=== PATIENT | female | born 1940 | race Caucasian/White ===

== ENCOUNTER → 2018-04-28 09:20 | Outpatient (CLI) | payer MEDICARE, SELFPAY | PROVIDERS: PCP Family Medicine; Visit Provider Orthopaedic Surgery | DX: M17.11 Unilateral primary osteoarthritis, right knee (principal); M17.12 Unilateral primary osteoarthritis, left knee | CPT/HCPCS: 20610; 99213; J1040 ==

== ENCOUNTER → 2018-07-28 13:01 | Outpatient (BNVA) | payer MEDICARE, SELFPAY | PROVIDERS: PCP Family Medicine; Visit Provider Orthopaedic Surgery | DX: M17.0 Bilateral primary osteoarthritis of knee (principal) | CPT/HCPCS: 20610; 99211; 99213; J7325 ==

== ENCOUNTER 2018-08-24 11:38 | Outpatient (CLI) | payer MEDICARE, SELFPAY ==
--- NOTE | 2018-08-24 12:43 | DI.RAD_ITS ---
SYMPTOMS/DIAGNOSIS: WORSENING KNEE PAIN LEFT KNEE: Three views. No priors. There is moderately severe narrowing of both the medial and lateral femoral tibial joint spaces. Chondrocalcinosis is noted. Periarticular spurring is seen involving all three joint compartments. The bones do appear to be intact. Vascular calcifications are seen. IMPRESSION: Moderately severe degenerative changes of the left knee.
== END 2018-08-24 11:58 ==
PROVIDERS: PCP Family Medicine; Visit Provider Orthopaedic Surgery
DX: M25.562 Pain in left knee (principal); M17.12 Unilateral primary osteoarthritis, left knee
CPT/HCPCS: 20610; 73562; 99211; 99213; J1040

== ENCOUNTER 2018-09-07 11:22 | Outpatient (CLI) | payer MEDICARE, SELFPAY ==
--- NOTE | 2018-09-07 14:27 | DI.RAD_ITS ---
SYMPTOMS/DIAGNOSIS: COUGH, DECREASED BREATH SOUNDS ON EXAM, EXPOSURE, R05, ? PNEUMONIA PA AND LATERAL CHEST: The heart is enlarged. There is hilar prominence bilaterally as noted on multiple previous examinations. The lungs are grossly clear except for some scarring in the lung bases present on previous studies. No pleural effusions seen. CONCLUSION: No evidence of acute change.
== END 2018-09-07 11:42 ==
PROVIDERS: PCP Family Medicine; Visit Provider Student in an Organized Health Care Education/Training Program
DX: R05 Cough (principal); R09.89 Other specified symptoms and signs involving the circulatory and respiratory systems; I51.7 Cardiomegaly
CPT/HCPCS: 71046

== ENCOUNTER 2018-09-10 16:27 | Emergency (ER) | payer MEDICARE, SELFPAY ==
[2018-09-10 16:28] VITALS: BP 162/63; PULSE 64; RESP 18; TEMP 36.7; O2SAT 96
--- NOTE | 2018-09-10 17:25 | DI.RAD_ITS ---
SYMPTOMS/DIAGNOSIS: KNEE PAIN, LEG PAIN LEFT KNEE: The exam is limited by the patient's body habitus. There are degenerative changes greatest at the medial femoral tibial joint. No fracture is visible. IMPRESSION: Limited exam. No gross evidence of a fracture. LEFT TIBIA AND FIBULA: The exam is limited by the patient's body habitus. There is no gross evidence of a fracture. Soft tissue calcifications are noted. IMPRESSION: Limited exam. No acute abnormality.
[2018-09-10] MEDS: HYDROcodone 5/Acetaminophen 325 TAB PO ×2 (17:58→19:58)
--- NOTE | 2018-09-10 18:57 | DI.VRAD_ITS ---
EXAM: XR Left Knee, 3 Views EXAM DATE/TIME: 09/10/2018 6:16 PM CLINICAL HISTORY: 78 years old, female; Pain; Knee; Left; Patient HX: Left knee pain TECHNIQUE: XR Left knee 3 views. COMPARISON: CR XR knee LT 3V AP,lat,viri 08/24/2018 9:31 AM FINDINGS: Bones/joints: Diffuse osteopenia. No fracture or dislocation. Stable marked degenerative joint disease of the left knee with severe medial joint space narrowing, moderate lateral joint space narrowing and scattered spurring. No significant joint effusion. Soft tissues: Stable vascular calcifications. IMPRESSION: Stable exam of the left knee with moderately-severe degenerative joint disease. Dictated and Authenticated by: Mirella Morelos MD. Ordering:JENNY Miranda MD
--- NOTE | 2018-09-10 18:59 | DI.VRAD_ITS ---
EXAM: XR Left Tibia and Fibula, 2 Views EXAM DATE/TIME: 09/10/2018 6:19 PM CLINICAL HISTORY: 78 years old, female; Pain; Lower leg; Left; Patient HX: Left leg pain TECHNIQUE: XR Left tibia and fibula 2 views COMPARISON: CR XR knee LT 3V AP,lat,viri 08/24/2018 9:31 AM FINDINGS: Bones/joints: Diffuse osteopenia. No fracture or dislocation. Moderately-severe degenerative joint disease at the knee. Soft tissues: Diffuse subcutaneous edema. Scattered vascular calcifications. IMPRESSION: 1. No acute bony abnormality. 2. Diffuse subcutaneous edema. Dictated and Authenticated by: Mirella Morelos MD. Ordering:JENNY Miranda MD
--- NOTE | 2018-09-10 19:37 | NUR.NOTE ---
Nursing Note: Pt able to ambulate with walker and SBG with this nurse from bed to wall, steady and slow. Provider aware. Better pain control.
--- NOTE | 2018-09-10 19:40 | W.ED.GENAD ---
Discharge Plan Disposition Patient Disposition: HOME Condition: Stable Discharge Details Chief Complaint: Orthopedic Clinical Impression: Osteoarthrosis, Primary osteoarthritis of both knees Reason For Visit: lilia Primary Care Provider: Dougie Bonner ED Provider: Ruben Pierce Home Meds and New Rx's Prescriptions: Continued Naphcon-A 0.025-0.3 % drops 1 drp OP QID Qty: 10 RF: 0 benzonatate [Tessalon Perles] 100 mg capsule 100 mg PO QID PRN (Reason: cough) Qty: 20 RF: 0 guaifenesin 600 mg tablet extended release 12hr 600 mg PO Q12H Qty: 14 RF: 0 multivitamin [Daily Vitamin] 1 EACH tablet 1 ea PO DAILY RF: 0 lysine 500 MG tablet 500 mg PO DAILY RF: 0 Travatan Z 2.5 ML drops 1 drp Ophthalmic DAILY RF: 0 acetaminophen [Tylenol Extra Strength] 500 MG tablet 1,000 mg PO Q6H PRN RF: 0 timolol maleate 5 ML gel forming solution 1 drp ophthalmic (eye) BID RF: 0 Oxygen EACH 2 l NS 24 hr Qty: 2 RF: 0 torsemide 20 MG tablet 20 mg PO DAILY Qty: 90 RF: 3 lisinopril 20 MG tablet 20 mg PO DAILY Qty: 90 RF: 3 allopurinol 100 MG tablet 100 mg PO DAILY Qty: 90 RF: 4 aspirin [Aspir-81] 81 MG tablet,delayed release (DR/EC) 81 mg PO DAILY 90 Days Qty: 90 RF: 6 nadolol 40 MG tablet 40 mg PO DAILY 90 Days Qty: 90 RF: 3 gabapentin 100 MG capsule 100 mg PO BID PRNQty: 180 RF: 5 lovastatin 20 MG tablet 20 mg PO DAILY Qty: 90 RF: 3 omeprazole 20 MG tablet,delayed release (DR/EC) 20 mg PO DAILY Qty: 90 RF: 3 Varicella-Zoster Ge/As01b/Pf [Shingrix Vial Kit] 50 MCG INJ 50 mcg IM ONCE Qty: 1 RF: 1 Discharge Instructions Instructions: Hydrocodone/Acetaminophen (By mouth), Arthritis (ED) Additional Instructions: Please take your normally prescribed medication and you may use the provided narcotic pain pill sparingly as needed for severe discomfort. Otherwise you should follow-up with your primary care provider on Wednesday as scheduled for reassessment. Feel free to return to emergency department for any new or significant worsening of symptoms. Referrals: Dougie Bonner DO [Primary Care Provider] - (Please keep your appointment as scheduled for Wednesday for addressing your chronic pain and mobility issues) Discharge Data Discharge Date/Time-TO BE ENTERED AT DEPARTURE: 09/10/18 20:40 Medical Decision Making Patient presenting the emergency department for chief complaint of difficulty walking due to significant left knee pain. Patient states that she has been followed by orthopedist and is not a surgical candidate and has been receiving injections but recently they have not been working and she is having worsening pain and discomfort. She denies attempting to contact orthopedist prior to coming to emergency department. Physical exam is limited by patient's body habitus patient does have tenderness to left knee. I suspect more of continued arthritis and degeneration plan to perform radiological imaging to rule out any acute changes given the patient states over the last 3 days she has had worsening symptoms and difficulty walking. Patient denies any blunt injury or trauma that exacerbated her symptoms. Review of radiological imaging shows degenerative changes otherwise no other acute findings are noted. Patient was encouraged to use walker and to follow-up with primary care provider/orthopedist for reassessment and treatment plan for chronic pain and mobility issues secondary to arthritis HPI General Mode of arrival: EMS. Date/Time Provider Initiated Documentation: 09/10/18 16:31. Limitations to Documentation: no limitations. Information obtained by: patient and RN notes reviewed. History of Present Illness 78 year old F presents to the emergency department with the chief complaint of Left knee, described as severe and similar to prior episodes, with intensity rated at 10. Quality is described as sharp, and is localized to the left and lower extremity. Patient reports no radiation. Patient started experiencing this day(s) (3) and it has been constant. No relieving factors improve symptom(s), Patient notes no other symptoms.. Patient did receive the following treatments prior to arrival, none Related Data Home Medications Medication Instructions Recorded Confirmed lysine 500 mg PO DAILY 12/15/12 09/12/18 multivitamin [Daily Vitamin] 1 ea PO DAILY 12/15/12 09/12/18 Travatan Z 1 drp OPHTHALMIC DAILY drp 11/08/15 09/12/18 acetaminophen [Tylenol Extra 1,000 mg PO Q6H PRN tab-cap 02/20/16 09/12/18 Strength] timolol maleate 1 drp OPHTHALMIC (EYE) BID drp 07/16/16 09/12/18 Oxygen 2 l NS 24 hr #2 08/27/16 09/12/18 allopurinol 100 mg PO DAILY #90 tab-cap 11/25/17 09/12/18 aspirin [Aspir-81] 81 mg PO DAILY 90 Days #90 tab-cap 11/25/17 09/12/18 gabapentin 100 mg PO BID PRN #180 tab-cap 11/25/17 09/12/18 lisinopril 20 mg PO DAILY #90 tab-cap 11/25/17 09/12/18 lovastatin 20 mg PO DAILY #90 tab 11/25/17 09/12/18 nadolol 40 mg PO DAILY 90 Days #90 tab-cap 11/25/17 09/12/18 omeprazole 20 mg PO DAILY #90 tab-cap 11/25/17 09/12/18 torsemide 20 mg PO DAILY #90 tab-cap 11/25/17 09/12/18 Varicella-Zoster Ge/As01b/Pf 50 mcg IM ONCE #1 kit 04/12/18 09/10/18 [Shingrix Vial Kit] naphazoline 0.025 %-pheniramine 1 drp OP QID #10 ml 05/25/18 09/12/18 0.3 % eye drops benzonatate 100 mg capsule 100 mg PO QID PRN #20 cap 09/07/18 09/12/18 guaifenesin ER 600 mg tablet, 600 mg PO Q12H #14 tab 09/07/18 09/12/18 extended release 12 hr Previous Rx's Medication Instructions Recorded allopurinol 100 mg PO DAILY #90 tab-cap 11/25/17 aspirin [Aspir-81] 81 mg PO DAILY 90 Days #90 tab-cap 11/25/17 lisinopril 20 mg PO DAILY #90 tab-cap 11/25/17 lovastatin 20 mg PO DAILY #90 tab 11/25/17 nadolol 40 mg PO DAILY 90 Days #90 tab-cap 11/25/17 omeprazole 20 mg PO DAILY #90 tab-cap 11/25/17 torsemide 20 mg PO DAILY #90 tab-cap 11/25/17 naphazoline 0.025 %-pheniramine 1 drp OP QID #10 ml 05/25/18 0.3 % eye drops benzonatate 100 mg capsule 100 mg PO QID PRN #20 cap 09/07/18 guaifenesin ER 600 mg tablet, 600 mg PO Q12H #14 tab 09/07/18 extended release 12 hr Allergies Allergy/AdvReac Type Severity Reaction Status Date / Time aspirin AdvReac Mild GI upset, Verified 09/10/18 16:38 tolerates 81mg codeine AdvReac GI upset Verified 09/10/18 16:38 General Stated Complaint: Orthopedic GREG: 3 Review of Systems Constitutional Denies chills, Denies fever(s) and Denies frequent falls Cardiovascular Denies chest pain, Denies edema and Denies dyspnea Respiratory Denies dyspnea Musculoskeletal Reports as per HPI, Denies back pain, Reports arthralgias, Denies joint swelling, Denies numbness, Reports stiffness and Denies tingling Neurologic Denies frequent falls, Denies numbness and Denies tingling PFS Medical History CARLOS (obstructive sleep apnea) (Chronic) Anemia (Chronic) Unspecified diastolic heart failure (Chronic 05/27/12) Trigeminal neuralgia of left side of face (Chronic 02/17/17) Sarcoidosis (Chronic 02/11/12) Spinal stenosis (Chronic 02/11/12) Restrictive lung disease (Chronic 03/19/16) Primary osteoarthritis of both knees (Chronic 09/23/15) Osteoarthrosis (Chronic 02/23/13) Obesity hypoventilation syndrome (Chronic 09/29/16) Obesity (Chronic 04/05/13) Gout of right foot (Resolved 01/17/16) Congestive heart failure (Chronic 01/19/17) Irritable bowel syndrome (IBS) (Chronic) IFG (impaired fasting glucose) (Suspected 02/11/12) Surgical History Appendectomy (Resolved) Cholecystectomy (Resolved) Tonsillectomy and adenoidectomy (Resolved) Family History Mother No problems noted. Father No problems noted. Daughter No problems noted. Social History adopted: No caregiver/support person: No foster care: No household members: other details: apartment in [facility] housing: apartment lives independently: Yes number of children: 3 current occupational status: retired Smoking/Tobacco Use Status: Never alcohol intake: never substance use type: does not use working smoke detector in home: Yes carbon monox detector in home: Yes Exam Const General: cooperative and no acute distress Nutritional Appearance: obese Orientation: alert, awake and oriented x3 Resp Effort & Inspection: normal respiratory effort and able to speak in complete sentences Cardio Rate: regular rate Rhythm: regular rhythm Extrem Left lower extremity: hip/thigh Details: no tenderness and no swelling and knee Details: tenderness Location: of the medial joint line, of the lateral joint line and of the proximal tibia, abnormal ROM (Pain with any range of motion type activities) and knee ligament exam abnormal (Difficult to perform ligamentous testing due to patient's body habitus) Course Vital Signs Temperature 36.7 C 09/10/18 16:28 Pulse 64 09/10/18 16:28 Respiratory Rate 18 09/10/18 16:28 Blood Pressure 162/63 H 09/10/18 16:28 Pulse Oximetry 96 09/10/18 16:28 Temperature 36.7 C 09/10/18 16:28 Temperature Source Temporal Artery Scan 09/10/18 16:28 Pulse 64 09/10/18 16:28 Respiratory Rate 18 09/10/18 16:28 Respiratory Effort Non-Labored 09/10/18 16:34 Blood Pressure 162/63 H 09/10/18 16:28 Blood Pressure Position Supine 09/10/18 16:28 Pulse Oximetry 96 09/10/18 16:28 Oxygen Delivery Method Room Air 09/10/18 16:28 Oxygen Flow Rate 0 09/10/18 16:28 Pain Level 8 09/10/18 17:58
[2018-09-10 19:59] VITALS: BP 150/76; PULSE 61; RESP 16; TEMP 36.7; O2SAT 96
== END 2018-09-10 20:40 | disposition home or self-care (01) ==
PROVIDERS: Emergency Provider Nurse Practitioner Family; PCP Family Medicine
DX: M17.0 Bilateral primary osteoarthritis of knee (principal)
CPT/HCPCS: 73562; 99284; 73590; 99283

== ENCOUNTER 2018-09-12 11:52 | Inpatient (IN) | payer MEDICARE, SELFPAY ==
[2018-09-12] VITALS (93 sets, daily range): BP systolic 109–143; BP diastolic 37–83; PULSE 51–72; RESP 10–28; TEMP 36.3–36.8; O2SAT 78–99
--- NOTE | 2018-09-12 12:08 | ED.GENADUL_ITS ---
Discharge Plan Disposition Condition: Improving Discharge Details Chief Complaint: Nausea/Vomit/Diar Reason For Visit: DEHYDRATION Admit Date/Time: 09/12/18 16:55 Admit Provider: Luis Manuel Saha Attending Provider: Luis Manuel Saha Primary Care Provider: Dougie Bonner ED Provider: Fernando Souza Discharge Instructions Activity:: Activity as Tolerated Equipment/Supplies:: Oxygen (L/min Below) Diet:: As Tolerated Discharge Orders Discharge Orders: Discharge Order (Routine); Ordered 09/19/18 Ordered By: Ivanna Guidry Discharge Data Discharge Date/Time-TO BE ENTERED AT DEPARTURE: 09/12/18 18:19 Medical Decision Making <Latoya Duong MD - Last Filed: 09/20/18 12:01> Christiane Jackson is an 78 y/o woman with multiple medical problems presenting to the emergency deparmtent with difficulty walking over the past week 2/2 left knee pain, decreased PO intake and mild confusion over the past 2 days since taking vicodin for knee pain. On exam Pt appears dehydrated and chronically ill but not in extremis. Concern for dehydration, occult infection, metabolic/lyte derangement, ACS vs other, possible LLE DVT. Exam/hx not c/w PE, acute aortic process, meningitis, CVA. Plan for EKG, CXR, CT head, screening labs, judicious fluids given CHF, telemetry. Will monitor and reassess. Given dehydration, failure to thrive at home per family despite their efforts to care for her over the past few days, I do not have confidence that the Pt will be able to recover well if discharged. Plan for admission. Clinical Impression: dehydration, FTT DIsposition: [facility] inpatient Medical Records Medical records reviewed: Yes I reviewed the patient's medical records. Imaging Data Radiologic Study: Attestation: I personally reviewed and interpreted this imaging study as follows: Radiologist's impression: AP AND LATERAL CHEST: Comparison is made with August,. The exam is limited by the patient's body habitus. The heart is enlarged. The lungs are suboptimally inflated on both views. Basilar infiltrates and mild pulmonary edema cannot be excluded. No effusions are seen. IMPRESSION: Cardiomegaly. Limited exam. No gross evidence of an acute abnormality. LEFT LOWER EXTREMITY ULTRASOUND: The exam is limited by the patient's body habitus. The femoral and popliteal veins and saphenous vein are free of thrombus. The calf veins are poorly visualized. A Fernando's cyst is seen in the posteromedial knee measuring 4.5 cm in length. IMPRESSION: Fernando's cyst. No evidence of DVT. The calf region was not well seen. Lab Data Lab results reviewed: Yes I reviewed the patient's lab results. ECG Data Attestation: I personally reviewed and interpreted this ECG (s) as follows: Interpretation: EKG shows sinus bradycardia at 55 with normal axis, right bundle branch block, no ischemic changes HPI <Latoya Duong MD - Last Filed: 09/20/18 12:01> General Mode of arrival: EMS . Date/Time Provider Initiated Documentation: 09/12/18 12:07 . Limitations to Documentation: no limitations . Information obtained by: patient, family, RN notes reviewed and old records rev iewed . HPI Narrative: Christiane is an 78-year-old woman with history of obesity hypoventilation syndrome, restrictive lung disease, congestive heart failure, hyperlipidemia, hypertension presenting to the emergency department with decreased appetite for past several days, nausea, not getting out of bed. Patient reports that she was seen here recently for knee pain, and prescribed Vicodin. She reports that 2 days ago she took a Vicodin which made her feel very nauseous. Yesterday she again take a Vicodin, which made her feel nauseous. She reports that she has not eaten anything over the past few days because of this. She has not had much to drink either. Patient reports that she now feels generally unwell and somewhat dehydrated. She denies having pain, other than pain behind her left knee that has been ongoing for several weeks. She denies shortness of breath. No fevers, no diarrhea, no vomiting, no rash. Patient's family reports that patient has been mildly confused. They report that patient has seemed disoriented at times over the past few days, and she continues to not seem quite at baseline now. Related Data Home Medications Medication Instructions Recorded Confirmed lysine 500 mg PO DAILY 12/15/12 09/12/18 multivitamin [Daily Vitamin] 1 ea PO DAILY 12/15/12 09/12/18 Travatan Z 1 drp OPHTHALMIC DAILY drp 11/08/15 09/12/18 timolol maleate 1 drp OPHTHALMIC (EYE) BID drp 07/16/16 09/12/18 Oxygen 2 l NS 24 hr #2 08/27/16 09/12/18 aspirin [Aspir-81] 81 mg PO DAILY 90 Days #90 tab-cap 11/25/17 09/12/18 lisinopril 20 mg PO DAILY #90 tab-cap 11/25/17 09/12/18 lovastatin 20 mg PO DAILY #90 tab 11/25/17 09/12/18 nadolol 40 mg PO DAILY 90 Days #90 tab-cap 11/25/17 09/12/18 omeprazole 20 mg PO DAILY #90 tab-cap 11/25/17 09/12/18 torsemide 20 mg PO DAILY #90 tab-cap 11/25/17 09/12/18 acetaminophen [Tylenol] 325 - 650 mg PO Q4H PRN PRN #0 tab 09/19/18 lidocaine [Lidoderm] 1 patch TOPICAL DAILY #0 ea 09/19/18 polyethylene glycol 3350 17 g PO BID #0 ea 09/19/18 Previous Rx's Medication Instructions Recorded aspirin [Aspir-81] 81 mg PO DAILY 90 Days #90 tab-cap 11/25/17 lisinopril 20 mg PO DAILY #90 tab-cap 11/25/17 lovastatin 20 mg PO DAILY #90 tab 11/25/17 nadolol 40 mg PO DAILY 90 Days #90 tab-cap 11/25/17 omeprazole 20 mg PO DAILY #90 tab-cap 11/25/17 torsemide 20 mg PO DAILY #90 tab-cap 11/25/17 acetaminophen [Tylenol] 325 - 650 mg PO Q4H PRN PRN #0 tab 09/19/18 lidocaine [Lidoderm] 1 patch TOPICAL DAILY #0 ea 09/19/18 polyethylene glycol 3350 17 g PO BID #0 ea 09/19/18 Allergies Allergy/AdvReac Type Severity Reaction Status Date / Time aspirin AdvReac Mild GI upset, Verified 09/10/18 16:38 tolerates 81mg codeine AdvReac GI upset Verified 09/10/18 16:38 General Stated Complaint: Nausea/Vomit/Diar GREG: 3 Review of Systems <Latoya Duong MD - Last Filed: 09/20/18 12:01> Review of Systems Constitutional: denies fevers, reports fatigue, malaise, decreased appetite Eyes: denies eye pain ENT: denies facial pain, dental pain, sore throat Cardiovascular: denies chest pain, edema Respiratory: denies SOB, cough GI: denies abdominal pain, vomiting, diarrhea : denies flank pain MSK: denies back pain, neck pain, myalgias, reports left knee pain Skin: denies rash Neuro: denies headaches, lightheadedness, reports generalized weakness PFSH <Latoya Duong MD - Last Filed: 09/20/18 12:01> Medical History Unspecified diastolic heart failure (Chronic 05/27/12) Trigeminal neuralgia of left side of face (Chronic 02/17/17) Sarcoidosis (Chronic 02/11/12) Spinal stenosis (Chronic 02/11/12) Restrictive lung disease (Chronic 03/19/16) Primary osteoarthritis of both knees (Chronic 09/23/15) Osteoarthrosis (Chronic 02/23/13) Obesity hypoventilation syndrome (Chronic 09/29/16) Obesity (Chronic 04/05/13) Gout of right foot (Resolved 01/17/16) Congestive heart failure (Chronic 01/19/17) Irritable bowel syndrome (IBS) (Chronic) IFG (impaired fasting glucose) (Suspected 02/11/12) Social History adopted: No caregiver/support person: No foster care: No household members: other details: apartment in [facility] housing: apartment lives independently: Yes number of children: 3 current occupational status: retired Smoking/Tobacco Use Status: Never alcohol intake: never substance use type: does not use working smoke detector in home: Yes carbon monox detector in home: Yes Exam <Latoya Duong MD - Last Filed: 09/20/18 12:01> Narrative Exam Narrative: Constitutional: chronically ill but acutely [id number], pleasant, conversing normally HENT: head atraumatic, normocephalic normal inspection, mucous membranes dry Eyes: conjunctiva normal, sclera normal, pupils 3mm b/l Neck: no stridor, normal ROM, trachea midline Chest: normal inspection Resp: normal work of breathing, LCTAB Cardio: normal rate, normal rhythm, no murmur appreciated GI: abdomen soft, non-tender, non-distended Back: normal inspection, no rash Skin: warm, dry, normal color, no rash Neuro: alert and oriented x3, not altered, grossly non-focal, normal tone Ext: left knee with TTP posteriorly, ROM slightly limited 2/2 pain, no effusionor skin changes, no edema of LEs Psych: normal mood, normal affect, normal behavior Course <Latoya Duong MD - Last Filed: 09/20/18 12:01> Vital Signs Temperature 36.6 C 09/12/18 11:52 Pulse 64 09/12/18 11:52 Respiratory Rate 16 09/12/18 11:52 Blood Pressure 122/49 L 09/12/18 11:52 Pulse Oximetry 96 09/12/18 11:52 Temperature 36.6 C 09/12/18 11:52 Temperature Source Temporal Artery Scan 09/12/18 11:52 Pulse 64 09/12/18 11:52 Respiratory Rate 16 09/12/18 11:52 Blood Pressure 122/49 L 09/12/18 11:52 Blood Pressure Position Sitting 09/12/18 11:52 Pulse Oximetry 96 09/12/18 11:52 Oxygen Delivery Method Room Air 09/12/18 11:52 Oxygen Flow Rate 0 09/12/18 11:52 Pain Level 0 09/12/18 11:52 Sign Out <Latoya Duong MD - Last Filed: 09/20/18 12:01> Sign Out Data: Sign Out Comment: Patient signed out to Dr. Souza at time of shift change. Patient has been accepted for admission by hospitalist, but has not been seen by the hospitalist. She has UA, repeat troponin, and CT head pending. Last updated by Latoya Duong MD at 09/12/18 17:21
--- NOTE | 2018-09-12 12:38 | DI.RAD_ITS ---
SYMPTOMS/DIAGNOSIS: GENERALIZED WEAKNESS, NAUSEA AP AND LATERAL CHEST: Comparison is made with August,. The exam is limited by the patient's body habitus. The heart is enlarged. The lungs are suboptimally inflated on both views. Basilar infiltrates and mild pulmonary edema cannot be excluded. No effusions are seen. IMPRESSION: Cardiomegaly. Limited exam. No gross evidence of an acute abnormality.
[2018-09-12] MEDS: Normal Saline 250 ML IV (12:40)
--- NOTE | 2018-09-12 12:41 | DI.US_ITS ---
SYMPTOMS/DIAGNOSIS: LEFT LEG PAIN LEFT LOWER EXTREMITY ULTRASOUND: The exam is limited by the patient's body habitus. The femoral and popliteal veins and saphenous vein are free of thrombus. The calf veins are poorly visualized. A Fernando's cyst is seen in the posteromedial knee measuring 4.5 cm in length. IMPRESSION: Fernando's cyst. No evidence of DVT. The calf region was not well seen.
[2018-09-12 13:18] LABS: Abs Immature Grans 0.07 k/cumm (0.0-0.09); Absolute Basophil Count 0.02 k/cumm (0.0-0.2); Absolute Eosinophil Count 0.12 k/cumm (0.0-0.7); Absolute Lymphocyte Count 0.71 k/cumm (1.2-3.4); Absolute Monocyte Count 0.56 k/cumm (0.11-0.7); Absolute Neutrophil Count 3.98 k/cumm (1.2-6.7); Basophils % 0.4; Eosinophils % 2.2; HCT 33.4 % (36.0-46.0); HGB 9.7 g/dL (12.0-15.5); Immature Grans % 1.3; Mean Platelet Volume 8.9 fL (8.0-11.0); Monocytes % 10.3; Neutrophils % 72.8; Platelet Count 195 x1000/uL (130-400); RBC 3.34 m/cumm (4.00-5.20); RBC Distribution Width 14.6 % (11.7-14.6); White Blood Cell Count 5.46 k/cumm (4.4-10.8)
[2018-09-12 13:31] LABS: ALT 16 U/L (12-78); AST 21 U/L (15-37); Albumin 2.7 g/dL (3.4-5.0); Alkaline Phosphatase 77 U/L (46-116); Anion Gap 1.9 mmol/L (3-11); BUN 26 mg/dL (7-18); Bilirubin, Total 0.5 mg/dL (0.2-1.0); CO2 42.1 mmol/L (21.0-32.0); CREATININE 1.48 mg/dL (0.55-1.02); Chloride 101 mmol/L (98-107); Estimated GFR 33.93 (mL/min/1.73m2); Glucose 120 mg/dL (70-100); Lipase 111 U/L (73-393); Potassium 4.6 mmol/L (3.5-5.1); Sodium 145 mmol/L (136-145); Total Protein 6.7 g/dL (6.4-8.2); Troponin I 0.03 ng/mL (0.00-0.06)
[2018-09-12 13:32] LABS: Diff Comment RBC Morph Reviewed
[2018-09-12 13:33] LABS: Polychromasia Present
--- NOTE | 2018-09-12 13:41 | NUR.NOTE ---
Pt. is currently in DI
--- NOTE | 2018-09-12 16:42 | DI.CT_ITS ---
SYMPTOM/DIAGNOSIS: CONFUSION NONCONTRAST HEAD CT: No intracranial hemorrhage, mass or infarct is seen. There is no evidence of skull fracture. White matter changes consistent with small vessel disease and mild atrophy are noted. The ventricles are normal in size. IMPRESSION: No acute abnormality.
[2018-09-12] MEDS: Normal Saline 1,000 ML 100 ML IV (16:44)
--- NOTE | 2018-09-12 16:54 | NUR.NOTE ---
MD Duong aware, pt. straight cathed, no urine returned. Cath left in place. 250cc NS bolus administered as ordered.
--- NOTE | 2018-09-12 17:22 | NUR.NOTE ---
900 ccs urine straight cathed.
[2018-09-12] MEDS: Normal Saline 1,000 ML 75 ML IV (17:23)
[2018-09-12 17:30] LABS: Bilirubin Negative (Negative); Blood Negative (Negative); Clarity Cloudy; Glucose Negative (Negative); Ketones Negative (Negative); Leukocyte Esterase Negative (Negative); Nitrite Negative (Negative); Urobilinogen 0.2 EU/dL (Up TO 0.2); pH 5.5 (5-8)
--- NOTE | 2018-09-12 18:12 | DI.VRAD_ITS ---
EXAM: CT Head Without Contrast EXAM DATE/TIME: 09/12/2018 4:43 PM CLINICAL HISTORY: 78 years old, female; Signs and symptoms; Other: Confusion TECHNIQUE: Axial computed tomography images of the head/brain without contrast. Coronal and sagittal reformatted images were created and reviewed. COMPARISON: MRI - BRAIN W/WO CONTRAST 08/25/2016 4:32 PM FINDINGS: Brain: Global cerebral atrophy is consistent with patient's age. There is mild diffuse heterogeneity of the white matter attenuation, consistent with chronic white matter ischemic changes. No intracranial hemorrhage. No mass effect. No CT scan evidence of acute stroke. Ventricles: Unremarkable. No ventriculomegaly. Bones/joints: Unremarkable. No acute fracture. Sinuses: Normal as visualized. No acute sinusitis. Mastoid air cells: Normal as visualized. No mastoid effusion. Soft tissues: Unremarkable. Vasculature: Atherosclerosis of the cavernous carotid and vertebral arteries. IMPRESSION: No acute intracranial abnormality. Dictated and Authenticated by: Adryan Gore MD. Ordering:DAR Klein MD
[2018-09-12 18:31] LABS: Troponin I 0.03 ng/mL (0.00-0.06)
[2018-09-12] MEDS: Enoxaparin 30 MG/0.3 ML SYR SC (22:34)
[2018-09-12] MEDS: Travoprost 0.004% Ophth Sol 2.5 ML BTL OP (22:34)
[2018-09-12] MEDS: Gabapentin 100 MG CAP PO ×2 (22:34→23:39)
[2018-09-12] MEDS: Normal Saline Flush 10 ML SYR IVP (23:20)
--- NOTE | 2018-09-12 23:40 | HPE_ITS ---
Date of service: 09/12/18 Time of Service: 23:34 Assessment and Plan (1) Nausea vomiting and diarrhea: Current visit: Yes Status: Acute Patient has had poor appetite and poor p.o. intake for 3 days now. She h as signs and symptoms of moderate dehydration. We will have her on low-dose normal saline for some hydration and continue her on a regular diet. Admitted for observation (2) Weakness: Current visit: Yes Status: Acute New onset weakness may be related to her left knee pain. She is not very mobile or ambulatory normally. She had a recent corticosteroid injection in the left knee which she says has not helped. Will ask physical therapy and occupational therapy to assess her for her mobility issues. Hydration may help. (3) Trigeminal neuralgia of left side of face: Current visit: Yes Status: Chronic She has been on Neurontin, currently at 200 mg at at bedtime. He is also on Neurontin for the paresthesias of her lower extremity. We will continue at present dose. (4) Sarcoidosis: Current visit: Yes Status: Chronic Sarcoidosis has burned out. She is off steroids. She says Dr. Zafar does not feel it contributes to her current respiratory problems. (5) Restrictive lung disease: Current visit: Yes Status: Chronic Obstructive sleep apnea, obesity hypoventilation syndrome, restrictive lung disease all contribute to her ongoing respiratory issues. She is on chronic home O2 2 L/min daytime 4 L/min nighttime along with her CPAP at night. We will continue with her present regimen. Chest x-ray is reassuring that there is no acute process. (6) Obesity hypoventilation syndrome: Current visit: Yes Status: Chronic Continue with nocturnal CPAP. Her bicarb level is elevated at 42.1. (7) Chronic renal failure: Current visit: Yes Status: Acute Baseline creatinine 1.48. Will monitor urine output. Urinalysis is negative. Renally adjust medications. (8) Discharge planning issues: Current visit: Yes Status: Acute Patient is a full code admitted to observation status. She is MedSurg boarder in the ICU. History of Present Illness Chief Complaint: Mental status change/weakness Narrative: This is an 78-year-old woman who is troubled with obesity hypoventilation syndrome and severe osteoarthritis who was found this evening by her granddaughters to have new onset confusion. They note that for the last few days her appetite's been off, today she would not get out of bed. She was seen on 09/10/2018 because of left knee pain and was prescribed Vicodin. She took one at day and 1 on . She says her symptoms have really been ever since she took the Vicodin. In the emergency room she had a head CT that showed atrophy but no other abnormality urinalysis was negative duplex of the left leg was negative chest x- ray limited by her size but showed no abnormality flu swab was negative. Her labs were largely unchanged from baseline. Given her overall weakness and debility coupled with her constellation of symptoms she is admitted for further observation, physical therapy, occupational therapy. Review of Systems Constitutional Reports difficulty sleeping (Falls asleep at 5 AM then sleeps much of the day), Denies excessive sweating, Denies frequent falls, Denies headache(s), Reports poor appetite and Reports weakness ENT Denies headache(s) and Denies throat swelling Cardiovascular Denies chest pain, Denies edema, Denies dyspnea, Denies dyspnea on exertion and Denies orthopnea Respiratory Denies chest congestion, Denies cough, Denies dyspnea and Denies dyspnea on exertion Gastrointestinal Denies diarrhea, Denies nausea and Denies vomiting Genitourinary Denies urinary frequency Musculoskeletal Denies back pain, Denies deformity, Reports muscle weakness and Reports radiating pain into limb (Left knee, paresthesias of the left foot) Integumentary/Breasts Denies rash, Denies sores and Denies wounds Neurologic Reports behavioral changes (Confusion noted by her granddaughters has improved), Denies confusion, Denies frequent falls, Denies headache(s), Reports restless legs (Twitching of upper and lower extremities since the Vicodin), Reports paresthesias (Left foot) and Reports weakness Psychiatric Reports behavioral changes (Confusion noted by her granddaughters has improved), Denies confusion, Denies depression and Denies suicidal ideation Endocrine Denies excessive sweating Hematologic/Lymphatic Denies easy bleeding and Denies easy bruising Allergic/Immunologic Denies urticaria and Denies throat swelling [facility] Medical History Unspecified diastolic heart failure (Chronic 05/27/12) Trigeminal neuralgia of left side of face (Chronic 02/17/17) Sarcoidosis (Chronic 02/11/12) Spinal stenosis (Chronic 02/11/12) Restrictive lung disease (Chronic 03/19/16) Primary osteoarthritis of both knees (Chronic 09/23/15) Osteoarthrosis (Chronic 02/23/13) Obesity hypoventilation syndrome (Chronic 09/29/16) Obesity (Chronic 04/05/13) Gout of right foot (Resolved 01/17/16) Congestive heart failure (Chronic 01/19/17) Irritable bowel syndrome (IBS) (Chronic) IFG (impaired fasting glucose) (Suspected 02/11/12) Surgical History Appendectomy (Resolved) Cholecystectomy (Resolved) Tonsillectomy and adenoidectomy (Resolved) Family History Mother No problems noted. Father No problems noted. Daughter No problems noted. Social History adopted: No caregiver/support person: No foster care: No household members: other details: apartment in [facility] housing: apartment lives independently: Yes number of children: 3 current occupational status: retired Smoking/Tobacco Use Status: Never alcohol intake: never substance use type: does not use working smoke detector in home: Yes carbon monox detector in home: Yes Meds Home Medications Medication Instructions Recorded Confirmed Type lysine 500 mg PO DAILY 12/15/12 09/12/18 History multivitamin [Daily Vitamin] 1 ea PO DAILY 12/15/12 09/12/18 History Travatan Z 1 drp OPHTHALMIC DAILY drp 11/08/15 09/12/18 History acetaminophen [Tylenol Extra 1,000 mg PO Q6H PRN tab-cap 02/20/16 09/12/18 History Strength] timolol maleate 1 drp OPHTHALMIC (EYE) BID drp 07/16/16 09/12/18 History Oxygen 2 l NS 24 hr #2 08/27/16 09/12/18 History allopurinol 100 mg PO DAILY #90 tab-cap 11/25/17 09/12/18 Rx aspirin [Aspir-81] 81 mg PO DAILY 90 Days #90 tab-cap 11/25/17 09/12/18 Rx gabapentin 100 mg PO BID PRN #180 tab-cap 11/25/17 09/12/18 History lisinopril 20 mg PO DAILY #90 tab-cap 11/25/17 09/12/18 Rx lovastatin 20 mg PO DAILY #90 tab 11/25/17 09/12/18 Rx nadolol 40 mg PO DAILY 90 Days #90 tab-cap 11/25/17 09/12/18 Rx omeprazole 20 mg PO DAILY #90 tab-cap 11/25/17 09/12/18 Rx torsemide 20 mg PO DAILY #90 tab-cap 11/25/17 09/12/18 Rx Varicella-Zoster Ge/As01b/Pf 50 mcg IM ONCE #1 kit 04/12/18 09/10/18 History [Shingrix Vial Kit] naphazoline 0.025 %-pheniramine 1 drp OP QID #10 ml 05/25/18 09/12/18 Rx 0.3 % eye drops benzonatate 100 mg capsule 100 mg PO QID PRN #20 cap 09/07/18 09/12/18 Rx guaifenesin ER 600 mg tablet, 600 mg PO Q12H #14 tab 09/07/18 09/12/18 Rx extended release 12 hr Allergies Allergy/AdvReac Type Severity Reaction Status Date / Time aspirin AdvReac Mild GI upset, Verified 09/10/18 16:38 tolerates 81mg codeine AdvReac GI upset Verified 09/10/18 16:38 Exam Narrative Exam Narrative: Markedly obese woman lying comfortably in bed. She is awake and alert able to give a good history. Const General: cooperative, comfortable and no acute distress Nutritional Appearance: obese Orientation: alert, awake and oriented x3 HENMT Head: normal to inspection Ears: hearing grossly normal bilaterally General nose exam: external nose normal Face and sinus: face symmetric Mouth: oropharynx normal Eyes General: appearance normal, both eyes and all related structures Neck Neck: normal visual inspection and other (Massive neck with redundant tissue no abnormalities apparent) Thyroid: symmetrical Carotids: normal carotid upstroke Lymphatic: no lymphadenopathy noted Chest Chest: normal inspection of the chest Resp Effort & Inspection: normal respiratory effort Auscultation: crackles (Fine crackles bilaterally otherwise good air movement) Cardio Jugular venous pressure: no JVD Rate: regular rate Rhythm: regular rhythm Heart Sounds: S1 normal, S2 normal and no murmurs GI Inspection: normal to inspection Palpation: soft, no hepatosplenomegaly and nontender External Female Exam: external appearance normal Back/Spine/Pelvis Back: no CVA tenderness Cervical Spine: normal cervical lordosis Thoracic/Lumbar Spine: thoracic and lumbar spine normal to inspection Skin General skin exam: no rashes or lesions noted Wounds: no wounds Neuro General: alert, awake, oriented x3, moves all extremities, no focal motor deficits, unable to assess gait and other (Twitching noted when asked to move onto her side, self abating) Cranial Nerves: CN's II-XI intact bilaterally Cognition: normal cognition Speech: speech normal Extrem General: normal to inspection, no clubbing, cyanosis or edema and no pedal edema (Adipose tissue around the ankles) Psych Appearance: grossly normal Mental Status: mental status grossly normal Speech and Movement: speech and movement normal Mood: congruent mood Affect: normal affect Attitude: cooperative Thought Process: normal Thought Content: normal Insight: fair Results Imaging Imaging Studies: Lower extremity duplex on the left negative, chest x- ray limited exam no acute abnormality compared to 09/07/2018, head CT showed a ge-appropriate atrophy but no abnormality Labs : 09/12/18 13:00 09/12/18 13:00 Laboratory Results - last 24 hr 09/12/18 09/12/18 09/12/18 13:00 13:00 17:17 WBC 5.46 RBC 3.34 L Hgb 9.7 L Hct 33.4 L MCV 100.0 H MCH 29.0 MCHC 29.0 L RDW 14.6 Plt Count 195 MPV 8.9 Immature Gran % 1.3 Neutrophils % 72.8 Lymphocytes % 13.0 Monocytes % 10.3 Eosinophils % 2.2 Basophils % 0.4 Absolute Neutrophils 3.98 Absolute Lymphocytes 0.71 L Absolute Monocytes 0.56 Absolute Eosinophils 0.12 Absolute Basophils 0.02 Differential Comment Rbc morph reviewed RBC Morphology See below Polychromasia Present Sodium 145 Potassium 4.6 Chloride 101 Carbon Dioxide 42.1 H Anion Gap 1.9 L BUN 26 H Creatinine 1.48 H Estimated GFR/1.73 m2 33.93 Glucose 120 H Calcium 9.0 Total Bilirubin 0.5 AST 21 ALT 16 Alkaline Phosphatase 77 Troponin I 0.03 Total Protein 6.7 Albumin 2.7 L Lipase 111 Urine Color Yellow Urine Clarity Cloudy Urine pH 5.5 Ur Specific Foster 1.020 Urine Protein Negative Urine Ketones Negative Urine Blood Negative Urine Nitrite Negative Urine Bilirubin Negative Urine Urobilinogen 0.2 Ur Leukocyte Esterase Negative Urine Glucose Negative 09/12/18 09/12/18 17:20 17:50 WBC RBC Hgb Hct MCV MCH MCHC RDW Plt Count MPV Immature Gran % Neutrophils % Lymphocytes % Monocytes % Eosinophils % Basophils % Absolute Neutrophils Absolute Lymphocytes Absolute Monocytes Absolute Eosinophils Absolute Basophils Differential Comment RBC Morphology Polychromasia Sodium Potassium Chloride Carbon Dioxide Anion Gap BUN Creatinine Estimated GFR/1.73 m2 Glucose Calcium Total Bilirubin AST ALT Alkaline Phosphatase Troponin I 0.03 Total Protein Albumin Lipase Urine Color Cancelled Urine Clarity Cancelled Urine pH Cancelled Ur Specific Foster Cancelled Urine Protein Cancelled Urine Ketones Cancelled Urine Blood Cancelled Urine Nitrite Cancelled Urine Bilirubin Cancelled Urine Urobilinogen Cancelled Ur Leukocyte Esterase Cancelled Urine Glucose Cancelled Last Vital Signs Temp 36.3 C L 09/12/18 18:34 Pulse 57 L 09/12/18 19:46 Resp 15 09/12/18 19:50 BP 120/43 L 09/12/18 19:46 Pulse Ox 95 09/12/18 19:50
[2018-09-13] VITALS (95 sets, daily range): BP systolic 103–155; BP diastolic 40–74; PULSE 53–84; RESP 11–96; TEMP 36.7–37.3; O2SAT 61–96
[2018-09-13] MEDS: Normal Saline 1,000 ML 75 ML IV ×2 (04:41→18:22)
[2018-09-13] MEDS: Timolol 0.5% 5 ML BTL OP ×2 (08:15→20:48)
[2018-09-13] MEDS: Omeprazole 20 MG CAPCR PO (08:15)
[2018-09-13 08:26] LABS: Abs Immature Grans 0.01 k/cumm (0.0-0.09); Absolute Basophil Count 0.01 k/cumm (0.0-0.2); Absolute Eosinophil Count 0.21 k/cumm (0.0-0.7); Absolute Lymphocyte Count 0.73 k/cumm (1.2-3.4); Absolute Monocyte Count 0.63 k/cumm (0.11-0.7); Absolute Neutrophil Count 4.34 k/cumm (1.2-6.7); Basophils % 0.2; Eosinophils % 3.5; HCT 32.5 % (36.0-46.0); HGB 9.3 g/dL (12.0-15.5); Immature Grans % 0.2; Lymphocytes % 12.3; Mean Corp. HGB Concentration 28.6 g/dL (32.0-36.0); Mean Corpuscular Hemoglobin 28.6 pg (27.0-33.0); Mean Platelet Volume 9.9 fL (8.0-11.0); Monocytes % 10.6; Neutrophils % 73.2; Platelet Count 202 x1000/uL (130-400); RBC 3.25 m/cumm (4.00-5.20); RBC Distribution Width 14.6 % (11.7-14.6); White Blood Cell Count 5.93 k/cumm (4.4-10.8)
--- NOTE | 2018-09-13 08:28 | INITIAL_ITS ---
<Liana Vogt - Last Filed: 09/13/18 13:09> Care Management Initial Assess PREVIOUS FUNCTIONAL STATUS/SOCIAL/FAMILY SUPPORTS:: Christiane lives with her son in law and grandson in [place], [place]. She is independent at baseline with ADL's and transportation. She has not been able to drive recently due to pain in her knee. She has two son's that live out of the area and one daughter who is . CURRENT FUNCTIONAL STATUS:: Christiane is lying in bed she is covered in her blankets and appears ill. Her niece is at the bedside and attentive. Christiane states that she wants to be able to return home however the way she is feeling she is unsure that she will be able to. She reports that her knee pain has been worse than before. She states she had an injection by two weeks ago. She states that she went to the ED a few days ago and received vicodin for the pain. After two doses of vicodin she has uncontrolled nausea and was unable to drink or eat for fear of vomiting. She states that she is unsure why the pain is worse this time. Did the patient sign up for the portal?: No CURRENT HOME/COMMUNITY SERVICES/EQUIPMENT:: Christiane has oxygen through [employer] and a CPAP. She has a walker, cane and a lift chair at home. She also has lifeline. PLAN:: Christiane remains observation today, she had a PT consult and continues care in the ICU. She states she does not feel she could return home at this time due to pain and inability to walk. CM to review observation status with provider to deterimine if she meets inpaitent criteria. Christiane would like to return home with new home health services including PT/OT and nursing and the assistance of her family. She is wiling to consider SNF facilities if PT assessment determines she will need SNF prior to returning home. CM reviewed benefits with patient including medciare benefits and options for SNF placement. <Vanna Victor - Last Filed: 09/13/18 13:32> - If Service Date Differs Date of service: 09/13/18 Time of Service: 08:24 Care Management Initial Assess REASON FOR HOSPITALIZATION:: Nausea, Vomiting, Diarrhea PAST MEDICAL HISTORY/PAST SURGICAL HISTORY:: Unspecified diastolic heart failure (Chronic 05/27/12). Trigeminal neuralgia of left side of face (Chronic 02/17/17). Sarcoidosis (Chronic 02/11/12). Spinal stenosis (Chronic 02/11/12). Restrictive lung disease (Chronic 03/19/16). Primary osteoarthritis of both knees (Chronic 09/23/15). Osteoarthrosis (Chronic 02/23/13). Obesity hypoventilation syndrome (Chronic 09/29/16). Obesity (Chronic 04/05/13). Gout of right foot (Resolved 01/17/16). Congestive heart failure (Chronic 01/19/17). Irritable bowel syndrome (IBS) (Chronic). IFG (impaired fasting glucose) (Suspected 02/11/12). Appendectomy (Resolved). Cholecystectomy (Resolved). Tonsillectomy and adenoidectomy (Resolved) ADVANCE DIRECTIVES:: On file - Luis Manuel Jackson is agent, Henry Jackson is alternate Has patient been provided with information about the portal?: Yes CODE STATUS:: Full Code INSURANCE COVERAGE / FINANCIAL ISSUES:: Medicare, AARP PRIMARY CARE PHYSICIAN:: Dr. Bonner POTENTIAL DISCHARGE NEEDS:: F/U appointment with PCP PATIENT/FAMILY EDUCATION NEEDS:: Review DC instructions, any limitations, and ongoing DC planning discussion. Discuss 'Ask Me Three' ANTICIPATED BARRIERS TO DISCHARGE:: None identified at this time. TRANSPORTATION:: Via private vehicle with
[2018-09-13 08:36] LABS: Anion Gap 3.5 mmol/L (3-11); BUN 28 mg/dL (7-18); CO2 39.5 mmol/L (21.0-32.0); CREATININE 1.45 mg/dL (0.55-1.02); Calcium 9.1 mg/dL (8.5-10.1); Chloride 100 mmol/L (98-107); Estimated GFR 34.75 (mL/min/1.73m2); Glucose 108 mg/dL (70-100); Potassium 4.2 mmol/L (3.5-5.1); Sodium 143 mmol/L (136-145)
--- NOTE | 2018-09-13 11:35 | PT.INIE ---
Date of service: 09/13/18 Time of Service: 11:10 PT Notes Inpatient Physical Therapy Evaluation Date: 09/13/18 Referring Doctor: Dr. Saha PT Orders: PT CONSULT: loss of ADLs Precautions: fall, standard Patient Profile/Admitting Diagnosis: Patient admitted due to nausea and vomiting, with weakness reported by family members. PMHX: Left knee OA, status post recent corticosteroid injection; trigeminal neuralgia; sarcoidosis; restrictive lung disease, on 2 LPM chronically; obese hypoventilation syndrome Social History/Home Situation: Patient lives in [place] with family members who assist with her care. Equipment Owned/DME: Has [facility], home O2, CPAP Subjective: Christiane is sleeping at initiation of session. She is somewhat difficult to arouse, but agrees to PT evaluation. She denies pain, although states that she is having difficulty controlling her arms and legs, and that they have been shaking for the past day. She denies any similar episodes historically. Denies numbness or tingling. States that she is worried about what is going on, and would like to know what is wrong. Objective: General Observation: Initially lying on her right side in bed. She has supplemental oxygen via nasal cannula, IV in the left upper extremity, monitored on telemetry. Mental Status: Alert, although groggy. OrientedX3 Pain: Reports that her left knee hurts, although at baseline level of pain Vital Signs: Monitored via telemetry ROM: Right Upper Extremity: Active shoulder flexion allows 110 degrees, with intermittent nonphysiological tremor. Elbow and wrist motions are within normal limits. Left Upper Extremity: Active shoulder flexion allows 130 degrees. Elbow and wrist motions are within normal limits, with intermittent, nonphysiological tremor into wrist extension. Right Lower Extremity: Grossly WFL Left Lower Extremity: Grossly WFL Strength: Right Upper Extremity: Shoulder flexion 3-/5, biceps 4-/5, triceps 4-/5. [employer] is strong and equal. During evaluation of right upper extremity range of motion, patient appears to abruptly lose control of the extremity, rapidly dropping to side. The same is true with the head and neck, with patient dropping head into flexion on 3 occasions in the seated position. Left Upper Extremity: Shoulder flexion 3-/5, biceps 4-/5, triceps 4-/5. [employer]neyman is strong and equal Right Lower Extremity: Flexion 4/5, quads 4+/5, hamstrings 4-/5, ankle dorsiflexion 4+/5 Left Lower Extremity: Flexion 4/5, quads 4-/5, hamstrings 4-/5, ankle dorsiflexion 4+/5 Bed Mobility/Transfers: Supine?set: Min a Sit?supine: Min a Sit?stand: Unable due to safety concerns related to intermittent tremor Gait: Unable Balance: Static Sitting: Poor Dynamic Sitting: poor Static Standing: unable Dynamic Standing: unable Neuro: Diminished coordination with rapid alternating movements of both the upper and lower extremities. Diminished fine motor skills noted with thumb to digit tapping bilaterally, with poor accuracy noted bilaterally. Visual tracking is slow but accurate. Special Tests: Mobility Limitations Standardized Measure [facility] 6 clicks Basic Mobility Inpatient Short Form: Raw Score: 10 Standardized Score: 32.29 [facility] Score: 77% CMS Modifier: CL Informed Consent/Education: Patient instructed in purpose of PT consult and plan of care. Assessment: Patient is a 78 year old female referred to physical therapy services with the diagnosis of loss of ADL, after admission due to nausea and vomiting. Patient presents with clinical signs and symptoms consistent with diagnosis, with unusual presentation of nonphysiological tremor. She currently demonstrates the following impairment level findings: 1. Decreased upper extremity strength 2. Decreased lower extremity strength 3. Nonphysiological tremor 4. Decreased balance 5. Decreased coordination and fine motor skills Impairments are contributing to the following functional limitations: 1. Decreased independence with bed mobility 2. Unable to perform transfers 3. Unable to ambulate 4. Unable to safely sit independently [facility] score 77% deficit Patient is assessed as High [id number] complexity based on the following: History: 78-year-old female presenting with decreased functional mobility after a bout of nausea and vomiting. She has an extensive medical history, and presents today with nonphysiological tremor resulting in limited safety for transfers and ambulation. Examination: Functional limitations as noted above Presentation: Unstable Decision Making: High complexity Goals: Goals X1 week 1. Supine-Sit: Supervision 2. Sit-Supine : Supervision 3. Sit-Stand : Supervision 4. Stand-Sit : Supervision 5. Bed-Chair : Supervision with WW 6. Chair-Bed : Supervision with WW 7. Gait : Supervision with WW x 50' Plan of Care/Treatment Plan: 1-2x/day, 7 days/week x 1 week. Plan of care has been reviewed with the LABORATORY COORDINATOR providing the service under Physical Therapy direction. Initiate Physical Therapy intervention for strengthening, bed mobility, transfers, gait, stairs, balance training, use of assistive device. DISCHARGE RECOMMENDATIONS: unclear at this time as she awaits further medical work up. TREATMENT CODE/TIME: 20 minutes (97005) G Codes in the area mobility of walking and moving around: current status [id number] CL; projected status GP [id number] Discharge status (if discharging) GP [id number] CL.
--- NOTE | 2018-09-13 11:44 | IN_ITS ---
Date of service: 09/13/18 Time of Service: 11:10 PT Notes Inpatient Physical Therapy Evaluation Date: 09/13/18 Referring Doctor: Dr. Saha PT Orders: PT CONSULT: loss of ADLs Precautions: fall, standard Patient Profile/Admitting Diagnosis: Patient admitted due to nausea and vomiting, with weakness reported by family members. PMHX: Left knee OA, status post recent corticosteroid injection; trigeminal neuralgia; sarcoidosis; restrictive lung disease, on 2 LPM chronically; obese hypoventilation syndrome Social History/Home Situation: Patient lives in [place] with family members who assist with her care. Equipment Owned/DME: Has WW, home O2, CPAP Subjective: Christiane is sleeping at initiation of session. She is somewhat difficult to arouse, but agrees to PT evaluation. She denies pain, although states that she is having difficulty controlling her arms and legs, and that they have been shaking for the past day. She denies any similar episodes historically. Denies numbness or tingling. States that she is worried about what is going on, and would like to know what is wrong. Objective: General Observation: Initially lying on her right side in bed. She has supplemental oxygen via nasal cannula, IV in the left upper extremity, monitored on telemetry. Mental Status: Alert, although groggy. OrientedX3 Pain: Reports that her left knee hurts, although at baseline level of pain Vital Signs: Monitored via telemetry ROM: Right Upper Extremity: Active shoulder flexion allows 110 degrees, with intermittent nonphysiological tremor. Elbow and wrist motions are within normal limits. Left Upper Extremity: Active shoulder flexion allows 130 degrees. Elbow and wrist motions are within normal limits, with intermittent, nonphysiological tremor into wrist extension. Right Lower Extremity: Grossly WFL Left Lower Extremity: Grossly WFL Strength: Right Upper Extremity: Shoulder flexion 3-/5, biceps 4-/5, triceps 4-/5. Psychologist Industrial Organizational is strong and equal. During evaluation of right upper extremity range of motion, patient appears to abruptly lose control of the extremity, rapidly dropping to side. The same is true with the head and neck, with patient dropping head into flexion on 3 occasions in the seated position. Left Upper Extremity: Shoulder flexion 3-/5, biceps 4-/5, triceps 4-/5. Psychologist [employer] Organizational is strong and equal Right Lower Extremity: Flexion 4/5, quads 4+/5, hamstrings 4-/5, ankle dorsiflexion 4+/5 Left Lower Extremity: Flexion 4/5, quads 4-/5, hamstrings 4-/5, ankle dorsiflexion 4+/5 Bed Mobility/Transfers: Supine?set: Min a Sit?supine: Min a Sit?stand: Unable due to safety concerns related to intermittent tremor Gait: Unable Balance: Static Sitting: Poor Dynamic Sitting: poor Static Standing: unable Dynamic Standing: unable Neuro: Diminished coordination with rapid alternating movements of both the upper and lower extremities. Diminished fine motor skills noted with thumb to digit tapping bilaterally, with poor accuracy noted bilaterally. Visual tracking is slow but accurate. Special Tests: Mobility Limitations Standardized Measure [facility] 6 clicks Basic Mobility Inpatient Short Form: Raw Score: 10 Standardized Score: 32.29 [facility] Score: 77% CMS Modifier: CL Informed Consent/Education: Patient instructed in purpose of PT consult and plan of care. Assessment: Patient is a 78 year old female referred to physical therapy services with the diagnosis of loss of ADL, after admission due to nausea and vomiting. Patient presents with clinical signs and symptoms consistent with diagnosis, with unusual presentation of nonphysiological tremor. She currently demonstrates the following impairment level findings: 1. Decreased upper extremity strength 2. Decreased lower extremity strength 3. Nonphysiological tremor 4. Decreased balance 5. Decreased coordination and fine motor skills Impairments are contributing to the following functional limitations: 1. Decreased independence with bed mobility 2. Unable to perform transfers 3. Unable to ambulate 4. Unable to safely sit independently [facility] score 77% deficit Patient is assessed as High [id number] complexity based on the following: History: 78-year-old female presenting with decreased functional mobility after a bout of nausea and vomiting. She has an extensive medical history, and presents today with nonphysiological tremor resulting in limited safety for transfers and ambulation. Examination: Functional limitations as noted above Presentation: Unstable Decision Making: High complexity Goals: Goals X1 week 1. Supine-Sit: Supervision 2. Sit-Supine : Supervision 3. Sit-Stand : Supervision 4. Stand-Sit : Supervision 5. Bed-Chair : Supervision with WW 6. Chair-Bed : Supervision with WW 7. Gait : Supervision with WW x 50' Plan of Care/Treatment Plan: 1-2x/day, 7 days/week x 1 week. Plan of care has been reviewed with the JEWEL CUPPING MACHINE OPERATOR providing the service under Physical Therapy direction. Initiate Physical Therapy intervention for strengthening, bed mobility, transfers, gait, stairs, balance training, use of assistive device. DISCHARGE RECOMMENDATIONS: unclear at this time as she awaits further medical work up. TREATMENT CODE/TIME: 20 minutes (04029) G Codes in the area mobility of walking and moving around: current status [id number] CL; projected status GP [id number] Discharge status (if discharging) GP [id number] CL.
[2018-09-13] MEDS: Nadolol 40 MG TAB PO (12:29)
[2018-09-13] MEDS: Acetaminophen 325 MG TAB PO (13:55)
--- NOTE | 2018-09-13 14:59 | W.PM.PROGNOT ---
Date of Service Date of service: 09/13/18 Time of Service: 14:59 Assessment and Plan (1) Jerking movements of extremities: Current visit: Yes Status: Acute Unusual involuntary movements that appear to be associated with purposeful movement, new finding and patient. Unsure if the symptoms represent some form of dyskinesia, and whether this is neurologic or psychogenic. Med list reviewed and without obvious offense agent, without any evidence of antipsychotic medications. CT of the head from last night also reviewed and without acute intracranial abnormalities. Electrolytes appear to be without significant abnormality. Plan for MRI of the brain when available - due to the holiday magnetic resonance imaging is not available today. (2) Weakness: Current visit: Yes Status: Acute Constellation of symptoms that included poor appetite, weakness, poor oral intake, nausea, somnolence, and altered mental status all following administration of opiate therapy. This may be all related to medication side effect. Discontinue Vicodin and monitor. The patient appears improved from the standpoint of mental status, appetite, and weakness. Will monitor closely. (3) Trigeminal neuralgia of left side of face: Current visit: Yes Status: Chronic Continue current gabapentin dose. (4) Chronic renal failure: Current visit: Yes Status: Acute Appears at baseline. Mild hydration given underlying CHF. (5) Unspecified diastolic heart failure: Current visit: No Status: Chronic Last echo from December 2016 with an intact LV ejection fraction, but findings suggestive of diastolic dysfunction. Also with evidence of significant pulmonary hypertension. Monitor fluid status carefully. (6) Sarcoidosis: Current visit: Yes Status: Chronic History noted, currently appears to be stable and not under treatment. (7) Restrictive lung disease: Current visit: Yes Status: Chronic Noted significant restrictive lung disease by review of pulmonary notes and PFTs. (8) Hypertension: Current visit: No Status: Chronic Continue beta-janak therapy but holding BONG. Blood pressures were slightly soft at time of admission, are beginning to rise. Will reinitiate lisinopril when appropriate. (9) DVT prophylaxis: Current visit: Yes Status: Acute SC heparin. Subjective Interval history since last seen: 78-year-old woman with a past medical history significant for obesity and OA, admitted from [facility] emergency department with new onset confusion. Mrs. Jackson has a prior history of Obesity with associated CARLOS and obesity hypoventilation syndrome, severe OA, hypertension, CKD, severe restrictive lung disease. She also has a history of left-sided facial trigeminal neuralgia chronically maintained on gabapentin, dyslipidemia, and a history of sarcoid that appears to be quiescent. The patient had initially presented to the ED on 09/10 secondary to left knee pain. At that time she was prescribed Vicodin. She reportedly took 1 pill 2 days prior to her admission, which made her feel quite nauseous, and then again 1 pill yesterday. Since that time she is appeared somnolent, has had poor oral intake, and has overall not felt well. Workup in the emergency department included lab work which was significant for hemoglobin slightly lower than baseline, but a lack of leukocytosis. Her basic panel showed an elevated bicarb which is chronic but slightly worse. Her urinalysis was negative for infection. Chest x-ray showed cardiomegaly but no evidence of acute pathology, lower extremity venous study showed a Fernando's cyst without evidence of DVT, and a CT of the head showed no acute intracranial abnormality. She was referred for admission for further evaluation and treatment This morning Mrs. Jackson appears more awake and alert, tolerating oral intake well, and appears vastly improved. However, she now has jerking movements in both her upper and lower extremities which appear to be new and unexplained - they seem most prevalent with voluntary movement. Her Hgb is also slightly lower than prior. No other events reported. She remains afebrile. Exam Narrative Exam Narrative: General: Patient appears comfortable, sitting up on the edge of the bed, AAOX3, NAD Neck: Supple CV: Regular, nontachycardic, S1S2, No rubs, murmurs, or gallops. Pulmonary: Clear to auscultation bilaterally, no crackles, wheezing, or rhonchi Abdomen: + Bowel Sounds, soft, nontender, nondistended, obese in contour Vascular: nonpitting b/l LE edema Neurologic: CN II-XII grossly intact. No focal deficits. Jerking type motion predominantly in the right arm, and bilateral lower extremities Psych: Normal mood and affect. Objective Objective Clinical Data: Abnormal lab results 09/13/18 09/13/18 Range/Units 06:33 06:33 RBC 3.25 L (4.00-5.20) m/cumm Hgb 9.3 L (12.0-15.5) g/dL Hct 32.5 L (36.0-46.0) % MCV 100.0 H (80-95) fL MCHC 28.6 L (32.0-36.0) g/dL Absolute Lymphocytes 0.73 L (1.2-3.4) k/cumm Carbon Dioxide 39.5 H (21.0-32.0) mmol/L BUN 28 H (7-18) mg/dL Creatinine 1.45 H (0.55-1.02) mg/dL Glucose 108 H (70-100) mg/dL Vital Signs Temperature 37.2 C 09/13/18 04:10 Temperature Source Temporal Artery Scan 09/13/18 04:10 Pulse 62 09/13/18 13:28 Pulse Rhythm Regular 09/13/18 08:30 Pulse 63 09/13/18 14:40 Respiratory Rate 17 09/13/18 14:40 Respiratory Effort Non-Labored 09/13/18 08:30 Respiratory Depth Shallow 09/13/18 08:30 Respiratory Pattern Normal 09/13/18 08:30 Blood Pressure 145/70 H 09/13/18 13:28 Blood Pressure Mean 88 09/13/18 13:28 Blood Pressure Position Supine 09/12/18 18:30 Pulse Oximetry 94 L 09/13/18 14:40 Oxygen Delivery Method Nasal Cannula 09/13/18 07:20 Oxygen Flow Rate 2.5 09/13/18 07:20 Pain Level 5 09/13/18 13:55 Comment 09/12/18 18:34 Intake & Output 09/12/18 09/13/18 09/13/18 23:59 11:59 23:59 Intake Total 500 / 500 2680.00 / 2680.00 Output Total 100 / 100 200 / 550 350 / 550 Balance 400 / 400 2480.00 / 2130.00 -350 / 2130.00 Weight 120 kg 121.9 kg Intake: IV 500 / 500 1250.00 / 1250.00 Oral 1430 / 1430 Output: Urine 100 / 100 200 / 550 350 / 550 Other: Urine Color Light Rachana Dark Rachana Light Rachana Urine Appearance Clear Cloudy Cloudy Urine Odor Foul Strong Strong Comment INCONTINENT OF LARGE AMOUNT IN BED D/T MIS-PLACEMENT OF BEDPAN =100ML IN BEDPAN + MUCH MORE ON LINENS Emesis Description None Voiding Methods Bedpan Bedpan Urinal Laboratory Results WBC 5.93 k/cumm (4.4-10.8) 09/13/18 06:33 RBC 3.25 m/cumm (4.00-5.20) L 09/13/18 06:33 Hgb 9.3 g/dL (12.0-15.5) L 09/13/18 06:33 Hct 32.5 % (36.0-46.0) L 09/13/18 06:33 MCV 100.0 fL (80-95) H 09/13/18 06:33 MCH 28.6 pg (27.0-33.0) 09/13/18 06:33 MCHC 28.6 g/dL (32.0-36.0) L 09/13/18 06:33 RDW 14.6 % (11.7-14.6) 09/13/18 06:33 Plt Count 202 x1000/uL (130-400) 09/13/18 06:33 MPV 9.9 fL (8.0-11.0) 09/13/18 06:33 Immature Gran % 0.2 09/13/18 06:33 Neutrophils % 73.2 09/13/18 06:33 Lymphocytes % 12.3 09/13/18 06:33 Monocytes % 10.6 09/13/18 06:33 Eosinophils % 3.5 09/13/18 06:33 Basophils % 0.2 09/13/18 06:33 Absolute Neutrophils 4.34 k/cumm (1.2-6.7) 09/13/18 06:33 Absolute Lymphocytes 0.73 k/cumm (1.2-3.4) L 09/13/18 06:33 Absolute Monocytes 0.63 k/cumm (0.11-0.7) 09/13/18 06:33 Absolute Eosinophils 0.21 k/cumm (0.0-0.7) 09/13/18 06:33 Absolute Basophils 0.01 k/cumm (0.0-0.2) 09/13/18 06:33 Differential Comment Rbc morph reviewed 09/12/18 13:00 RBC Morphology See below 09/12/18 13:00 Polychromasia Present 09/12/18 13:00 Sodium 143 mmol/L (136-145) 09/13/18 06:33 Potassium 4.2 mmol/L (3.5-5.1) 09/13/18 06:33 Chloride 100 mmol/L (98-107) 09/13/18 06:33 Carbon Dioxide 39.5 mmol/L (21.0-32.0) H 09/13/18 06:33 Anion Gap 3.5 mmol/L (3-11) 09/13/18 06:33 BUN 28 mg/dL (7-18) H 09/13/18 06:33 Creatinine 1.45 mg/dL (0.55-1.02) H 09/13/18 06:33 Estimated GFR/1.73 m2 34.75 (mL/min/1.73m2) 09/13/18 06:33 Glucose 108 mg/dL (70-100) H 09/13/18 06:33 Calcium 9.1 mg/dL (8.5-10.1) 09/13/18 06:33 Magnesium Cancelled 09/13/18 11:20 Total Bilirubin 0.5 mg/dL (0.2-1.0) 09/12/18 13:00 AST 21 U/L (15-37) 09/12/18 13:00 ALT 16 U/L (12-78) 09/12/18 13:00 Alkaline Phosphatase 77 U/L (46-116) 09/12/18 13:00 Troponin I 0.03 ng/mL (0.00-0.06) 09/12/18 17:50 Total Protein 6.7 g/dL (6.4-8.2) 09/12/18 13:00 Albumin 2.7 g/dL (3.4-5.0) L 09/12/18 13:00 Lipase 111 U/L (73-393) 09/12/18 13:00 Urine Color Yellow (Yellow) 09/12/18 17:17 Urine Clarity Cloudy 09/12/18 17:17 Urine pH 5.5 (5-8) 09/12/18 17:17 Ur Specific [facility] 1.020 (1.005-1.025) 09/12/18 17:17 Urine Protein Negative mg/dL (Negative) 09/12/18 17:17 Urine Ketones Negative mg/dL (Negative) 09/12/18 17:17 Urine Blood Negative (Negative) 09/12/18 17:17 Urine Nitrite Negative (Negative) 09/12/18 17:17 Urine Bilirubin Negative (Negative) 09/12/18 17:17 Urine Urobilinogen 0.2 EU/dL (Up TO 0.2) 09/12/18 17:17 Ur Leukocyte Esterase Negative (Negative) 09/12/18 17:17 Urine Glucose Negative mg/dL (Negative) 09/12/18 17:17
[2018-09-13] MEDS: Normal Saline Flush 10 ML SYR IVP (19:40)
[2018-09-13] MEDS: Heparin 5,000 UNITS/ML VIAL 5000 UNITS SC (20:47)
[2018-09-13] MEDS: Gabapentin 100 MG CAP 200 MG PO (21:57)
[2018-09-13] MEDS: Travoprost 0.004% Ophth Sol 2.5 ML BTL OP (21:57)
[2018-09-14] VITALS (38 sets, daily range): BP systolic 95–151; BP diastolic 34–63; PULSE 54–70; RESP 12–28; TEMP 36.8; O2SAT 74–98
[2018-09-14] MEDS: Heparin 5,000 UNITS/ML VIAL 5000 UNITS SC ×3 (03:54→20:29)
[2018-09-14 07:27] LABS: Magnesium 1.8 mg/dL (1.8-2.4)
[2018-09-14 07:44] LABS: Folate 15.1 ng/mL (8.6-20.0)
[2018-09-14 07:53] LABS: Iron 51 ug/dL (50-175); Total Iron Binding Capacity 209 ug/dL (250-450); Transferrin Sat 24 % (15-50)
[2018-09-14 08:00] LABS: Ferritin 194 ng/mL (8-388); TSH 4.28 uIU/mL (0.358-3.74); Vitamin B12 298 pg/mL (193-986)
[2018-09-14 08:33] LABS: Abs Immature Grans 0.05 k/cumm (0.0-0.09); Absolute Basophil Count 0.02 k/cumm (0.0-0.2); Absolute Eosinophil Count 0.22 k/cumm (0.0-0.7); Absolute Lymphocyte Count 0.78 k/cumm (1.2-3.4); Absolute Monocyte Count 0.62 k/cumm (0.11-0.7); Absolute Neutrophil Count 3.74 k/cumm (1.2-6.7); Basophils % 0.4; Eosinophils % 4.1; HCT 32.1 % (36.0-46.0); HGB 9.3 g/dL (12.0-15.5); Immature Grans % 0.9; Lymphocytes % 14.4; Mean Corpuscular Hemoglobin 28.7 pg (27.0-33.0); Mean Corpuscular Volume 99.1 fL (80-95); Mean Platelet Volume 10.1 fL (8.0-11.0); Monocytes % 11.4; Neutrophils % 68.8; Platelet Count 190 x1000/uL (130-400); RBC 3.24 m/cumm (4.00-5.20); RBC Distribution Width 14.6 % (11.7-14.6); White Blood Cell Count 5.43 k/cumm (4.4-10.8)
[2018-09-14] MEDS: Omeprazole 20 MG CAPCR PO (08:34)
[2018-09-14] MEDS: Nadolol 40 MG TAB PO (08:35)
[2018-09-14] MEDS: Timolol 0.5% 5 ML BTL OP ×2 (08:37→20:29)
[2018-09-14] MEDS: Normal Saline 1,000 ML 75 ML IV (08:37)
[2018-09-14 08:44] LABS: Anion Gap 3.2 mmol/L (3-11); BUN 29 mg/dL (7-18); CO2 37.8 mmol/L (21.0-32.0); CREATININE 1.47 mg/dL (0.55-1.02); Calcium 8.9 mg/dL (8.5-10.1); Chloride 102 mmol/L (98-107); Glucose 103 mg/dL (70-100); Potassium 4.5 mmol/L (3.5-5.1); Sodium 143 mmol/L (136-145)
--- NOTE | 2018-09-14 09:13 | CMPROGNOTE_ITS ---
Care Management Progress Note S/O: Christiane was lying in bed when CM met with her. She appeared withdrawn with low affect and complained of ongoing foot and leg pain, but became more animated and engaged during CM's visit. Christiane requested this global technical writer speak with her son, Luis Manuel in [place]; CM called Luis Manuel with Christiane and agreed to keep Luis Manuel updated as Christiane has identified him as point person currently. Christiane spoke in length about her support system and family as well as her current living situation. She identified needing more help in the home setting; as her LUIS F and grandson both work during the day and are only home with her at night. She has been able to manage ambulating independently with her FWW at home but would accept more help. She reports being willing to accept short term rehab; but only on a short term basis as she wants to be home. Due to ongoing neurological issues and tele- monitoring, Christiane will transfer to inpatient today. She will have PT/OT consults to inform discharge planning needs. CM will continue to follow. A: 78 year old female admitted to [facility] 09/12/18 for Dehydration P: Christiane will continue work up and treatment of symptoms. She remains on Telemonitoring. She will have PT/OT evaluations to inform next steps. Plan remains: SNF-vs-[facility] services in home setting. CM will continue to follow and support discharge planning considerations.
--- NOTE | 2018-09-14 10:21 | PTTR_ITS ---
Date of service: 09/14/18 Time of Service: 10:11 PT Notes Inpatient Physical Therapy Treatment Note Date: 09/14/18 PRECAUTIONS: Fall precautions SUBJECTIVE: Pt lying in bed, states I am having tremors and I don't know why. Pt keeps talking about her condition when she was picked up by the ambulance. Pt agreeable to PT Consult. OBJECTIVE: General observation: 3 liters 02 NC, telemetry, 02/BP monitors PAIN: no c/o pain BED MOBILITY/TRANSFERS Supine-sit: HOB 35 degrees, independent with railing Sit-stand: CGA with FWW. Stood at bedside, stood for 1min, legs buckling, sat down on bed. 2nd attempt to stand, able to stand for 1min steady and then sat on bed. 3rd attempt pt transferred to chair Stand-sit: SBA Bed-Chair: CGA with FWW and use of gait belt, step by step cues to use upper body to support herself Chair-commode: CGA with FWW, cues for sequencing commode-chair: CGA with FWW GAIT Assistive Device: FWW Weight bearing: as tolerated Assist: CGA Distance: 5 steps bed to chair, 4 steps chair to commode Deviation: Pt able to take short steps with support of FWW. Pt bending knees with gait, unclear if it is weakness or psychogenic, she reports no pain. Pt appears anxious continuously talking about how she was when the ambulance brought her in, requires re-dicrection of thinking to focus on present moment and her abilities currently. THEREX: Performed seated ankle pumps x 20 reps, long arc quads x 20 reps. Pt demonstrated leg shaking bilateral with both leg exercises, resolved with sl owing exercise pace. ASSESSMENT: Pt has good arm and upper body strength, able to pull herself to sitting position from supine with bed railing to get to edge of bed and utlize upper body strength to maintain standing with FWW. Able to perform transfers to chair and commode today with one person assist with encouragement, pt appears to be anxious regarding her weakness and abilities. Pt is home alone during the day in one level home with ramp to enter, mobilizes with 4WW in home setting. At this time she will require more therapy to return to prior level of function. PLAN: Progress strengthening Progress gait with FWW TREATMENT CODE/TIME: 32min TAx1 TPx1 10:03 Shalonda Brand PT
--- NOTE | 2018-09-14 11:01 | PHARADMIT ---
Addendum entered by Leon Montes III 09/16/18 10:59: Pharmacy Note Subjective Spiked fever last night (38.2C @ 23:30) otherwise ready to be discharged . Unexplained limb movements still a mystery. Objective TEMP-36.8C VS-OK Wgt-down (121.7 kg) BM yesterday Assessment No med changes Plan Plan was for discharge to SNF today by 11AM, changed to Wednesday due to overnight fever. Original Note: Addendum entered by Janet Corbett 09/15/18 09:53: Pharmacy Note Subjective jerking movements upper and lower extremities new and unexplained Objective stool occult negative, no labs today Assessment lisinopril and torsemide restarted Plan needs neuro follow up, will transfer to SNF when ready Original Note: Admission Pharmacy Clinical Review Code Status Full Code Current Weight 124.3 kg Renally Cleared and Narrow Therapeutic Index Meds CrCl ~48.4 ml/min (based on abw) Gabapentin (200mg HS okay) QTc Value / Action Taken QTc 427 BP Control, Fever BP 131/63 HR 56 afebrile Electrolytes reviewed WNL DVT Prophylaxis Heparin Opiate Usage / Scheduled Bowel Regimen Ordered n/a Plt/SCr for Heparin / Enoxaparin Plt 190 Scr 1.47 INR for Warfarin n/a H/H stable, WBC/Bands H/H 9.3/32.1 Antibiotic appropriateness n/a Cultures and Sensitivities n/a Surgical ABX d/c within 24 hr n/a DM control / Insulin Dosing n/a Heart Failure (Check EF%) (BONG's, B-Block, Diuretics) Nadolol 40mg IV to PO Switch n/a Home Meds Reviewed Yes - no concerns. Home Meds Not Ordered Allopurinol Torsemide Lisinopril Lovastatin Aspirin (low dose) Lysine Omeprazole Comments Admitted for dehydration as a result of severe nausea and loss of appetite from vicodin which was prescribed recently for knee pain. Being transferred to inpatient for continued monitoring of neurological issue (involuntary jerkiness) & knee pain/weakness -- MRI and PT consult ordered Anemic -- continue to monitor
--- NOTE | 2018-09-14 11:45 | DI.MRI_ITS ---
SYMPTOMS/DIAGNOSIS: DYSKINESIA MRI OF THE BRAIN: Comparison is made with a head CT of August,. T2 sagittal, T1, T2, FLAIR, diffusion and gradient-echo axial sequences were performed. The exam is somewhat limited by patient motion. There is moderate diffuse cerebral atrophy. There are a few small high signal lesions in the white matter consistent with small vessel disease. No acute hemorrhage or infarct is seen. The sinuses, mastoid air cells and orbits are unremarkable. IMPRESSION: Atrophy and mild small vessel disease. No acute abnormality. MRA OF THE [place]: A 3D [id number] study was performed. Exam is somewhat limited by patient motion. There is no evidence of occlusion or significant stenosis. No aneurysm is identified. IMPRESSION: Negative MRA of the [place].
--- NOTE | 2018-09-14 14:52 | W.PM.PROGNOT ---
Date of Service Date of service: 09/14/18 Time of Service: 14:52 Assessment and Plan (1) Jerking movements of extremities: Current visit: Yes Status: Acute Unusual involuntary movements that appear to be associated with purposeful movement, new finding in patient. Unsure if the symptoms represent some form of dyskinesia or myoclonus, but certainly unsual. Unsure if symptoms represent phenomenon that is neurologic or psychogenic. Med list reviewed and without obvious offense agent, without any evidence of antipsychotic medications. CT of the head from last night also reviewed and without acute intracranial abnormalities. Electrolytes appear to be without significant abnormality. Kidney disease is chronic, mild, and at baseline. Plan for MRI of the brain today. (2) Weakness: Current visit: Yes Status: Acute Constellation of symptoms that included poor appetite, weakness, poor oral intake, nausea, somnolence, and altered mental status all following administration of opiate therapy. This may be all related to medication side effect. Discontinued Vicodin - patient appears improved from the standpoint of mental status, appetite, and weakness. Will monitor closely. (3) Trigeminal neuralgia of left side of face: Current visit: Yes Status: Chronic Continue current gabapentin dose. (4) Chronic renal failure: Current visit: Yes Status: Acute Appears at baseline. Mild hydration given underlying CHF. (5) Unspecified diastolic heart failure: Current visit: No Status: Chronic Last echo from December 2016 with an intact LV ejection fraction, but findings suggestive of diastolic dysfunction. Also with evidence of significant pulmonary hypertension. Discontinue IVFs now, and reinitiate Torsemide. (6) Sarcoidosis: Current visit: Yes Status: Chronic History noted, currently appears to be stable and not under treatment. (7) Restrictive lung disease: Current visit: Yes Status: Chronic Noted significant restrictive lung disease by review of pulmonary notes and PFTs. (8) Hypertension: Current visit: No Status: Chronic Continue beta-janak therapy but holding BONG. Blood pressures were slightly soft at time of admission, are now appropriate. Reinitiate lisinopril now. Also on diuretic therapy being restarted now. (9) DVT prophylaxis: Current visit: Yes Status: Acute SC heparin. Subjective Interval history since last seen: 78-year-old woman with a past medical history significant for obesity and OA, admitted from [facility] emergency department with new onset confusion. Mrs. Jackson has a prior history of Obesity with associated CARLOS and obesity hypoventilation syndrome, severe OA, hypertension, CKD, severe restrictive lung disease. She also has a history of left-sided facial trigeminal neuralgia chronically maintained on gabapentin, dyslipidemia, and a history of sarcoid that appears to be quiescent. The patient had initially presented to the ED on 09/10 secondary to left knee pain. At that time she was prescribed Vicodin. She reportedly took 1 pill 2 days prior to her admission, which made her feel quite nauseous, and then again 1 pill yesterday. Since that time she is appeared somnolent, has had poor oral intake, and has overall not felt well. Workup in the emergency department included lab work which was significant for hemoglobin slightly lower than baseline, but a lack of leukocytosis. Her basic panel showed an elevated bicarb which is chronic but slightly worse. Her urinalysis was negative for infection. Chest x-ray showed cardiomegaly but no evidence of acute pathology, lower extremity venous study showed a Fernando's cyst without evidence of DVT, and a CT of the head showed no acute intracranial abnormality. She was referred for admission for further evaluation and treatment This morning Mrs. Jackson appears to be at her baseline from a mental status standpoint, tolerating oral intake well, and appears vastly improved. She is now hydrated as well. However, she continues to have jerking movements in both her upper and lower extremities which appear to be new and unexplained - they seem occur only with voluntary movement. Her Hgb remains slightly lower than baseline. No other events reported. She remains afebrile. Exam Narrative Exam Narrative: General: Patient appears comfortable, sitting up on the edge of the bed, AAOX3, NAD Neck: Supple CV: Regular, nontachycardic, S1S2, No rubs, murmurs, or gallops. Pulmonary: Bibasilar crackles, new since prior exam, with no wheezing, or rhonchi Abdomen: + Bowel Sounds, soft, nontender, nondistended, obese in contour Vascular: nonpitting b/l LE edema Neurologic: Prior neuro exam with CN II-XII grossly intact. No focal deficits. Jerking type motion predominantly in the right arm, and bilateral lower extremities with movement Psych: Normal mood and affect. Objective Objective Clinical Data: Abnormal lab results 09/14/18 09/14/18 09/14/18 Range/Units 06:30 06:30 06:30 RBC (4.00-5.20) m/cumm Hgb (12.0-15.5) g/dL Hct (36.0-46.0) % MCV (80-95) fL MCHC (32.0-36.0) g/dL Absolute Lymphocytes (1.2-3.4) k/cumm Carbon Dioxide 37.8 H (21.0-32.0) mmol/L BUN 29 H (7-18) mg/dL Creatinine 1.47 H (0.55-1.02) mg/dL Glucose 103 H (70-100) mg/dL TIBC 209 L (250-450) ug/dL TSH 4.28 H (0.358-3.74) uIU/mL 09/14/18 Range/Units 06:30 RBC 3.24 L (4.00-5.20) m/cumm Hgb 9.3 L (12.0-15.5) g/dL Hct 32.1 L (36.0-46.0) % MCV 99.1 H (80-95) fL MCHC 29.0 L (32.0-36.0) g/dL Absolute Lymphocytes 0.78 L (1.2-3.4) k/cumm Carbon Dioxide (21.0-32.0) mmol/L BUN (7-18) mg/dL Creatinine (0.55-1.02) mg/dL Glucose (70-100) mg/dL TIBC (250-450) ug/dL TSH (0.358-3.74) uIU/mL Vital Signs Temperature 36.8 C 09/14/18 04:00 Temperature Source Temporal Artery Scan 09/14/18 04:00 Pulse 56 L 09/14/18 08:00 Pulse Rhythm Regular 09/14/18 09:00 Pulse 57 L 09/14/18 08:00 Respiratory Rate 16 09/14/18 08:00 Respiratory Effort Non-Labored 09/14/18 09:00 Respiratory Depth Normal 09/14/18 09:00 Respiratory Pattern Normal 09/14/18 09:00 Blood Pressure 131/63 09/14/18 08:00 Blood Pressure Mean 80 09/14/18 08:00 Blood Pressure Position Supine 09/12/18 18:30 Pulse Oximetry 96 09/14/18 04:00 Oxygen Delivery Method Nasal Cannula 09/14/18 04:00 Oxygen Flow Rate 2 09/14/18 04:00 Pain Level 0 09/14/18 04:00 Comment 09/12/18 18:34 Intake & Output 09/13/18 09/14/18 09/14/18 23:59 11:59 23:59 Intake Total 1390 / 4070.00 1487.5 / 1487.5 Output Total 550 / 750 225 / 225 Balance 840 / 3320.00 1262.5 / 1262.5 Weight 124.3 kg Intake: IV 1000 / 2250.00 1162.5 / 1162.5 Oral 390 / 1820 325 / 325 Output: Urine 550 / 750 225 / 225 Other: Urine Color Light Rachana Urine Appearance Clear Clear Urine Odor Strong Normal Comment Mixed with stool. Stool Occult Blood Negative Stool Size Moderate Stool Characteristics Soft Formed Emesis Description None Voiding Methods Bedpan Bedside Commode Laboratory Results WBC 5.43 k/cumm (4.4-10.8) 09/14/18 06:30 RBC 3.24 m/cumm (4.00-5.20) L 09/14/18 06:30 Hgb 9.3 g/dL (12.0-15.5) L 09/14/18 06:30 Hct 32.1 % (36.0-46.0) L 09/14/18 06:30 MCV 99.1 fL (80-95) H 09/14/18 06:30 MCH 28.7 pg (27.0-33.0) 09/14/18 06:30 MCHC 29.0 g/dL (32.0-36.0) L 09/14/18 06:30 RDW 14.6 % (11.7-14.6) 09/14/18 06:30 Plt Count 190 x1000/uL (130-400) 09/14/18 06:30 MPV 10.1 fL (8.0-11.0) 09/14/18 06:30 Immature Gran % 0.9 09/14/18 06:30 Neutrophils % 68.8 09/14/18 06:30 Lymphocytes % 14.4 09/14/18 06:30 Monocytes % 11.4 09/14/18 06:30 Eosinophils % 4.1 09/14/18 06:30 Basophils % 0.4 09/14/18 06:30 Absolute Neutrophils 3.74 k/cumm (1.2-6.7) 09/14/18 06:30 Absolute Lymphocytes 0.78 k/cumm (1.2-3.4) L 09/14/18 06:30 Absolute Monocytes 0.62 k/cumm (0.11-0.7) 09/14/18 06:30 Absolute Eosinophils 0.22 k/cumm (0.0-0.7) 09/14/18 06:30 Absolute Basophils 0.02 k/cumm (0.0-0.2) 09/14/18 06:30 Differential Comment Rbc morph reviewed 09/12/18 13:00 RBC Morphology See below 09/12/18 13:00 Polychromasia Present 09/12/18 13:00 Sodium 143 mmol/L (136-145) 09/14/18 06:30 Potassium 4.5 mmol/L (3.5-5.1) 09/14/18 06:30 Chloride 102 mmol/L (98-107) 09/14/18 06:30 Carbon Dioxide 37.8 mmol/L (21.0-32.0) H 09/14/18 06:30 Anion Gap 3.2 mmol/L (3-11) 09/14/18 06:30 BUN 29 mg/dL (7-18) H 09/14/18 06:30 Creatinine 1.47 mg/dL (0.55-1.02) H 09/14/18 06:30 Estimated GFR/1.73 m2 34.20 (mL/min/1.73m2) 09/14/18 06:30 Glucose 103 mg/dL (70-100) H 09/14/18 06:30 Calcium 8.9 mg/dL (8.5-10.1) 09/14/18 06:30 Magnesium 1.8 mg/dL (1.8-2.4) 09/14/18 06:30 Iron 51 ug/dL (50-175) 09/14/18 06:30 TIBC 209 ug/dL (250-450) L 09/14/18 06:30 Transferrin % Sat 24 % (15-50) 09/14/18 06:30 Ferritin 194 ng/mL (8-388) 09/14/18 06:30 Total Bilirubin 0.5 mg/dL (0.2-1.0) 09/12/18 13:00 AST 21 U/L (15-37) 09/12/18 13:00 ALT 16 U/L (12-78) 09/12/18 13:00 Alkaline Phosphatase 77 U/L (46-116) 09/12/18 13:00 Troponin I 0.03 ng/mL (0.00-0.06) 09/12/18 17:50 Total Protein 6.7 g/dL (6.4-8.2) 09/12/18 13:00 Albumin 2.7 g/dL (3.4-5.0) L 09/12/18 13:00 Lipase 111 U/L (73-393) 09/12/18 13:00 Vitamin B12 298 pg/mL (193-986) 09/14/18 06:30 Folate 15.1 ng/mL (8.6-20.0) 09/14/18 06:30 TSH 4.28 uIU/mL (0.358-3.74) H 09/14/18 06:30 Urine Color Yellow (Yellow) 09/12/18 17:17 Urine Clarity Cloudy 09/12/18 17:17 Urine pH 5.5 (5-8) 09/12/18 17:17 Ur Specific [place] 1.020 (1.005-1.025) 09/12/18 17:17 Urine Protein Negative mg/dL (Negative) 09/12/18 17:17 Urine Ketones Negative mg/dL (Negative) 09/12/18 17:17 Urine Blood Negative (Negative) 09/12/18 17:17 Urine Nitrite Negative (Negative) 09/12/18 17:17 Urine Bilirubin Negative (Negative) 09/12/18 17:17 Urine Urobilinogen 0.2 EU/dL (Up TO 0.2) 09/12/18 17:17 Ur Leukocyte Esterase Negative (Negative) 09/12/18 17:17 Urine Glucose Negative mg/dL (Negative) 09/12/18 17:17 Objective Narrative Objective Narrative: Exam(s) a MRI:MR angio brain wo a MRI:MR brain wo SYMPTOMS/DIAGNOSIS: DYSKINESIA MRI OF THE BRAIN: Comparison is made with a head CT of August,. T2 sagittal, T1, T2, FLAIR, diffusion and gradient-echo axial sequences were performed. The exam is somewhat limited by patient motion. There is moderate diffuse cerebral atrophy. There are a few small high signal lesions in the white matter consistent with small vessel disease. No acute hemorrhage or infarct is seen. The sinuses, mastoid air cells and orbits are unremarkable. IMPRESSION: Atrophy and mild small vessel disease. No acute abnormality. MRA OF THE [place]: A 3D [id number] study was performed. Exam is somewhat limited by patient motion. There is no evidence of occlusion or significant stenosis. No aneurysm is identified.
[2018-09-14] MEDS: Acetaminophen 325 MG TAB PO (15:27)
[2018-09-14] MEDS: Torsemide 20 MG TAB PO (15:33)
[2018-09-14] MEDS: Lisinopril 20 MG TAB PO (15:37)
--- NOTE | 2018-09-14 15:39 | PT.INTREAT ---
Date of service: 09/14/18 Time of Service: 11:30 PT Notes Date: 09/14/18 PRECAUTIONS: Fall precautions SUBJECTIVE: Pt in chair, needing to get back to bed to transfer to [facility] for test. OBJECTIVE: General observation: 3 liters 02 NC, telemetry, 02/BP monitors PAIN: no c/o pain BED MOBILITY/TRANSFERS Sit-stand: CGA with FWW. Stand-sit: SBA Chair-bed: CGA with FWW and use of gait belt, step by step cues to use upper body to support herself Sit-supine: SBA GAIT Assistive Device: FWW Weight bearing: as tolerated Assist: CGA Distance: 5 steps chair-bed ASSESSMENT: Pt able to sit in chair for 1.5hrs this morning, transfers back to bed with above assistance. PLAN: Progress strengthening Progress gait with FWW TREATMENT CODE/TIME: 15min TAx1 11:30 Shalonda Brand PT
[2018-09-14] MEDS: Normal Saline Flush 10 ML SYR IVP (20:30)
[2018-09-14] MEDS: Travoprost 0.004% Ophth Sol 2.5 ML BTL OP (21:28)
[2018-09-15] VITALS (85 sets, daily range): BP systolic 133–167; BP diastolic 39–69; PULSE 57–72; RESP 11–30; TEMP 36.9–38.2; O2SAT 87–96
[2018-09-15] MEDS: Heparin 5,000 UNITS/ML VIAL 5000 UNITS SC ×3 (03:23→20:07)
[2018-09-15] MEDS: Acetaminophen 325 MG TAB PO (03:24)
--- NOTE | 2018-09-15 09:12 | PT.INTREAT ---
Date of service: 09/15/18 Time of Service: 09:13 PT Notes Inpatient Physical Therapy Treatment Note Date: 09/15/18 PRECAUTIONS: Fall SUBJECTIVE: Christiane states that she feels better today and feels that she is moving better today. Patient agrees that she would benefit from short-term rehab to build strength before returning home, for safety. OBJECTIVE: PAIN: No c/o pain BED MOBILITY/TRANSFERS Supine-sit: I Sit-stand: CGA Stand-sit: SBA Bed-Chair: SBA GAIT Assistive Device: FWW Weight bearing: Full Assist: SBA Distance: 5 steps + 10 steps Deviation: Slow pace THEREX: Patient completed a seated LE strengthening program, as per flow sheet. Patient demonstrates steadiness with exercises. TOILETING: Patient toileted with assist. ASSESSMENT: Patient tolerated session without complaint. She was able to tolerate a progression in gait. She would benefit from continued gait and transfer training as well as strengthening, for improved mobility and ability to perform daily functional tasks. PLAN: Continue with PT's POC TREATMENT CODE/TIME: 40 minutes; JAVIER Briceño
[2018-09-15] MEDS: Timolol 0.5% 5 ML BTL OP ×2 (09:17→20:08)
[2018-09-15] MEDS: Lisinopril 20 MG TAB PO (09:18)
[2018-09-15] MEDS: Torsemide 20 MG TAB PO (09:18)
[2018-09-15] MEDS: Nadolol 40 MG TAB PO (09:18)
[2018-09-15] MEDS: Omeprazole 20 MG CAPCR PO (09:19)
--- NOTE | 2018-09-15 10:17 | PDOC.CMPRO ---
Care Management Progress Note S/O: Christiane was lying in bed when CM met with her. Her niece, Jana was at her bedside. CM met with Christiane with the MD who reviewed Christiane's admission adn discharge needs. Christiane was agreeable to SNF placement. Per PT; Shalonda, Christiane is showing improvement during PT sessions, and fully engaged this morning. Christiane is aggreeable to SNF placement at [facility] only; CM discussed bed availability limitations and requested Christiane consider other SNF possibilities as well and she agreed to placement at the [facility]. CM updated Christiane's son, Geraldo via phone with Christiane present. [facility]; Maddie Cintron (P#[phone], F#[phone]. Maddie reports [facility] is unable to review referrals for admission until 09/19/17. Christiane will require new outpatient sleep study after discharge; per RN; Akiko-CPAP pressures need to be adjusted as currently Celestes O2 stats are acceptable on 2L nasal cannula during the day, when CPAP is placed she drops down to 85-89 during the day. CM will continue to follow. A: 78 year old female admitted to [facility] 09/12/18 for Dehydration P: Christiane will discharge to SNF when medically ready; the [facility] is currently reviewing her and anticipates being able to offer her a bed tomorrow per Kristine of [facility] Admissions. CM will continue to follow and support discharge planning considerations. Transportation to be determined by clinical necessity and disposition.
--- NOTE | 2018-09-15 10:25 | CMPROGNOTE_ITS ---
Care Management Progress Note S/O: Christiane was lying in bed when CM met with her. Her niece, Jana was at her bedside. CM met with Christiane with the MD who reviewed Christiane's admission adn discharge needs. Christiane was agreeable to SNF placement. Per PT; Shalonda, Christiane is showing improvement during PT sessions, and fully engaged this morning. Christiane is aggreeable to SNF placement at [facility] only; CM discussed bed availability limitations and requested Christiane consider other SNF possibilities as well and she agreed to placement at the [facility]. CM updated Christiane's son, Geraldo via phone with Christiane present. [facility]; Maddie Cintron (P#[phone], F#[phone]. Maddie reports [facility] is unable to review referrals for admission until 09/19/17. Christiane will require new outpatient sleep study after discharge; per RN; Akiko-CPAP pressures need to be adjusted as currently Celestes O2 stats are acceptable on 2L nasal cannula during the day, when CPAP is placed she drops down to 85-89 during the day. CM will continue to follow. A: 78 year old female admitted to [facility] 09/12/18 for Dehydration P: Christiane will discharge to SNF when medically ready; the [facility] is currently reviewing her and anticipates being able to offer her a bed tomorrow per Kristine of [facility] Admissions. CM will continue to follow and support discharge planning considerations. Transportation to be determined by clinical necessity and disposition.
--- NOTE | 2018-09-15 10:34 | PT.INTREAT ---
Date of service: 09/15/18 Time of Service: 10:34 PT Notes Inpatient Physical Therapy Treatment Note Date: 09/15/18 PRECAUTIONS: Fall SUBJECTIVE: Christiane states that she is extremely exhausted this morning and would like to get back into bed for some rest. OBJECTIVE: PAIN: No c/o pain BED MOBILITY/TRANSFERS Sit-supine: CGA with HOB flat Sit-stand: SBA Stand-sit: SBA Chair-bed: SBA GAIT Assistive Device: FWW Weight bearing: Full Assist: SBA Distance: 5 steps Deviation: Slow pace ASSESSMENT: Patient refused further gait training, due to fatigue. She was able to complete [id number] transfer with CGA only. She would benefit from continued strengthening and gait and transfer training for improved mobility. PLAN: Continue with PT's POC TREATMENT CODE/TIME: 15 minutes; TA
--- NOTE | 2018-09-15 10:37 | PTTR_ITS ---
Date of service: 09/15/18 Time of Service: 10:34 PT Notes Inpatient Physical Therapy Treatment Note Date: 09/15/18 PRECAUTIONS: Fall SUBJECTIVE: Christiane states that she is extremely exhausted this morning and would like to get back into bed for some rest. OBJECTIVE: PAIN: No c/o pain BED MOBILITY/TRANSFERS Sit-supine: CGA with HOB flat Sit-stand: SBA Stand-sit: SBA Chair-bed: SBA GAIT Assistive Device: FWW Weight bearing: Full Assist: SBA Distance: 5 steps Deviation: Slow pace ASSESSMENT: Patient refused further gait training, due to fatigue. She was able to complete [id number] transfer with CGA only. She would benefit from continued strengthening and gait and transfer training for improved mobility. PLAN: Continue with PT's POC TREATMENT CODE/TIME: 15 minutes; TA
--- NOTE | 2018-09-15 12:32 | W.ORTHOCONSU ---
Date of service: 09/15/18 Time of Service: 12:33 History of Present Illness Chief Complaint: Chronic left knee pain despite synvisc, medrol,intra-articular steroid Narrative: Patient is well known to me. She underwent bilateral synvisc injections in late July/early August and developed increaseing left knee pain. No injury or trauma. She was treated by me with a medrol dosepack without much improvement. The left knee was injected with 80 mg of depomedrol on 08/24/18 with 3-4 days of relief and then recurrent pain. She was seen in the emergency room where x-rays of knee and tibia were unremarkable except ofr the osteoarthritis of the left knee. No fractures noted. She was prescribed vicodin and had a somwhat dystonic reaction. No left knee pain when non ambulatory. Assessment and Plan (1) Osteoarthritis of left knee: Current visit: Yes Status: Acute Unsure of why patient's left knee pain is worse despite treatments. I would be reluctant to reinject her at this time as this can accelerate her osteoarthritis. I am pleased that she is improving. She is not a candidate for total knee replacement because of her morbid obesity and severe pulmonary condition/sarcoidosis and hypoxia. [facility] Medical History Unspecified diastolic heart failure (Chronic 05/27/12) Trigeminal neuralgia of left side of face (Chronic 02/17/17) Sarcoidosis (Chronic 02/11/12) Spinal stenosis (Chronic 02/11/12) Restrictive lung disease (Chronic 03/19/16) Primary osteoarthritis of both knees (Chronic 09/23/15) Osteoarthrosis (Chronic 02/23/13) Obesity hypoventilation syndrome (Chronic 09/29/16) Obesity (Chronic 04/05/13) Gout of right foot (Resolved 01/17/16) Congestive heart failure (Chronic 01/19/17) Irritable bowel syndrome (IBS) (Chronic) IFG (impaired fasting glucose) (Suspected 02/11/12) Surgical History Appendectomy (Resolved) Cholecystectomy (Resolved) Tonsillectomy and adenoidectomy (Resolved) Social History adopted: No caregiver/support person: No foster care: No household members: other details: apartment in [facility] housing: apartment lives independently: Yes number of children: 3 current occupational status: retired Smoking/Tobacco Use Status: Never alcohol intake: never substance use type: does not use working smoke detector in home: Yes carbon monox detector in home: Yes Exam Extrem Other: No effusion of left knee. Patient was able to get out of bed today with less pain than yesterday. She can perform a straight leg raise. Results Last Vital Signs Temp 98.2 F 09/14/18 09:00 Pulse 64 09/15/18 07:05 Resp 23 09/15/18 05:30 BP 135/56 L 09/15/18 04:01 Pulse Ox 87 L 09/15/18 05:00 Labs : 09/14/18 06:30 09/14/18 06:30
--- NOTE | 2018-09-15 12:45 | OCONE_ITS ---
Date of service: 09/15/18 Time of Service: 12:33 History of Present Illness Chief Complaint: Chronic left knee pain despite synvisc, medrol,intra-articular steroid Narrative: Patient is well known to me. She underwent bilateral synvisc injections in late July/early August and developed increaseing left knee pain. No injury or trauma. She was treated by me with a medrol dosepack without much improvement. The left knee was injected with 80 mg of depomedrol on 08/24/18 with 3-4 days of relief and then recurrent pain. She was seen in the emergency room where x-rays of knee and tibia were unremarkable except ofr the osteoarthritis of the left knee. No fractures noted. She was prescribed vicodin and had a somwhat dystonic reaction. No left knee pain when non ambulatory. Assessment and Plan (1) Osteoarthritis of left knee: Current visit: Yes Status: Acute Unsure of why patient's left knee pain is worse despite treatments. I would be reluctant to reinject her at this time as this can accelerate her osteoarthritis. I am pleased that she is improving. She is not a candidate for total knee replacement because of her morbid obesity and severe pulmonary condition/sarcoidosis and hypoxia. [facility] Medical History Unspecified diastolic heart failure (Chronic 05/27/12) Trigeminal neuralgia of left side of face (Chronic 02/17/17) Sarcoidosis (Chronic 02/11/12) Spinal stenosis (Chronic 02/11/12) Restrictive lung disease (Chronic 03/19/16) Primary osteoarthritis of both knees (Chronic 09/23/15) Osteoarthrosis (Chronic 02/23/13) Obesity hypoventilation syndrome (Chronic 09/29/16) Obesity (Chronic 04/05/13) Gout of right foot (Resolved 01/17/16) Congestive heart failure (Chronic 01/19/17) Irritable bowel syndrome (IBS) (Chronic) IFG (impaired fasting glucose) (Suspected 02/11/12) Surgical History Appendectomy (Resolved) Cholecystectomy (Resolved) Tonsillectomy and adenoidectomy (Resolved) Social History adopted: No caregiver/support person: No foster care: No household members: other details: apartment in [facility] housing: apartment lives independently: Yes number of children: 3 current occupational status: retired Smoking/Tobacco Use Status: Never alcohol intake: never substance use type: does not use working smoke detector in home: Yes carbon monox detector in home: Yes Exam Extrem Other: No effusion of left knee. Patient was able to get out of bed today with less pain than yesterday. She can perform a straight leg raise. Results Last Vital Signs Temp 98.2 F 09/14/18 09:00 Pulse 64 09/15/18 07:05 Resp 23 09/15/18 05:30 BP 135/56 L 09/15/18 04:01 Pulse Ox 87 L 09/15/18 05:00 Labs : 09/14/18 06:30 09/14/18 06:30
--- NOTE | 2018-09-15 14:28 | OT.INIE ---
Occupational Therapy Notes Inpatient Occupational Therapy Evaluation Date: 09/15/18 Referring Doctor:Dr. Saha OT Orders: Loss of ADLs Precautions: Fall precautions PATIENT PROFILE/ADMITTING DIAGNOSIS: Pt is a 78 year old female who was admitted through the ER for nausea and vomitting with increased weakness. Past Medical History:Left knee OA, status post recent corticosteroid injection; trigeminal neuralgia; sarcoidosis; restrictive lung disease, on 2 LPM chronically; obese hypoventilation syndrome. Social History/Home Situation: Patient lives in [place] with her son in law and grandson, who assist with her care throughout the day and ADLs. Pt reports that she was (I) with her baseline ADLs. She reports that her son in law cooks dinner she cooks all other meals and he performed the grocery shopping and driving. Pt has a ramp to enter her home, she has a walk in shower with a built in shower bench. She has grab bars in her bathroom and uses a toilet for toileting routine at home. She only has carpet in her spare room which she doesn't enter a lot and it is wall to wall decreasing her risk for falls in that room. Current Functional Limitations: Decreased functional activity tolerance, decreased (B) UE strength, decreased (I) in functional ADLs/IADLs. Equipment owned/DME: Walker, cane, CPAP, home O2 SUBJECTIVE: Pt was sitting in bed when OT arrived. She was agreeable to OT consult and answered questions appropriately. OBJECTIVE: General Observation: Telemetry, O2 nasal canal Mental Status: A&Ox3 Pain: no c/o pain ROM: RUE Shoulder flexion AROM 130*, elbow WNL, hand WNL, no tremor noted. L UE Shoulder flexion AROM 130*, elbow WNL, hand WNL, no tremor noted. STRENGTH: RUE Nicole flexion 3-/5, bicep/tricep 4/5, buzzsaw operator 4/5 LUE Nicole flexion 3/5, bicep/tricep 4/5, buzzsaw operator 4/5 Pt denies ADLs as OT consult was performed later in the afternoon and ADL routines per performed previously. She reports that she is unable to perform dressing and bathing routines (I), she performs toileting currently on the commode and has decreased functional mobility due to tremors, which was not noted during OT consult. Functionally she was able to reach behind her head and towards her knees. BALANCE: Static sitting Good Dynamic Sitting Good SPECIAL TESTS: Daily Activity Limitations Standardized Measure [facility] AM -PAC ?6 clicks? Daily Activity Inpatient Short Form: Raw score: 18 Standardized score: 38.66 CMS score: 46.65% CMS modifier: CK INFORMED CONSENT/EDUCATION: Pt instructed in purpose of OT Consult and plan of care. ASSESSMENT: Patient is a 78-year-old female referred to occupational therapy services with diagnosis of nausea and vomitting with increased weakness in setting of Left knee OA, status post recent corticosteroid injection; trigeminal neuralgia; sarcoidosis; restrictive lung disease, on 2 LPM chronically; obese hypoventilation syndrome. Patient presents with clinical signs and symptoms consistent with this dx with overall decreased weakness and loss of ADLs, as demonstrated by the following impairment level findings: Decreased (B) UE AROM, decreased (B) UE strength. Impairments are contributing to the following functional limitations: Decreased (I) in ADLs/IADLs, decreased functional activity tolerance, unable to perform ADLs at premorbid level of function due to generalized weakness. OT recommends that pt go to jail facility when medically cleared per MD. Pt and nursing report that pt will be d/c tomorrow morning. AMPAC score 18, CMS score 46.65% Patient is assessed as a Moderate [id number] complexity based on the following: History: See Above Examination: See Above Presentation: Evolving Decision Making: AMPAC score 18, CMS score 46.65% GOALS N/A PLAN OF CARE/TREATMENT PLAN: OT consult only DISCHARGE RECOMMENDATIONS To jail facility when medically cleared per MD. Per pt and nursing, plan is for pt to be discharged tomorrow morning to [facility]. TREATMENT TIME/MINUTES/CODES 20 min IE, (02:05) G Codes in the area of self- : washing oneself, toileting, dressing, eating and drinking, current status GO G8987 CK projected status GO [id number]. Discharge status (if discharging) GO [id number] Tiffanie Nieto OTR/L
--- NOTE | 2018-09-15 14:32 | OTIE_ITS ---
Occupational Therapy Notes Inpatient Occupational Therapy Evaluation Date: 09/15/18 Referring Doctor:Dr. Saha OT Orders: Loss of ADLs Precautions: Fall precautions PATIENT PROFILE/ADMITTING DIAGNOSIS: Pt is a 78 year old female who was admitted through the ER for nausea and vomitting with increased weakness. Past Medical History:Left knee OA, status post recent corticosteroid injection; trigeminal neuralgia; sarcoidosis; restrictive lung disease, on 2 LPM chronically; obese hypoventilation syndrome. Social History/Home Situation: Patient lives in [place] with her son in law and grandson, who assist with her care throughout the day and ADLs. Pt reports that she was (I) with her baseline ADLs. She reports that her son in law cooks dinner she cooks all other meals and he performed the grocery shopping and driving. Pt has a ramp to enter her home, she has a walk in shower with a built in shower bench. She has grab bars in her bathroom and uses a toilet for toileting routine at home. She only has carpet in her spare room which she doesn't enter a lot and it is wall to wall decreasing her risk for falls in that room. Current Functional Limitations: Decreased functional activity tolerance, decreased (B) UE strength, decreased (I) in functional ADLs/IADLs. Equipment owned/DME: Walker, cane, CPAP, home O2 SUBJECTIVE: Pt was sitting in bed when OT arrived. She was agreeable to OT consult and answered questions appropriately. OBJECTIVE: General Observation: Telemetry, O2 nasal canal Mental Status: A&Ox3 Pain: no c/o pain ROM: RUE Shoulder flexion AROM 130*, elbow WNL, hand WNL, no tremor noted. L UE Shoulder flexion AROM 130*, elbow WNL, hand WNL, no tremor noted. STRENGTH: RUE Nicole flexion 3-/5, bicep/tricep 4/5, optometry doctor 4/5 LUE Nicole flexion 3/5, bicep/tricep 4/5, optometry doctor 4/5 Pt denies ADLs as OT consult was performed later in the afternoon and ADL routines per performed previously. She reports that she is unable to perform dressing and bathing routines (I), she performs toileting currently on the commode and has decreased functional mobility due to tremors, which was not noted during OT consult. Functionally she was able to reach behind her head and towards her knees. BALANCE: Static sitting Good Dynamic Sitting Good SPECIAL TESTS: Daily Activity Limitations Standardized Measure [facility] AM -PAC ?6 clicks? Daily Activity Inpatient Short Form: Raw score: 18 Standardized score: 38.66 CMS score: 46.65% CMS modifier: CK INFORMED CONSENT/EDUCATION: Pt instructed in purpose of OT Consult and plan of care. ASSESSMENT: Patient is a 78-year-old female referred to occupational therapy services with diagnosis of nausea and vomitting with increased weakness in setting of Left knee OA, status post recent corticosteroid injection; trigeminal neuralgia; sarcoidosis; restrictive lung disease, on 2 LPM chronically; obese hypoventilation syndrome. Patient presents with clinical signs and symptoms consistent with this dx with overall decreased weakness and loss of ADLs, as demonstrated by the following impairment level findings: Decreased (B) UE AROM, decreased (B) UE strength. Impairments are contributing to the following functional limitations: Decreased (I) in ADLs/IADLs, decreased functional activity tolerance, unable to perform ADLs at premorbid level of function due to generalized weakness. OT recommends that pt go to halfway facility when medically cleared per MD. Pt and nursing report that pt will be d/c tomorrow morning. AMPAC score 18, CMS score 46.65% Patient is assessed as a Moderate [id number] complexity based on the following: History: See Above Examination: See Above Presentation: Evolving Decision Making: AMPAC score 18, CMS score 46.65% GOALS N/A PLAN OF CARE/TREATMENT PLAN: OT consult only DISCHARGE RECOMMENDATIONS To halfway facility when medically cleared per MD. Per pt and nursing, plan is for pt to be discharged tomorrow morning to [facility]. TREATMENT TIME/MINUTES/CODES 20 min IE, (02:05) G Codes in the area of self- : washing oneself, toileting, dressing, eating and drinking, current status GO G8987 CK projected status GO [id number]. Discharge status (if discharging) GO [id number] Tiffanie Nieto OTR/L
--- NOTE | 2018-09-15 15:14 | CHAPLAIN ---
Christiane was waiting to be transferred to the [facility] when I visited. Her niece, Jana, was visiting her and taking some of her personal belongings home. Christiane is not happy about going to the [facility] and would prefer to directly home. She (and Jana) have experienced some significant losses. Christiane's daughter 8 years ago, within a few months of Jana's son dying. A sister of Sharita this past June. Christiane said we don't have many choices in life. We deal with what we are given. Both she and Jana talked about relying on family for support and strength. Christiane was planning to go to [place] to her son's, leaving this month, and staying for a few months, and she is disappointed that that plan won't happen now.
--- NOTE | 2018-09-15 16:06 | PGE_ITS ---
Date of Service Date of service: 09/15/18 Time of Service: 15:52 Assessment and Plan (1) Jerking movements of extremities: Current visit: Yes Status: Acute Unusual involuntary movements that appear to be associated with purposeful movement, new finding in patient. Involve only the limbs. Unsure if the symptoms represent some form of dyskinesia or myoclonus, but certainly atypical. Unsure if symptoms represent phenomenon that is neurologic or psychogenic. Med list reviewed and without obvious offense agent, without any evidence of antipsychotic medications. CT of the head from admission reviewed and without acute intracranial abnormalities. MRI negative. Electrolytes appear to be without significant abnormality. Kidney disease is chronic, mild, and at baseline. Case reviewed with Neurology who agrees with no obvious source for manifestation, and questions potential psychogenic etiology. Recommendation for discontinuation of minimal dose gabapentin. Appears resolved this morning and throughout the course of the day today. Ensure outpatient follow-up with neurology as etiology is still unclear. (2) Weakness: Current visit: Yes Status: Acute Constellation of symptoms that included poor appetite, weakness, poor oral intake, nausea, somnolence, and altered mental status all following administration of opiate therapy. This may be all related to medication side effect. Discontinued Vicodin - patient appears improved from the standpoint of mental status, appetite, and weakness. Working with PT, with plans for SNF. (3) Anemia: Current visit: Yes Status: Chronic Normal iron and Ferritin of nearly 200, with low TIBC. Stool for occult blood negative. Likely Anemia of Chronic Disease. B12, FA normal. TSH Minimally elevated - will need to be repeated. Current hemoglobin lower than baseline but stable. Monitor. (4) Trigeminal neuralgia of left side of face: Current visit: Yes Status: Chronic Gabapentin on hold as above. (5) Chronic renal failure: Current visit: Yes Status: Acute Appears at baseline. (6) Unspecified diastolic heart failure: Current visit: No Status: Chronic Last echo from December 2016 with an intact LV ejection fraction, but findings suggestive of diastolic dysfunction. Also with evidence of significant pulmonary hypertension. Discontinued IVFs following overnight hydration after admission, and reinitiated Torsemide. (7) Sarcoidosis: Current visit: Yes Status: Chronic History noted, currently appears to be stable and not under treatment. (8) Restrictive lung disease: Current visit: Yes Status: Chronic Noted significant restrictive lung disease by review of pulmonary notes and PFTs. (9) Hypertension: Current visit: No Status: Chronic Continue beta-janak therapy but holding BONG. Blood pressures were slig htly soft at time of admission, are now appropriate. Reinitiated lisinopril previously. Also on diuretic therapy restarted. (10) CARLOS (obstructive sleep apnea): Current visit: Yes Status: Chronic With significant nocturnal hypoxia - needs outpatient sleep study with titration of device. Will schedule prior to discharge. (11) Osteoarthritis of left knee: Current visit: Yes Status: Chronic At patient's request Ortho consulted - Mrs. Jackson has apparently received injections with Synvisc in early August, with complaints of significant and increasing pain following. Has received a medrol dose pack without improvement and undergone left knee injection with steroids, all without lasting effect. and pain led to initial ED visit that ended with prescribing of Vicodin. No plans for reinjection of joint by ortho. Not a candidate for knee replacement per discussion with Ortho as well. Continue PT. (12) DVT prophylaxis: Current visit: Yes Status: Acute SC heparin. (13) Discharge planning issues: Current visit: Yes Status: Acute Plan is for referral to SNF for short rehab stay. Subjective Interval history since last seen: 78-year-old woman with a past medical history significant for obesity and OA, admitted from [facility] emergency department with new onset confusion. Mrs. Jackson has a prior history of Obesity with associated CARLOS and obesity hypoventilation syndrome, severe OA, hypertension, CKD, severe restrictive lung disease. She also has a history of left-sided facial trigeminal neuralgia chronically maintained on gabapentin, dyslipidemia, and a history of sarcoid that appears to be quiescent. The patient had initially presented to the ED on 09/10 secondary to left knee pain. At that time she was prescribed Vicodin. She reportedly took 1 pill 2 days prior to her admission, which made her feel q uite nauseous, and then again 1 pill yesterday. Since that time she is appeared somnolent, has had poor oral intake, and has overall not felt well. Workup in the emergency department included lab work which was significant for hemoglobin slightly lower than baseline, but a lack of leukocytosis. Her basic panel showed an elevated bicarb which is chronic but slightly worse. Her urinalysis was negative for infection. Chest x-ray showed cardiomegaly but no evidence of acute pathology, lower extremity venous study showed a Fernando's cyst without evidence of DVT, and a CT of the head showed no acute intracranial abnormality. She was referred for admission for further evaluation and treatment Yesterday morning Mrs. Jackson appeared to be at her baseline from a mental status standpoint, tolerating oral intake well, and appeared vastly improved. However, she continued to have jerking movements in both her upper and lower extremities which appear to be new and unexplained - they seemed to occur only with voluntary movement. An MRI of her brain was obtained and negative for any acute pathology. Her Hgb remains slightly lower than baseline but stable. No other events reported. She remains afebrile. Exam Narrative Exam Narrative: General: Patient appears comfortable, sitting up on the edge of the bed, AAOX3, NAD Neck: Supple CV: Regular, nontachycardic, S1S2, No rubs, murmurs, or gallops. Pulmonary: Bibasilar crackles, new since prior exam, with no wheezing, or rhonchi Abdomen: + Bowel Sounds, soft, nontender, nondistended, obese in contour Vascular: nonpitting b/l LE edema Neurologic: Prior neuro exam with CN II-XII grossly intact. No focal deficits. Jerking type motion predominantly in the right arm, and bilateral lower extremities with movement Psych: Normal mood and affect. Objective Objective Clinical Data: Vital Signs Temperature 37.0 C 09/15/18 15:15 Temperature Source Temporal Artery Scan 09/15/18 15:15 Pulse 59 L 09/15/18 15:03 Pulse Rhythm Regular 09/15/18 15:15 Pulse 61 09/15/18 15:03 Respiratory Rate 19 09/15/18 15:03 Respiratory Effort Non-Labored 09/15/18 15:15 Respiratory Depth Normal 09/15/18 15:15 Respiratory Pattern Normal 09/15/18 15:15 Blood Pressure 167/69 H 09/15/18 15:03 Blood Pressure Mean 91 09/15/18 15:03 Blood Pressure Position Supine 09/12/18 18:30 Pulse Oximetry 93 L 09/15/18 15:03 Oxygen Delivery Method Nasal Cannula 09/15/18 15:15 Oxygen Flow Rate 2 09/15/18 15:15 Pain Level 4 09/15/18 03:24 Comment 09/12/18 18:34 Intake & Output 09/14/18 09/15/18 09/15/18 23:59 11:59 23:59 Intake Total 400 / 1887.5 500 / 700 200 / 700 Output Total 150 / 375 530 / 1700 1170 / 1700 Balance 250 / 1512.5 -30 / -1000 -970 / -1000 Weight 123.3 kg Intake: Oral 400 / 725 500 / 700 200 / 700 Output: Urine 150 / 375 530 / 1700 1170 / 1700 Other: Urine Color Yellow Yellow Yellow Urine Appearance Clear Clear Clear Urine Odor Normal Normal Normal Comment attempted to use bed lopez, but was incontinent plus large incontinence Stool Occult Blood Negative Stool Size Moderate Stool Characteristics Soft Formed Voiding Methods Bedpan Bedside Commode Bedside Commode Laboratory Results WBC 5.43 k/cumm (4.4-10.8) 09/14/18 06:30 RBC 3.24 m/cumm (4.00-5.20) L 09/14/18 06:30 Hgb 9.3 g/dL (12.0-15.5) L 09/14/18 06:30 Hct 32.1 % (36.0-46.0) L 09/14/18 06:30 MCV 99.1 fL (80-95) H 09/14/18 06:30 MCH 28.7 pg (27.0-33.0) 09/14/18 06:30 MCHC 29.0 g/dL (32.0-36.0) L 09/14/18 06:30 RDW 14.6 % (11.7-14.6) 09/14/18 06:30 Plt Count 190 x1000/uL (130-400) 09/14/18 06:30 MPV 10.1 fL (8.0-11.0) 09/14/18 06:30 Immature Gran % 0.9 09/14/18 06:30 Neutrophils % 68.8 09/14/18 06:30 Lymphocytes % 14.4 09/14/18 06:30 Monocytes % 11.4 09/14/18 06:30 Eosinophils % 4.1 09/14/18 06:30 Basophils % 0.4 09/14/18 06:30 Absolute Neutrophils 3.74 k/cumm (1.2-6.7) 09/14/18 06:30 Absolute Lymphocytes 0.78 k/cumm (1.2-3.4) L 09/14/18 06:30 Absolute Monocytes 0.62 k/cumm (0.11-0.7) 09/14/18 06:30 Absolute Eosinophils 0.22 k/cumm (0.0-0.7) 09/14/18 06:30 Absolute Basophils 0.02 k/cumm (0.0-0.2) 09/14/18 06:30 Differential Comment Rbc morph reviewed 09/12/18 13:00 RBC Morphology See below 09/12/18 13:00 Polychromasia Present 09/12/18 13:00 Sodium 143 mmol/L (136-145) 09/14/18 06:30 Potassium 4.5 mmol/L (3.5-5.1) 09/14/18 06:30 Chloride 102 mmol/L (98-107) 09/14/18 06:30 Carbon Dioxide 37.8 mmol/L (21.0-32.0) H 09/14/18 06:30 Anion Gap 3.2 mmol/L (3-11) 09/14/18 06:30 BUN 29 mg/dL (7-18) H 09/14/18 06:30 Creatinine 1.47 mg/dL (0.55-1.02) H 09/14/18 06:30 Estimated GFR/1.73 m2 34.20 (mL/min/1.73m2) 09/14/18 06:30 Glucose 103 mg/dL (70-100) H 09/14/18 06:30 Calcium 8.9 mg/dL (8.5-10.1) 09/14/18 06:30 Magnesium 1.8 mg/dL (1.8-2.4) 09/14/18 06:30 Iron 51 ug/dL (50-175) 09/14/18 06:30 TIBC 209 ug/dL (250-450) L 09/14/18 06:30 Transferrin % Sat 24 % (15-50) 09/14/18 06:30 Ferritin 194 ng/mL (8-388) 09/14/18 06:30 Total Bilirubin 0.5 mg/dL (0.2-1.0) 09/12/18 13:00 AST 21 U/L (15-37) 09/12/18 13:00 ALT 16 U/L (12-78) 09/12/18 13:00 Alkaline Phosphatase 77 U/L (46-116) 09/12/18 13:00 Troponin I 0.03 ng/mL (0.00-0.06) 09/12/18 17:50 Total Protein 6.7 g/dL (6.4-8.2) 09/12/18 13:00 Albumin 2.7 g/dL (3.4-5.0) L 09/12/18 13:00 Lipase 111 U/L (73-393) 09/12/18 13:00 Vitamin B12 298 pg/mL (193-986) 09/14/18 06:30 Folate 15.1 ng/mL (8.6-20.0) 09/14/18 06:30 TSH 4.28 uIU/mL (0.358-3.74) H 09/14/18 06:30 Urine Color Yellow (Yellow) 09/12/18 17:17 Urine Clarity Cloudy 09/12/18 17:17 Urine pH 5.5 (5-8) 09/12/18 17:17 Ur Specific [place] 1.020 (1.005-1.025) 09/12/18 17:17 Urine Protein Negative mg/dL (Negative) 09/12/18 17:17 Urine Ketones Negative mg/dL (Negative) 09/12/18 17:17 Urine Blood Negative (Negative) 09/12/18 17:17 Urine Nitrite Negative (Negative) 09/12/18 17:17 Urine Bilirubin Negative (Negative) 09/12/18 17:17 Urine Urobilinogen 0.2 EU/dL (Up TO 0.2) 09/12/18 17:17 Ur Leukocyte Esterase Negative (Negative) 09/12/18 17:17 Urine Glucose Negative mg/dL (Negative) 09/12/18 17:17
[2018-09-15] MEDS: Polyethylene Glycol 3350 17 GM PACKET PO (18:01)
[2018-09-15] MEDS: Travoprost 0.004% Ophth Sol 2.5 ML BTL OP (21:53)
--- NOTE | 2018-09-15 22:18 | NUR.NOTE ---
Nursing Note: Patient transferred out of the unit to room 225 via her bed at 2107
[2018-09-16] MEDS: Acetaminophen 325 MG TAB PO (03:32)
[2018-09-16] MEDS: Heparin 5,000 UNITS/ML VIAL 5000 UNITS SC ×3 (03:32→20:48)
[2018-09-16 03:37] VITALS: BP 157/60; PULSE 66; RESP 20; TEMP 36.8; O2SAT 94
[2018-09-16] MEDS: Omeprazole 20 MG CAPCR PO (06:21)
[2018-09-16 07:23] LABS: HCT 30.6 % (36.0-46.0); HGB 9.2 g/dL (12.0-15.5); Mean Corp. HGB Concentration 30.1 g/dL (32.0-36.0); Mean Corpuscular Hemoglobin 28.9 pg (27.0-33.0); Mean Corpuscular Volume 96.2 fL (80-95); Mean Platelet Volume 9.7 fL (8.0-11.0); Platelet Count 189 x1000/uL (130-400); RBC 3.18 m/cumm (4.00-5.20); RBC Distribution Width 14.6 % (11.7-14.6); White Blood Cell Count 5.83 k/cumm (4.4-10.8)
[2018-09-16 07:25] VITALS: BP 151/73; PULSE 58; RESP 20; TEMP 36.8; O2SAT 93
[2018-09-16 08:25] VITALS: O2SAT 93
[2018-09-16] MEDS: Torsemide 20 MG TAB PO (09:21)
[2018-09-16] MEDS: Lisinopril 20 MG TAB PO (09:21)
[2018-09-16] MEDS: Timolol 0.5% 5 ML BTL OP ×2 (09:21→20:49)
--- NOTE | 2018-09-16 10:11 | PT.INDS ---
Date of service: 09/16/18 Time of Service: 10:12 PT Notes Inpatient Physical Therapy Discharge Summary Dates: 09/16/18 Dates of Service: 09/13/18-09/16/18 SUBJECTIVE: [] OBJECTIVE: BED MOBILITY/TRANSFERS: Supine-sit [] Sit-supine [] Sit-stand [] Stand-sit [] Bed-Chair [] Chair-bed [] GAIT: BALANCE: Static sitting Dynamic sitting Static standing Dynamic standing ASSESSMENT: GOALS 1. Supine-Sit: Supervision 2. Sit-Supine : Supervision 3. Sit-Stand : Supervision 4. Stand-Sit : Supervision 5. Bed-Chair : Supervision with WW 6. Chair-Bed : Supervision with WW 7. Gait : Supervision with WW x 50' DISCHARGE RECOMMENDATIONS: G Codes in the area mobility of walking and moving around: projected status GP [id number] Discharge status (if discharging) GP [id number] CL. Shalonda Brand PT
--- NOTE | 2018-09-16 10:15 | INDS_ITS ---
Date of service: 09/16/18 Time of Service: 10:12 PT Notes Inpatient Physical Therapy Discharge Summary Dates: 09/16/18 Dates of Service: 09/13/18-09/16/18 SUBJECTIVE: [] OBJECTIVE: BED MOBILITY/TRANSFERS: Supine-sit [] Sit-supine [] Sit-stand [] Stand-sit [] Bed-Chair [] Chair-bed [] GAIT: BALANCE: Static sitting Dynamic sitting Static standing Dynamic standing ASSESSMENT: GOALS 1. Supine-Sit: Supervision 2. Sit-Supine : Supervision 3. Sit-Stand : Supervision 4. Stand-Sit : Supervision 5. Bed-Chair : Supervision with WW 6. Chair-Bed : Supervision with WW 7. Gait : Supervision with WW x 50' DISCHARGE RECOMMENDATIONS: G Codes in the area mobility of walking and moving around: projected status GP [id number] Discharge status (if discharging) GP [id number] CL. Shalonda Brand PT
--- NOTE | 2018-09-16 10:42 | PT.INTREAT ---
Date of service: 09/16/18 Time of Service: 10:38 PT Notes Date: 09/16/18 PRECAUTIONS: Fall precautions SUBJECTIVE: Pt lying in bed, states she feels she is having trouble breathing, RN and RT called to room to check on patient. Pt asking to use commode and agreeable to transfer to chair. OBJECTIVE: General observation: 2 liters 02 NC PAIN: no c/o pain BED MOBILITY/TRANSFERS Supine-sit: HOB 30 degrees, independent Sit-stand: SBA with FWW Bed-commode: SBA with FWW Commode-chair: SBA with FWW Stand-sit: SBA, cues to reach back to chair. Pt positioned in chair with legs elevated and fall alarm activated. GAIT Assistive Device: FWW Weight bearing: as tolerated Assist: SBA Distance: 5ftx1 in room for transfers to commode and chair. THEREX: ankle pumps, quad sets, glute sets x 20 reps. ASSESSMENT: Pt mobilizing well with transfers and gait in room, limited gait distance today due to pt reporting she feels she is having difficulty breathing, RT in room to check on patient. Continue progression of strengthening and mobility as able. Plan is transfer to technician terminal and repeater care facility when medically stable. PLAN: Progress strengthening Progress gait with FWW TREATMENT CODE/TIME: 24min TAx1 TP x1 1037 Shalonda Brand PT
--- NOTE | 2018-09-16 10:47 | PTTR_ITS ---
Date of service: 09/16/18 Time of Service: 10:38 PT Notes Date: 09/16/18 PRECAUTIONS: Fall precautions SUBJECTIVE: Pt lying in bed, states she feels she is having trouble breathing, RN and RT called to room to check on patient. Pt asking to use commode and agreeable to transfer to chair. OBJECTIVE: General observation: 2 liters 02 NC PAIN: no c/o pain BED MOBILITY/TRANSFERS Supine-sit: HOB 30 degrees, independent Sit-stand: SBA with FWW Bed-commode: SBA with FWW Commode-chair: SBA with FWW Stand-sit: SBA, cues to reach back to chair. Pt positioned in chair with legs elevated and fall alarm activated. GAIT Assistive Device: FWW Weight bearing: as tolerated Assist: SBA Distance: 5ftx1 in room for transfers to commode and chair. THEREX: ankle pumps, quad sets, glute sets x 20 reps. ASSESSMENT: Pt mobilizing well with transfers and gait in room, limited gait distance today due to pt reporting she feels she is having difficulty breathing, RT in room to check on patient. Continue progression of strengthening and mobility as able. Plan is transfer to middle or intermediate school principal care facility when medically stable. PLAN: Progress strengthening Progress gait with FWW TREATMENT CODE/TIME: 24min TAx1 TP x1 [id number] Shalonda Brand PT
--- NOTE | 2018-09-16 10:58 | PDOC.CMPRO ---
Care Management Progress Note S/O: Christiane was lying in bed when CM met with her. She reported anticipating going to [facility] today; CM provided updates of ongoing monitoring due to fever. Christiane continues to be agreeable to MD recommendations. She processed struggling with the idea of SNF placement but had time to consider overnight and is agreeable and reports awareness for her own clinical need to strengthen prior to returning to her home setting. She remains pleasant in interaction and fully engaged with this designer/writer. CM spoke with [facility] admissions staff; Chapis throughout the morning. They reported the [facility] could be flexible in accpeting Christiane later today or tomorrow with the requirement that discharge medications and orders be recieved by today. CM spoke with provider later in [facility] afternoon who reported that Christiane will require further monitoring and will likely not be ready to transition to the [facility] until Wednesday; 09/19/17. CM will continue to follow and support Christiane. A: 78 year old female admitted to [facility] 09/12/18 for Dehydration P: Christiane will discharge to the [facility] when medically ready; due to a documented fever last evening she will have further monitoring per MD. CM will continue to follow and support discharge planning considerations. Transportation via W/C Van coordinated through [facility].
--- NOTE | 2018-09-16 11:03 | CMPROGNOTE_ITS ---
Care Management Progress Note S/O: Christiane was lying in bed when CM met with her. She reported anticipating going to [facility] today; CM provided updates of ongoing monitoring due to fever. Christiane continues to be agreeable to MD recommendations. She processed struggling with the idea of SNF placement but had time to consider overnight and is agreeable and reports awareness for her own clinical need to strengthen prior to returning to her home setting. She remains pleasant in interaction and fully engaged with this sql report writer. CM spoke with [facility] admissions staff; Chapis throughout the morning. They reported the [facility] could be flexible in accpeting Christiane later today or tomorrow with the requirement that discharge medications and orders be recieved by today. CM spoke with provider later in [facility] afternoon who reported that Christiane will require further monitoring and will likely not be ready to transition to the [facility] until Wednesday; 09/19/17. CM will continue to follow and support Christiane. A: 78 year old female admitted to [facility] 09/12/18 for Dehydration P: Christiane will discharge to the [facility] when medically ready; due to a documented fever last evening she will have further monitoring per MD. CM will continue to follow and support discharge planning considerations. Transportation via W/C Van coordinated through [facility].
[2018-09-16 12:28] LABS: Bilirubin Negative (Negative); Blood Negative (Negative); Clarity Clear; Glucose Negative (Negative); Ketones Negative (Negative); Leukocyte Esterase Negative (Negative); Nitrite Negative (Negative); Urobilinogen 0.2 EU/dL (Up TO 0.2); pH 5.5 (5-8)
--- NOTE | 2018-09-16 13:07 | DI.RAD_ITS ---
SYMPTOMS/DIAGNOSIS: FEVER, CHF AP AND LATERAL CHEST: Comparison 09/12/18. The heart is enlarged. The pulmonary vasculature appears stable. No definite focal consolidating infiltrate is seen. No effusion or pneumothorax is identified. The study is somewhat limited due to patient body habitus. IMPRESSION: Cardiomegaly. No definite acute pulmonary process.
--- NOTE | 2018-09-16 14:26 | W.PM.PROGNOT ---
Date of Service Date of service: 09/17/18 Time of Service: 12:59 Assessment and Plan (1) Fever: Start date: 09/17/18 Start time: 12:54 Current visit: Yes Status: Acute Afibrile for 24 hours (2) SOB (shortness of breath): Start date: 09/17/18 Start time: 12:51 Current visit: Yes Status: Acute Improved, continue to monitor with pulse oximetery and Incentive spirometry (3) CARLOS (obstructive sleep apnea): Start date: 09/17/18 Start time: 12:51 Current visit: Yes Status: Chronic Needs outpatient assessment, continue with 4 L oxygen at night (4) Osteoarthritis of left knee: Start date: 09/17/18 Start time: 12:51 Current visit: Yes Status: Chronic Lidoderm patch to left knee with pain improvement (5) DVT prophylaxis: Start date: 09/17/18 Start time: 12:50 Current visit: Yes Status: Acute SC Heparin (6) Chronic renal failure: Start date: 09/17/18 Start time: 12:55 Current visit: Yes Status: Acute At baseline (7) Unspecified diastolic heart failure: Start date: 09/17/18 Start time: 12:56 Current visit: No Status: Chronic Torsemide restarted. IV dose lasix yesterday (8) Trigeminal neuralgia of left side of face: Start date: 09/17/18 Start time: 12:57 Current visit: Yes Status: Chronic Gabapentin on hold. (9) Sarcoidosis: Start date: 09/17/18 Start time: 12:57 Current visit: Yes Status: Chronic Stable and no treatment at this time (10) Restrictive lung disease: Start date: 09/17/18 Start time: 12:57 Current visit: Yes Status: Chronic Stable at this time, continue with oxygen (11) Nausea vomiting and diarrhea: Start date: 09/17/18 Start time: 12:58 Current visit: Yes Status: Acute No nausea or diarrhea at this time.
--- NOTE | 2018-09-16 14:46 | PGE_ITS ---
Date of Service Date of service: 09/16/18 Time of Service: 15:08 Assessment and Plan (1) Fever: Start date: 09/16/18 Start time: 14:50 Current visit: Yes Status: Acute Medicated with tylenol for fever. R/o sources of infection, urinalysis, CXR (2) SOB (shortness of breath): Start date: 09/16/18 Start time: 14:59 Current visit: Yes Status: Acute Continue to Monitor Pulse Oximetery, continue with Oxygen 2 L during day and 4L h.s. CXR and will get stat BMP to check BUN, Creatinine, Depending on Bmp will diuresis with lasix. Initiate Incentive Spirometry (3) CARLOS (obstructive sleep apnea): Current visit: Yes Status: Chronic With significant nocturnal hypoxia - needs outpatient sleep study with titration of device. Will schedule prior to discharge. (4) Osteoarthritis of left knee: Current visit: Yes Status: Chronic C/O worsening pain will give a medication patch to help alleviate pain. (5) DVT prophylaxis: Current visit: Yes Status: Acute SC Heparin (6) Jerking movements of extremities: Current visit: Yes Status: Acute Better today no jerking at this time, Gabapentin DCD (7) Discharge planning issues: Current visit: Yes Status: Acute Plan for discharge on Wednesday SNF short rehab (8) Chronic renal failure: Current visit: Yes Status: Acute Appear at baseline, follow up BMP to confirm (9) Unspecified diastolic heart failure: Current visit: No Status: Chronic Status: Chronic Last echo from December 2016 with an intact LV ejection fraction, but findings suggestive of diastolic dysfunction. Also with evidence of significant pulmonary hypertension. Discontinued IVFs following overnight hydration after admission, and reinitiated Torsemide. (10) Trigeminal neuralgia of left side of face: Current visit: Yes Status: Chronic Gabapentin on hold (11) Sarcoidosis: Current visit: Yes Status: Chronic History noted, currently appears to be stable and not under treatment. (12) Restrictive lung disease: Current visit: Yes Status: Chronic Noted significant restrictive lung disease by review of pulmonary notes and PFTs (13) Nausea vomiting and diarrhea: Current visit: Yes Status: Acute Chronic , will montior. Subjective Patient reports: still having pain and shortness of breath Interval history since last seen: Mrs. Jackson has a prior history of Obesity with associated CARLOS and obesity hypoventilation syndrome, severe OA, hypertension, CKD, severe restrictive lung disease. She also has a history of left-sided facial trigeminal neuralgia chronically maintained on gabapentin, dyslipidemia, and a history of sarcoid that appears to be quiescent. The patient had initiall y presented to the ED on 09/10 secondary to left knee pain. At that time she was prescribed Vicodin. She reportedly took 1 pill 2 days prior to her admission, which made her feel quite nauseous, and then again 1 pill the next day. Since that time she is appeared somnolent, has had poor oral intake, and has overall not felt well. Workup in the emergency department included lab work which was significant for hemoglobin slightly lower than baseline, but a lack of leukocytosis. Her basic panel showed an elevated bicarb which is chronic but slightly worse. Her urinalysis was negative for infection. Chest x-ray showed cardiomegaly but no evidence of acute pathology, lower extremity venous study showed a Fernando's cyst without evidence of DVT, and a CT of the head showed no acute intracranial abnormality. She was referred for admission for further evaluation and treatment. Today she c/o worsening SOB with talking and while lying in bed. States this is new for her. Also c/o worsening knee pain to the left knee which she attributes to working with PT today. Appears tired today and says she just doesn't feel as well as she did yesterday. Nursing reports febrile last night. Exam Const General: cooperative Nutritional Appearance: obese Orientation: alert, awake and oriented x3 HENMT Head: normal to inspection Neck Neck: normal visual inspection Resp Effort & Inspection: abnormal respiratory pattern and tachypneic Auscultation: diminished lung sounds Other: Increased Dyspnea when sitting and talking. Cardio Jugular venous pressure: no JVD Rate: regular rate Heart Sounds: S1 normal and S2 normal GI Auscultation: normal bowel sounds Neuro General: alert, awake and oriented x3 Cognition: normal cognition Speech: speech normal Objective Objective Clinical Data: Abnormal lab results 09/16/18 Range/Units 06:42 RBC 3.18 L (4.00-5.20) m/cumm Hgb 9.2 L (12.0-15.5) g/dL Hct 30.6 L (36.0-46.0) % MCV 96.2 H (80-95) fL MCHC 30.1 L (32.0-36.0) g/dL Vital Signs Temperature 36.8 C 09/16/18 07:25 Temperature Source Tympanic 09/16/18 07:25 Pulse 58 L 09/16/18 07:25 Pulse Rhythm Regular 09/16/18 09:05 Pulse 67 09/15/18 18:00 Respiratory Rate 20 09/16/18 07:25 Respiratory Effort Non-Labored 09/16/18 09:05 Respiratory Depth Shallow 09/16/18 09:05 Respiratory Pattern Normal 09/16/18 09:05 Blood Pressure 151/73 H 09/16/18 07:25 Blood Pressure Mean 83 09/15/18 19:18 Blood Pressure Position Supine 09/12/18 18:30 Pulse Oximetry 93 L 09/16/18 08:25 Oxygen Delivery Method Nasal Cannula 09/16/18 08:25 Oxygen Flow Rate 3 09/16/18 08:25 Pain Level 3 09/16/18 03:32 Comment 09/12/18 18:34 Intake & Output 09/15/18 09/16/18 09/16/18 23:59 11:59 23:59 Intake Total 200 / 700 220 / 220 Output Total 1520 / 2050 300 / 300 Balance -1320 / -1350 -80 / -80 Weight 121.7 kg Intake: Oral 200 / 700 220 / 220 Output: Urine 1520 / 2050 300 / 300 Other: Urine Color Yellow Straw Urine Appearance Clear Clear Urine Odor Normal Comment Patient is quite tired and did not feel strong enough to get OOB at this time. Voiding Methods Bedpan Bedpan Laboratory Results WBC 5.83 k/cumm (4.4-10.8) 09/16/18 06:42 RBC 3.18 m/cumm (4.00-5.20) L 09/16/18 06:42 Hgb 9.2 g/dL (12.0-15.5) L 09/16/18 06:42 Hct 30.6 % (36.0-46.0) L 09/16/18 06:42 MCV 96.2 fL (80-95) H 09/16/18 06:42 MCH 28.9 pg (27.0-33.0) 09/16/18 06:42 MCHC 30.1 g/dL (32.0-36.0) L 09/16/18 06:42 RDW 14.6 % (11.7-14.6) 09/16/18 06:42 Plt Count 189 x1000/uL (130-400) 09/16/18 06:42 MPV 9.7 fL (8.0-11.0) 09/16/18 06:42 Immature Gran % 0.9 09/14/18 06:30 Neutrophils % 68.8 09/14/18 06:30 Lymphocytes % 14.4 09/14/18 06:30 Monocytes % 11.4 09/14/18 06:30 Eosinophils % 4.1 09/14/18 06:30 Basophils % 0.4 09/14/18 06:30 Absolute Neutrophils 3.74 k/cumm (1.2-6.7) 09/14/18 06:30 Absolute Lymphocytes 0.78 k/cumm (1.2-3.4) L 09/14/18 06:30 Absolute Monocytes 0.62 k/cumm (0.11-0.7) 09/14/18 06:30 Absolute Eosinophils 0.22 k/cumm (0.0-0.7) 09/14/18 06:30 Absolute Basophils 0.02 k/cumm (0.0-0.2) 09/14/18 06:30 Differential Comment Rbc morph reviewed 09/12/18 13:00 RBC Morphology See below 09/12/18 13:00 Polychromasia Present 09/12/18 13:00 Sodium 143 mmol/L (136-145) 09/14/18 06:30 Potassium 4.5 mmol/L (3.5-5.1) 09/14/18 06:30 Chloride 102 mmol/L (98-107) 09/14/18 06:30 Carbon Dioxide 37.8 mmol/L (21.0-32.0) H 09/14/18 06:30 Anion Gap 3.2 mmol/L (3-11) 09/14/18 06:30 BUN 29 mg/dL (7-18) H 09/14/18 06:30 Creatinine 1.47 mg/dL (0.55-1.02) H 09/14/18 06:30 Estimated GFR/1.73 m2 34.20 (mL/min/1.73m2) 09/14/18 06:30 Glucose 103 mg/dL (70-100) H 09/14/18 06:30 Calcium 8.9 mg/dL (8.5-10.1) 09/14/18 06:30 Magnesium 1.8 mg/dL (1.8-2.4) 09/14/18 06:30 Iron 51 ug/dL (50-175) 09/14/18 06:30 TIBC 209 ug/dL (250-450) L 09/14/18 06:30 Transferrin % Sat 24 % (15-50) 09/14/18 06:30 Ferritin 194 ng/mL (8-388) 09/14/18 06:30 Total Bilirubin 0.5 mg/dL (0.2-1.0) 09/12/18 13:00 AST 21 U/L (15-37) 09/12/18 13:00 ALT 16 U/L (12-78) 09/12/18 13:00 Alkaline Phosphatase 77 U/L (46-116) 09/12/18 13:00 Troponin I 0.03 ng/mL (0.00-0.06) 09/12/18 17:50 Total Protein 6.7 g/dL (6.4-8.2) 09/12/18 13:00 Albumin 2.7 g/dL (3.4-5.0) L 09/12/18 13:00 Lipase 111 U/L (73-393) 09/12/18 13:00 Vitamin B12 298 pg/mL (193-986) 09/14/18 06:30 Folate 15.1 ng/mL (8.6-20.0) 09/14/18 06:30 TSH 4.28 uIU/mL (0.358-3.74) H 09/14/18 06:30 Urine Color Yellow (Yellow) 09/16/18 12:21 Urine Clarity Clear 09/16/18 12:21 Urine pH 5.5 (5-8) 09/16/18 12:21 Ur Specific [place] 1.010 (1.005-1.025) 09/16/18 12:21 Urine Protein Negative mg/dL (Negative) 09/16/18 12:21 Urine Ketones Negative mg/dL (Negative) 09/16/18 12:21 Urine Blood Negative (Negative) 09/16/18 12:21 Urine Nitrite Negative (Negative) 01/04/19 12:21 Urine Bilirubin Negative (Negative) 09/16/18 12:21 Urine Urobilinogen 0.2 EU/dL (Up TO 0.2) 09/16/18 12:21 Ur Leukocyte Esterase Negative (Negative) 09/16/18 12:21 Urine Glucose Negative mg/dL (Negative) 09/16/18 12:21
--- NOTE | 2018-09-16 14:50 | PT.INTREAT ---
Date of service: 09/16/18 Time of Service: 14:50 PT Notes Inpatient Physical Therapy Treatment Note Date: 09/16/18 PRECAUTIONS: Fall SUBJECTIVE: Christiane states that she has been sitting up in the chair since this morning. She was able to get a little bit of sleep while she was there. She reports that she began to feel nauseous following lunch, although feels a little better now. OBJECTIVE: PAIN: No complaints of pain BED MOBILITY/TRANSFERS Sit-supine: S with HOB flat Sit-stand: SBA Stand-sit: SBA Chair-bed: SBA GAIT Assistive Device: FWW Weight bearing: Full Assist: SBA Distance: 5'x2 Deviation: Slow pace TOILETING: Patient toileted with assist ASSESSMENT: Patient tolerated session well. She was able to demonstrate an improvement with sit?to?supine transfer progressing from CGA to supervision only. Patient would benefit from continued gait and transfer training as well as strengthening for improved mobility. PLAN: Continue with PTs POC TREATMENT CODE/TIME: 20 minutes; VERONICA
[2018-09-16 15:28] LABS: Anion Gap -0.2 mmol/L (3-11); BUN 23 mg/dL (7-18); CO2 42.2 mmol/L (21.0-32.0); CREATININE 1.28 mg/dL (0.55-1.02); Calcium 9.4 mg/dL (8.5-10.1); Chloride 98 mmol/L (98-107); Estimated GFR 40.12 (mL/min/1.73m2); Glucose 109 mg/dL (70-100); Potassium 4.3 mmol/L (3.5-5.1); Sodium 140 mmol/L (136-145)
[2018-09-16 17:15] VITALS: BP 159/75; PULSE 63; RESP 19; TEMP 36.9; O2SAT 97
[2018-09-16] MEDS: Furosemide 40 MG/4 ML VIAL IVP (18:18)
[2018-09-16] MEDS: Normal Saline Flush 10 ML SYR IVP (18:19)
[2018-09-16] MEDS: Travoprost 0.004% Ophth Sol 2.5 ML BTL OP (22:03)
[2018-09-17 01:11] VITALS: BP 152/74; PULSE 62; RESP 28; TEMP 37.1; O2SAT 96
[2018-09-17] MEDS: Heparin 5,000 UNITS/ML VIAL 5000 UNITS SC ×3 (04:47→19:44)
[2018-09-17 06:12] LABS: HCT 32.1 % (36.0-46.0); HGB 9.6 g/dL (12.0-15.5); Mean Corp. HGB Concentration 29.9 g/dL (32.0-36.0); Mean Corpuscular Hemoglobin 28.7 pg (27.0-33.0); Mean Corpuscular Volume 95.8 fL (80-95); Mean Platelet Volume 9.4 fL (8.0-11.0); Platelet Count 209 x1000/uL (130-400); RBC 3.35 m/cumm (4.00-5.20); RBC Distribution Width 14.7 % (11.7-14.6); White Blood Cell Count 5.84 k/cumm (4.4-10.8)
[2018-09-17 06:21] LABS: Anion Gap 5.4 mmol/L (3-11); BUN 21 mg/dL (7-18); CO2 43.6 mmol/L (21.0-32.0); CREATININE 1.19 mg/dL (0.55-1.02); Calcium 8.9 mg/dL (8.5-10.1); Chloride 95 mmol/L (98-107); Estimated GFR 43.64 (mL/min/1.73m2); Glucose 92 mg/dL (70-100); Potassium 3.7 mmol/L (3.5-5.1); Sodium 144 mmol/L (136-145)
[2018-09-17 07:25] VITALS: BP 146/62; PULSE 65; RESP 96; TEMP 36.9; O2SAT 96
[2018-09-17] MEDS: Timolol 0.5% 5 ML BTL OP ×2 (08:16→19:40)
[2018-09-17] MEDS: Lidocaine 5% Patch 1 PATCH TP (08:16)
[2018-09-17] MEDS: Torsemide 20 MG TAB PO (08:17)
[2018-09-17] MEDS: Omeprazole 20 MG CAPCR PO (08:17)
[2018-09-17] MEDS: Nadolol 40 MG TAB PO (08:17)
[2018-09-17] MEDS: Lisinopril 20 MG TAB PO (08:18)
[2018-09-17] MEDS: Normal Saline Flush 10 ML SYR IVP (08:25)
--- NOTE | 2018-09-17 12:45 | PDOC.CMPRO ---
Care Management Progress Note S/O: Christiane was lying in bed when CM met with her, CM notified Christiane's family (Geraldo and Aylin) of change in planning and provided contact information for the phone in Christiane's room as she reports sending her cell phone home with her niece, Jana. Later in the day, two of Christiane's grandchildren came to visit. Chrisitane remains agreeable to transferring to the [facility]; likely Wednesday. A: 78 year old female admitted to [facility] 09/12/18 for Dehydration P: Christiane will discharge to the [facility] when medically ready; she continues to require further monitoring per MD. CM will continue to follow and support discharge planning considerations. Transportation via W/C Van coordinated through [facility].
--- NOTE | 2018-09-17 12:49 | PT.INTREAT ---
Date of service: 09/17/18 Time of Service: 10:20 PT Notes Inpatient Physical Therapy Treatment Note Date: 09/17/18 PRECAUTIONS: Fall, std SUBJECTIVE: Stated she is definitely feeling better today, but still weak. OBJECTIVE: PAIN: Left knee pain with ambulation BED MOBILITY/TRANSFERS Up from bed with nursing. Nursing staff indicated that she required CGA only bed to chair. Sit-stand: SBA Stand-sit: SBA GAIT Assistive Device: FWW with O2 supplement at 2L Weight bearing: Full Assist: CGA Distance: 20ft x 1 Used commode while up walking, required assist with cleansing / wiping. THEREX: Performed AP, QS, GS, LAQs, seated hip abduction/ adduction and hip flexion x 10-15 reps each, as well as UE rows, bicep curls and tricep kickouts for 10 reps each. ASSESSMENT: Tolerated today's session well with good slow but steady ambulation. PLAN: Continue with current POC with focus on strengthening of bilateral UE/ LEs for improved ADL functional. TREATMENT CODE/TIME: VERONICA/JAVIER, 35 minutes, 10:20 to 10:55
--- NOTE | 2018-09-17 13:08 | CMPROGNOTE_ITS ---
Care Management Progress Note S/O: Christiane was lying in bed when CM met with her, CM notified Christiane's family (Geraldo and Aylin) of change in planning and provided contact information for the phone in Christiane's room as she reports sending her cell phone home with her niece, Jana. Later in the day, two of Christiane's grandchildren came to visit. Christiane remains agreeable to transferring to the [facility]; likely Wednesday. A: 78 year old female admitted to [facility] 09/12/18 for Dehydration P: Christiane will discharge to the [facility] when medically ready; she continues to require further monitoring per MD. CM will continue to follow and support discharge planning considerations. Transportation via W/C Van coordinated through [facility].
[2018-09-17 16:18] VITALS: BP 148/70; PULSE 62; RESP 18; TEMP 37; O2SAT 97
[2018-09-17] MEDS: Patch Removal 1 EACH TP (19:45)
[2018-09-17 23:01] VITALS: BP 135/44; PULSE 59; RESP 20; TEMP 36.8
[2018-09-17] MEDS: Travoprost 0.004% Ophth Sol 2.5 ML BTL OP (23:03)
[2018-09-18 00:42] VITALS: BP 118/68; PULSE 64; RESP 22; TEMP 36.9; O2SAT 94
[2018-09-18 03:20] VITALS: O2SAT 94
[2018-09-18] MEDS: Heparin 5,000 UNITS/ML VIAL 5000 UNITS SC ×3 (03:28→19:34)
[2018-09-18] MEDS: Normal Saline Flush 10 ML SYR IVP (03:28)
[2018-09-18] MEDS: Omeprazole 20 MG CAPCR PO (07:13)
[2018-09-18 07:45] VITALS: BP 156/75; PULSE 61; RESP 20; TEMP 37.1; O2SAT 93
[2018-09-18] MEDS: Timolol 0.5% 5 ML BTL OP ×2 (07:50→19:34)
[2018-09-18] MEDS: Lidocaine 5% Patch 1 PATCH TP (07:51)
[2018-09-18] MEDS: Lisinopril 20 MG TAB PO (07:51)
[2018-09-18] MEDS: Nadolol 40 MG TAB PO (07:51)
[2018-09-18] MEDS: Torsemide 20 MG TAB PO (07:51)
[2018-09-18 08:00] LABS: HCT 33.2 % (36.0-46.0); HGB 9.9 g/dL (12.0-15.5); Mean Corp. HGB Concentration 29.8 g/dL (32.0-36.0); Mean Corpuscular Hemoglobin 28.5 pg (27.0-33.0); Mean Corpuscular Volume 95.7 fL (80-95); Mean Platelet Volume 9.2 fL (8.0-11.0); Platelet Count 201 x1000/uL (130-400); RBC 3.47 m/cumm (4.00-5.20); RBC Distribution Width 14.8 % (11.7-14.6); White Blood Cell Count 6.24 k/cumm (4.4-10.8)
[2018-09-18 08:11] LABS: Anion Gap 2.1 mmol/L (3-11); BUN 20 mg/dL (7-18); CO2 44.9 mmol/L (21.0-32.0); CREATININE 1.24 mg/dL (0.55-1.02); Calcium 8.2 mg/dL (8.5-10.1); Chloride 96 mmol/L (98-107); Estimated GFR 41.62 (mL/min/1.73m2); Glucose 103 mg/dL (70-100); Potassium 3.6 mmol/L (3.5-5.1); Sodium 143 mmol/L (136-145)
--- NOTE | 2018-09-18 12:44 | PT.INTREAT ---
Date of service: 09/18/18 Time of Service: 11:35 PT Notes Inpatient Physical Therapy Treatment Note Date: 09/18/18 PRECAUTIONS:Fall, std SUBJECTIVE: Indicated she did not sleep well last night, tired today. OBJECTIVE: PAIN: No complaints of pain offered BED MOBILITY/TRANSFERS Supine-sit: Up with nursing to chair Sit-stand: SBA Stand-sit: SBA GAIT Assistive Device: FWW Weight bearing: Full Assist: CGA Distance: 30ft x 2 VITALS: O2 level remained in 90s throughout session while on 3L O2 supplement THEREX: Performed LAQs, seated hip flexion and hip abd/ adduction for 10 reps x 2 sets. Also, performed UE rows, bicep curls and tricep extension for 10 reps each. ASSESSMENT: Tolerated today's session very well with good effort given throughout treatment. PLAN: Continue to work on ambulation and ther ex for improved ADL function. TREATMENT CODE/TIME: TP/ VERONICA, (30 minutes) 11:35 to 12:05
--- NOTE | 2018-09-18 12:54 | PT.INTREAT ---
Date of service: 09/18/18 Time of Service: 09:15 PT Notes Inpatient Physical Therapy Treatment Note Date: 09/18/18 PRECAUTIONS:droplet and fall SUBJECTIVE: Feels good to sit up on edge of bed. Still congested. OBJECTIVE: PAIN: No complaints of pain. BED MOBILITY/TRANSFERS Rolling L/R: Mod assist with rolling to the right Supine-sit: Mod assist of one with HOB at 40 degrees Sit-supine: Mod assist of 2 with HOB flat Sit-stand: Mod assist of one Stand-sit: Mod assist of one Sat up on edge of bed for approximately 10 minutes performing LE exercises with assist of one for trunk control. Attempted stand and pivot transfer with mod assist of one, but patient becomes fearful when she has to let go of bedrail. THEREX: Performed supine ; AP, GS,QS, hip flexion and hip abd/add with assist needed on the left for 15 to 20 reps each. Also, performed right UE shoulder horizontal abd/add, shoudler flexion to 90 degrees and elbow flexion/ extension x 20 reps each. AAROM of left shoulder flexion to 80 degrees, abduction to 80 degrees, elbow flexion / extension for 10 reps each. In seated positon : Patient was able to perform LAQs with right, hip flexion bilaterally and hip abd/ add with right only for 15 reps each. ASSESSMENT: Tolerarted ther ex well. Think use of the Stedy lift for transfer would be good next session. But would advice hailey pad be placed in chair for return to bed. Will discuss this with supervising PT. Currently using hailey at home for transfers. PLAN: Continue with current POC with focus on improved ADL function. TREATMENT CODE/TIME: TA x 3, 9:15 to 10:00 (45 minutes)
--- NOTE | 2018-09-18 14:27 | W.PM.PROGNOT ---
Date of Service Date of service: 09/18/18 Time of Service: 15:22 Assessment and Plan (1) SOB (shortness of breath): Start date: 09/18/18 Start time: 14:59 Current visit: Yes Status: Acute Appears to be at baseline, feels back to her self. (2) CARLOS (obstructive sleep apnea): Start date: 09/18/18 Start time: 14:59 Current visit: Yes Status: Chronic with significant nocturnal hypoxia - needs outpatient sleep study with titration of device. Continue 2 L during day and 4 at hs (3) Osteoarthritis of left knee: Start date: 09/18/18 Start time: 15:00 Current visit: Yes Status: Chronic Pain is better, continue to wear lidoderm patch during the day, work with PT/OT (4) Chronic renal failure: Start date: 09/18/18 Start time: 15:00 Current visit: Yes Status: Acute Am labs with in baseline, continue to monitor on outpatient basis (5) Restrictive lung disease: Start date: 09/18/18 Start time: 15:01 Current visit: Yes Status: Chronic Noted significant restrictive lung disease by review of pulmonary notes and PFTs (6) Unspecified diastolic heart failure: Start date: 09/18/18 Start time: 15:02 Current visit: No Status: Chronic Stable at this time. Last echo from December 2016 with an intact LV ejection fraction, but findings suggestive of diastolic dysfunction. Also with evidence of significant pulmonary hypertension. On [place] (7) Sarcoidosis: Start date: 09/18/18 Start time: 15:02 Current visit: Yes Status: Chronic Hx of and stable at this time, not under treatment (8) Trigeminal neuralgia of left side of face: Start date: 09/18/18 Start time: 15:03 Current visit: Yes Status: Chronic gabapentin on hold no complaints at this time. (9) DVT prophylaxis: Start date: 09/18/18 Start time: 15:04 Current visit: Yes Status: Acute SC Heparin Subjective Patient reports: no new complaints, feels better, tolerating liquids well and afebrile Interval history since last seen: Mrs. Jackson has a prior history of Obesity with associated CARLOS and obesity hypoventilation syndrome, severe OA, hypertension, CKD, severe restrictive lung disease. She also has a history of left-sided facial trigeminal neuralgia chronically maintained on gabapentin, dyslipidemia, and a history of sarcoid that appears to be quiescent. The patient had initially presented to the ED on 09/10 secondary to left knee pain. At that time she was prescribed Vicodin. She reportedly took 1 pill 2 days prior to her admission, which made her feel quite nauseous, and then again 1 pill the next day. Since that time she is appeared somnolent, has had poor oral intake, and has overall not felt well. Workup in the emergency department included lab work which was significant for hemoglobin slightly lower than baseline, but a lack of leukocytosis. Today she is feeling tired which she contributes to lack of sleep. She was stating her mind was racing from thoughts of going to the [facility]. Wants to go to the [facility] but fears going to the [facility] she will not leave. Listened to patient concerns, by end of visit patient was feeling better about decision. Encouraged to drink, she does not like water agreed to drinking crystal light, and spoke with staff about getting patient spirometery. Knee pain is almost gone with lidoderm patch. Ambulatory with PT today. Breathing much better back to baseline. From this standpoint patient can be discharged to the [facility] tomorrow. Exam Const General: cooperative Nutritional Appearance: obese Orientation: alert, awake and oriented x3 HENMT Head: normal to inspection Neck Neck: normal visual inspection Lymphatic: no lymphadenopathy noted Chest Chest: normal inspection of the chest Resp Effort & Inspection: able to speak in complete sentences, abnormal respiratory pattern, cough Quality of cough: productive and tachypneic Auscultation: diminished lung sounds Cardio Jugular venous pressure: no JVD Rate: regular rate Rhythm: regular rhythm Heart Sounds: S1 normal and S2 normal GI Inspection: normal to inspection Auscultation: normal bowel sounds Skin General skin exam: ecchymosis (to abd, SC injections) Neuro General: alert, awake and oriented x3 Cognition: normal cognition Speech: speech normal
--- NOTE | 2018-09-18 14:30 | PGE_ITS ---
Date of Service Date of service: 09/18/18 Time of Service: 15:22 Assessment and Plan (1) SOB (shortness of breath): Start date: 09/18/18 Start time: 14:59 Current visit: Yes Status: Acute Appears to be at baseline, feels back to her self. (2) CARLOS (obstructive sleep apnea): Start date: 09/18/18 Start time: 14:59 Current visit: Yes Status: Chronic with significant nocturnal hypoxia - needs outpatient sleep study with titration of device. Continue 2 L during day and 4 at hs (3) Osteoarthritis of left knee: Start date: 09/18/18 Start time: 15:00 Current visit: Yes Status: Chronic Pain is better, continue to wear lidoderm patch during the day, work with PT/OT (4) Chronic renal failure: Start date: 09/18/18 Start time: 15:00 Current visit: Yes Status: Acute Am labs with in baseline, continue to monitor on outpatient basis (5) Restrictive lung disease: Start date: 09/18/18 Start time: 15:01 Current visit: Yes Status: Chronic Noted significant restrictive lung disease by review of pulmonary notes and PFTs (6) Unspecified diastolic heart failure: Start date: 09/18/18 Start time: 15:02 Current visit: No Status: Chronic Stable at this time. Last echo from December 2016 with an intact LV ejection fraction, but findings suggestive of diastolic dysfunction. Also with evidence of significant pulmonary hypertension. On [place] (7) Sarcoidosis: Start date: 09/18/18 Start time: 15:02 Current visit: Yes Status: Chronic Hx of and stable at this time, not under treatment (8) Trigeminal neuralgia of left side of face: Start date: 09/18/18 Start time: 15:03 Current visit: Yes Status: Chronic gabapentin on hold no complaints at this time. (9) DVT prophylaxis: Start date: 09/18/18 Start time: 15:04 Current visit: Yes Status: Acute SC Heparin Subjective Patient reports: no new complaints, feels better, tolerating liquids well and afebrile Interval history since last seen: Mrs. Jackson has a prior history of Obesity with associated CARLOS and obesity hypoventilation syndrome, severe OA, hypertension, CKD, severe restrictive lung disease. She also has a history of left-sided facial trigeminal neuralgia chronically maintained on gabapentin, dyslipidemia, and a history of sarcoid that appears to be quiescent. The patient had initially presented to the ED on 09/10 secondary to left knee pain. At that time she was prescribed Vicodin. She reportedly took 1 pill 2 days prior to her admission, which made her feel quite nauseous, and then again 1 pill the next day. Since that time she is appeared somnolent, has had poor oral intake, and has overall not felt well. Workup in the emergency department included lab work which was significant for hemoglobin slightly lower than baseline, but a lack of leukocytosis. Today she is feeling tired which she contributes to lack of sleep. She was stating her mind was racing from thoughts of going to the [facility]. Wants to go to the [facility] but fears going to the [facility] she will not leave. Listened to patient concerns, by end of visit patient was feeling better about decision. Encouraged to drink, she does not like water agreed to drinking crystal light, and spoke with staff about getting patient spirometery. Knee pain is almost gone with lidoderm patch. Ambulatory with PT today. Breathing much better back to baseline. From this standpoint patient can be discharged to the [facility] tomorrow. Exam Const General: cooperative Nutritional Appearance: obese Orientation: alert, awake and oriented x3 HENMT Head: normal to inspection Neck Neck: normal visual inspection Lymphatic: no lymphadenopathy noted Chest Chest: normal inspection of the chest Resp Effort & Inspection: able to speak in complete sentences, abnormal respiratory pattern, cough Quality of cough: productive and tachypneic Auscultation: diminished lung sounds Cardio Jugular venous pressure: no JVD Rate: regular rate Rhythm: regular rhythm Heart Sounds: S1 normal and S2 normal GI Inspection: normal to inspection Auscultation: normal bowel sounds Skin General skin exam: ecchymosis (to abd, SC injections) Neuro General: alert, awake and oriented x3 Cognition: normal cognition Speech: speech normal
--- NOTE | 2018-09-18 16:00 | CMPROGNOTE_ITS ---
- If Service Date Differs Date of service: 09/18/18 Time of Service: 15:59 Care Management Progress Note S/O: Christiane is lying in bed when this ad copy writer visits this morning. She is pleasant and receptive to discussion. CM reviewed DC plan of The [facility] on Wednesday if medically cleared, which Christiane is in agreement with. A: 78 year old female admitted to [facility] 09/12/18 for Dehydration P: Christiane will discharge to the [facility] when medically ready; she continues to require further monitoring per MD. CM will continue to follow and support discharge planning considerations. Transportation via W/C Van coordinated through [facility].
[2018-09-18 16:25] VITALS: BP 155/81; PULSE 56; RESP 18; TEMP 37.1; O2SAT 96
[2018-09-18 17:11] LABS: BUN 21 mg/dL (7-18); Calcium 9.1 mg/dL (8.5-10.1); Chloride 95 mmol/L (98-107); Estimated GFR 39.41 (mL/min/1.73m2); Glucose 132 mg/dL (70-100); Potassium 3.9 mmol/L (3.5-5.1); Sodium 143 mmol/L (136-145)
[2018-09-18 17:16] LABS: Anion Gap 2.99999 mmol/L (3-11); CO2 > 45.0 mmol/L (21.0-32.0)
[2018-09-18] MEDS: Patch Removal 1 EACH TP (19:36)
[2018-09-18 21:20] VITALS: BP 151/71; PULSE 54; RESP 18; TEMP 37.1; O2SAT 96
[2018-09-18] MEDS: Travoprost 0.004% Ophth Sol 2.5 ML BTL OP (22:08)
[2018-09-18 22:46] VITALS: O2SAT 93
[2018-09-19] MEDS: Heparin 5,000 UNITS/ML VIAL 5000 UNITS SC ×2 (02:55→11:12)
[2018-09-19] MEDS: Omeprazole 20 MG CAPCR PO (06:52)
[2018-09-19 07:55] VITALS: BP 167/82; PULSE 60; RESP 18; TEMP 36.4; O2SAT 92
[2018-09-19] MEDS: Nadolol 40 MG TAB PO (07:59)
[2018-09-19] MEDS: Torsemide 20 MG TAB PO (07:59)
[2018-09-19] MEDS: Lidocaine 5% Patch 1 PATCH TP (07:59)
[2018-09-19] MEDS: Lisinopril 20 MG TAB PO (07:59)
[2018-09-19] MEDS: Timolol 0.5% 5 ML BTL OP (08:05)
--- NOTE | 2018-09-19 08:45 | PDOC.CMDIS ---
LACE Index Scoring Tool - Questions: Length of Stay (in days): 7 - 13 Acuity (Admit via E.D.?): Yes Comorbidities: Congestive Heart Failure E.D. Visits: 3 - Answers: Total Score: 13 Risk of Readmission: High Risk Care Management Discharge Reason for Hospitalization: Nausea, Vomiting, Diarrhea Discharge Plan: Christiane will discharge to the [facility] when medically ready; per MD. She will follow up with her boat joiner helper for CPAP adjustments and continue to strengthen at the [facility] prior to going home. Transportation via W/C Van coordinated through [facility] by this insurance writer for 1300. Patient/Family Education Needs: Review of discharge instructions, insurance considerations, SNF transfer process and education, discussion of self care needs upon discharge and return to home. Services Needed at Discharge: Oxygen Therapy (Resumption; requires new OP/sleep study for CPAP adjustments), Chcf Facility ([facility] )
--- NOTE | 2018-09-19 08:48 | CMDISCH_ITS ---
LACE Index Scoring Tool - Questions: Length of Stay (in days): 7 - 13 Acuity (Admit via E.D.?): Yes Comorbidities: Congestive Heart Failure E.D. Visits: 3 - Answers: Total Score: 13 Risk of Readmission: High Risk Care Management Discharge Reason for Hospitalization: Nausea, Vomiting, Diarrhea Discharge Plan: Christiane will discharge to the [facility] when medically ready; per MD. She will follow up with her bilingual customer service specialist for CPAP adjustments and continue to strengthen at the [facility] prior to going home. Transportation via W/C Van coordinated through [facility] by this lyric writer for 1300. Patient/Family Education Needs: Review of discharge instructions, insurance considerations, SNF transfer process and education, discussion of self care needs upon discharge and return to home. Services Needed at Discharge: Oxygen Therapy (Resumption; requires new OP/sleep study for CPAP adjustments), Long-Term Facility ([facility] )
--- NOTE | 2018-09-19 10:05 | PT.INTREAT ---
Date of service: 09/19/18 Time of Service: 10:05 PT Notes Date: 09/19/18 PRECAUTIONS: Fall precautions SUBJECTIVE: Pt sitting in recliner chair, agreeable to PT session. States she is waiting to hear if she is going to the [facility] today. OBJECTIVE: General observation: 3 liters 02 NC PAIN: no c/o pain BED MOBILITY/TRANSFERS Sit-stand: SBA with FWW Stand-sit: SBA, cues to reach back to chair. Pt positioned in chair with legs elevated and fall alarm activated. GAIT Assistive Device: FWW Weight bearing: as tolerated Assist: SBA Distance: 20ftx4 THEREX: ankle pumps, quad sets, glute sets x 20 reps, hip flexion, long arc quads x 20 reps bilaterally ASSESSMENT: Pt demonstrating improved strength with therex, transfers and gait. Still not yet at independent level of mobility, plan is rehab stay prior to return to home setting. PLAN: Progress strengthening Progress gait with FWW TREATMENT CODE/TIME: 24min TAx1 TP x1 1005 Shalonda Brand PT
--- NOTE | 2018-09-19 10:08 | PTTR_ITS ---
Date of service: 09/19/18 Time of Service: 10:05 PT Notes Date: 09/19/18 PRECAUTIONS: Fall precautions SUBJECTIVE: Pt sitting in recliner chair, agreeable to PT session. States she is waiting to hear if she is going to the [facility] today. OBJECTIVE: General observation: 3 liters 02 NC PAIN: no c/o pain BED MOBILITY/TRANSFERS Sit-stand: SBA with FWW Stand-sit: SBA, cues to reach back to chair. Pt positioned in chair with legs elevated and fall alarm activated. GAIT Assistive Device: FWW Weight bearing: as tolerated Assist: SBA Distance: 20ftx4 THEREX: ankle pumps, quad sets, glute sets x 20 reps, hip flexion, long arc quads x 20 reps bilaterally ASSESSMENT: Pt demonstrating improved strength with therex, transfers and gait. Still not yet at independent level of mobility, plan is rehab stay prior to return to home setting. PLAN: Progress strengthening Progress gait with FWW TREATMENT CODE/TIME: 24min TAx1 TP x1 1005 Shalonda Brand PT
[2018-09-19 10:10] LABS: Anion Gap 2.6 mmol/L (3-11); BUN 20 mg/dL (7-18); CO2 44.4 mmol/L (21.0-32.0); CREATININE 1.41 mg/dL (0.55-1.02); Calcium 9.2 mg/dL (8.5-10.1); Chloride 94 mmol/L (98-107); Estimated GFR 35.89 (mL/min/1.73m2); Glucose 144 mg/dL (70-100); Potassium 3.6 mmol/L (3.5-5.1); Sodium 141 mmol/L (136-145)
[2018-09-19 12:05] LABS: FIO2L 3 L; Site Right Radial
[2018-09-19 12:07] LABS: pH 7.43 (7.35-7.45)
[2018-09-19 12:08] LABS: HCO3 47 mmol/L (22-28); pCO2 71 mmHg (34-47); pO2 78 mmHg (83-108); sO2 95 % (94-98); tCO2 49 mmol/L (22-29)
--- NOTE | 2018-09-19 12:24 | W.PM.DS.N ---
Date of service: 09/19/18 Time of Service: 12:25 DS: Diagnosis Discharge Diagnosis (1) SOB (shortness of breath): Status: Acute (2) CARLOS (obstructive sleep apnea): Status: Chronic (3) Osteoarthritis of left knee: Status: Chronic (4) Chronic renal failure: Status: Acute (5) Restrictive lung disease: Status: Chronic (6) Unspecified diastolic heart failure: Status: Chronic (7) Sarcoidosis: Status: Chronic (8) Trigeminal neuralgia of left side of face: Status: Chronic Discharge Plan Disposition Patient Disposition: SNF (LEVEL 1) [facility] Condition: Improving Discharge Details Reason For Visit: DEHYDRATION Admit Date/Time: 09/12/18 16:55 Admit Provider: Luis Manuel Saha Attending Provider: Luis Manuel Saha Primary Care Provider: Dougie Bonner [facility] Hospital Course: Mrs. Jackson is an 78 year old female with a prior history of Obesity with associated CARLOS and obesity hypoventilation syndrome, severe OA, hypertension, CKD, severe restrictive lung disease. She also has a history of left-sided facial trigeminal neuralgia chronically maintained on gabapentin, dyslipidemia, and a history of sarcoid that appears to be quiescent. The patient had initially presented to the ED on 09/10 secondary to left knee pain. At that time she was prescribed Vicodin. She reportedly took 1 pill 2 days prior to her admission, which made her feel quite nauseous, and then again 1 pill yesterday. Since that time she is appeared somnolent, has had poor oral intake, and has overall not felt well. She presented back to the ED on 09/12. Workup in the emergency department included lab work which was significant for hemoglobin slightly lower than baseline, but a lack of leukocytosis. Her basic panel showed an elevated bicarb which is chronic but slightly worse. Her urinalysis was negative for infection. Chest x-ray showed cardiomegaly but no evidence of acute pathology, lower extremity venous study showed a Fernando's cyst without evidence of DVT, and a CT of the head showed no acute intracranial abnormality. She was referred for admission for further evaluation and treatment. She was noted to have a new finding of unusual involuntary movements that appear to be associated with purposeful movement, only involving the limbs. She went on to have an MRI brain that was negative. Her case was reviewed with Neurology who agrees with no obvious source for manifestation, and questions potential psychogenic etiology. Recommendation for discontinuation of minimal dose gabapentin. Her symptoms resolved. She will need to follow up with Neurology. She had anemia, which appeared to be anemia of chronic disease, her iron was normal, ferritin nearly 200 with low TIBC, stool negative for occult blood. Her TSH was minimally elevated. She will need follow up TSH in the future. She received IV fluids initially and her Torsemide was held. She went on to appear mildly fluid overloaded. Last echo from December 2016 with an intact LV ejection fraction, but findings suggestive of diastolic dysfunction. Also with evidence of significant pulmonary hypertension. She was diuresed with IV lasix with resolution of her shortness of breath and improvement in her edema. She is near baseline renal function at the time of discharge, will need follow up BMP. Mrs. Jackson has a history of CARLOS with significant nocturnal hypoxia. Her CPAP was noted to be old settings that were no longer appropriate for her. She needs a follow up outpatient sleep study. For now she has been on oxygen 2L during the day, 4L at night. She may benefit from BiPAP. Her knee pain has been controlled. She has worked with PT. She needs ongoing PT. She transfer to the [facility] for rehab prior to returning home. Home Meds and New Rx's Prescriptions: New acetaminophen [Tylenol] 325 mg Tablet 325 - 650 mg PO Q4H PRN PRNQty: 0 RF: 0 polyethylene glycol 3350 17 gram Powder In Packet 17 g PO BID Qty: 0 RF: 0 lidocaine [Lidoderm] 5 % Adhesive Patch,Medicated 1 patch Topical DAILY Qty: 0 RF: 0 Continued multivitamin [Daily Vitamin] 1 EACH tablet 1 ea PO DAILY RF: 0 lysine 500 MG tablet 500 mg PO DAILY RF: 0 Travatan Z 2.5 ML drops 1 drp Ophthalmic DAILY RF: 0 timolol maleate 5 ML gel forming solution 1 drp ophthalmic (eye) BID RF: 0 Oxygen EACH 2 l NS 24 hr Qty: 2 RF: 0 torsemide 20 MG tablet 20 mg PO DAILY Qty: 90 RF: 3 lisinopril 20 MG tablet 20 mg PO DAILY Qty: 90 RF: 3 aspirin [Aspir-81] 81 MG tablet,delayed release (DR/EC) 81 mg PO DAILY 90 Days Qty: 90 RF: 6 nadolol 40 MG tablet 40 mg PO DAILY 90 Days Qty: 90 RF: 3 lovastatin 20 MG tablet 20 mg PO DAILY Qty: 90 RF: 3 omeprazole 20 MG tablet,delayed release (DR/EC) 20 mg PO DAILY Qty: 90 RF: 3 Discontinued Naphcon-A 0.025-0.3 % drops 1 drp OP QID Qty: 10 RF: 0 benzonatate [Tessalon Perles] 100 mg capsule 100 mg PO QID PRN (Reason: cough) Qty: 20 RF: 0 guaifenesin 600 mg tablet extended release 12hr 600 mg PO Q12H Qty: 14 RF: 0 acetaminophen [Tylenol Extra Strength] 500 MG tablet 1,000 mg PO Q6H PRN RF: 0 allopurinol 100 MG tablet 100 mg PO DAILY Qty: 90 RF: 4 gabapentin 100 MG capsule 100 mg PO BID PRNQty: 180 RF: 5 Varicella-Zoster Ge/As01b/Pf [Shingrix Vial Kit] 50 MCG INJ 50 mcg IM ONCE Qty: 1 RF: 1 Discharge Instructions Instructions: Heart Failure (DC), Chronic Kidney Disease (GEN) Stand Alone Forms: Nursing Discharge Form Referrals: Mirella Guerrero MD [ [facility] STAFF PHYSICIAN] - 10/25/18 8:15 am Activity:: Activity as Tolerated Equipment/Supplies:: Oxygen (L/min Below) Diet:: As Tolerated Discharge Orders Discharge Orders: Discharge Order (Routine); Ordered 09/19/18 Ordered By: Ivanna Guidry Other Ambulatory Orders: Basic Metabolic Panel (Routine) Timeframe: 3 Days Location: Determined by Patient Ordered By: Ivanna Guidry Exam Narrative Exam Narrative: General: Sitting up in the chair with her legs elevated, alert and oriented. Answers questions properly. HEENT: Normocephalic, atraumatic. Pupils are equal and round. Mucous membranes moist. Neck: supple. No JVD. Respiratory: Respirations even and unlabored. Can speak in complete sentences without shortness of breath. No coughing noted. Lung sounds diminished with expiratory wheezes scattered throughout. Fine rales right base. Cardiovascular: Heart with regular rate and rhythm. No murmur appreciated. Abdomen: soft, nontender on palpation, no masses appreciated, + bowel sounds x4 quadrants. Extremities: mild edema to BLEs, increased around ankles. peripheral pulses palpable. DS: Data Vitals/I&O Vitals and I&O: Vital Signs Temperature 36.4 C L 09/19/18 07:55 Temperature Source Tympanic 09/19/18 07:55 Pulse 60 09/19/18 07:55 Pulse Rhythm Regular 09/19/18 07:55 Pulse 67 09/15/18 18:00 Respiratory Rate 18 09/19/18 07:55 Respiratory Effort 09/19/18 07:55 Respiratory Depth Shallow 09/19/18 07:55 Respiratory Pattern Normal 09/19/18 07:55 Blood Pressure 167/82 H 09/19/18 07:55 Blood Pressure Mean 83 09/15/18 19:18 Blood Pressure Position Supine 09/12/18 18:30 Pulse Oximetry 92 L 09/19/18 07:55 Oxygen Delivery Method Nasal Cannula 09/19/18 07:55 Oxygen Flow Rate 3 09/19/18 07:55 Pain Level 0 09/18/18 16:25 Comment 09/12/18 18:34 Intake & Output 09/18/18 09/19/18 09/19/18 23:59 11:59 23:59 Intake Total 490 / 740 200 / 200 Output Total 500 / 850 600 / 900 300 / 900 Balance -10 / -110 -400 / -700 -300 / -700 Weight 116.4 kg Intake: Oral 490 / 740 200 / 200 Output: Urine 500 / 850 600 / 900 300 / 900 Other: Urine Color Yellow Straw Urine Appearance Clear Clear Urine Odor Normal Stool Size Small Stool Characteristics Formed Voiding Methods Bedside Commode Toilet Completed studies during hospitalization [Text1]: 09/10/18: LEFT KNEE: The exam is limited by the patient's body habitus. There are degenerative changes greatest at the medial femoral tibial joint. No fracture is visible. IMPRESSION: Limited exam. No gross evidence of a fracture. LEFT TIBIA AND FIBULA: The exam is limited by the patient's body habitus. There is no gross evidence of a fracture. Soft tissue calcifications are noted. IMPRESSION: Limited exam. No acute abnormality. 09/12/18: AP AND LATERAL CHEST: Comparison is made with August,. The exam is limited by the patient's body habitus. The heart is enlarged. The lungs are suboptimally inflated on both views. Basilar infiltrates and mild pulmonary edema cannot be excluded. No effusions are seen. IMPRESSION: Cardiomegaly. Limited exam. No gross evidence of an acute abnormality. LEFT LOWER EXTREMITY ULTRASOUND: The exam is limited by the patient's body habitus. The femoral and popliteal veins and saphenous vein are free of thrombus. The calf veins are poorly visualized. A Fernando's cyst is seen in the posteromedial knee measuring 4.5 cm in length. IMPRESSION: Fernando's cyst. No evidence of DVT. The calf region was not well seen. NONCONTRAST HEAD CT: No intracranial hemorrhage, mass or infarct is seen. There is no evidence of skull fracture. White matter changes consistent with small vessel disease and mild atrophy are noted. The ventricles are normal in size. IMPRESSION: No acute abnormality. MRI OF THE BRAIN: Comparison is made with a head CT of August,. T2 sagittal, T1, T2, FLAIR, diffusion and gradient-echo axial sequences were performed. The exam is somewhat limited by patient motion. There is moderate diffuse cerebral atrophy. There are a few small high signal lesions in the white matter consistent with small vessel disease. No acute hemorrhage or infarct is seen. The sinuses, mastoid air cells and orbits are unremarkable. IMPRESSION: Atrophy and mild small vessel disease. No acute abnormality. MRA OF THE [place] OF [place]: A 3D [id number] study was performed. Exam is somewhat limited by patient motion. There is no evidence of occlusion or significant stenosis. No aneurysm is identified. IMPRESSION: Negative MRA of the [place] of [place]. 09/16/18- AP AND LATERAL CHEST: Comparison 09/12/18. The heart is enlarged. The pulmonary vasculature appears stable. No definite focal consolidating infiltrate is seen. No effusion or pneumothorax is identified. The study is somewhat limited due to patient body habitus. IMPRESSION: Cardiomegaly. No definite acute pulmonary process. Labs on day of discharge: Labs from last 24 hours 09/19/18 09/19/18 09/18/18 12:05 09:42 16:30 Sample Site Right radial pCO2 71 H* pO2 78 L O2 Saturation 95 ABG pH 7.43 ABG HCO3 47 H ABG Total CO2 49 H ABG Base Excess 22.0 H Oxygen Liter Flow 3 Sodium 141 143 Potassium 3.6 3.9 Chloride 94 L 95 L Carbon Dioxide 44.4 H > 45.0 H Anion Gap 2.6 L 2.98429 L BUN 20 H 21 H Creatinine 1.41 H 1.30 H Estimated GFR/1.73 m2 35.89 39.41 Glucose 144 H 132 H Calcium 9.2 9.1 PFSH Medical History Unspecified diastolic heart failure (Chronic 05/27/12) Trigeminal neuralgia of left side of face (Chronic 02/17/17) Sarcoidosis (Chronic 02/11/12) Spinal stenosis (Chronic 02/11/12) Restrictive lung disease (Chronic 03/19/16) Primary osteoarthritis of both knees (Chronic 09/23/15) Osteoarthrosis (Chronic 02/23/13) Obesity hypoventilation syndrome (Chronic 09/29/16) Obesity (Chronic 04/05/13) Gout of right foot (Resolved 01/17/16) Congestive heart failure (Chronic 01/19/17) Irritable bowel syndrome (IBS) (Chronic) IFG (impaired fasting glucose) (Suspected 02/11/12) Social History adopted: No caregiver/support person: No foster care: No household members: other details: apartment in [facility] housing: apartment lives independently: Yes number of children: 3 current occupational status: retired Smoking/Tobacco Use Status: Never alcohol intake: never substance use type: does not use working smoke detector in home: Yes carbon monox detector in home: Yes
--- NOTE | 2018-09-19 12:57 | PT.INDS ---
Date of service: 09/19/18 Time of Service: 12:57 PT Notes Inpatient Physical Therapy Discharge Summary Date: 09/19/18 Dates of Service: 09/13/18-09/19/18 SUBJECTIVE: NT OBJECTIVE: 09/13/18-09/19/18 BED MOBILITY/TRANSFERS: Supine-sit : independent Sit-supine : supervision Sit-stand : SBA Stand-sit : SBA Bed-Chair : SBA with FWW Chair-bed : SBA with FWW GAIT: SBA with FWW 20ftx4 BALANCE: Static sitting: normal Dynamic sitting: normal Static standing: fair Dynamic standing: fair ASSESSMENT: Pt was seen for 10 PT visits. Progressed from [place] bed transfers to independent, from unable to stand to SBA with FWW, from unable to gait train to SBA with FWW 20ftx4. Pt is being transferred to the [facility] for continued rehab and strengthening. GOALS 1. Supine-Sit: Supervision 2. Sit-Supine : Supervision 3. Sit-Stand : Supervision 4. Stand-Sit : Supervision 5. Bed-Chair : Supervision with WW 6. Chair-Bed : Supervision with WW 7. Gait : Supervision with WW x 50' Pt met goals # 1, 2 DISCHARGE RECOMMENDATIONS: [facility] G Codes in the area mobility of walking and moving around; projected status GP [id number] Discharge status (if discharging) GP [id number] ADRIÁN. Shalonda Brand PT
--- NOTE | 2018-09-19 13:02 | INDS_ITS ---
Date of service: 09/19/18 Time of Service: 12:57 PT Notes Inpatient Physical Therapy Discharge Summary Date: 09/19/18 Dates of Service: 09/13/18-09/19/18 SUBJECTIVE: NT OBJECTIVE: 09/13/18-09/19/18 BED MOBILITY/TRANSFERS: Supine-sit : independent Sit-supine : supervision Sit-stand : SBA Stand-sit : SBA Bed-Chair : SBA with FWW Chair-bed : SBA with FWW GAIT: SBA with FWW 20ftx4 BALANCE: Static sitting: normal Dynamic sitting: normal Static standing: fair Dynamic standing: fair ASSESSMENT: Pt was seen for 10 PT visits. Progressed from [place] bed transfers to independent, from unable to stand to SBA with FWW, from unable to gait train to SBA with FWW 20ftx4. Pt is being transferred to the [facility] for continued rehab and strengthening. GOALS 1. Supine-Sit: Supervision 2. Sit-Supine : Supervision 3. Sit-Stand : Supervision 4. Stand-Sit : Supervision 5. Bed-Chair : Supervision with WW 6. Chair-Bed : Supervision with WW 7. Gait : Supervision with WW x 50' Pt met goals # 1, 2 DISCHARGE RECOMMENDATIONS: [facility] G Codes in the area mobility of walking and moving around; projected status GP [id number] Discharge status (if discharging) GP [id number] ADRIÁN. Shalonda Brand PT
== END 2018-09-19 13:02 | disposition skilled nursing facility (03) | DRG 945 ==
LOC: ER 17:47 → ICU 18:19 → MS 09-19 12:28 → ICU 10-12 09:55
PROVIDERS: Internal Medicine; Nurse Practitioner; Nurse Practitioner Family; Student in an Organized Health Care Education/Training Program; Admitting Provider Family Medicine; Emergency Provider Emergency Medicine; PCP Family Medicine; Visit Provider Internal Medicine
DX: R53.1 Weakness (principal); E66.2 Morbid (severe) obesity with alveolar hypoventilation; Z68.41 Body mass index [BMI] 40.0-44.9, adult; I50.30 Unspecified diastolic (congestive) heart failure; I13.0 Hypertensive heart and chronic kidney disease with heart failure and stage 1 through stage 4 chronic kidney disease, or unspecified chronic kidney disease; E86.0 Dehydration; R11.2 Nausea with vomiting, unspecified; R19.7 Diarrhea, unspecified; R09.02 Hypoxemia; G47.33 Obstructive sleep apnea (adult) (pediatric); M17.12 Unilateral primary osteoarthritis, left knee; R41.0 Disorientation, unspecified; G25.89 Other specified extrapyramidal and movement disorders; N18.9 Chronic kidney disease, unspecified; G50.0 Trigeminal neuralgia; E78.5 Hyperlipidemia, unspecified; E87.70 Fluid overload, unspecified; G47.34 Idiopathic sleep related nonobstructive alveolar hypoventilation; I51.7 Cardiomegaly; Z87.09 Personal history of other diseases of the respiratory system; J98.4 Other disorders of lung; Z73.89 Other problems related to life management difficulty; Z99.81 Dependence on supplemental oxygen; D63.1 Anemia in chronic kidney disease; I27.20 Pulmonary hypertension, unspecified
CPT/HCPCS: 36415; 51701; 70544; 80048; 80053; 82805; 83690; 85027; 87449; 93005; 96360; 96361; 97110; 97163; 97166; 97530; 99221; 99223; 99232; 99233; 99239; 99285; 36600; 70450; 70551; 71046; 81003; 82607; 82728; 82746; 83540; 83550; 83735; 84443; 84484; 85025; 93010; 93971; 99220; 99226; G8978; J1644; J1650; J1940; J3490

== ENCOUNTER 2018-09-22 11:29 | Outpatient (REF) | payer MEDICARE, SELFPAY ==
[2018-09-22 12:19] LABS: Anion Gap 6.7 mmol/L (3-11); BUN 24 mg/dL (7-18); CO2 38.3 mmol/L (21.0-32.0); CREATININE 1.38 mg/dL (0.55-1.02); Calcium 8.9 mg/dL (8.5-10.1); Chloride 94 mmol/L (98-107); Estimated GFR 36.79 (mL/min/1.73m2); Glucose 138 mg/dL (70-100); Potassium 3.8 mmol/L (3.5-5.1); Sodium 139 mmol/L (136-145)
== END 2018-09-22 11:49 ==
LOC: LBN 11:29
PROVIDERS: PCP Family Medicine; Visit Provider Family Medicine
DX: R53.83 Other fatigue (principal); R63.5 Abnormal weight gain
CPT/HCPCS: 80048

== ENCOUNTER → 2018-10-25 08:06 | Outpatient (BNVA) | payer MEDICARE, SELFPAY | PROVIDERS: PCP Family Medicine; Visit Provider Psychiatry & Neurology Neurology | DX: R69 Illness, unspecified (principal) ==

== ENCOUNTER → 2018-10-27 13:13 | Outpatient (BNVA) | payer MEDICARE, SELFPAY | PROVIDERS: PCP Family Medicine; Referring Provider Family Medicine; Visit Provider Orthopaedic Surgery | DX: M17.11 Unilateral primary osteoarthritis, right knee (principal); M17.12 Unilateral primary osteoarthritis, left knee | CPT/HCPCS: 20610; 99211; 99213; J1040 ==

== ENCOUNTER → 2019-02-16 12:41 | Outpatient (BNVA) | payer MEDICARE, SELFPAY | PROVIDERS: PCP Internal Medicine; Referring Provider Internal Medicine; Visit Provider Orthopaedic Surgery | DX: M17.11 Unilateral primary osteoarthritis, right knee (principal); M17.12 Unilateral primary osteoarthritis, left knee; Z99.81 Dependence on supplemental oxygen | CPT/HCPCS: 20610; 99211; 99213; J1040 ==

== ENCOUNTER 2019-04-19 00:50 | Outpatient (CLI) | payer MEDICARE, SELFPAY ==
[2019-04-19 13:39] LABS: BUN 51 mg/dL (7-18); CREATININE 2.34 mg/dL (0.55-1.02); Estimated GFR 19.95 (mL/min/1.73m2)
--- NOTE | 2019-04-19 14:46 | DI.CT_ITS ---
SYMPTOMS/DIAGNOSIS: SARCOIDOSIS, D86.[address]: A noncontrast exam was performed due to elevated creatinine. There are two adjacent nodules in the left upper lobe, one measuring 4 and the other measuring 6 mm in diameter. There are areas of atelectasis, in both the medial aspect of the right middle lobe as well as medial lingula. Mild scarring versus atelectasis is seen at the lung bases. There are changes of honeycombing seen at the most inferior aspects of the left lower lobes, peripherally. There are areas of multifocal scarring. No infiltrates are seen. A small focus of scarring versus nodule is seen anteriorly in the right upper lobe, measuring 6 mm in diameter. There is prominence of the pulmonary arteries. There are multiple mediastinal and bilateral hilar lymph nodes. Coronary artery and aortic calcifications are seen. The aorta appears normal in diameter. The patient is status post cholecystectomy. The liver, spleen, adrenals and pancreas are unremarkable. IMPRESSION: Hilar and mediastinal adenopathy consistent with sarcoidosis. There is mild peripheral honeycombing and basilar areas of atelectasis. Two noncalcified nodules are seen in the left upper lobe. There is a nodule containing calcification in the anterior right upper lobe. HIGH RESOLUTION CHEST CT: 1 mm images were performed at 10 mm intervals during inspiration and expiration. The exam is limited by respiratory motion. The expiratory images show multifocal areas of air trapping, greater in the superior segments of the lower lobes as well as anteriorly in the right middle lobe. There is minimal honeycombing seen at the inferior lung bases among areas of calcification. There is atelectasis or scarring in the medial aspects of both the right middle lobe and lingula inferiorly, as well as adjacent to the spine in the right lower lobe. No infiltrates are seen. IMPRESSION: Minimal peripheral honeycombing at the bilateral lung bases. Atelectasis or scarring at the medial aspects of the right middle lobe and lingula.
== END 2019-04-19 01:10 ==
PROVIDERS: PCP Internal Medicine; Visit Provider Internal Medicine
DX: D86.9 Sarcoidosis, unspecified (principal); R59.0 Localized enlarged lymph nodes; R91.8 Other nonspecific abnormal finding of lung field; J98.11 Atelectasis; J98.4 Other disorders of lung
CPT/HCPCS: 71250; 84520; 82565

== ENCOUNTER 2019-04-28 02:30 | Outpatient (CLI) | payer MEDICARE, SELFPAY ==
[2019-04-28] MEDS: Inhaler, Assist Device 1 EACH MC (13:32)
[2019-04-28] MEDS: Albuterol HFA 18 GM 200 PUFF INH IH (13:32)
--- NOTE | 2019-05-08 | PFT_ITS ---
PULMONARY FUNCTION TEST REPORT Patient - Christiane Jackson DATE OF SERVICE April 28, 2019 REQUESTING PROVIDER Tania Garcia M.D. INTERPRETATION OF STUDY Spirometry shows mild obstructive airways disease with some, but not significant bronchodilator response. LUNG VOLUMES - Lung volumes show no evidence of restriction. DIFFUSION CAPACITY- Severely reduced, which is normal when corrected to alveolar volume. AIRWAY RESISTANCE - Normal. IMPRESSION Mild obstructive airways disease with some, but not significant bronchodilator response. This is associated with severe diffusion defect. Clinical correlation recommended. Tania Garcia M.D. THERON/ T- 05/08/2019
== END 2019-04-28 02:50 ==
PROVIDERS: PCP Internal Medicine; Visit Provider Internal Medicine
DX: D86.9 Sarcoidosis, unspecified (principal); R05 Cough
CPT/HCPCS: 94060; 94150; 94726; 94729

== ENCOUNTER 2019-07-06 01:36 | Outpatient (CLI) | payer MEDICARE, SELFPAY ==
[2019-07-06 11:02] LABS: Anion Gap 6.7 mmol/L (3-11); BUN 43 mg/dL (7-18); CO2 34.3 mmol/L (21.0-32.0); CREATININE 1.97 mg/dL (0.55-1.02); Calcium 9.1 mg/dL (8.5-10.1); Chloride 101 mmol/L (98-107); Estimated GFR 24.33 (mL/min/1.73m2); Glucose 102 mg/dL (70-100); Potassium 4.4 mmol/L (3.5-5.1); Sodium 142 mmol/L (136-145)
== END 2019-07-06 01:56 ==
PROVIDERS: PCP Internal Medicine; Visit Provider Internal Medicine
DX: I10 Essential (primary) hypertension (principal)
CPT/HCPCS: 36415; 80048

== ENCOUNTER 2020-01-30 20:00 | Outpatient (REF) | payer MEDICARE, SELFPAY ==
[2020-01-30 19:37] LABS: Anion Gap 5.6 mmol/L (3-11); BUN 53 mg/dL (7-18); CO2 32.4 mmol/L (21.0-32.0); CREATININE 2.31 mg/dL (0.55-1.02); Calcium 9.8 mg/dL (8.5-10.1); Chloride 100 mmol/L (98-107); Estimated GFR 20.25 (mL/min/1.73m2); Glucose 121 mg/dL (74-106); Potassium 5.1 mmol/L (3.5-5.1); Sodium 138 mmol/L (136-145); Uric Acid 10.5 mg/dL (2.6-6.0)
[2020-01-31 14:23] LABS: Folate > 20.0 ng/mL (8.6-20.0); TSH 3.95 uIU/mL (0.36-3.74); Vitamin B12 487 pg/mL (193-986)
== END 2020-01-30 20:20 ==
LOC: LBN 20:00
PROVIDERS: PCP Internal Medicine; Visit Provider Internal Medicine
DX: I10 Essential (primary) hypertension (principal); M10.9 Gout, unspecified; G57.93 Unspecified mononeuropathy of bilateral lower limbs
CPT/HCPCS: 80048; 82607; 82746; 84443; 84550

== ENCOUNTER 2020-04-01 02:12 | Outpatient (CLI) | payer MEDICARE, SELFPAY ==
[2020-04-01 12:23] LABS: Anion Gap 7.4 mmol/L (3-11); BUN 60 mg/dL (7-18); CO2 31.6 mmol/L (21.0-32.0); Calcium 8.9 mg/dL (8.5-10.1); Chloride 103 mmol/L (98-107); Estimated GFR 19.33 (mL/min/1.73m2); Glucose 153 mg/dL (74-106); Potassium 4.8 mmol/L (3.5-5.1); Sodium 142 mmol/L (136-145); Uric Acid 7.7 mg/dL (2.6-6.0)
[2020-04-01 12:52] LABS: TSH 4.11 uIU/mL (0.36-3.74); Vitamin B12 611 pg/mL (193-986)
[2020-04-01 12:54] LABS: Folate > 20.0 ng/mL (8.6-20.0)
== END 2020-04-01 02:32 ==
PROVIDERS: PCP Internal Medicine; Visit Provider Internal Medicine
DX: E79.0 Hyperuricemia without signs of inflammatory arthritis and tophaceous disease (principal); N18.9 Chronic kidney disease, unspecified; G57.93 Unspecified mononeuropathy of bilateral lower limbs
CPT/HCPCS: 36415; 80048; 82607; 82746; 84443; 84550

== ENCOUNTER 2020-10-10 11:49 | Emergency (ER) | payer MEDICARE, SELFPAY ==
[2020-10-10 12:05] VITALS: BP 113/41; PULSE 68; RESP 18; TEMP 36.6; O2SAT 95
--- NOTE | 2020-10-10 13:15 | W.ED.GENAD ---
Discharge Plan Disposition Patient Disposition: HOME Condition: Stable Discharge Details Clinical Impression: Anterior epistaxis Primary Care Provider: Mee Soto ED Provider: Frandy Hernández Home Meds and New Rx's Prescriptions: Continued topricin topical HS PRN RF: 0 sertraline 25 mg tablet 25 mg PO DAILY Qty: 90 RF: 3 omeprazole 20 mg tablet,delayed release (DR/EC) 20 mg PO DAILY Qty: 90 RF: 3 lovastatin 20 mg tablet 20 mg PO DAILY Qty: 90 RF: 3 metoprolol succinate 50 mg tablet extended release 24 hr 50 mg PO DAILY Qty: 90 RF: 3 multivitamin [Daily Vitamin] 1 EACH tablet 1 ea PO DAILY RF: 0 lysine 500 MG tablet 500 mg PO DAILY RF: 0 travoprost [Travatan Z] 2.5 ML drops 1 drp Ophthalmic DAILY RF: 0 Oxygen EACH 2 l NS 24 hr Qty: 2 RF: 0 lisinopril 20 mg tablet 20 mg PO DAILY Qty: 90 RF: 1 Hold Instructions: low blood pressure torsemide 20 mg tablet 20 mg PO DAILY Qty: 90 RF: 3 allopurinol 100 mg tablet 100 mg PO DAILY Qty: 90 RF: 3 colchicine 0.6 mg capsule 0.6 mg PO DAILY Qty: 30 RF: 0 acetaminophen [Tylenol] 325 mg Tablet 325 - 650 mg PO Q4H PRN PRNQty: 0 RF: 0 polyethylene glycol 3350 17 gram Powder In Packet 17 g PO BID Qty: 0 RF: 0 Discharge Instructions Instructions: Nosebleed (ED) Additional Instructions: Continue using the dehumidifier's at home and applying lubricant to your nostrils to keep your tissue moist. Please follow the instructions given to you by the respiratory therapy team, they are setting you up with devices to attach to both your home machines to help with your chronic dryness. Please watch for new or worsening symptoms and return to the ER for any concerns. I have placed you on to the ENT list, please contact your office tomorrow for prompt outpatient reevaluation. Referrals: Fabian Montenegro DO [OSTEOPATHIC DOCTOR] - Wesley Chi MD [ [facility] STAFF PHYSICIAN] - Discharge Data Discharge Date/Time-TO BE ENTERED AT DEPARTURE: 10/10/20 13:30 Medical Decision Making This is an 80-year-old female who wears oxygen nasal cannula all day and that a CPAP machine at bedtime. She is not anticoagulated. Reports intermittent left-sided epistasis since Wednesday. It appears as though it is a left anterior epistasis that is easily controlled with direct pressure. Clinically her septum is unremarkable. I can see dried blood on the lateral aspect of the left nare but no active source of bleeding. Nasal mucosa is dry in general. Given she appears well, nontoxic, hemodynamically stable, not anticoagulated, I do not believe that aggressive treatment here in the ER is required. We discussed applying ointment to her nares to keep moist as well as using humidifiers in her house. I have contacted respiratory therapy to discuss attachment for her nasal cannula and CPAP machine for increased humidification. They were able to see the patient in the ER, contact her medical supply company, and order her attachments. I will place her on the ENT list and recommend that she contact ENT on Wednesday for prompt outpatient reevaluation. We discussed that she is applying pressure appropriately in controlling her nosebleeds without difficulty. She will return to the ER for new or worsening symptoms. Medical Records Medical records reviewed: Yes I reviewed the patient's medical records. HPI General Mode of arrival: wheelchair. Date/Time Provider Initiated Documentation: 10/10/20 12:15. Limitations to Documentation: no limitations. Information obtained by: patient. HPI Narrative: This is a 80-year-old female, past medical history that includes anemia, chronic renal failure, CHF, IBS, obesity, restrictive lung disease, sarcoidosis, who wears oxygen nasal cannula all day and has a CPAP machine at night. She states that since Wednesday she has been having left sided anterior nosebleed that she is able to resolve completely typically under 5 minutes with mild direct pressure. She denies easy bleeding or bruising. Last nosebleed today was much earlier this morning. She denies history of any nosebleeds. She is not anticoagulated. She denies any headache, chest pain, shortness of breath. She denies any blood going down the back of her throat. She does state that when she pinches her nose and then tilts her head back she does have blood in her throat then but only then. Related Data Home Medications Medication Instructions Recorded Confirmed lysine 500 mg PO DAILY 12/15/12 07/09/20 multivitamin [Daily Vitamin] 1 ea PO DAILY 12/15/12 07/09/20 travoprost [Travatan Z] 1 drp OPHTHALMIC DAILY drp 11/08/15 07/09/20 Oxygen 2 l NS 24 hr #2 08/27/16 07/09/20 acetaminophen [Tylenol] 325 - 650 mg PO Q4H PRN PRN #0 tab 09/19/18 07/09/20 polyethylene glycol 3350 17 g PO BID #0 ea 09/19/18 07/09/20 lisinopril 20 mg tablet 20 mg PO DAILY #90 tab-cap 12/05/19 07/09/20 topricin TOPICAL HS PRN 01/31/20 07/09/20 torsemide 20 mg tablet 20 mg PO DAILY #90 tab-cap 03/13/20 07/09/20 allopurinol 100 mg tablet 100 mg PO DAILY #90 tab 04/02/20 07/09/20 colchicine 0.6 mg capsule 0.6 mg PO DAILY #30 cap 05/07/20 07/09/20 lovastatin 20 mg tablet 20 mg PO DAILY #90 tab 05/22/20 07/09/20 metoprolol succinate 50 mg 50 mg PO DAILY #90 tab 05/22/20 07/09/20 tablet,extended release 24 hr omeprazole 20 mg tablet,delayed 20 mg PO DAILY #90 tab-cap 05/22/20 07/09/20 release sertraline 25 mg tablet 25 mg PO DAILY #90 tab 05/22/20 07/09/20 Previous Rx's Medication Instructions Recorded acetaminophen [Tylenol] 325 - 650 mg PO Q4H PRN PRN #0 tab 09/19/18 polyethylene glycol 3350 17 g PO BID #0 ea 09/19/18 lisinopril 20 mg tablet 20 mg PO DAILY #90 tab-cap 12/05/19 torsemide 20 mg tablet 20 mg PO DAILY #90 tab-cap 03/13/20 allopurinol 100 mg tablet 100 mg PO DAILY #90 tab 04/02/20 colchicine 0.6 mg capsule 0.6 mg PO DAILY #30 cap 05/07/20 lovastatin 20 mg tablet 20 mg PO DAILY #90 tab 05/22/20 metoprolol succinate 50 mg 50 mg PO DAILY #90 tab 05/22/20 tablet,extended release 24 hr omeprazole 20 mg tablet,delayed 20 mg PO DAILY #90 tab-cap 05/22/20 release sertraline 25 mg tablet 25 mg PO DAILY #90 tab 05/22/20 Allergies Allergy/AdvReac Type Severity Reaction Status Date / Time acetaminophen [From Vicodin] AdvReac Severe AMS Verified 10/10/20 12:09 hydrocodone [From Vicodin] AdvReac Severe AMS Verified 10/10/20 12:09 aspirin AdvReac Mild GI upset, Verified 10/10/20 12:09 tolerates 81mg codeine AdvReac GI upset Verified 10/10/20 12:09 General Stated Complaint: Epistaxis GREG: 3 Review of Systems Constitutional Constitutional: Denies headache(s) ENT Ears, Nose, Mouth, and Throat: Denies headache(s), Denies nasal congestion, Denies nasal trauma and Denies sore throat Cardiovascular Cardiovascular: Denies chest pain and Denies dyspnea Respiratory Respiratory: Denies cough and Denies dyspnea Integumentary/Breasts Skin/Breast: Denies erythema Neurologic Neurologic: Denies headache(s) Hematologic/Lymphatic Hematologic/Lymphatic: Denies easy bleeding and Denies easy bruising PFSH Medical History Anemia Chronic renal failure Congestive heart failure (01/19/17) Pulmonology [place] Dr Katie Zafar; Dr Schuster: diastolic dysfunction, EF 52%, Pos wall motion abnl on MPI but not seen on ECHO 01/2017. Gout of right foot (01/17/16) IFG (impaired fasting glucose) (02/11/12) Irritable bowel syndrome (IBS) Obesity (04/05/13) Obesity hypoventilation syndrome (09/29/16) with [facility]: BiPAP:Dr Katie Zafar Osteoarthrosis (02/23/13) Primary osteoarthritis of both knees (09/23/15) Restrictive lung disease (03/19/16) Dr Zafar Pulmonary [facility]; CT dx Sarcoidosis; prednisone begun 05/2016 PFT 03/2016 FVC 47% FEVi 60% Hypoxia, chronic O2 Rx Sarcoidosis (02/11/12) Spinal stenosis (02/11/12) Trigeminal neuralgia of left side of face (02/17/17) Unspecified diastolic heart failure (05/27/12) Echo 05/2012 EF 70% no valve abn; diastolic dysfx Surgical History Appendectomy Cholecystectomy twice, first age 18; repeat around 2006 Tonsillectomy and adenoidectomy Family History Mother , 75, complications heart surgery No problems noted. Father , age 80, heart attack No problems noted. Daughter , Sarcoidosis, bleeding from the lung No problems noted. Social History Smoking/Tobacco Use Status: Never Smoking risk assessment performed?: Yes Alcohol Intake: never Drug use: Never Substance use type: does not use Adopted: No Caregiver/Support person: No Foster care: No Household members: other Details: apartment [facility] Housing: apartment Number of Children: 3 Communication Needs: Corrective Lenses Do you need help understanding health information?: Rarely What is your relationship status?: Panel score (0-1 are the most socially isolated patients): 0 What type of physical activity do you participate in: none Seatbelt use: always Drive intox or ride w/intox driver starting gate: No Working smoke detector in home: Yes Carbon monox detector in home: Yes Do you feel safe at home: Yes Do you feel safe in your relationship?: Yes Exam Const General: cooperative, healthy appearing, comfortable and no acute distress Orientation: alert, awake and oriented x3 HENPR Head: normal to inspection, normocephalic and atraumatic General nose exam: external nose normal, nares normal, no nasal polyps, septum normal, no nasal discharge, epistaxis on the left dried blood present; no active bleeding and mucous membranes and turbinates abnormal (Dry) Face and sinus: normal facial exam Mouth: moist mucous membranes Throat: posterior oropharynx normal Eyes General: appearance normal, both eyes and all related structures Conjunctivae: conjunctivae normal Sclera: sclerae normal Neck Neck: normal visual inspection, full ROM, no meningeal signs, trachea midline and supple Resp Effort & Inspection: normal respiratory effort and able to speak in complete sentences Auscultation: clear to auscultation bilaterally Cardio Rate: regular rate Rhythm: regular rhythm Skin General skin exam: no rashes or lesions noted Neuro General: patient alert, patient awake, moves all extremities and no focal motor deficits Sensory Exam: no sensory deficits noted Psych Appearance: grossly normal Mental Status: mental status grossly normal Course Vital Signs Vital signs: Vital Signs Temperature 36.6 C 10/10/20 12:05 Pulse 68 10/10/20 12:05 Respiratory Rate 18 10/10/20 12:05 Blood Pressure 113/41 L 10/10/20 12:05 Pulse Oximetry 95 10/10/20 12:05 Temperature 36.6 C 10/10/20 12:05 Temperature Source Skin 10/10/20 12:05 Pulse 68 10/10/20 12:05 Respiratory Rate 18 10/10/20 12:05 Respiratory Effort Non-Labored 10/10/20 12:14 Blood Pressure 113/41 L 10/10/20 12:05 Blood Pressure Position Sitting 10/10/20 12:05 Pulse Oximetry 95 10/10/20 12:05 Oxygen Delivery Method Nasal Cannula 10/10/20 12:05 Oxygen Flow Rate 2 10/10/20 12:05 Pain Level 0 10/10/20 12:05
[2020-10-10 13:21] VITALS: BP 108/45; PULSE 64; RESP 16; TEMP 36.6; O2SAT 95
--- NOTE | 2020-10-11 14:33 | NUR.NOTE ---
Referral faxed to ENT [facility].Nursing Note:
== END 2020-10-10 13:30 | disposition home or self-care (01) ==
PROVIDERS: Emergency Provider Physician Assistant; PCP Internal Medicine
DX: R04.0 Epistaxis (principal)
CPT/HCPCS: 99282; 99283

== ENCOUNTER 2021-01-02 14:44 | Emergency (ER) | payer MEDICARE, SELFPAY ==
[2021-01-02 14:44] VITALS: PULSE 64; RESP 20; TEMP 36.5; O2SAT 97
--- NOTE | 2021-01-02 14:45 | RT.EKG_ITS ---
APPROVED REPORT Exam: Resting ECG Patient Location: E HR:62 bpm ECG Measurements Heart Rate 62 AXIS SC 249 P 35 QRSd 158 QRS -24 QT 441 T 8 QTc 446 Conclusion Sinus rhythm...normal P axis, V-rate 60- 99 Prolonged SC interval...SC >220, V-rate 50- 90 Right bundle branch block...QRSd>120, terminal axis(90,270) Probable left ventricular hypertrophy...(RaVL+SV3)xQRSd >300 Lateral infarct, age indeterminate...Q>35mS, T neg, V5-V6 I aVL I have reviewed and interpreted ECG and agree with software generated interpretation.
--- NOTE | 2021-01-02 14:59 | W.ED.GENAD ---
Discharge Plan Disposition Patient Disposition: HOME Condition: Stable Discharge Details Clinical Impression: Abdominal pain, Nausea vomiting and diarrhea Primary Care Provider: Mee Soto ED Provider: Nikki Vu Home Meds and New Rx's Prescriptions: New sucralfate [Carafate] 1 gram tablet 1 g PO BID Qty: 60 RF: 0 ondansetron HCl [Zofran] 4 mg tablet 4 mg PO Q8H PRNQty: 10 RF: 0 cephalexin 500 mg tablet 500 mg PO BID 7 Days Qty: 14 RF: 0 No Action lisinopril 10 mg tablet 10 mg PO DAILY Qty: 90 RF: 3 topricin topical HS PRN RF: 0 sertraline 25 mg tablet 25 mg PO DAILY Qty: 90 RF: 3 omeprazole 20 mg tablet,delayed release (DR/EC) 20 mg PO DAILY Qty: 90 RF: 3 lovastatin 20 mg tablet 20 mg PO DAILY Qty: 90 RF: 3 metoprolol succinate 50 mg tablet extended release 24 hr 50 mg PO DAILY Qty: 90 RF: 3 multivitamin [Daily Vitamin] 1 EACH tablet 1 ea PO DAILY RF: 0 lysine 500 MG tablet 500 mg PO DAILY RF: 0 travoprost [Travatan Z] 2.5 ML drops 1 drp Ophthalmic DAILY RF: 0 Oxygen EACH 2 l NS 24 hr Qty: 2 RF: 0 torsemide 20 mg tablet 20 mg PO DAILY Qty: 90 RF: 3 allopurinol 100 mg tablet 100 mg PO DAILY Qty: 90 RF: 3 acetaminophen [Tylenol] 325 mg Tablet 325 - 650 mg PO Q4H PRN PRNQty: 0 RF: 0 polyethylene glycol 3350 17 gram Powder In Packet 17 g PO BID Qty: 0 RF: 0 Discharge Instructions Instructions: Acute Nausea and Vomiting (ED), Abdominal Pain (ED), Urinary Tract Infection in Older Adults (ED) Additional Instructions: Continue on your omeprazole Add Carafate Stay away from acidic food such as oranges and tomatoes, coffee Recommend following up with surgery to schedule an appointment for upper endoscopy You may take Zofran as needed for nausea and vomiting I have prescribed an antibiotic for urinary tract infection While you are on antibiotics, you should either eat yogurt daily or take acidophilus tablets Please return immediately with weakness, fever, chills, inability to tolerate your antibiotics or should develop new or worsening complaints Referrals: Mariano Yañez MD [MD CONSULTING PHYSICIAN] - (endoscopy ) Medical Decision Making <MIMA Myers - Last Filed: 01/02/21 15:53> 80-year-old female presenting to the ER for evaluation of sudden abdominal pain, crampy, lower, associate with nausea, vomiting, diarrhea. She was given antiemetics by EMS and reports her nausea is improving. Clinically she appears well, nontoxic. Reports history of diverticulitis, IBS, cholecystectomy, appendectomy. Will obtain IV access, obtain CBC, CMP, urinalysis and likely CT imaging for further evaluation. Differential includes but not excluded to food poisoning, IBS exacerbation, ileus, small bowel obstruction, diverticulitis, etc. Laboratory values reveal mild nonspecific leukocytosis, renal function appears to be near baseline. Will now obtain CT imaging without contrast given her renal function Patient would prefer to be discharged home. Awaiting CT imaging. Urine has small leuk esterase, micro pending, potential UTI Medical Records Medical records reviewed: Yes I reviewed the patient's medical records. ECG Data Attestation: I personally reviewed and interpreted this ECG (s) as follows: Interpretation: Please see official report by Dr. Torres. Sinus rhythm, ventricular rate of 62. There is a right bundle branch block. <MIMA Razo - Last Filed: 01/02/21 19:38> Case signed out to me from Frandy Hernández, physician clinical project assistant [address] scan Patient with urinary tract infection on straight cath urine specimen, urine culture pending, placed on Keflex Placed on Carafate, currently taking omeprazole, will follow up with gastroenterology or surgery for?PA at the discretion of her primary care physician Food choices discussed Able to tolerate p.o. Given first dose of Keflex, Zofran for home Feels symptomatically improved and request discharge home at this time, stable to do so, I reviewed all of her labs, she has a history of renal failure and her levels appear baseline, she is able to hydrate independently She is given very low threshold to return with new or worsening complaints 24-hour recheck with primary care physician recommended early return cautions discussed and patient expressed understanding CT result from [facility] discussed with patient with duodenitis and evidence of ulcer without perforation All results discussed with patient, discharged home in stable condition with stable vitals Differential Diagnosis Differential Diagnosis: Bowel obstruction, gastritis, Medical Records Medical records reviewed: Yes I reviewed the patient's medical records. HPI <MIMA Myers - Last Filed: 01/02/21 15:53> General Mode of arrival: EMS. Date/Time Provider Initiated Documentation: 01/02/21 14:50. Limitations to Documentation: no limitations. Information obtained by: patient and EMS. HPI Narrative: This is an 80-year-old female, past medical history that includes anemia, chronic renal insufficiency, CHF, IBS, obesity, appendectomy, cholecystectomy, diverticulitis, presenting to the ER for sudden diffuse lower abdominal pain, nausea, vomiting, diarrhea that began over the past 2-3 hours. She reports that she ate a normal breakfast, denies bad food exposure or recent sick contacts. She does state that she gets a flareup like this every few months but this appears to be worse than normal. She has no additional questions or concerns. She states that she was given an antiemetic by EMS and reports that her nausea is slightly better. Denies black tarry stools or bright red blood in her stools. Describes the pain as crampy, moderate, pain-free now. Related Data Home Medications Medication Instructions Recorded Confirmed lysine 500 mg PO DAILY 12/15/12 01/02/21 multivitamin [Daily Vitamin] 1 ea PO DAILY 12/15/12 01/02/21 travoprost [Travatan Z] 1 drp OPHTHALMIC DAILY drp 11/08/15 01/02/21 Oxygen 2 l NS 24 hr #2 08/27/16 01/02/21 acetaminophen [Tylenol] 325 - 650 mg PO Q4H PRN PRN #0 tab 09/19/18 01/02/21 polyethylene glycol 3350 17 g PO BID #0 ea 09/19/18 01/02/21 topricin TOPICAL HS PRN 01/31/20 07/09/20 torsemide 20 mg tablet 20 mg PO DAILY #90 tab-cap 03/13/20 01/02/21 allopurinol 100 mg tablet 100 mg PO DAILY #90 tab 04/02/20 01/02/21 lovastatin 20 mg tablet 20 mg PO DAILY #90 tab 05/22/20 01/02/21 metoprolol succinate 50 mg 50 mg PO DAILY #90 tab 05/22/20 01/02/21 tablet,extended release 24 hr omeprazole 20 mg tablet,delayed 20 mg PO DAILY #90 tab-cap 05/22/20 01/02/21 release sertraline 25 mg tablet 25 mg PO DAILY #90 tab 05/22/20 01/02/21 lisinopril 10 mg tablet 10 mg PO DAILY #90 tab 12/31/20 01/02/21 cephalexin 500 mg PO BID 7 Days #14 tab 01/02/21 ondansetron HCl [Zofran] 4 mg PO Q8H PRN #10 tab 01/02/21 sucralfate [Carafate] 1 g PO BID #60 tab 01/02/21 Previous Rx's Medication Instructions Recorded acetaminophen [Tylenol] 325 - 650 mg PO Q4H PRN PRN #0 tab 09/19/18 polyethylene glycol 3350 17 g PO BID #0 ea 09/19/18 torsemide 20 mg tablet 20 mg PO DAILY #90 tab-cap 03/13/20 allopurinol 100 mg tablet 100 mg PO DAILY #90 tab 04/02/20 lovastatin 20 mg tablet 20 mg PO DAILY #90 tab 05/22/20 metoprolol succinate 50 mg 50 mg PO DAILY #90 tab 05/22/20 tablet,extended release 24 hr omeprazole 20 mg tablet,delayed 20 mg PO DAILY #90 tab-cap 05/22/20 release sertraline 25 mg tablet 25 mg PO DAILY #90 tab 05/22/20 lisinopril 10 mg tablet 10 mg PO DAILY #90 tab 12/31/20 cephalexin 500 mg PO BID 7 Days #14 tab 01/02/21 ondansetron HCl [Zofran] 4 mg PO Q8H PRN #10 tab 01/02/21 sucralfate [Carafate] 1 g PO BID #60 tab 01/02/21 Allergies Allergy/AdvReac Type Severity Reaction Status Date / Time acetaminophen [From Vicodin] AdvReac Severe AMS Verified 12/31/20 13:45 hydrocodone [From Vicodin] AdvReac Severe AMS Verified 12/31/20 13:45 aspirin AdvReac Mild GI upset, Verified 12/31/20 13:45 tolerates 81mg codeine AdvReac GI upset Verified 12/31/20 13:45 General Stated Complaint: Nausea/Vomit/Diar GREG: 3 Review of Systems <MIMA Myers - Last Filed: 01/02/21 15:53> Constitutional Constitutional: Denies fatigue, Denies fever(s) and Denies headache(s) ENT Ears, Nose, Mouth, and Throat: Denies headache(s) Cardiovascular Cardiovascular: Denies chest pain and Denies dyspnea Respiratory Respiratory: Denies dyspnea Gastrointestinal Gastrointestinal: Reports abdominal pain, Reports diarrhea, Reports nausea and Reports vomiting Genitourinary Genitourinary: Denies dysuria Musculoskeletal Musculoskeletal: Denies back pain Integumentary/Breasts Skin/Breast: Denies rash Neurologic Neurologic: Denies headache(s) Endocrine Endocrine: Denies fatigue PFS <MIMA Myers - Last Filed: 01/02/21 15:53> Medical History Anemia Arch pain of right foot Chronic renal failure Congestive heart failure (01/19/17) Pulmonology [place] Dr Katie Zafar; Dr Schuster: diastolic dysfunction, EF 52%, Pos wall motion abnl on MPI but not seen on ECHO 01/2017. Discharge planning issues DVT prophylaxis Gout of right foot (01/17/16) IFG (impaired fasting glucose) (02/11/12) Irritable bowel syndrome (IBS) Middle insomnia Obesity (04/05/13) Obesity hypoventilation syndrome (09/29/16) with [facility]: Bi[facility]:Dr Katie Zafar Osteoarthritis of left knee Osteoarthrosis (02/23/13) Primary osteoarthritis of both knees (09/23/15) Restrictive lung disease (03/19/16) Dr Zafar [facility]monary [facility]; CT dx Sarcoidosis; prednisone begun 05/2016 PFT 03/2016 FVC 47% FEVi 60% Hypoxia, chronic O2 Rx Sarcoidosis (02/11/12) Spinal stenosis (02/11/12) Trigeminal neuralgia of left side of face (02/17/17) Unspecified diastolic heart failure (05/27/12) Echo 05/2012 EF 70% no valve abn; diastolic dysfx Surgical History Appendectomy Cholecystectomy twice, first age 18; repeat around 2006 Tonsillectomy and adenoidectomy Family History Mother , 75, complications heart surgery No problems noted. Father , age 80, heart attack No problems noted. Daughter , Sarcoidosis, bleeding from the lung No problems noted. Social History Smoking/Tobacco Use Status: Never Smoking risk assessment performed?: Yes Alcohol Intake: never Drug use: Never Substance use type: does not use Adopted: No Caregiver/Support person: No Foster care: No Household members: other Details: apartment in [facility] house Housing: apartment Number of Children: 3 Communication Needs: Corrective Lenses Do you need help understanding health information?: Rarely What is your relationship status?: Panel score (0-1 are the most socially isolated patients): 0 What type of physical activity do you participate in: none Seatbelt use: always Drive intox or ride w/intox truck driver rubbish collector: No Working smoke detector in home: Yes Carbon monox detector in home: Yes Do you feel safe at home: Yes Do you feel safe in your relationship?: Yes Exam <MIMA Myers - Last Filed: 01/02/21 15:53> Const General: cooperative, healthy appearing, comfortable and no acute distress Orientation: alert and awake HENMT Head: normal to inspection, normocephalic and atraumatic Face and sinus: normal facial exam Mouth: moist mucous membranes Eyes General: appearance normal, both eyes and all related structures Conjunctivae: conjunctivae normal Neck Neck: normal visual inspection, full ROM, trachea midline and supple Resp Effort & Inspection: normal respiratory effort and able to speak in complete sentences Auscultation: clear to auscultation bilaterally Cardio Rate: regular rate Rhythm: regular rhythm GI Inspection: normal to inspection and obesity Palpation: soft, not firm, no guarding, no pulsatile masses and nontender Auscultation: hyperactive bowel sounds Back/Spine/Pelvis Back: No back tenderness Skin General skin exam: no rashes or lesions noted Neuro General: patient alert, patient awake, moves all extremities and no focal motor deficits Cognition: normal cognition Speech: speech normal Sensory Exam: no sensory deficits noted Extrem General: normal to inspection, full ROM and capillary refill normal Psych Appearance: grossly normal Mental Status: mental status grossly normal Course <MIMA Myers - Last Filed: 01/02/21 15:53> Vital Signs Vital signs: Vital Signs Temperature 36.5 C 01/02/21 14:44 Pulse 64 01/02/21 14:44 Respiratory Rate 20 01/02/21 14:44 Pulse Oximetry 97 01/02/21 14:44 Temperature 36.5 C 01/02/21 14:44 Pulse 64 01/02/21 14:44 Respiratory Rate 20 01/02/21 14:44 Respiratory Effort 01/02/21 14:49 Blood Pressure Position Supine 01/02/21 14:44 Pulse Oximetry 97 01/02/21 14:44 Oxygen Delivery Method Nasal Cannula 01/02/21 14:44 Oxygen Flow Rate 2 01/02/21 14:44 Pain Level 0 01/02/21 14:44 Sign Out <MIMA Myers - Last Filed: 01/02/21 15:53> Sign Out Data: Sign Out Comment: Nausea, vomiting, diarrhea, abdominal pain x3 hours. Awaiting CT, Noncon, given renal function Last updated by Frandy Hernández PA at 01/02/21 15:49
[2021-01-02 15:22] LABS: Abs Immature Grans 0.06 10^3/uL (0.0-0.06); Absolute Basophil Count 0.05 10^3/uL (0.0-0.2); Absolute Eosinophil Count 0.17 10^3/uL (0.0-0.7); Absolute Monocyte Count 0.67 10^3/uL (0.1-0.8); Absolute Neutrophil Count 11.28 10^3/uL (1.2-6.7); Basophils % 0.4; Eosinophils % 1.3; HCT 35.8 % (36.0-46.0); Immature Grans % 0.5; Lymphocytes % 3.9; MCH 28.3 pg (27.0-33.0); MCHC 30.7 % (32.0-36.0); MPV 10.3 fL (8.0-11.0); Monocytes % 5.3; Neutrophils % 88.6; Nucleated RBC 0 %; Platelet Count 215 10^3/uL (130-400); RBC 3.89 10^6/uL (3.93-5.22); RDW 14.6 % (11.7-14.6); RDW-SD 49.6 fL; WBC 12.73 10^3/uL (4.4-10.8)
--- NOTE | 2021-01-02 15:30 | DI.CT_ITS ---
EXAM: CT ABDOMEN PELVIS WO CLINICAL HISTORY: pain, n/v/d, elevated wbc. TECHNIQUE: Imaging Protocol: Axial computed tomography images with coronal and sagittal reformatted images were created and reviewed. Oral: no COMPARISON: CT ABD PELVIS WITH CONTRAST from 10/12/2014 CT ABD PELVIS WITH CONTRAST from 10/12/2014 CR CHEST 2 VIEWS PA,LAT from 11/09/[address] CHEST HIGH RESOLUTION from 04/19/[address] CHEST WO from 04/19/[address] CHEST HIGH RESOLUTION from 04/19/[address] CHEST WO from 04/19/2019 FINDINGS: ABDOMEN: Lung Bases: Cardiomegaly. Coronary artery calcifications. Bilateral hilar prominence, stable. Biba silar atelectasis. Liver: Normal density. No measurable mass. Gallbladder and biliary tract: Status post cholecystectomy. Pancreas: Atrophic. Normal density, no abnormal calcifications or inflammatory process. Spleen: Normal. Kidneys: Somewhat atrophic. Circumaortic left renal vein.. No radiodense stones or obstructive urop athy. No masses seen. Adrenal glands: No masses seen. Lymph nodes: Within normal limits. Abdominal Aorta: Ectasia and moderate atherosclerotic changes. PELVIS: Bladder: Symmetric distention, no gross wall thickening. Bowel: Wall thickening of the antrum of the stomach and proximal duodenum. Stranding in the surround ing fat. Question of proximal duodenal area of ulceration. No perforation. Sigmoid diverticulosis without evidence of diverticulitis. Peritoneal cavity: No ascites, collection or mesenteric inflammatory response. Soft tissues: Fatty um bilical hernia. Additional fatty containing hernias involving the upper abdominal wall near the midl ine and toward the right. Reproductive organs: Within normal limits. Bones: Scoliosis and severe degenerative disc changes. IMPRESSION: Inflammation of the antrum and proximal duodenum. Question of a proximal duodenal ulcer. RADIATION DOSE DELIVERED: 1,648.92mGy.cm Total DLP DATA REPOSITORY: All CT scans at this facility are submitted to the National Radiology Data Registry (NRDR) Dose Index Registry (DIR) with the [employer] (ACR). RADIATION OPTIMIZATION: All CT scans at this facility use at least one of these dose optimization te chniques: automated exposure control; mA and/or kV adjustment per patient size (includes targeted exa ms where dose is matched to clinical indication); or iterative reconstruction.
[2021-01-02 15:34] LABS: ALT 18 U/L (14-59); AST 18 U/L (15-37); Albumin 3.3 g/dL (3.4-5.0); Alkaline Phosphatase 96 U/L (46-116); Anion Gap 2.8 mmol/L (3-11); BUN 54 mg/dL (7-18); Bilirubin, Total 0.5 mg/dL (0.2-1.0); CO2 34.2 mmol/L (21.0-32.0); CREATININE 2.4 mg/dL (0.55-1.02); Calcium 9.3 mg/dL (8.5-10.1); Chloride 103 mmol/L (98-107); Estimated GFR 19.33 (mL/min/1.73m2); Glucose 195 mg/dL (74-106); Potassium 4.6 mmol/L (3.5-5.1); Sodium 140 mmol/L (136-145); Total Protein 7.2 g/dL (6.4-8.2)
[2021-01-02 15:49] LABS: Bilirubin Negative (Negative); Blood Trace-lysed (Negative); Clarity Sl Cloudy (Clear); Glucose Negative (Negative); Ketones Negative (Negative); Leukocyte Esterase Small (Negative); Nitrite Negative (Negative); Specific Gravity 1.015 (1.005-1.025); Urobilinogen 0.2 EU/dL (Up TO 0.2); pH 5.5 (5-8)
[2021-01-02 16:02] LABS: Epithelial Cells Moderate HPF (Negative); RBC 0-2 HPF (0-2); WBC >50 HPF (0-5)
[2021-01-02 16:03] LABS: Bacteria Few HPF (Negative); Casts 10-20 Hyaline LPF (Negative); Crystals Negative HPF (Negative); Mucus Negative (Negative); Other Cells Few Transitional (Negative)
[2021-01-02 16:04] LABS: C & S Indicated? Yes
[2021-01-02] MEDS: Normal Saline 1,000 ML 1000 ML IV (17:00)
--- NOTE | 2021-01-02 18:10 | DI.VRAD_ITS ---
PROCEDURE INFORMATION: Exam: CT Abdomen And Pelvis Without Contrast Exam date and time: 01/02/2021 3:43 PM Age: 80 years old Clinical indication: Other: Pain, n/v/d, elevated wbc TECHNIQUE: Imaging protocol: Computed tomography of the abdomen and pelvis without contrast. Total images: 1586 Radiation optimization: All CT scans at this facility use at least one of these dose optimization techniques: automated exposure control; mA and/or kV adjustment per patient size (includes targeted exams where dose is matched to clinical indication); or iterative reconstruction. COMPARISON: CT ABD PELVIS WITH CONTRAST 10/12/2014 8:14 AM FINDINGS: Lungs: Moderate atelectasis in the lung bases. Heart: Moderate cardiomegaly. Mediastinal space: The visualized distal esophagus is normal. Liver: Normal contour. No mass lesions. No intrahepatic biliary ductal dilatation. Gallbladder and bile ducts: Normal. No calcified stones. No ductal dilation. Pancreas: Moderate pancreatic atrophy without acute abnormality. No pancreatic ductal dilatation. Spleen: Normal. No splenomegaly. Adrenal glands: Normal. No adrenal mass. Kidneys and ureters: No acute abnormalities. No hydronephrosis or hydroureter. No urinary tract stones are identified. Stomach and bowel: Question mild wall thickening in the gastric antrum suspicious for an element of gastritis. There is moderate wall thickening in the post bulbar duodenal segment with 14 x 12 x 9 mm hypodense focus in the lateral wall distribution suspicious for an ulcer crater. No evidence of perforation. The small bowel is nondilated with no gross abnormality. No acute colonic abnormalities. Moderate diverticulosis involving the distal colon without evidence of acute diverticulitis. Appendix: The appendix is not identified. No secondary signs of appendicitis. Intraperitoneal space: No free fluid or air. Vasculature: Moderate aortic ectasia/tortuosity. Moderate calcific atherosclerosis. Lymph nodes: No adenopathy. Urinary bladder: Unremarkable as visualized. Reproductive: Unremarkable as visualized. Bones/joints: Osteopenia. Mild rightward convexity lumbar scoliosis and multilevel severe disc degenerative changes and facet hypertrophic changes in the lumbar spine. Soft tissues: Small to moderate sized fatty periumbilical hernia and small fatty midline epigastric anterior abdominal wall hernia. No evidence of associated bowel herniation or strangulation. IMPRESSION: 1. There are findings suggesting duodenitis and likely a duodenal ulcer involving the lateral post bulbar segment. GI consultation and endoscopic evaluation recommended. No evidence of perforation. 2. Question mild wall thickening in the distal stomach as well suggesting an element of gastritis. 3. Additional non-emergent findings detailed above. Dictated and Authenticated by: Juan Carlos MD. Ordering:RUPALI Wise MD
[2021-01-02 18:16] VITALS: BP 122/74; PULSE 79; RESP 16; TEMP 36.8; O2SAT 98
[2021-01-02 18:18] LABS: Bilirubin Negative (Negative); Blood Trace-intact (Negative); Clarity Clear (Clear); Glucose Negative (Negative); Ketones Negative (Negative); Leukocyte Esterase Trace (Negative); Nitrite Negative (Negative); Specific Gravity 1.015 (1.005-1.025); Urobilinogen 0.2 EU/dL (Up TO 0.2)
[2021-01-02 18:25] LABS: Bacteria Few HPF (Negative); Crystals Negative HPF (Negative); Epithelial Cells Negative HPF (Negative); Other Cells Rare Transitional (Negative); WBC 20-50 HPF (0-5)
[2021-01-02 18:26] LABS: C & S Indicated? Yes; Casts 5-10 Hyaline LPF (Negative); Mucus Negative (Negative)
[2021-01-02] MEDS: Cephalexin 500 MG CAP PO (18:40)
== END 2021-01-02 19:05 | disposition home or self-care (01) ==
PROVIDERS: Physician Assistant; Emergency Provider Physician Assistant; PCP Internal Medicine
DX: R11.2 Nausea with vomiting, unspecified (principal); N39.0 Urinary tract infection, site not specified; R10.30 Lower abdominal pain, unspecified
CPT/HCPCS: 36415; 51701; 80053; 87077; 93005; 96360; 96361; 99285; 74176; 81003; 81015; 85025; 87086; 87186; 93010

== ENCOUNTER 2021-04-07 02:17 | Outpatient (CLI) | payer MEDICARE, SELFPAY ==
[2021-04-07 14:20] LABS: Anion Gap 6.7 mmol/L (3-11); BUN 57 mg/dL (7-18); CO2 33.3 mmol/L (21.0-32.0); CREATININE 2.8 mg/dL (0.55-1.02); Calcium 9.3 mg/dL (8.5-10.1); Chloride 102 mmol/L (98-107); Estimated GFR 16.14 (mL/min/1.73m2); Glucose 122 mg/dL (74-106); Potassium 4.9 mmol/L (3.5-5.1); Sodium 142 mmol/L (136-145)
== END 2021-04-07 02:18 | disposition home or self-care (01) ==
LOC: LBO 02:17
PROVIDERS: PCP Internal Medicine; Visit Provider Internal Medicine
DX: N18.4 Chronic kidney disease, stage 4 (severe) (principal)
CPT/HCPCS: 36415; 80048

== ENCOUNTER 2021-04-09 02:24 | Outpatient (CLI) | payer MEDICARE, SELFPAY ==
--- NOTE | 2021-04-09 06:45 | DI.CT_ITS ---
Exam(s) CT ABDOMEN PELVIS WO EXAM: CT ABDOMEN PELVIS WO CLINICAL HISTORY: f/u suspected duodenal ulcer,[id number],K26.9. TECHNIQUE: Imaging Protocol: Axial computed tomography images with coronal and sagittal reformatted images were created and reviewed CONTRAST MATERIAL: Intravenous: none Oral: None COMPARISON: CT CT ABDOMEN PELVIS WO from 01/02/2021 FINDINGS: VISUALIZED LUNG BASES: Calcified pleural plaque right lung base again noted. No pleural effusions.. ABDOMEN: The previously present abnormal streaking at the distal stomach antrum/pylorus is not evident on the present study. There is no ascites. LIVER: There are no obvious focal hepatic lesions evident of this noninfused study. GALLBLADDER/BILIARY: Gallbladder is again noted be surgically absent. There is no abnormal collectio n in the gallbladder fossa. CBD is not dilated. PANCREAS: No evidence of pancreatic mass nor dilatation of the pancreatic duct. SPLEEN: Spleen is not enlarged. No obvious intrasplenic lesions. ADRENALS: There are no significant adrenal masses. KIDNEYS:No cysts evident. No solid renal masses. No calculi nor hydronephrosis. . 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 Maximum diameter proximally (which is just below the SMA takeoff point) is 3.6 cm, unchanged. More distally the maximum diameter is 2. 9 cm, also unchanged. Arterial megaly of the common iliac arteries is also again noted. Maximum wan meter of the right common iliac artery is 1.8 cm, unchanged. Maximum diameter of the left common sharda ac artery is 1.9 cm, also unchanged. 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 LYMPH NODES: There is no retroperitoneal nor paraaortic adenopathy. ABDOMINAL WALL: There is anterior abdominal wall midline infraumbilical hernia again noted. There ar e small bowel loops at neck of this hernia but not extending within the hernia sac which measures 3.9 cm wide by 3.3 cm cephalocaudal by 2.3 cm AP. GI: There is no evidence of bowel obstruction, free air, nor abscess. PELVIS: LYMPH NODES: There is no intrapelvic nor inguinal adenopathy. GI: No evidence of appendicitis.There is sigmoid diverticulosis but no obvious acute diverticulitis. URINARY BLADDER: No mass nor calculi seen within the lumen. No distension. REPRODUCTIVE: Uterus size is normal. Left adnexa unremarkable. In the high right adnexa there is an there is a well-defined 3 by 2.5 cm cyst is probably ovarian. No surrounding free fluid evident nor free fluid in the cul-de-sac. OSSEOUS: No significant osseous lesions. Multilevel chronic advanced degenerative disc disease. No compression fractures. No lytic osseous l esions evident. IMPRESSION: 1. Compared to the prior study of 01/02/2021 the previously described inflammation of the distal stom ach and proximal duodenum is no longer evident. There is no free fluid and no free air in this regio n. 2. Gallbladder is again noted be surgically absent. No obvious dilatation of the biliary tree. 3. Abdominal aortic aneurysm again noted with maximum diameter 3.6 cm, unchanged also mild arterial m egaly of both common iliac arteries. There is also an aneurysm evident the internal iliac artery in the pelvis, exhibiting luminal diameter of 2 cm. 4. Anterior abdominal wall infraumbilical hernia with sac measurements as described above. However, there is no evidence of bowel loops therein. No evidence of bowel obstruction. There is no ascites . 5. Sigmoid diverticulosis but no evidence of acute diverticulitis. 6. There is no abnormal 3 x 2.5 cm cyst in the right adnexa which is probably ovarian. Although thi s appears unilocular and there is no surrounding fluid, this abnormal finding at this age group. Fur ther study with ultrasound recommended. RADIATION DOSE DELIVERED: 1,160.83mGy.cm Total DLP DATA REPOSITORY: All CT scans at this facility are submitted to the National Radiology Data Registry (NRDR) Dose Index Registry (DIR) with the [employer] (ACR). RADIATION OPTIMIZATION: All CT scans at this facility use at least one of these dose optimization te chniques: automated exposure control; mA and/or kV adjustment per patient size (includes targeted exa ms where dose is matched to clinical indication); or iterative reconstruction.
== END 2021-04-09 02:44 ==
PROVIDERS: PCP Internal Medicine; Visit Provider Internal Medicine
DX: K29.90 Gastroduodenitis, unspecified, without bleeding (principal); I71.4 Abdominal aortic aneurysm, without rupture; K43.9 Ventral hernia without obstruction or gangrene; K57.30 Diverticulosis of large intestine without perforation or abscess without bleeding; Z90.49 Acquired absence of other specified parts of digestive tract
CPT/HCPCS: 74176

== ENCOUNTER 2023-07-10 14:27 | Inpatient (IN) | payer MEDICARE, SELFPAY ==
[2023-07-10] VITALS (59 sets, daily range): BP systolic 126–179; BP diastolic 49–92; PULSE 59–75; RESP 10–25; TEMP 36.4–36.6; O2SAT 76–97
--- NOTE | 2023-07-10 14:15 | DI.RAD_ITS ---
Exam(s) XR PORTABLE CHEST AP EXAM: XR PORTABLE CHEST AP CLINICAL HISTORY: shortness of breath TECHNIQUE: 2D digital imaging was performed. COMPARISON: CR XR CHEST 2V PA LATERAL from 09/12/2018 CR XR CHEST 2V PA LATERAL from 09/16/[address] CHEST HIGH RESOLUTION from 04/19/2019 FINDINGS: Exam limited by respiratory motion and under penetration. LUNGS: Limited evaluation. Left lower lobe obscured by cardiac silhouette. Pulmonary vascular promi nence. No gross effusions. HEART: Grossly enlarged. AORTA: Ectatic and calcified. BONES: Degenerative changes throughout. Soft tissues: Unremarkable. IMPRESSION: Extremely limited exam. The pulmonary artery prominence which may be chronic bibasilar infiltrates i n CHF not excluded. DATA REPOSITORY: RADIATION DOSE DELIVERED:
--- NOTE | 2023-07-10 14:15 | RT.EKG_ITS ---
APPROVED REPORT Exam: Resting ECG Reason for Exam: sob Patient Location: E HR:67 bpm ECG Measurements Heart Rate [address] 274 P 37 QRSd 147 QRS -16 QT 415 T 6 QTc 438 Conclusion Sinus rhythm normal P axis PVC long CT There are no significant changes compared to prior EKG performed on 01/02/2021 at 14:54.
--- NOTE | 2023-07-10 14:46 | W.ED.GENAD ---
Discharge Plan Disposition Patient Disposition: Admit to [facility] Discharge Details Clinical Impression: Chronic hypercapnic respiratory failure, Congestive heart failure Primary Care Provider: Unknown,Unknown ED Provider: Jose Angel Ayala Home Meds and New Rx's Prescriptions: No Action lovastatin 20 mg tablet 20 mg PO DAILY Qty: 90 3RF sertraline 25 mg tablet 25 mg PO DAILY Qty: 90 3RF diclofenac sodium [Arthritis Pain (diclofenac)] 1 % gel 2 g topical BID Qty: 100 2RF prednisolone acetate 1 % drops,suspension 1 drp ophthalmic (eye) BID Rx Instructions: R Eye brimonidine 0.2 % drops 1 drp ophthalmic (eye) BID Rx Instructions: L EYE Simbrinza 1-0.2 % drops,suspension 1 drp ophthalmic (eye) BID Rx Instructions: R EYE lantanaprost ophthalmic (eye) HS Rx Instructions: both eyes multivitamin [Daily Vitamin] 1 EACH tablet 1 ea PO DAILY lysine 500 mg tablet 500 mg PO .qod Oxygen EACH 2 l NS 24 hr Qty: 2 Rx Instructions: 3 liter in night, [facility] amlodipine 2.5 mg tablet 2.5 mg PO DAILY Qty: 90 0RF allopurinol 100 mg tablet 100 mg PO DAILY Qty: 90 3RF gabapentin 100 mg capsule 100 mg PO QHS Qty: 90 0RF torsemide 20 mg tablet 20 mg PO DAILY Qty: 90 3RF metoprolol succinate 50 mg tablet extended release 24 hr 50 mg PO DAILY Qty: 90 3RF pantoprazole 20 mg tablet,delayed release (DR/EC) 20 mg PO DAILY Qty: 90 3RF acetaminophen [Tylenol] 325 mg Tablet 325 - 650 mg PO Q4H PRN PRNQty: 0 0RF Medical Decision Making Emergent evaluation of shortness of breath. Patient appears volume overloaded and is hypoxic on her normal room air. She is currently on 6 L. Will initiate IV Lasix for diuresis. We will place her on BiPAP to assist with oxygenation. We will check blood work to evaluate for infection no focal consolidation, normal heart size, no pulmonary edema or pleural effusion as well. Anticipate admission for this patient. 1500: VBG concerning for significantly elevated CO2. Further indication for BiPAP. 1520: Chest x-ray reviewed and independently interpreted by me, cardiomegaly with interstitial edema noted 1540: improved Oxygentation and mentation. on CPAP as she was not tolerating BIPAP setting 1600: Patient sat stable, mentation improved. Will admit for CHF exacerbation and volume overload Medical Records Medical records reviewed: Yes I reviewed the patient's medical records. Lab Data Lab results reviewed: Yes I reviewed the patient's lab results. ECG Data Attestation: I personally reviewed and interpreted this ECG (s) as follows: Prior ECG tracings: available for review Interpretation: Sinus 67, prolonged AL, occasional PVC HPI General Date/Time Provider Initiated Documentation: 07/10/23 14:34. Limitations to Documentation: no limitations. Information obtained by: EMS. HPI Narrative: 83-year-old female with past medical history of CHF, CKD presents with altered mental status. Family called for altered mental status been reported to EMS that they have noted that she has been declining for the last several days. They note that the patient was hypoxic in the 80s. She was wearing her 2 L nasal cannula which she normally wears. They increased her oxygen to 6 L which improved her sat. No additional information is obtained from the patient. Family not available at initial evaluation. Related Data Home Medications Medication Instructions Recorded Confirmed multivitamin (Daily Vitamin tablet) 1 ea PO DAILY 12/15/12 07/10/23 acetaminophen 325 mg tablet 325 - 650 mg (1 - 2 x 325 mg) PO 09/19/18 07/10/23 (Tylenol) Q4H PRN PRN #0 tabs lysine 500 mg tablet 500 mg PO .qod 01/22/21 07/10/23 Oxygen 2 l NS 24 hr ##2 04/15/21 07/10/23 lovastatin 20 mg tablet 20 mg PO DAILY #90 tabs 04/15/21 07/10/23 brimonidine 0.2 % eye drops 1 drp ophthalmic (eye) BID 06/14/23 07/10/23 brinzolamide 1 %-brimonidine 0.2 % 1 drp ophthalmic (eye) BID 06/14/23 07/10/23 eye drops,suspension (Simbrinza) diclofenac sodium 1 % topical gel 2 g topical BID joint pain in 06/14/23 07/10/23 (Arthritis Pain (diclofenac)) knees #100 grams lantanaprost ophthalmic (eye) HS 06/14/23 prednisolone acetate 1 % eye 1 drp ophthalmic (eye) BID 06/14/23 07/10/23 drops,suspension sertraline 25 mg tablet 25 mg PO DAILY #90 tabs 06/14/23 07/10/23 amlodipine 2.5 mg tablet 2.5 mg PO DAILY #90 tabs 06/25/23 07/10/23 allopurinol 100 mg tablet 100 mg PO DAILY #90 tabs 07/06/23 07/10/23 gabapentin 100 mg capsule 100 mg PO QHS #90 caps 07/06/23 07/10/23 metoprolol succinate 50 mg 50 mg PO DAILY #90 tabs 07/06/23 07/10/23 tablet,extended release 24 hr pantoprazole 20 mg tablet,delayed 20 mg PO DAILY #90 tabs 07/06/23 07/10/23 release torsemide 20 mg tablet 20 mg PO DAILY #90 tab-caps 07/06/23 07/10/23 Previous Rx's Medication Instructions Recorded acetaminophen 325 mg tablet 325 - 650 mg (1 - 2 x 325 mg) PO 09/19/18 (Tylenol) Q4H PRN PRN #0 tabs lovastatin 20 mg tablet 20 mg PO DAILY #90 tabs 04/15/21 diclofenac sodium 1 % topical gel 2 g topical BID joint pain in 06/14/23 (Arthritis Pain (diclofenac)) knees #100 grams sertraline 25 mg tablet 25 mg PO DAILY #90 tabs 06/14/23 amlodipine 2.5 mg tablet 2.5 mg PO DAILY #90 tabs 06/25/23 allopurinol 100 mg tablet 100 mg PO DAILY #90 tabs 07/06/23 gabapentin 100 mg capsule 100 mg PO QHS #90 caps 07/06/23 metoprolol succinate 50 mg 50 mg PO DAILY #90 tabs 07/06/23 tablet,extended release 24 hr pantoprazole 20 mg tablet,delayed 20 mg PO DAILY #90 tabs 07/06/23 release torsemide 20 mg tablet 20 mg PO DAILY #90 tab-caps 07/06/23 Allergies Allergy/AdvReac Type Severity Reaction Status Date / Time acetaminophen [From Vicodin] AdvReac Severe AMS Verified 07/10/23 16:00 hydrocodone [From Vicodin] AdvReac Severe AMS Verified 07/10/23 16:00 aspirin AdvReac Mild GI upset, Verified 07/10/23 16:00 tolerates 81mg codeine AdvReac GI upset Verified 07/10/23 16:00 General Stated Complaint: SOB GREG: 2 PFSH All Active Problems (Updated 07/10/23 @ 16:11 by Jose Angel Ayala MD) Chronic hypercapnic respiratory failure (Acute) Gastritis and duodenitis (Acute) Depression (Chronic) Neuropathic pain of both feet (Acute) Obstructive sleep apnea (Chronic) Severe, CPAP Anemia (Chronic) Chronic renal failure (Chronic) Unspecified diastolic heart failure (Chronic 05/27/12) Echo 05/2012 EF 70% no valve abn; diastolic dysfx Trigeminal neuralgia of left side of face (Chronic 02/17/17) Sarcoidosis (Chronic 02/11/12) Spinal stenosis (Chronic 02/11/12) Restrictive lung disease (Chronic 03/19/16) Dr Zafar [facility]; CT dx Sarcoidosis; prednisone begun 05/2016 PFT 03/2016 FVC 47% FEVi 60% Hypoxia, chronic O2 Rx Primary osteoarthritis of both knees (Chronic 09/23/15) Osteoarthrosis (Chronic 02/23/13) Obesity hypoventilation syndrome (Chronic 09/29/16) with [facility]: BiPAP:Dr Katie Zafar Obesity (Chronic 04/05/13) Nausea vomiting and diarrhea (Acute) recurrent 3-4 X/yr; possible IBS: spells of urgent diarrhea following a meal, occ with vomiting Congestive heart failure (Chronic 01/19/17) Pulmonology [place] Dr Katie Zafar; Dr Schuster: diastolic dysfunction, EF 52%, Pos wall motion abnl on MPI but not seen on ECHO 01/2017. Hyperlipidemia (Chronic 02/23/13) PCEq 28.5%; LDL baseline 184; elects to continue statin Hypertension (Chronic 02/23/13) FRS 21%; goal 150/90 Esophageal reflux (Chronic 02/11/12) Diverticulitis of colon (Chronic 02/11/12) Medical History History of basal cell carcinoma (BCC) Dr Curtis sclerosing BCCA right jawline 10/2007 Arch pain of right foot Middle insomnia Osteoarthritis of left knee DVT prophylaxis Discharge planning issues Surgical History Tonsillectomy and adenoidectomy Cholecystectomy twice, first age 18; repeat around 2006 Appendectomy Family History Mother , 75, complications heart surgery No problems noted. Father , age 80, heart attack No problems noted. Daughter , Sarcoidosis, bleeding from the lung No problems noted. Social History Smoking/Tobacco Use Status: Never Smoking risk assessment performed?: Yes Alcohol Intake: never Drug use: Never Substance use type: does not use Adopted: No Caregiver/Support person: No Foster care: No Household members: other Details: apartment in [facility] Housing: apartment Number of Children: 3 Communication Needs: Corrective Lenses Do you need help understanding health information?: Rarely What is your relationship status?: Panel score (0-1 are the most socially isolated patients): 0 What type of physical activity do you participate in: none Seatbelt use: always Drive intox or ride w/intox lifter/driver: No Working smoke detector in home: Yes Carbon monox detector in home: Yes Do you feel safe at home: Yes Do you feel safe in your relationship?: Yes Exam Narrative Exam Narrative: Review of Systems: All systems reviewed & are unremarkable except as noted in HPI and below: CONSTITUTIONAL: Alert, answering simple questions HEENT: NACT EYES: PERRL, no conjunctival injection, periorbital edema EARS: no external abnormality NOSE nares patent MOUTH Moist MM NECK: Symmetric, trachea midline, No thyromegaly THROAT oropharynx clear CVS: RRR, No murmurs or gallops. Peripheral pulses 2+ and equal in all extremities Brisk capillary refill in all extremities. 1+ peripheral edema RESP: Mild tachypnea, decreased breath sounds at the bases GI: Soft, Nontender, Nondistended, No organomegaly MSK: Extremities with full range of motion, no deformity or TTP SKIN: Warm, Dry. No rashes or lesions. NEURO: No focal neurologic deficits. Course Vital Signs Vital signs: Vital Signs Temperature 36.4 C L 07/10/23 14:28 Pulse 66 07/10/23 14:28 Respiratory Rate 24 07/10/23 14:28 Blood Pressure 136/63 07/10/23 14:28 Temperature 36.4 C L 10/28/23 14:28 Temperature Source Temporal Artery Scan 07/10/23 14:28 Pulse 66 07/10/23 14:28 Respiratory Rate 24 07/10/23 14:28 Blood Pressure 136/63 07/10/23 14:28 Critical Care Time Critical Care Time Critical Care Time: Yes Total Critical Care Time: 34 Attestation: CRITICAL CARE Upon my evaluation, this patient had a high probability of imminent or life-threatening deterioration due to CHF, respiratory failure, which required my direct attention, intervention, and personal management. I have personally provided 34 minutes of critical care time exclusive of time spent on separately billable procedures. Time includes review of laboratory data, radiology results, discussion with consultants, and monitoring for potential decompensation. Interventions were performed as documented above
[2023-07-10 14:48] LABS: Source Nasal/Nares
[2023-07-10 14:56] LABS: BE (Venous) 14 mmol/L (-2-3); HCO3 (Venous) 40 mmol/L (23-28); O2 Sat (Venous) 69 %; TCO2 (Venous) 38 mmol/L (24-29); pH (Venous) 7.33 (7.31-7.41); pO2 (Venous) 35 mmHg
[2023-07-10 14:57] LABS: Abs Immature Grans 0.05 10^3/uL (0.0-0.06); Absolute Basophil Count 0.03 10^3/uL (0.0-0.2); Absolute Lymphocyte Count 0.87 10^3/uL (1.2-3.4); Absolute Monocyte Count 0.57 10^3/uL (0.1-0.8); Absolute Neutrophil Count 5.55 10^3/uL (1.2-6.7); Basophils % 0.4; Eosinophils % 1.4; HCT 35.2 % (36.0-46.0); HGB 10.4 g/dL (11.2-15.7); Immature Grans % 0.7; Lymphocytes % 12.1; MCH 27.9 pg (27.0-33.0); MCHC 29.5 % (32.0-36.0); MCV 94 fL (80-95); Monocytes % 7.9; Neutrophils % 77.5; Platelet Count 161 10^3/uL (130-400); RBC 3.73 10^6/uL (3.93-5.22); RDW 15.6 % (11.7-14.6); RDW-SD 53.4 fL; WBC 7.17 10^3/uL (4.4-10.8)
[2023-07-10 14:58] LABS: pCO2 (Venous) 77 mmHg (41-51)
[2023-07-10] MEDS: Furosemide 100 MG/10 ML VIAL 80 MG IVP (15:09)
[2023-07-10 15:14] LABS: ALT 17 U/L (14-59); AST 19 U/L (15-37); Albumin 3.2 g/dL (3.4-5.0); Alkaline Phosphatase 113 U/L (46-116); Anion Gap 0.4 mmol/L (3-11); BUN 38 mg/dL (7-18); Bilirubin, Total 0.4 mg/dL (0.2-1.0); CO2 37.6 mmol/L (21.0-32.0); CREATININE 1.9 mg/dL (0.55-1.02); Calcium 9.5 mg/dL (8.5-10.1); Chloride 101 mmol/L (98-107); Estimated GFR 25.56 (mL/min/1.73m2); Glucose 100 mg/dL (74-106); Potassium 4.6 mmol/L (3.5-5.1); Sodium 139 mmol/L (136-145); Total Protein 7.4 g/dL (6.4-8.2)
[2023-07-10 15:22] LABS: COVID-19 PCR Negative (Negative)
--- NOTE | 2023-07-10 15:36 | DI.VRAD_ITS ---
PROCEDURE INFORMATION: Exam: XR Chest Exam date and time: 07/10/2023 2:59 PM Age: 83 years old Clinical indication: Other: Shortness of breath TECHNIQUE: Imaging protocol: Radiologic exam of the chest. Views: 1 view. COMPARISON: CT CHEST HIGH RESOLUTION 04/19/2019 2:29 PM FINDINGS: Lungs: Prominent right hilar region may reflect prominent vascular structures or a mass. Recommend CT if clinically indicated. Opacity in the left base may represent atelectasis or pneumonia.. Pleural spaces: Unremarkable. No pleural effusion. No pneumothorax. Heart/Mediastinum: Unremarkable. No cardiomegaly. Bones/joints: Degenerative changes in the glenohumeral joint IMPRESSION: 1. Prominent right hilar region may reflect prominent vascular structures or a mass. Recommend CT if clinically indicated. 2. Opacity in the left base may represent atelectasis or pneumonia.. Dictated and Authenticated by: Ave Samuel MD. Ordering:FARHAN Desir MD
[2023-07-10 15:44] LABS: BE (Venous) 16 mmol/L (-2-3); HCO3 (Venous) 41 mmol/L (23-28); O2 Sat (Venous) 60 %; TCO2 (Venous) 39 mmol/L (24-29); pH (Venous) 7.35 (7.31-7.41); pO2 (Venous) 30 mmHg
[2023-07-10 15:46] LABS: pCO2 (Venous) 74 mmHg (41-51)
[2023-07-10 16:57] LABS: NT-proBNP 2370 pg/mL (<300)
[2023-07-10 16:59] LABS: Troponin I 99 ng/L (<or=60)
--- NOTE | 2023-07-10 17:01 | W.PC.ACHO ---
Registration Status: REG ER Primary Language: Preferred Language: Romansh ED Information & Data Chief Complaint SOB 07/10/23 14:52 Chief Complaint SOB 07/10/23 14:51 Triage Note Pt arrives with ems for SOB, 07/10/23 14:28 inc confusion. On 2L NC baseline. Hx CHF. Placed on 6L by EMS- up to 92% Subjective pt able to speak in 5-6 word 07/10/23 14:52 sentences before pausing to breathe. Medical / Surgical History (Last Reviewed 07/10/23 @ 14:48 by Jose Angel Ayala MD) History of basal cell carcinoma (BCC) Arch pain of right foot Middle insomnia Osteoarthritis of left knee DVT prophylaxis Discharge planning issues (Last Reviewed 07/10/23 @ 14:48 by Jose Angel Ayala MD) Tonsillectomy and adenoidectomy Cholecystectomy Appendectomy Most Recent Vital Signs Temperature 36.4 C L 07/10/23 14:28 Temperature Source Temporal Artery Scan 07/10/23 14:28 Pulse 60 07/10/23 16:32 Pulse 59 L 07/10/23 16:50 Respiratory Rate 15 07/10/23 16:50 Respiratory Effort Short of Breath, Labored 07/10/23 14:52 Respiratory Depth Shallow 07/10/23 14:52 Respiratory Pattern Normal 07/10/23 14:52 Blood Pressure 162/50 H 07/10/23 16:32 Blood Pressure Mean 143 07/10/23 16:46 Pulse Oximetry 96 07/10/23 16:50 Oxygen Delivery Method Nasal Cannula 07/10/23 14:57 Oxygen Flow Rate 6 07/10/23 14:57 Fraction of Inspired Oxygen (FIO2) 25 07/10/23 15:33 Allergies acetaminophen [From Vicodin] Adverse Reaction (Severe, Verified 07/10/23 16:00) AMS hydrocodone [From Vicodin] Adverse Reaction (Severe, Verified 07/10/23 16:00) AMS aspirin Adverse Reaction (Mild, Verified 07/10/23 16:00) GI upset, tolerates 81mg codeine Adverse Reaction (Verified 07/10/23 16:00) GI upset IV IV Catheter Type [Left Peripheral IV Antecubital] IV Catheter Gauge [Left 20 Antecubital] Diagnostics 07/10/23 07/10/23 07/10/23 Range/Units 16:20 16:19 16:18 WBC Pending (4.4-10.8) 10^3/uL RBC Pending (3.93-5.22) 10^6/uL Hgb Pending (11.2-15.7) g/dL Hct Pending (36.0-46.0) % MCV Pending (80-95) fL MCH Pending (27.0-33.0) pg MCHC Pending (32.0-36.0) % RDW Pending (11.7-14.6) % Plt Count Pending (130-400) 10^3/uL MPV Pending (8.0-11.0) fL Immature Gran % Neutrophils % Lymphocytes % Monocytes % Eosinophils % Basophils % Nucleated RBC % (0.0-0.3) % Absolute Neutrophils (1.2-6.7) 10^3/uL Absolute Lymphocytes (1.2-3.4) 10^3/uL Absolute Monocytes (0.1-0.8) 10^3/uL Absolute Eosinophils (0.0-0.7) 10^3/uL Absolute Basophils (0.0-0.2) 10^3/uL VBG pH (7.31-7.41) VBG pCO2 (41-51) mmHg VBG pO2 mmHg VBG HCO3 (23-28) mmol/L VBG Total CO2 (24-29) mmol/L VBG O2 Saturation % VBG Base Excess (-2-3) mmol/L Sodium Pending (136-145) mmol/L Potassium Pending (3.5-5.1) mmol/L Chloride Pending (98-107) mmol/L Carbon Dioxide Pending (21.0-32.0) mmol/L Anion Gap Pending (3-11) mmol/L BUN Pending (7-18) mg/dL Creatinine Pending (0.55-1.02) mg/dL Est GFR (CKD-EPI 2020) Pending (mL/min/1.73m2) Glucose Pending (74-106) mg/dL Calcium Pending (8.5-10.1) mg/dL Magnesium Pending Total Bilirubin (0.2-1.0) mg/dL AST (15-37) U/L ALT (14-59) U/L Alkaline Phosphatase (46-116) U/L Troponin I NT-Pro-B Natriuret Pep Total Protein (6.4-8.2) g/dL Albumin (3.4-5.0) g/dL COVID-19 Source SARS-CoV-2 (PCR) (Negative) 07/10/23 07/10/23 07/10/23 Range/Units 15:40 14:46 14:45 WBC 7.17 (4.4-10.8) 10^3/uL RBC 3.73 L (3.93-5.22) 10^6/uL Hgb 10.4 L (11.2-15.7) g/dL Hct 35.2 L (36.0-46.0) % MCV 94 (80-95) fL MCH 27.9 (27.0-33.0) pg MCHC 29.5 L (32.0-36.0) % RDW 15.6 H (11.7-14.6) % Plt Count 161 (130-400) 10^3/uL MPV 10.0 (8.0-11.0) fL Immature Gran % 0.7 Neutrophils % 77.5 Lymphocytes % 12.1 Monocytes % 7.9 Eosinophils % 1.4 Basophils % 0.4 Nucleated RBC % 0.0 (0.0-0.3) % Absolute Neutrophils 5.55 (1.2-6.7) 10^3/uL Absolute Lymphocytes 0.87 L (1.2-3.4) 10^3/uL Absolute Monocytes 0.57 (0.1-0.8) 10^3/uL Absolute Eosinophils 0.10 (0.0-0.7) 10^3/uL Absolute Basophils 0.03 (0.0-0.2) 10^3/uL VBG pH 7.35 7.33 (7.31-7.41) VBG pCO2 74 H* 77 H* (41-51) mmHg VBG pO2 30 35 mmHg VBG HCO3 41 H 40 H (23-28) mmol/L VBG Total CO2 39 H 38 H (24-29) mmol/L VBG O2 Saturation 60 69 % VBG Base Excess 16 H 14 H (-2-3) mmol/L Sodium 139 (136-145) mmol/L Potassium 4.6 (3.5-5.1) mmol/L Chloride 101 (98-107) mmol/L Carbon Dioxide 37.6 H (21.0-32.0) mmol/L Anion Gap 0.4 L (3-11) mmol/L BUN 38 H (7-18) mg/dL Creatinine 1.9 H (0.55-1.02) mg/dL Est GFR (CKD-EPI 2020) 25.56 (mL/min/1.73m2) Glucose 100 (74-106) mg/dL Calcium 9.5 (8.5-10.1) mg/dL Magnesium Total Bilirubin 0.4 (0.2-1.0) mg/dL AST 19 (15-37) U/L ALT 17 (14-59) U/L Alkaline Phosphatase 113 (46-116) U/L Troponin I Pending NT-Pro-B Natriuret Pep Pending Total Protein 7.4 (6.4-8.2) g/dL Albumin 3.2 L (3.4-5.0) g/dL COVID-19 Source Nasal/Nares SARS-CoV-2 (PCR) Negative (Negative) Intake and Output - 24 Hour Total 07/10/23 14:21 thru 07/10/23 14:52 Intake Total 10 Balance 10 Intake: IV 10 Falls Risk Assessment History of Falls No History 07/10/23 14:52 Contributing Factors Unstable,Impairments, 07/10/23 14:52 Incontinence,Medications Ambulatory Aids Uses ambulatory device + 07/10/23 14:52 Tubes/Lines With any additional score 07/10/23 14:52 Gait Evaluation W/any additional score 07/10/23 14:52 Fall Total Score 82 07/10/23 14:52 Level of Risk Maximum Risk 07/10/23 14:52 Problems (Last Reviewed 07/10/23 @ 14:48 by Jose Angel Ayala MD) Chronic hypercapnic respiratory failure (Acute) Congestive heart failure (Chronic 01/19/17) v v v v v v v v v Sending and/or Receiving Nurses: Please use comment section below to note any information pertinent to the patient hand-off not included above. Information / Comments: Arrived via EMS with SOB. A/O x3 2LPM NC at baseline but it took EMS 6L to get her to 92% 1st VBG PaO2 77 -- Now on CPAP -- Tolerating it OK VSS stable SaO2 94-96%. Desats to 91% with talking Mobility limited - Not OOB Granddaughter at bedside. Some concern as pt lives alone. Report received from: Kevin Conti
--- NOTE | 2023-07-10 19:12 | W.PM.HP.N ---
Date of service: 07/10/23 Time of Service: 19:12 Assessment and Plan Assessment and plan (1) Acute and chronic respiratory failure: Status: Acute Assessment and plan: Volume overload. She admits to dietary indescretions. In discussion with her she appears knowledgeable regarding Na intake and how it's usually high in package/processed/restaurant foods. She doesn't add salt to her food. CPAP at night. Now stable on O2 per NC at her home baseline of 2L. Qualifiers: Respiratory failure complication: hypoxia and hypercapnia Qualified Code(s): J96.21 - Acute and chronic respiratory failure with hypoxia; J96.22 - Acute and chronic respiratory failure with hypercapnia (2) Unspecified diastolic heart failure: Status: Chronic Assessment and plan: Volume overload as above. Diuresing with IV push lasix. Monitor I&O's and daily wt. Echocardiogram on Wednesday, 07/12. Last echocardiogram in our records was in 2017. Est. EF then was 50-5%. No evidence of elevated ventricular filling pressure by Doppler parameters at that time. [place] myocardial perfusion scan also in 2017. Findings of 1. a moderate sized, moderately intense, predominantly fixed defect involving the apical anterior wall(s). This suggests moderate myocardial infarction in the distribution of the left anterior descending coronary artery. Overall ischemia: minimal. 2. Diffuse left ventricular regional motion abnormalities. Qualifiers: Heart failure chronicity: acute on chronic Qualified Code(s): I50.33 - Acute on chronic diastolic (congestive) heart failure (3) Chronic renal failure: Status: Chronic Assessment and plan: She related that her GFR at one time was 16 but had improved to 30. Her most recent records are in [place] where she has been living for 2+ years with a son. She moved back to [facility] 4 wks ago. Estimated GFR of 25 and 27 on labs on day of admission. Creatinine 1.9 and 1.8. Monitor. Qualifiers: Chronic kidney disease stage: stage 4 (severe) Qualified Code(s): N18.4 - Chronic kidney disease, stage 4 (severe) (4) Obstructive sleep apnea: Status: Chronic Assessment and plan: CPAP nightly. She endorses not using it as she should. (5) Hypertension: Status: Chronic Assessment and plan: Cont amlodipine and metoprolol. Now on IV lasix. On torsemide 20mg daily at home. (6) Discharge planning issues: Assessment and plan: Pt is a DNR/DNI Likely d/c when stabilized to home with HH services. History of Present Illness History of Present Illness Chief Complaint: Mental status changes. Narrative: This is an 83 yo female with a PMH of diastolic CHF, CKD, restrictive lung disease, OHS, Gout. Her family endorsed noting an alteration in her mental status over the previous several days. Also noted was her O2 saturation was in the 80's on 2L O2. She is on 2L O2 per NC during the day and 3L at night. Family increased her O2 delivery to 6L. In the ED:Vital Signs Temperature 36.4 C L 07/10/23 14:28 Pulse 66 07/10/23 14:28 Respiratory Rate 24 07/10/23 14:28 Blood Pressure 136/63 07/10/23 14:28 VBG pCO2 74. pO2 30. pH 7.35 BiPAP initiated but she did not tolerate it. Placed on CPAP that she has for night use but hasn't been using routinely. Troponin 99. NTProBNP 2370 Creatinine 1.9. Na 139. K 4.6. WBC 7.17. Hgb 10.4. She was administered 80mg IV lasix. Admitted to ICU for further use of BiPAP if she tolerates vs CPAP. Review of Systems All systems reviewed & are unremarkable except as noted in HPI and below PFSH All Active Problems (Updated 07/10/23 @ 19:28 by Lawrence Hdz MD) Acute and chronic respiratory failure (Acute) Chronic hypercapnic respiratory failure (Acute) Gastritis and duodenitis (Acute) Depression (Chronic) Neuropathic pain of both feet (Acute) Obstructive sleep apnea (Chronic) Severe, CPAP Anemia (Chronic) Chronic renal failure (Chronic) Unspecified diastolic heart failure (Chronic 05/27/12) Echo 05/2012 EF 70% no valve abn; diastolic dysfx Trigeminal neuralgia of left side of face (Chronic 02/17/17) Sarcoidosis (Chronic 02/11/12) Spinal stenosis (Chronic 02/11/12) Restrictive lung disease (Chronic 03/19/16) Dr Zafar [facility]; CT dx Sarcoidosis; prednisone begun 05/2016 PFT 03/2016 FVC 47% FEVi 60% Hypoxia, chronic O2 Rx Primary osteoarthritis of both knees (Chronic 09/23/15) Osteoarthrosis (Chronic 02/23/13) Obesity hypoventilation syndrome (Chronic 09/29/16) with CARLOS: BiPAP:Dr Katie Zafar Obesity (Chronic 04/05/13) Nausea vomiting and diarrhea (Acute) recurrent 3-4 X/yr; possible IBS: spells of urgent diarrhea following a meal, occ with vomiting Congestive heart failure (Chronic 01/19/17) Pulmonology [place] Dr Katie Zafar; Dr Schuster: diastolic dysfunction, EF 52%, Pos wall motion abnl on MPI but not seen on ECHO 01/2017. Hyperlipidemia (Chronic 02/23/13) PCEq 28.5%; LDL baseline 184; elects to continue statin Hypertension (Chronic 02/23/13) FRS 21%; goal 150/90 Esophageal reflux (Chronic 02/11/12) Diverticulitis of colon (Chronic 02/11/12) Medical History History of basal cell carcinoma (BCC) Dr Curtis sclerosing BCCA right jawline 10/2007 Arch pain of right foot Middle insomnia Osteoarthritis of left knee DVT prophylaxis Discharge planning issues Surgical History Tonsillectomy and adenoidectomy Cholecystectomy twice, first age 18; repeat around 2006 Appendectomy Family History Mother , 75, complications heart surgery No problems noted. Father , age 80, heart attack No problems noted. Daughter , Sarcoidosis, bleeding from the lung No problems noted. Social History Smoking/Tobacco Use Status: Never Smoking risk assessment performed?: Yes Alcohol Intake: never Drug use: Never Substance use type: does not use Adopted: No Caregiver/Support person: No Foster care: No Household members: other Details: apartment in [facility] house Housing: apartment Number of Children: 3 Communication Needs: Corrective Lenses Do you need help understanding health information?: Rarely What is your relationship status?: Panel score (0-1 are the most socially isolated patients): 0 What type of physical activity do you participate in: none Seatbelt use: always Drive intox or ride w/intox telephone directory distributor driver: No Working smoke detector in home: Yes Carbon monox detector in home: Yes Do you feel safe at home: Yes Do you feel safe in your relationship?: Yes Meds Allergies and Home Medications Allergies Allergy/AdvReac Type Severity Reaction Status Date / Time acetaminophen [From Vicodin] AdvReac Severe AMS Verified 07/10/23 16:00 hydrocodone [From Vicodin] AdvReac Severe AMS Verified 07/10/23 16:00 aspirin AdvReac Mild GI upset, Verified 07/10/23 16:00 tolerates 81mg codeine AdvReac GI upset Verified 07/10/23 16:00 Home Medications Medication Instructions Recorded Confirmed Type multivitamin (Daily Vitamin tablet) 1 ea PO DAILY 12/15/12 07/10/23 History acetaminophen 325 mg tablet 325 - 650 mg (1 - 2 x 325 mg) PO 09/19/18 07/10/23 Rx (Tylenol) Q4H PRN PRN #0 tabs lysine 500 mg tablet 500 mg PO .qod 01/22/21 07/10/23 History Oxygen 2 l NS 24 hr ##2 04/15/21 07/10/23 History lovastatin 20 mg tablet 20 mg PO DAILY #90 tabs 04/15/21 07/10/23 Rx brimonidine 0.2 % eye drops 1 drp ophthalmic (eye) BID 06/14/23 07/10/23 History brinzolamide 1 %-brimonidine 0.2 % 1 drp ophthalmic (eye) BID 06/14/23 07/10/23 History eye drops,suspension (Simbrinza) diclofenac sodium 1 % topical gel 2 g topical BID joint pain in 06/14/23 07/10/23 Rx (Arthritis Pain (diclofenac)) knees #100 grams lantanaprost ophthalmic (eye) HS 06/14/23 History prednisolone acetate 1 % eye 1 drp ophthalmic (eye) BID 06/14/23 07/10/23 History drops,suspension sertraline 25 mg tablet 25 mg PO DAILY #90 tabs 06/14/23 07/10/23 Rx amlodipine 2.5 mg tablet 2.5 mg PO DAILY #90 tabs 06/25/23 07/10/23 Rx allopurinol 100 mg tablet 100 mg PO DAILY #90 tabs 07/06/23 07/10/23 Rx gabapentin 100 mg capsule 100 mg PO QHS #90 caps 07/06/23 07/10/23 Rx metoprolol succinate 50 mg 50 mg PO DAILY #90 tabs 07/06/23 07/10/23 Rx tablet,extended release 24 hr pantoprazole 20 mg tablet,delayed 20 mg PO DAILY #90 tabs 07/06/23 07/10/23 Rx release torsemide 20 mg tablet 20 mg PO DAILY #90 tab-caps 07/06/23 07/10/23 Rx Exam Narrative Exam Narrative: Gen: Eating dinner. No acute distress. Conversant HEENT: Sclera clear. MMM CVS: RRR. No murmur. RLE with 2+ edema of ankle and foot. LLE with tr edema. RESP: Mild crackles in bases. Nonlabored breathing. GI: soft, NT, ND. Obese. SKIN: Warm, dry. No rashes. NEURO: No focal neurologic deficits. SLOAN Psych: oriented to person, place. She was able to participate in explaining much of her medical history. Affect appropriate. Results Labs 07/11/23 05:42 07/11/23 05:42 Labs: Laboratory Results - last 24 hr 07/10/23 07/10/23 07/10/23 14:45 14:46 15:40 WBC 7.17 RBC 3.73 L Hgb 10.4 L Hct 35.2 L MCV 94 MCH 27.9 MCHC 29.5 L RDW 15.6 H Plt Count 161 MPV 10.0 Immature Gran % 0.7 Neutrophils % 77.5 Lymphocytes % 12.1 Monocytes % 7.9 Eosinophils % 1.4 Basophils % 0.4 Nucleated RBC % 0.0 Absolute Neutrophils 5.55 Absolute Lymphocytes 0.87 L Absolute Monocytes 0.57 Absolute Eosinophils 0.10 Absolute Basophils 0.03 VBG pH 7.33 7.35 VBG pCO2 77 H* 74 H* VBG pO2 35 30 VBG HCO3 40 H 41 H VBG Total CO2 38 H 39 H VBG O2 Saturation 69 60 VBG Base Excess 14 H 16 H Sodium 139 Potassium 4.6 Chloride 101 Carbon Dioxide 37.6 H Anion Gap 0.4 L BUN 38 H Creatinine 1.9 H Est GFR (CKD-EPI 2020) 25.56 Glucose 100 Calcium 9.5 Total Bilirubin 0.4 AST 19 ALT 17 Alkaline Phosphatase 113 Troponin I 99 H* NT-Pro-B Natriuret Pep 2370 H Total Protein 7.4 Albumin 3.2 L COVID-19 Source Nasal/Nares SARS-CoV-2 (PCR) Negative Last Vital Signs Temp 36.6 C 07/10/23 17:15 Pulse 62 07/10/23 17:02 Resp 14 07/10/23 17:02 BP 162/50 H 07/10/23 16:32 Pulse Ox 94 07/10/23 17:30 Time Spent Time spent with Patient: 40-54 minutes Time was spent: preparing to see the patient(eg.review tests), obtaining and/or reviewing separately otained hiistory, ordering medications,tests, procedures, referring, communicating with other health resident care coordinator, indepentently interpreting results, counseling the patient and care coordination
[2023-07-10 19:33] LABS: HCT 34.8 % (36.0-46.0); HGB 10.4 g/dL (11.2-15.7); MCH 27.7 pg (27.0-33.0); MCHC 29.9 % (32.0-36.0); MCV 93 fL (80-95); MPV 9.8 fL (8.0-11.0); Platelet Count 153 10^3/uL (130-400); RBC 3.75 10^6/uL (3.93-5.22); RDW 15.6 % (11.7-14.6); RDW-SD 52.6 fL; WBC 8.37 10^3/uL (4.4-10.8)
[2023-07-10 19:45] LABS: Anion Gap -0.3 mmol/L (3-11); BUN 38 mg/dL (7-18); CO2 39.3 mmol/L (21.0-32.0); CREATININE 1.8 mg/dL (0.55-1.02); Calcium 9.9 mg/dL (8.5-10.1); Chloride 100 mmol/L (98-107); Estimated GFR 27.27 (mL/min/1.73m2); Glucose 118 mg/dL (74-106); Sodium 139 mmol/L (136-145)
[2023-07-10 19:56] LABS: Troponin I 108 ng/L (<or=60)
[2023-07-10] MEDS: Lidocaine 2% Jelly 11 ML SYR (20:09)
[2023-07-10] MEDS: Lovastatin 20 MG TAB PO (21:18)
[2023-07-10] MEDS: Gabapentin 100 MG CAP PO (21:18)
[2023-07-10] MEDS: Enoxaparin 30 MG/0.3 ML SYR SC (21:18)
[2023-07-10] MEDS: Magnesium Oxide 400 MG TAB PO (21:18)
[2023-07-11] VITALS (31 sets, daily range): BP systolic 91–150; BP diastolic 43–66; PULSE 49–78; RESP 13–20; TEMP 36–36.8; O2SAT 16–96
[2023-07-11] MEDS: Normal Saline Flush 10 ML SYR IVP ×3 (00:47→16:05)
[2023-07-11] MEDS: Furosemide 40 MG/4 ML VIAL IVP ×3 (00:47→16:05)
--- NOTE | 2023-07-11 05:30 | RT.EKG_ITS ---
APPROVED REPORT Exam: Resting ECG Reason for Exam: Rhythm change Patient Location: I HR:65 bpm ECG Measurements Heart Rate 65 AXIS AR [id number] P [id number] QRSd 146 QRS 0 QT 437 T 11 QTc 455 Conclusion Atrial fibrillation...? atrial activity Ventricular premature complex...V complex w/ short R-R interval Right bundle branch block...QRSd>120, terminal axis(90,270)
[2023-07-11 06:32] LABS: HCT 32.2 % (36.0-46.0); HGB 9.9 g/dL (11.2-15.7); MCH 28.3 pg (27.0-33.0); MCHC 30.7 % (32.0-36.0); MCV 92 fL (80-95); MPV 10.3 fL (8.0-11.0); Platelet Count 144 10^3/uL (130-400); RDW 15.3 % (11.7-14.6); RDW-SD 50.6 fL; WBC 6.57 10^3/uL (4.4-10.8)
[2023-07-11 06:49] LABS: ALT 13 U/L (14-59); AST 19 U/L (15-37); Albumin 2.9 g/dL (3.4-5.0); Alkaline Phosphatase 99 U/L (46-116); Anion Gap -0.5 mmol/L (3-11); BUN 40 mg/dL (7-18); Bilirubin, Total 0.5 mg/dL (0.2-1.0); CO2 39.5 mmol/L (21.0-32.0); CREATININE 1.7 mg/dL (0.55-1.02); Calcium 9.3 mg/dL (8.5-10.1); Chloride 99 mmol/L (98-107); Estimated GFR 29.21 (mL/min/1.73m2); Glucose 108 mg/dL (74-106); Potassium 3.8 mmol/L (3.5-5.1); Sodium 138 mmol/L (136-145); Total Protein 6.8 g/dL (6.4-8.2)
[2023-07-11 07:02] LABS: Troponin I 106 ng/L (<or=60)
--- NOTE | 2023-07-11 08:12 | PDOC.CMIN ---
Date of service: 07/11/23 Time of Service: 08:12 Care Management Initial Assmt Initial Assessment REASON FOR HOSPITALIZATION:: respiratory failure PREVIOUS FUNCTIONAL STATUS/SOCIAL/FAMILY SUPPORTS:: Christiane lives alone in an apartment in [place]. She recently relocated to [place] from [place], where she had been living with her 2 sons. She is originally from [place] and still has family here as well. Christiane has 6 grandchildren and 5 great grandchildren, many of whom live in the area. 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 Christiane uses a walker for ambulatory assistance but is independent with ADLs. She has [facility] moderate needs and has foundation relations director servicers for about 2 hours per week. CURRENT FUNCTIONAL STATUS:: Christiane was sitting up in bed visiting with her granddaughter and great granddaughter when CM met with her. She was alert and oriented and able to engage in conversation. She explained that she had moved to [place] to be with her sons but as she and her sister are aging, she wanted to return to [place] to be closer to her sister and also some of her grandchildren and their families. Christiane uses home oxygen at baseline, 2L/min during the day and 3L/min at night. She is also supposed to use CPAP but shared that she is not consistent with its use , especially when she has difficulty sleeping. ADVANCE DIRECTIVES:: On file. Luis Manuel ACEVES Has patient been provided with info about the portal/API?: Yes Did the patient sign up for the portal?: No CODE STATUS:: DNR/DNI INSURANCE COVERAGE / FINANCIAL ISSUES:: Medicare with [employer] supplement CURRENT HOME/COMMUNITY SERVICES/EQUIPMENT:: uses a walker has home oxygen - 2L/min during day and 3L/min at night. PRIMARY CARE PHYSICIAN:: Enda TAPIA POTENTIAL DISCHARGE NEEDS:: follow up with PCP and plan of care PATIENT/FAMILY EDUCATION NEEDS:: Review of discharge instructions, limitations, activity. follow up plan, discuss Ask Me Three. TRANSPORTATION:: via private vehicle with family/friends PLAN:: Anticipate Christiane will return home, possibly with new home health services. She will follow up with her PCP and plan of care and transport with family. CM will follow and continue to assess for discharge needs. PFSH All Active Problems (Updated 07/11/23 @ 09:15 by Lawrence Hdz MD) Atrial fibrillation (Chronic) Demand ischemia (Acute) Acute and chronic respiratory failure (Acute) Chronic hypercapnic respiratory failure (Acute) Gastritis and duodenitis (Acute) Depression (Chronic) Neuropathic pain of both feet (Acute) Obstructive sleep apnea (Chronic) Severe, CPAP Anemia (Chronic) Chronic renal failure (Chronic) Unspecified diastolic heart failure (Chronic 05/27/12) Echo 05/2012 EF 70% no valve abn; diastolic dysfx Trigeminal neuralgia of left side of face (Chronic 02/17/17) Sarcoidosis (Chronic 02/11/12) Spinal stenosis (Chronic 02/11/12) Restrictive lung disease (Chronic 03/19/16) Dr Zafar [facility]; CT dx Sarcoidosis; prednisone begun 05/2016 PFT 03/2016 FVC 47% FEVi 60% Hypoxia, chronic O2 Rx Primary osteoarthritis of both knees (Chronic 09/23/15) Osteoarthrosis (Chronic 02/23/13) Obesity hypoventilation syndrome (Chronic 09/29/16) with CARLOS: BiPAP:Dr Katie Zafar Obesity (Chronic 04/05/13) Nausea vomiting and diarrhea (Acute) recurrent 3-4 X/yr; possible IBS: spells of urgent diarrhea following a meal, occ with vomiting Congestive heart failure (Chronic 01/19/17) Pulmonology [place] Dr Katie Zafar; Dr Schuster: diastolic dysfunction, EF 52%, Pos wall motion abnl on MPI but not seen on ECHO 01/2017. Hyperlipidemia (Chronic 02/23/13) PCEq 28.5%; LDL baseline 184; elects to continue statin Hypertension (Chronic 02/23/13) FRS 21%; goal 150/90 Esophageal reflux (Chronic 02/11/12) Diverticulitis of colon (Chronic 02/11/12) Medical History History of basal cell carcinoma (BCC) Dr Curtis sclerosing BCCA right jawline 10/2007 Arch pain of right foot Middle insomnia Osteoarthritis of left knee DVT prophylaxis Discharge planning issues Surgical History Tonsillectomy and adenoidectomy Cholecystectomy twice, first age 18; repeat around 2006 Appendectomy Family History Mother , 75, complications heart surgery No problems noted. Father , age 80, heart attack No problems noted. Daughter , Sarcoidosis, bleeding from the lung No problems noted. Social History Smoking/Tobacco Use Status: Never Smoking risk assessment performed?: Yes Alcohol Intake: never Drug use: Never Substance use type: does not use Adopted: No Caregiver/Support person: No Foster care: No Household members: other Details: [facility] Housing: apartment Number of Children: 3 Communication Needs: Corrective Lenses Do you need help understanding health information?: Rarely What is your relationship status?: Panel score (0-1 are the most socially isolated patients): 0 What type of physical activity do you participate in: none Seatbelt use: always Drive intox or ride w/intox regional driver: No Working smoke detector in home: Yes Carbon monox detector in home: Yes Do you feel safe at home: Yes Do you feel safe in your relationship?: Yes
--- NOTE | 2023-07-11 08:21 | PGE_ITS ---
Date of Service Date of service: 07/11/23 Time of Service: 08:50 Assessment and Plan Assessment and plan (1) Demand ischemia: Status: Acute Assessment and plan: Secondary to CHF and acute resp. failure. Troponin trend: 99>108>106. No CP. (2) Acute and chronic respiratory failure: Status: Acute Assessment and plan: Volume overload. She admits to dietary indescretions. In discussion with her she appears knowledgeable regarding Na intake and how it's usually high in package/processed/restaurant foods. She doesn't add salt to her food. CPAP at night. Now stable on O2 per NC at her home baseline of 2L. Diuresing well; given an added dose of IV lasix overnight. Qualifiers: Respiratory failure complication: hypoxia and hypercapnia Qualified Cod e(s): J96.21 - Acute and chronic respiratory failure with hypoxia; J96.22 - Acute and chronic respiratory failure with hypercapnia (3) Atrial fibrillation: Status: Chronic Assessment and plan: No known previous history. Rate controlled. Patient on metoprolol. [id number] score of 5. Pt is a candidate for anticoagulation given a 7.2% per year and 10% risk of stroke/TIA/systemic embolism. To discuss with patient. Echocardiogram ordered. (4) Unspecified diastolic heart failure: Status: Chronic Assessment and plan: Volume overload as above. Diuresing with IV push lasix. Monitor I&O's and daily wt. Echocardiogram on Wednesday, 07/12. Last echocardiogram in our records was in 2017. Est. EF then was 50-5%. No evidence of elevated ventricular filling pressure by Doppler parameters at that time. [place] myocardial perfusion scan also in 2017. Findings of 1. a moderate sized, moderately intense, predominantly fixed defect involving the apical anterior wall(s). This suggests moderate myocardial infarction in the distribution of the left anterior descending coronary artery. Overall ischemia: minimal. 2. Diffuse left ventricular regional motion abnormalities. Qualifiers: Heart failure chronicity: acute on chronic Qualified Code(s): I50.33 - Acute on chronic diastolic (congestive) heart failure (5) Chronic renal failure: Status: Chronic Assessment and plan: She related that her GFR at one time was 16 but had improved to 30. Her most recent records are in [place] where she has been living for 2+ years with a son. She moved back to [place] appx 4 wks ago. Estimated GFR of 25, 27 on admission. Now 29. Creatinine 1.9 and 1.8 on admission. Now 1.7. Monitor. Qualifiers: Chronic kidney disease stage: stage 4 (severe) Qualified Code(s): N18.4 - Chronic kidney disease, stage 4 (severe) (6) Obstructive sleep apnea: Status: Chronic Assessment and plan: CPAP nightly. She endorses not using it as she should. (7) Hypertension: Status: Chronic Assessment and plan: Cont amlodipine and metoprolol. Now on IV lasix. On torsemide 20mg daily at home. Qualifiers: Hypertension type: renovascular hypertension Qualified Code(s): I15.0 - Renovascular hypertension (8) Discharge planning issues: Assessment and plan: Pt is a DNR/DNI Likely d/c when stabilized to home with services. Subjective Subjective Patient reports: feels better, shortness of breath (Some increase SOB overnight; resolved.) and afebrile; denies nausea or vomiting Interval history since last seen: Developed atrial fibrillation last PM; rate controlled. Exam Narrative Exam Narrative: Gen: Lying in bed. States she slept poorly. NAD. HEENT: Sclera clear. MMM CVS: RRR. No murmur. RLE with 1+ edema of ankle and foot. LLE with tr edema. RESP: Mild crackles in bases. Nonlabored breathing. GI: soft, NT, ND. Obese. SKIN: Warm, dry. No rashes. NEURO: No focal neurologic deficits. SLOAN Psych: oriented x2. Affect appropriate. Objective Last Vital Signs Temp 36.3 C L 07/11/23 07:51 Pulse 78 07/11/23 08:08 Resp 16 07/11/23 07:51 BP 114/59 L 07/11/23 07:51 Pulse Ox 96 07/11/23 08:00 Laboratory Results - last 24 hr 07/10/23 07/10/23 07/10/23 14:45 14:46 15:40 WBC 7.17 RBC 3.73 L Hgb 10.4 L Hct 35.2 L MCV 94 MCH 27.9 MCHC 29.5 L RDW 15.6 H Plt Count 161 MPV 10.0 Immature Gran % 0.7 Neutrophils % 77.5 Lymphocytes % 12.1 Monocytes % 7.9 Eosinophils % 1.4 Basophils % 0.4 Nucleated RBC % 0.0 Absolute Neutrophils 5.55 Absolute Lymphocytes 0.87 L Absolute Monocytes 0.57 Absolute Eosinophils 0.10 Absolute Basophils 0.03 VBG pH 7.33 7.35 VBG pCO2 77 H* 74 H* VBG pO2 35 30 VBG HCO3 40 H 41 H VBG Total CO2 38 H 39 H VBG O2 Saturation 69 60 VBG Base Excess 14 H 16 H Sodium 139 Potassium 4.6 Chloride 101 Carbon Dioxide 37.6 H Anion Gap 0.4 L BUN 38 H Creatinine 1.9 H Est GFR (CKD-EPI 2020) 25.56 Glucose 100 Calcium 9.5 Magnesium Total Bilirubin 0.4 AST 19 ALT 17 Alkaline Phosphatase 113 Troponin I 99 H* NT-Pro-B Natriuret Pep 2370 H Total Protein 7.4 Albumin 3.2 L COVID-19 Source Nasal/Nares SARS-CoV-2 (PCR) Negative 07/10/23 07/11/23 19:27 05:42 WBC 8.37 6.57 RBC 3.75 L 3.50 L Hgb 10.4 L 9.9 L Hct 34.8 L 32.2 L MCV 93 92 MCH 27.7 28.3 MCHC 29.9 L 30.7 L RDW 15.6 H 15.3 H Plt Count 153 144 MPV 9.8 10.3 Immature Gran % Neutrophils % Lymphocytes % Monocytes % Eosinophils % Basophils % Nucleated RBC % Absolute Neutrophils Absolute Lymphocytes Absolute Monocytes Absolute Eosinophils Absolute Basophils VBG pH VBG pCO2 VBG pO2 VBG HCO3 VBG Total CO2 VBG O2 Saturation VBG Base Excess Sodium 139 138 Potassium 4.0 3.8 Chloride 100 99 Carbon Dioxide 39.3 H 39.5 H Anion Gap -0.3 L -0.5 L BUN 38 H 40 H Creatinine 1.8 H 1.7 H Est GFR (CKD-EPI 2020) 27.27 29.21 Glucose 118 H 108 H Calcium 9.9 9.3 Magnesium 2.0 Total Bilirubin 0.5 AST 19 ALT 13 L Alkaline Phosphatase 99 Troponin I 108 H* 106 H* NT-Pro-B Natriuret Pep Total Protein 6.8 Albumin 2.9 L COVID-19 Source SARS-CoV-2 (PCR) Time Spent with Patient Time Spent with Patient: 35-49 minutes Time was spent: preparing to see the patient(eg.review tests), obtaining and/or reviewing separately otained hiistory, ordering medications,tests, procedures, referring, communicating with other health care advocate, indepentently interpreting results, counseling the patient and care coordination
[2023-07-11] MEDS: Multivitamin TAB 1 TAB PO (08:40)
[2023-07-11] MEDS: amLODIPine 2.5 MG TAB PO (08:40)
[2023-07-11] MEDS: Sertraline 25 MG TAB PO (08:40)
[2023-07-11] MEDS: Allopurinol 100 MG TAB PO (08:40)
[2023-07-11] MEDS: Pantoprazole 20 MG TABCR PO (08:40)
[2023-07-11] MEDS: Metoprolol CR 25 MG TABCR 12.5 MG PO ×2 (13:37→20:05)
[2023-07-11] MEDS: Enoxaparin 30 MG/0.3 ML SYR SC (20:05)
[2023-07-11] MEDS: Diclofenac 1% Gel 100 GM TUBE TP (20:06)
[2023-07-11] MEDS: Gabapentin 100 MG CAP PO (21:55)
[2023-07-11] MEDS: Magnesium Oxide 400 MG TAB PO (21:55)
[2023-07-11] MEDS: Lovastatin 20 MG TAB PO (21:55)
[2023-07-12 05:13] VITALS: PULSE 57; RESP 13; O2SAT 93
[2023-07-12 07:00] VITALS: PULSE 63; RESP 13; O2SAT 94
--- NOTE | 2023-07-12 07:00 | DI.US_ITS ---
APPROVED REPORT EXAM: Comprehensive 2D, Doppler, and color-flow Echocardiogram Patient Location: In-Patient Room/Bed: [id number] [employer]: Yessenia Disla RDCS (AE) Indications: Acute on chronic CHF, new onset afib Other Information Study Quality: Adequate. Technically limited study due to inability to position patient, exam done be dside supine. Conclusion Left ventricle is borderline dilated. Wall thickness is normal. Ejection fraction is 50% without se gmental wall motion abnormalities Normal right ventricular size and systolic function Left atrium is moderately dilated. Right atrium is mildly dilated Normal mitral valve with moderate regurgitation Normal tricuspid valve with mild regurgitation. Estimated right ventricular systolic pressure is 43 mmHg Wall motion Left Ventricle Left ventricle is moderately dilated. Left ventricular systolic function is mildly decreased. There i s normal left ventricular wall thickness. There is global hypokinesis of the left ventricle. There is no ventricular septal defect visualized. LVEF is 50%. Right Ventricle Right ventricle is grossly normal in size. The right ventricular systolic function is normal. Atria Left atrium is moderately dilated. Right atrium is mildly dilated. The interatrial septum is intact w ith no evidence for an atrial septal defect. Aortic Valve The aortic valve is normal in structure. Aortic valve is trileaflet. There is no aortic valvular sten osis. Mitral Valve The mitral valve is normal in structure. No evidence of mitral valve stenosis. Moderate mitral regurg itation. Tricuspid Valve The tricuspid valve is normal in structure. There is no tricuspid valve stenosis. Mild tricuspid reg urgitation. The RVSP is 42.8 mmHg. Pulmonic Valve The pulmonary valve is normal in structure. There is no pulmonic valvular stenosis. Mild pulmonic reg urgitation. Great Vessels The aortic root is normal in size. The ascending aorta is normal Aortic arch is not well visualized. IVC is normal in size and collapses >50% with inspiration. Pericardium There is no pericardial effusion. 2D Dimensions IVSD d PLAX 0.95 cm F: 0.6-1.0 Ao Root d 2.98 cm F: 2.7 - 3.3 LVPW d PLAX 0.95 cm F: 0.6 - 1.0 Ao Asc Diam d 3.31 cm F: 2.3 - 3.1 LVID d PLAX 6.04 cm F: 3.8 - 5.2 Left Atrium 1.90 cm F: 2.7 - 3.8 LVDs 4.65 cm F: 2.2 - 3.5 LV EF Teichholz 45.5 % FS 23.07 % LV EDV (Teich) 183.0 mL LV ESV (Teich) 99.8 mL M-Mode TAPSE 2.46 cm (M/F) >1.7 Auto EF LV EDV A4C 176.4 mL LV EDV A2C 189.8 mL LV EDV BP 186.8 mL LV ESV A4C 91.8 mL LV ESV A2C 98.1 mL LV ESV BP 95.4 mL LVEF(%) A4C 47.9 % LVEF(%) A2C 48.3 % LVEF(%) BP 48.9 % LV SV A4C 84.6 ml LV SV A2C 91.7 ml LV SV BP 91.4 ml LV CO A4C 5.7 L/min LV CO A2C 6.0 L/min LV CO BP 5.8 L/min HR A4C 66.89 BPM HR A2C 64.99 BPM LV EDV Index (BP) LA Volume LA Length A4C 6.7 cm LA Length A2C 6.6 cm LA Area A4C s 31.01 cm2 LA Area A2C s 34.63 cm2 LA Vol A4C A-L 122.52 mL LA Vol A2C A-L 153.47 mL LA Vol Biplane A-L 137.4 mL LA Vol/BSA A4C A-L LA Vol/BSA A2C A-L LA Vol/BSA BP A-L 68.0 mL/m2 LA Vol A4C MOD 114.9 mL LA Vol A2C MOD 148.2 mL LA Vol BP MOD 130.3 mL RA Volume RA Area A4C 18.8 cm2 RA ESV A4C (A-L) 57.4mL RA Vol/BSA A4C A-L RA Length A4C 5.2 cm RA ESV A4C (MOD) 56.2mL LV Diastology MV E' medial 0.051 (>0.07 m/s) MV E Vmax 0.80 (0.4-1.3 m/s) MV E/E' MED 15.79 (<14) MV A Vmax 1.20 (0.4-1.3 m/s) MV E' lateral 0.084 (>0.1 m/s) E/A Ratio 0.7 MV E/E' LAT 9.57 (<14) MV E' Average 0.067 m/s MV E/E'(average) 11.91 Aortic Valve AoV Vmax 1.67 m/s LVOT Vmax 1.28 m/s AoV Peak Grad 11.1 mmHg LVOT Peak Grad 6.5 mmHg AoV VTI 0.439 m LVOT VTI 0.322 m AoV Mean Matt. 1.20 m/s LVOT Mean Grad 3.9 mmHg AoV Mean Grad 6.6 mmHg Velocity Ratio 0.77 Mitral Valve MV DT 202 (160-240 msec) MV Vmax TIPS 1.21 m/s MV Mean Grad 2.1 (<2mmHg) MV VTI 0.383 m Pulmonary Valve PV Vmax 1.12 (0.5-1.5 m/s) RVOT Vmax 0.78 m/s PV Peak Grad 5.0 mmHg RVOT Peak Gr. 2.4 mmHg PV Mean Matt 0.74 m/s RVOT VTI 0.181 m PV Mean Grad 2.5 mmHg RVOT Mean Gr. 1.1 mmHg Tricuspid Valve RA Pressure 3.00 mmHg TR Vmax 3.16 m/s TV S' 0.15 m/s TR Peak Grad 39.8 mmHg RVSP (TR) 42.8 mmHg
[2023-07-12 07:05] LABS: Anion Gap 1.1 mmol/L (3-11); BUN 35 mg/dL (7-18); CO2 42.9 mmol/L (21.0-32.0); CREATININE 1.6 mg/dL (0.55-1.02); Calcium 9.6 mg/dL (8.5-10.1); Chloride 98 mmol/L (98-107); Estimated GFR 31.41 (mL/min/1.73m2); Glucose 95 mg/dL (74-106); Magnesium 1.9 mg/dL (1.8-2.4); Potassium 3.5 mmol/L (3.5-5.1); Sodium 142 mmol/L (136-145)
[2023-07-12 07:48] VITALS: BP 124/47; PULSE 62; PULSE 63; RESP 21; O2SAT 92
--- NOTE | 2023-07-12 08:26 | PDOC.CMPRO ---
Date of service: 07/12/23 Time of Service: 08:26 Care Management Progress Note Progress Note Text Progress Note Text: S/O:Christiane was sitting up in a chair when CM met with her. She stated that she is feeling better but appeared fatigued and asked to return to bed. She stated that she really hopes to be able to go home today, however, she also doesn't want to have to come back. CM asked about home health and Christiane agreed to have home health nursing, PT and OT. A:Christiane is n 83 year old woman admitted on 07/10/23 with respiratory failure P:Anticipate Christiane will return home, possibly with new home health services. She will follow up with her PCP and plan of care and transport with family. CM will follow and continue to assess for discharge needs.
[2023-07-12] MEDS: Furosemide 40 MG/4 ML VIAL IVP (09:32)
[2023-07-12] MEDS: Metoprolol CR 25 MG TABCR 12.5 MG PO (09:32)
[2023-07-12] MEDS: Pantoprazole 20 MG TABCR PO (09:33)
[2023-07-12] MEDS: Allopurinol 100 MG TAB PO (09:33)
[2023-07-12] MEDS: Normal Saline Flush 10 ML SYR IVP (09:33)
[2023-07-12] MEDS: Sertraline 25 MG TAB PO (09:33)
[2023-07-12] MEDS: amLODIPine 2.5 MG TAB PO (09:34)
[2023-07-12] MEDS: Multivitamin TAB 1 TAB PO (09:34)
[2023-07-12 10:24] VITALS: BP 148/59; PULSE 72; RESP 18; O2SAT 96
[2023-07-12] MEDS: Acetaminophen 325 MG TAB 650 MG PO (10:45)
--- NOTE | 2023-07-12 12:13 | PDOC.CMDIS ---
Date of service: 07/12/23 Time of Service: 12:13 LACE Index Scoring Tool Questions: Length of Stay (in days): 2 Was the patient admitted via the E.D.?: Yes Comorbidities: Congestive Heart Failure, Chronic Pulmonary Disease and Liver or Renal Disease E.D. Visits: 1 Answers: Total Score: 11 Risk of Readmission: High Risk Care Management Discharge Plan Reason for Hospitalization: respiratory failure Discharge Plan: Christiane will return home with new home health services for nursing, PT and OT. She will follow up with her PCP and plan of care and transport with family. Patient/Family Education Needs: Review of discharge instructions, limitations, activity. follow up plan, discuss Ask Me Three. Services Needed at Discharge: Home Health Care Services
--- NOTE | 2023-07-12 12:54 | W.PM.DS.N ---
Date of service: 07/12/23 Time of Service: 12:55 DS: Diagnosis Discharge Diagnosis (1) Demand ischemia: Status: Acute Asessment and Plan: Troponin trend: 99>108>106. No CP. (2) Acute and chronic respiratory failure: Status: Acute Asessment and Plan: Diuresed with IV lasix. She tolerated her CPAP at night. Back to her baseline 2L supplemental O2. (3) Atrial fibrillation: Status: Chronic Asessment and Plan: New onset. Converted back to NSR. Her ventricular rate was never tachy. On metoprolol. [id number] of 5. She is a candidate for anticoagulation but was hesitant and wishes to consider it and speak with PCP. (4) Unspecified diastolic heart failure: Status: Chronic Asessment and Plan: Volume overload most likely d/t dietary indiscretions; excessive Na intake. She is knowledgeable regarding Na intake. Given patient information sheet to assist in selection of low Na foods. Echo showed an EF of 50% w/o any significant findings. Home on her ususal 20mg of Torsemide. This may need to be increased at the discretion of her PCP if her edema/wt increase again. (5) Chronic renal failure: Status: Chronic Asessment and Plan: She related that her GFR had improved to 30 on her more recent lab work; not in our system. Her GFR on presentation here was 25.5. It has improved to 31. (6) Obstructive sleep apnea: Status: Chronic Asessment and Plan: CPAP nightly. She had not been using it regularly. (7) Hypertension: Status: Chronic Asessment and Plan: Cont amlodipine, metoprolol and torsemide. (8) Discharge planning issues: Asessment and Plan: Home with nursing PT/OT Discharge Plan Disposition Patient Disposition: Home W/Home Health Services Condition: Improving Discharge Details Reason For Visit: CHF, hypoxic respiratory failure Admit Date/Time: 07/10/23 16:11 Admit Provider: Lawrence Hdz Attending Provider: Lawrence dHz Primary Care Provider: Edna Hagen Hospital Course Hospital Course: This is an 83 yo female with a PMH of diastolic CHF, CKD, restrictive lung disease, OHS, Gout. Her family endorsed noting an alteration in her mental status over the previous several days. Also noted was her O2 saturation was in the 80's on 2L O2. She is on 2L O2 per NC during the day and 3L at night. Family increased her O2 delivery to 6L. Vital Signs Temperature 36.4 C L 07/10/23 14: Pulse 66 07/10/23 14:28 Respiratory Rate 24 07/10/23 14:28 Blood Pressure 136/63 07/10/23 14:28 VBG pCO2 elevated at 74. BiPAP initiated but she did not tolerate it but for a short time. CPAP then initiate and ultimately she was able to be maintained on a nasal cannula. CXR showed cardiomegaly with interstitial edema. Her mentation improved with oxygenation. WBC count normal. Hgb 10.4. Normal electrolytes. BUN 38. Creatinine 1.9. Troponin: 99. See Diagnosis Home Meds and New Rx's Prescriptions: New metoprolol succinate 25 mg Tablet Extended Release 24 Hr 12.5 mg PO BID Qty: 60 0RF Continued lovastatin 20 mg tablet 20 mg PO DAILY Qty: 90 3RF sertraline 25 mg tablet 25 mg PO DAILY Qty: 90 3RF diclofenac sodium [Arthritis Pain (diclofenac)] 1 % gel 2 g topical BID Qty: 100 2RF prednisolone acetate 1 % drops,suspension 1 drp ophthalmic (eye) BID Rx Instructions: R Eye brimonidine 0.2 % drops 1 drp ophthalmic (eye) BID Rx Instructions: L EYE Simbrinza 1-0.2 % drops,suspension 1 drp ophthalmic (eye) BID Rx Instructions: R EYE lantanaprost ophthalmic (eye) HS Rx Instructions: both eyes multivitamin [Daily Vitamin] 1 EACH tablet 1 ea PO DAILY lysine 500 mg tablet 500 mg PO .qod Oxygen EACH 2 l NS 24 hr Qty: 2 Rx Instructions: 3 liter in night, [facility] amlodipine 2.5 mg tablet 2.5 mg PO DAILY Qty: 90 0RF allopurinol 100 mg tablet 100 mg PO DAILY Qty: 90 3RF gabapentin 100 mg capsule 100 mg PO QHS Qty: 90 0RF torsemide 20 mg tablet 20 mg PO DAILY Qty: 90 3RF pantoprazole 20 mg tablet,delayed release (DR/EC) 20 mg PO DAILY Qty: 90 3RF acetaminophen [Tylenol] 325 mg Tablet 325 - 650 mg PO Q4H PRN PRNQty: 0 0RF Discontinued metoprolol succinate 50 mg tablet extended release 24 hr 50 mg PO DAILY Qty: 90 3RF Discharge Instructions Instructions: Low-Sodium Diet (DC) Activity:: Activity as Tolerated Equipment/Supplies:: No Equipment Needed Diet:: Low Sodium Discharge Orders Discharge Orders: Discharge Order (Routine); Ordered 07/12/23 Ordered By: Lawrence Hdz DS: Summary Time Spent with Patient providing and/or coordinating discharge services: Greater than 30 minutes Status at Discharge Functional status at discharge: uses cane/walker Overall status at discharge: patient is progressing back to baseline Mental Status: mental status grossly normal Speech and Movement: speech clear Mood: congruent mood Affect: normal affect Exam Narrative Exam Narrative: Gen: Pt is sitting in chair. Pleasant. NAD HEENT: Sclera clear. MMM CVS: RRR. No murmur. No pitting edema of BLEs RESP: Lungs clear, diminished. Nonlabored breathing. GI: soft, NT, ND. Obese. SKIN: Warm, dry. No rashes. NEURO: No focal neurologic deficits. SLOAN Psych: oriented x3. Affect appropriate. Psych Mental Status: mental status grossly normal Speech and Movement: speech clear Mood: congruent mood Affect: normal affect DS: Data Vitals/I&O Vitals and I&O: Vital Signs Temperature 36 C L 07/11/23 20:05 Temperature Source Temporal Artery Scan 07/11/23 20:05 Pulse 57 L 07/12/23 05:13 Pulse Rhythm Regular 07/12/23 08:50 Pulse 63 07/12/23 07:00 Respiratory Rate 13 07/12/23 07:00 Respiratory Effort Normal, Non-Labored 07/12/23 08:50 Respiratory Depth Normal 07/12/23 08:50 Respiratory Pattern Normal 07/12/23 08:50 Blood Pressure 138/66 07/11/23 22:01 Blood Pressure Mean 87 07/11/23 22:01 Blood Pressure Position Supine 07/10/23 17:15 Pulse Oximetry 94 07/12/23 07:00 Oxygen Delivery Method Nasal Cannula 07/11/23 20:05 Oxygen Flow Rate 2 07/11/23 20:05 Fraction of Inspired Oxygen (FIO2) 30 07/12/23 08:14 Pain Level 3 07/12/23 10:45 Comment VS taken at 2325 07/10/23 22:29 Intake & Output 07/11/23 07/12/23 07/12/23 23:59 11:59 23:59 Intake Total 320 / 930 240 / 240 Output Total 2074 / 2899 850 / 850 Balance -175 / -1970 -610 / -610 Weight 97.2 kg Intake: Oral 320 / 920 240 / 240 Output: Urine 2074 850 / 850 Other: Urine Color Yellow Straw Urine Appearance Clear Clear Urine Odor Strong Voiding Methods Indwelling Catheter Bedside Commode Data Completed and Pending Labs on day of discharge: Labs from last 24 hours 07/12/23 05:35 Sodium 142 Potassium 3.5 Chloride 98 Carbon Dioxide 42.9 H Anion Gap 1.1 L BUN 35 H Creatinine 1.6 H Est GFR (CKD-EPI 2020) 31.41 Glucose 95 Calcium 9.6 Magnesium 1.9 PFSH All Active Problems Atrial fibrillation (Chronic) Demand ischemia (Acute) Acute and chronic respiratory failure (Acute) Chronic hypercapnic respiratory failure (Acute) Gastritis and duodenitis (Acute) Depression (Chronic) Neuropathic pain of both feet (Acute) Obstructive sleep apnea (Chronic) Severe, CPAP Anemia (Chronic) Chronic renal failure (Chronic) Unspecified diastolic heart failure (Chronic 05/27/12) Echo 05/2012 EF 70% no valve abn; diastolic dysfx Trigeminal neuralgia of left side of face (Chronic 02/17/17) Sarcoidosis (Chronic 02/11/12) Spinal stenosis (Chronic 02/11/12) Restrictive lung disease (Chronic 03/19/16) Dr Zafar [facility]; CT dx Sarcoidosis; prednisone begun 05/2016 PFT 03/2016 FVC 47% FEVi 60% Hypoxia, chronic O2 Rx Primary osteoarthritis of both knees (Chronic 09/23/15) Osteoarthrosis (Chronic 02/23/13) Obesity hypoventilation syndrome (Chronic 09/29/16) with CARLOS: BiPAP:Dr Katie Zafar Obesity (Chronic 04/05/13) Nausea vomiting and diarrhea (Acute) recurrent 3-4 X/yr; possible IBS: spells of urgent diarrhea following a meal, occ with vomiting Congestive heart failure (Chronic 01/19/17) Pulmonology [place] Dr Katie Zafar; Dr Schuster: diastolic dysfunction, EF 52%, Pos wall motion abnl on MPI but not seen on ECHO 01/2017. Hyperlipidemia (Chronic 02/23/13) PCEq 28.5%; LDL baseline 184; elects to continue statin Hypertension (Chronic 02/23/13) FRS 21%; goal 150/90 Esophageal reflux (Chronic 02/11/12) Diverticulitis of colon (Chronic 02/11/12) Medical History History of basal cell carcinoma (BCC) Dr Curtis sclerosing BCCA right jawline 10/2007 Arch pain of right foot Middle insomnia Osteoarthritis of left knee DVT prophylaxis Discharge planning issues Surgical History Tonsillectomy and adenoidectomy Cholecystectomy twice, first age 18; repeat around 2006 Appendectomy Family History Mother , 75, complications heart surgery No problems noted. Father , age 80, heart attack No problems noted. Daughter , Sarcoidosis, bleeding from the lung No problems noted. Social History Smoking/Tobacco Use Status: Never Smoking risk assessment performed?: Yes Alcohol Intake: never Drug use: Never Substance use type: does not use Adopted: No Caregiver/Support person: No Foster care: No Household members: other Details: [place] [facility] Housing: apartment Number of Children: 3 Communication Needs: Corrective Lenses Do you need help understanding health information?: Rarely What is your relationship status?: Panel score (0-1 are the most socially isolated patients): 0 What type of physical activity do you participate in: none Seatbelt use: always Drive intox or ride w/intox locomotive driver: No Working smoke detector in home: Yes Carbon monox detector in home: Yes Do you feel safe at home: Yes Do you feel safe in your relationship?: Yes Time Spent with Patient Time Spent with Patient: 45-69 minutes Time was spent: preparing to see the patient(eg.review tests), obtaining and/or reviewing separately otained hiistory, ordering medications,tests, procedures, referring, communicating with other health home care and home health aides teacher, indepentently interpreting results, counseling the patient and care coordination
--- NOTE | 2023-07-12 14:17 | PDOC.HHF2F ---
Home Health Referral Home Health Orders Clinical synopsis of why skilled professionals are needed: Pt presented with acute on chronic diastolic CHF; volume overload and LIV in background of CKD. She endorsed dietary indiscretion with Na intake beyond recommendations. She diuresed well and returned to her chronic baseline supplemental O2 needs of 2L per NC. Her GFR and creatinine improved back to her baseline. Medical diagnosis necessitation home health referral: Acute on chronic CHF Acute on chronic hypoxic resp. failure. LIV CKD Registered Nurse: Check all that apply Instruct on new or changed medication(s)/assess compliance: Ordered Physical Therapist: Check all that apply Increase strength & endurance for safe mobility at home: Ordered Occupational Therapist: Evaluate and treat for patient unable to perform ADL/IADL/self-care: Ordered Home Bound Status Requires the aid of supportive device (check all that apply): Walker Assistance of another person (Describe assistance and medical necessity): Pt uses a walker to assist with ambulation. Would need at least a standby assist when out of the home. Describe why leaving home would require a considerable and taxing effort: Requires frequent rest periods Encounter Date and Reason: I certify that a FTF encounter for this patient was performed on July 12, 2023 and that such encounter was related to the primary reason the patient requires home health services. The encounter was conducted in the following manner: By me as the certifying physician, [employer], [place] or By an inpatient physician, [employer] or [place] during an inpatient stay who communicated findings to me, Certification And Authentication I certify that I composed the above information based on my clinical judgment relating to this patient's medical condition and, if applicable, clinical findings communicated to me by the NPP or inpatient physician who performed the FTF encounter. Name of Provider that will be monitoring home health services: Lawrence Hdz
--- NOTE | 2023-07-12 15:38 | PT.INNT ---
PT Notes Visit Reasons: CHF, hypoxic respiratory failure Patient was discharged home early today. No skilled PT was provided for this epsiode care.
== END 2023-07-12 15:20 | disposition home health service (06) | DRG 189 ==
LOC: ER 17:05 → ICU 19:18
PROVIDERS: Family Medicine; Admitting Provider Family Medicine; Emergency Provider Emergency Medicine; PCP Nurse Practitioner; Visit Provider Family Medicine
DX: J96.21 Acute and chronic respiratory failure with hypoxia (principal); I50.33 Acute on chronic diastolic (congestive) heart failure; I13.0 Hypertensive heart and chronic kidney disease with heart failure and stage 1 through stage 4 chronic kidney disease, or unspecified chronic kidney disease; N18.4 Chronic kidney disease, stage 4 (severe); I24.89 Other forms of acute ischemic heart disease; E66.2 Morbid (severe) obesity with alveolar hypoventilation; J96.22 Acute and chronic respiratory failure with hypercapnia; I48.91 Unspecified atrial fibrillation; I15.0 Renovascular hypertension; Z66 Do not resuscitate; J98.4 Other disorders of lung; F32.A Depression, unspecified; D64.9 Anemia, unspecified; G50.0 Trigeminal neuralgia; D86.9 Sarcoidosis, unspecified; K29.70 Gastritis, unspecified, without bleeding; K29.80 Duodenitis without bleeding; M48.00 Spinal stenosis, site unspecified; M17.0 Bilateral primary osteoarthritis of knee; E78.5 Hyperlipidemia, unspecified; K21.9 Gastro-esophageal reflux disease without esophagitis; Z68.36 Body mass index [BMI] 36.0-36.9, adult
CPT/HCPCS: 00123; 36415; 80048; 80053; 82805; 85027; 87635; 93005; 93306; 96374; 99291; 71045; 83735; 83880; 84484; 85025; 93010; 94660; 99223; 99233; 99239; J1650; J1940

== ENCOUNTER → 2023-07-12 08:46 | Outpatient (BNVA) | payer MEDICARE, SELFPAY | PROVIDERS: Visit Provider Internal Medicine Cardiovascular Disease ==

== ENCOUNTER 2023-07-20 13:34 | Outpatient (CLI) | payer MEDICARE, SELFPAY ==
--- NOTE | 2023-07-20 13:30 | RT.EKG_ITS ---
APPROVED REPORT Exam: Resting ECG Reason for Exam: a fib Patient Location: O HR:67 bpm ECG Measurements Heart Rate 67 AXIS AK 132 P 0 QRSd 157 QRS -14 QT 447 T -13 QTc 472 Conclusion Atrial fibrillation irregular rate...V-rate 54- 81, variation>10% Probable left ventricular hypertrophy...(RaVL+SV3)xQRSd >300 IVCD
== END 2023-07-20 13:35 | disposition home or self-care (01) ==
PROVIDERS: PCP Nurse Practitioner; Visit Provider Nurse Practitioner
DX: I48.91 Unspecified atrial fibrillation
CPT/HCPCS: 93010

== ENCOUNTER 2023-08-03 07:51 | Outpatient (CLI) | payer MEDICARE, SELFPAY ==
--- NOTE | 2023-08-03 07:45 | RT.EKG_ITS ---
APPROVED REPORT Exam: Resting ECG Reason for Exam: PAF Patient Location: O HR:60 bpm ECG Measurements Heart Rate 60 AXIS ND [id number] P [id number] QRSd 152 QRS -12 QT 432 T 0 QTc 432 Conclusion Atrial fibrillation...? atrial activity Right bundle branch block...QRSd>120, terminal axis(90,270) Probable left ventricular hypertrophy...(RaVL+SV3)xQRSd >300
== END 2023-08-03 07:52 | disposition home or self-care (01) ==
LOC: DI.CARD 07:52
PROVIDERS: PCP Nurse Practitioner; Visit Provider Internal Medicine Cardiovascular Disease
DX: I48.0 Paroxysmal atrial fibrillation (principal)
CPT/HCPCS: 93010

== ENCOUNTER → 2023-08-03 11:00 | Outpatient (BNVA) | payer MEDICARE, SELFPAY | PROVIDERS: PCP Nurse Practitioner; Referring Provider Nurse Practitioner; Visit Provider Internal Medicine Cardiovascular Disease | DX: J96.11 Chronic respiratory failure with hypoxia (principal); J96.12 Chronic respiratory failure with hypercapnia; I10 Essential (primary) hypertension; I48.0 Paroxysmal atrial fibrillation | CPT/HCPCS: 93005; 99214 ==

== ENCOUNTER → 2023-08-16 09:29 | Outpatient (BNVA) | payer MEDICARE, SELFPAY | PROVIDERS: PCP Nurse Practitioner; Referring Provider Nurse Practitioner; Visit Provider Student in an Organized Health Care Education/Training Program | DX: G47.33 Obstructive sleep apnea (adult) (pediatric) (principal); D86.9 Sarcoidosis, unspecified; J96.11 Chronic respiratory failure with hypoxia; J96.12 Chronic respiratory failure with hypercapnia; J84.9 Interstitial pulmonary disease, unspecified; I10 Essential (primary) hypertension | CPT/HCPCS: 99215 ==

== ENCOUNTER 2023-08-16 13:24 | Outpatient (CLI) | payer MEDICARE, SELFPAY ==
[2023-08-16 22:19] LABS: Rheumatoid Factor <8.6 IU/mL (<12.0)
[2023-08-17 10:17] LABS: Cyclic Citrullinated Peptide <2.5 U/mL (<5.0)
[2023-08-17 15:30] LABS: ANA Interpretation Negative (Negative)
== END 2023-08-16 13:25 | disposition home or self-care (01) ==
LOC: LBO 13:25
PROVIDERS: PCP Nurse Practitioner; Visit Provider Student in an Organized Health Care Education/Training Program
DX: J84.9 Interstitial pulmonary disease, unspecified (principal)
CPT/HCPCS: 36415; 86200; 99215; 86038; 86431

== ENCOUNTER 2023-08-19 11:47 | Outpatient (REF) | payer MEDICARE, SELFPAY ==
[2023-08-19 14:13] LABS: HGB 9.9 g/dL (11.2-15.7)
== END 2023-08-19 11:48 | disposition home or self-care (01) ==
LOC: LBN 11:47
PROVIDERS: PCP Nurse Practitioner; Visit Provider Nurse Practitioner
DX: N18.4 Chronic kidney disease, stage 4 (severe) (principal); D63.1 Anemia in chronic kidney disease; R19.5 Other fecal abnormalities
CPT/HCPCS: 82272; 85018

== ENCOUNTER 2023-08-24 05:09 | Outpatient (CLI) | payer MEDICARE, SELFPAY | END 2023-08-24 05:10 | disposition home or self-care (01) | LOC: RT 05:09 | PROVIDERS: PCP Nurse Practitioner; Visit Provider Student in an Organized Health Care Education/Training Program | DX: J84.9 Interstitial pulmonary disease, unspecified (principal) | CPT/HCPCS: 94010; 94726; 94729 ==

== ENCOUNTER 2023-08-31 11:09 | Inpatient (IN) | payer MEDICARE, SELFPAY ==
[2023-08-31] VITALS (105 sets, daily range): BP systolic 100–132; BP diastolic 38–105; PULSE 47–84; RESP 6–28; TEMP 36.7–36.9; O2SAT 61–99
--- NOTE | 2023-08-31 11:00 | RT.EKG_ITS ---
APPROVED REPORT Exam: Resting ECG Reason for Exam: dizziness, low heart rate Patient Location: E HR:62 bpm ECG Measurements Heart Rate 62 AXIS FL [id number] P [id number] QRSd 158 QRS -38 QT 519 T 6 QTc 530 Conclusion Atrial fibrillation...? atrial activity IVCD, consider RBBB...QRSd>120mS, terminal axis(90,270) limited interp 2/t artifact
--- NOTE | 2023-08-31 11:15 | RT.EKG_ITS ---
APPROVED REPORT Exam: Resting ECG Reason for Exam: short of breath Patient Location: E HR:55 bpm ECG Measurements Heart Rate 55 AXIS [place] [id number] P [id number] QRSd 167 QRS -10 QT 461 T 5 QTc 443 Conclusion Atrial fibrillation...? atrial activity IVCD, consider RBBB...QRSd>120mS, terminal axis(90,270) limited interp 2/t artifact
--- NOTE | 2023-08-31 11:26 | ED.GENADUL_ITS ---
Discharge Plan Disposition Patient Disposition: Admit to [facility] Condition: Critical Discharge Details Chief Complaint: Dizzy/Sync Clinical Impression: Acute hypoxic respiratory failure, Sarcoid, Acute hypercapnic respiratory failure, Respiratory acidosis, Acute kidney injury, CHF (congestive heart failure), CKD (chronic kidney disease), Fall, Pneumonia, Pleural effusion Primary Care Provider: Edna Hagen ED Provider: Kayla Jason Home Meds and New Rx's Prescriptions: No Action gabapentin 100 mg capsule 200 mg PO QHS Qty: 120 0RF lovastatin 20 mg tablet 20 mg PO DAILY Qty: 90 3RF sertraline 25 mg tablet 25 mg PO DAILY Qty: 90 3RF diclofenac sodium [Arthritis Pain (diclofenac)] 1 % gel 2 g topical BID Qty: 100 2RF brimonidine 0.2 % drops 1 drp ophthalmic (eye) BID Rx Instructions: L EYE Simbrinza 1-0.2 % drops,suspension 1 drp ophthalmic (eye) BID Rx Instructions: R EYE lantanaprost ophthalmic (eye) HS Rx Instructions: both eyes multivitamin [Daily Vitamin] 1 EACH tablet 1 ea PO DAILY lysine 500 mg tablet 500 mg PO .qod Oxygen EACH 2 l NS 24 hr Qty: 2 Rx Instructions: 3 liter in night, [facility] amlodipine 2.5 mg tablet 2.5 mg PO DAILY Qty: 90 0RF allopurinol 100 mg tablet 100 mg PO DAILY Qty: 90 3RF torsemide 20 mg tablet 20 mg PO DAILY Qty: 90 3RF pantoprazole 20 mg tablet,delayed release (DR/EC) 20 mg PO DAILY Qty: 90 3RF acetaminophen [Tylenol] 325 mg Tablet 325 - 650 mg PO Q4H PRN PRNQty: 0 0RF metoprolol succinate 25 mg Tablet Extended Release 24 Hr 12.5 mg PO BID Qty: 60 0RF Medical Decision Making 83yo F with hx of ILD and CHF baseline 2L NC O2 at home, sarcoid, afib, CKD, HTN, HLD, presenting via EMS after a fall. History from patient, EMS, family at bedside. Patient reports that when she got up this morning while walking to the bathroom her legs gave out and she fell backwards and landed on her buttocks. Denies HS or LOC. EMS had difficulty obtaining an O2 sat and placed on her NRB, she was also bradycardiac to the 40's-50's, BP borderline hypotensive SBP 90's. Initially sating 94% on room air on arrival when NRB removed, desatted to 70's and placed on 6L NC with improvement to high 80's. HR in 60's here, initial BP 122/41. Physical exam with no significant traumatic findings, mild respiratory distress. Not septic. Initial VBG with pH 7.28, pCO2 81; placed on BIPAP and given duoneb. Further labs reviewed as below, CBC with mild anemia Hg 10.2 (at baseline on [facility] record review), CMP with Cr 2.5 (baseline appears to be ~1.7 on record review), normal Magnesium, TSH elevated with normal T4. Initial troponin negative. BNP elevated at 4562 which is increased from prior blood work, given borderline hypotension and not overtly volume overloaded will hold off on diuresis at this time pending chest imaging. Respiratory viral swabs negative. Given age, CT lopez scan ordered despite reassuring trauma exam. CT head and c-spine independently reviewed, no intracranial hemmoraghe or displaced fracture on my view, agree with radiology read below. CT chest/abd/pelvis independently reviewed, no free fluid in the abdomen on my view, does have right sided pulmonary infiltrated and mild/moderated right pleural effusion with no clear pulmonary edema, agree with radiology reads below and discussed with Dr. Wynne from radiology. Repeat VBG marginally improved; BiPAP settings increased to 12/6, remains on 40% FiO2. On reassessment reports breathing feels much better on the BiPAP. Goals of care discussed with patient; she affirms prior DNR & trial intubation. Prefers to avoid painful/invasive procedures unless absolutely necessary and does want invasive lines/tubes unless more conservative measures have failed. I discussed with her that her breathing may feel better if the fluid around her lungs was drained, she declines this at this time. Repeat vital signs with maintenance of MAP 65+ . Discussed with hospitalist avionics electrical engineer Dr. Parks and patient accepted to ICU, awaiting transfer. Imaging Data Radiologic Study: Imaging: CT Scan Radiologist's impression: IMPRESSION: No acute intracranial findings on this noninfused CT scan of the brain.Chronic small-vessel white matter ischemic changes. No evidence of cervical spine fracture, malalignment, nor acute compromise of the cervical spinal canal. Chronic advanced multilevel degenerative disc disease and facet arthropathy. Radiologic Study #2: Imaging: CT Scan Radiologist's impression: IMPRESSION: 1. There is significant infiltrate in the posterior and lateral basal segments of the right lower lobe extending up towards the superior segment and there is a moderate size right pleural effusion. Smaller left pleural effusion. There is bilateral hilar and subcarinal adenopathy. 2. No rib fractures nor vertebral fractures evident. 3. No acute trauma sequelae in the abdomen and pelvis. Very small amount of abdominal ascites normal without evidence of obvious organ laceration, bowel wall hematoma, nor mesenteric hematoma evident on this noninfused study. 4. Previous cholecystectomy. 5. Abdominal aortic aneurysm maximum diameter 3.4 cm. 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 HPI General Mode of arrival: EMS . Date/Time Provider Initiated Documentation: 08/31/23 11:19 . Limitations to Documentation: no limitations . Information obtained by: patient, family, EMS and old records reviewed . HPI Narrative: 83yo F with hx of ILD and CHF baseline 2L NC O2 at home, sarcoid, afib, CKD, H TN, HLD, presenting via EMS after a fall. History from patient and EMS. Patient reports that when she got up this morning while walking to the bathroom her legs gave out and she fell backwards and landed on her buttocks. Did not use her home CPAP last night. Denies HS or LOC. No lightheadedness or chest pain. No focal weakness. EMS had difficulty obtaining an O2 sat and placed on her NRB, she was also bradycardiac to the 40's-50's, BP borderline hypotensive SBP 90's. On arrival patient reports feeling short of breath and reports right hip and tailbone pain. Denies pain elsewhere. She was in her usual state of health yesterday with no fevers, chills, rash, nausea, vomiting, abdominal pain, numbness, tingling, weakness, chest pain, shortness of breath, worsening LE edema, or other concerns. Related Data Home Medications Medication Instructions Recorded Confirmed multivitamin (Daily Vitamin tablet) 1 ea PO DAILY 12/15/12 08/31/23 acetaminophen 325 mg tablet 325 - 650 mg (1 - 2 x 325 mg) PO 09/19/18 08/31/23 (Tylenol) Q4H PRN PRN #0 tabs lysine 500 mg tablet 500 mg PO .qod 01/22/21 08/31/23 Oxygen 2 l NS 24 hr ##2 04/15/21 08/31/23 brimonidine 0.2 % eye drops 1 drp ophthalmic (eye) BID 06/14/23 08/31/23 brinzolamide 1 %-brimonidine 0.2 % 1 drp ophthalmic (eye) BID 06/14/23 08/31/23 eye drops,suspension (Simbrinza) diclofenac sodium 1 % topical gel 2 g topical BID joint pain in 06/14/23 08/31/23 (Arthritis Pain (diclofenac)) knees #100 grams lantanaprost ophthalmic (eye) HS 06/14/23 08/16/23 sertraline 25 mg tablet 25 mg PO DAILY #90 tabs 06/14/23 08/31/23 amlodipine 2.5 mg tablet 2.5 mg PO DAILY #90 tabs 06/25/23 08/31/23 allopurinol 100 mg tablet 100 mg PO DAILY #90 tabs 07/06/23 08/31/23 pantoprazole 20 mg tablet,delayed 20 mg PO DAILY #90 tabs 07/06/23 08/31/23 release torsemide 20 mg tablet 20 mg PO DAILY #90 tab-caps 07/06/23 08/31/23 metoprolol succinate 25 mg 12.5 mg (1/2 x 25 mg) PO BID #60 07/12/23 08/31/23 tablet,extended release 24 hr tabs lovastatin 20 mg tablet 20 mg PO DAILY #90 tabs 07/20/23 08/31/23 gabapentin 100 mg capsule 200 mg (2 x 100 mg) PO QHS #120 08/16/23 08/31/23 caps Previous Rx's Medication Instructions Recorded acetaminophen 325 mg tablet 325 - 650 mg (1 - 2 x 325 mg) PO 09/19/18 (Tylenol) Q4H PRN PRN #0 tabs diclofenac sodium 1 % topical gel 2 g topical BID joint pain in 06/14/23 (Arthritis Pain (diclofenac)) knees #100 grams sertraline 25 mg tablet 25 mg PO DAILY #90 tabs 06/14/23 amlodipine 2.5 mg tablet 2.5 mg PO DAILY #90 tabs 06/25/23 allopurinol 100 mg tablet 100 mg PO DAILY #90 tabs 07/06/23 pantoprazole 20 mg tablet,delayed 20 mg PO DAILY #90 tabs 07/06/23 release torsemide 20 mg tablet 20 mg PO DAILY #90 tab-caps 07/06/23 metoprolol succinate 25 mg 12.5 mg (1/2 x 25 mg) PO BID #60 07/12/23 tablet,extended release 24 hr tabs lovastatin 20 mg tablet 20 mg PO DAILY #90 tabs 07/20/23 gabapentin 100 mg capsule 200 mg (2 x 100 mg) PO QHS #120 08/16/23 caps Allergies Allergy/AdvReac Type Severity Reaction Status Date / Time hydrocodone [From Vicodin] AdvReac Severe AMS Verified 08/16/23 11:16 aspirin AdvReac Mild GI upset, Verified 08/16/23 11:16 tolerates 81mg codeine AdvReac GI upset Verified 08/16/23 11:16 General Stated Complaint: Dizzy/Sync GREG: 2 Review of Systems Narrative: see HPI PFSH All Active Problems (Updated 08/31/23 @ 15:51 by Kayla Jason MD) Pleural effusion (Acute) Pneumonia (Acute) Fall (Acute) CKD (chronic kidney disease) (Chronic) CHF (congestive heart failure) (Chronic) Acute kidney injury (Acute) Respiratory acidosis (Acute) Acute hypercapnic respiratory failure (Acute) Sarcoid (Acute) Acute hypoxic respiratory failure (Acute) ILD (interstitial lung disease) (Acute) Chronic respiratory failure with hypoxia and hypercapnia (Acute) Paroxysmal atrial fibrillation (Acute) Gastritis and duodenitis (Acute) Depression (Chronic) Neuropathic pain of both feet (Acute) Obstructive sleep apnea (Chronic) Severe, CPAP Anemia (Chronic) Chronic renal failure (Chronic) Unspecified diastolic heart failure (Chronic 05/27/12) Echo 05/2012 EF 70% no valve abn; diastolic dysfx Trigeminal neuralgia of left side of face (Chronic 02/17/17) Sarcoidosis (Chronic 02/11/12) Spinal stenosis (Chronic 02/11/12) Restrictive lung disease (Chronic 03/19/16) Dr Zafar [facility]; CT dx Sarcoidosis; prednisone begun 05/2016 PFT 03/2016 FVC 47% FEVi 60% Hypoxia, chronic O2 Rx Primary osteoarthritis of both knees (Chronic 09/23/15) Osteoarthrosis (Chronic 02/23/13) Obesity hypoventilation syndrome (Chronic 09/29/16) with [facility]: BiPAP:Dr Katie Zafar Obesity (Chronic 04/05/13) Nausea vomiting and diarrhea (Acute) recurrent 3-4 X/yr; possible IBS: spells of urgent diarrhea following a meal, occ with vomiting Hyperlipidemia (Chronic 02/23/13) PCEq 28.5%; LDL baseline 184; elects to continue statin Hypertension (Chronic 02/23/13) FRS 21%; goal 150/90 Esophageal reflux (Chronic 02/11/12) Diverticulitis of colon (Chronic 02/11/12) Medical History Chronic hypercapnic respiratory failure History of basal cell carcinoma (BCC) Dr Curtis sclerosing BCCA right jawline 10/2007 Arch pain of right foot Middle insomnia Osteoarthritis of left knee DVT prophylaxis Surgical History Tonsillectomy and adenoidectomy Cholecystectomy twice, first age 18; repeat around 2006 Appendectomy Family History Mother , 75, complications heart surgery No problems noted. Father , age 80, heart attack No problems noted. Daughter , Sarcoidosis, bleeding from the lung No problems noted. Social History Smoking/Tobacco Use Status: Never Smoking risk assessment performed?: Yes Alcohol Intake: never Drug use: Never Substance use type: does not use Adopted: No Caregiver/Support person: No Foster care: No Household members: other Details: apartment in [facility] Housing: apartment Number of Children: 3 Communication Needs: Corrective Lenses Do you need help understanding health information?: Rarely What is your relationship status?: Panel score (0-1 are the most socially isolated patients): 0 What type of physical activity do you participate in: none Seatbelt use: always Drive intox 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 Obese. SKIN: Cool extremities, well perfused. HEAD: Atraumatic, normocephalic without edema, discoloration or evidence of trauma. EYES: PERRL. No scleral icterus or conjunctival injection. Extraocular muscles intact without nystagmus or diplopia. NOSE: . No nasal septal hematoma. MOUTH: No malocclusion or trismus. Moist mucus membranes without blood. NECK: Trachea midline. No discolorations or edema. CV: Irregular, rate in 40's. Normal s1 and s2. PV: Radial pulses 2+ bilaterally and symmetric. Dorsalis pedis pulses present and symmetric. 2+ capillary refill. CHEST: No abrasions or ecchymosis. Chest symmetric with respirations. No chest wall tenderness..Lungs are clear to auscultation bilaterally. ABDOMEN: No ecchymosis. Soft, nondistended, nontender. Circular abrasion left buttock, patient states is old. BACK: No abrasions, skin openings, or ecchymosis. Spine without bony tenderness, no step offs. PELVIC: Pelvis stable, nontender to lateral compression MSK: No gross deformities or discolorations or lesions. Tolerates full range of motion of extremities without tenderness. NEURO: Alert,. GCS 15. Sensation grossly intact. Moves all extremities against gravity. Course Vital Signs Vital signs: Vital Signs Temperature 36.9 C 08/31/23 11:05 Pulse 61 08/31/23 11:05 Respiratory Rate 18 08/31/23 11:05 Blood Pressure 122/41 L 08/31/23 11:05 Pulse Oximetry 88 L 08/31/23 11:05 Temperature 36.9 C 08/31/23 11:05 Pulse 61 08/31/23 11:05 Respiratory Rate 18 08/31/23 11:05 Blood Pressure 122/41 L 08/31/23 11:05 Pulse Oximetry 88 L 08/31/23 11:05 Oxygen Delivery Method Nasal Cannula 08/31/23 11:05 Oxygen Flow Rate 6 08/31/23 11:05 Comment chronic oxygen user at 2 lpm 08/31/23 11:05 Critical Care Time Critical Care Time Critical Care Time: Yes Total Critical Care Time: 34 Attestation: Due to a high probability of clinically significant, life threatening deterioration, the patient required my highest level of preparedness to intervene emergently and I personally spent this critical care time directly and personally managing the patient. This critical care time included obtaining a history; examining the patient; pulse oximetry; ordering and review of studies; arranging urgent treatment with development of a management plan; evaluation of patient's response to treatment; frequent reassessment; and, discussions with other providers. This critical care time was performed to assess and manage the high probability of imminent, life-threatening deterioration that could result in multi-organ failure. It was exclusive of separately billable procedures?
[2023-08-31 11:28] LABS: BE (Venous) 11 mmol/L (-2-3); HCO3 (Venous) 38 mmol/L (23-28); O2 Sat (Venous) 62 %; TCO2 (Venous) 36 mmol/L (24-29); pH (Venous) 7.28 (7.31-7.41); pO2 (Venous) 37 mmHg
[2023-08-31 11:29] LABS: Lactate 1.3 mmol/L (0.6-1.4); pCO2 (Venous) 81 mmHg (41-51)
--- NOTE | 2023-08-31 11:30 | RT.EKG_ITS ---
APPROVED REPORT Exam: Resting ECG Reason for Exam: shortness of breath Patient Location: E HR:50 bpm ECG Measurements Heart Rate 50 AXIS KS [id number] P [id number] QRSd 173 QRS -7 QT 457 T 5 QTc 418 Conclusion Atrial fibrillation...? atrial activity IVCD, consider RBBB...QRSd>120mS, terminal axis(90,270) No ST segment or T wave abnormalities to suggest occlusive IL
[2023-08-31 11:31] LABS: Abs Immature Grans 0.03 10^3/uL (0.0-0.06); Absolute Basophil Count 0.03 10^3/uL (0.0-0.2); Absolute Eosinophil Count 0.14 10^3/uL (0.0-0.7); Absolute Lymphocyte Count 0.65 10^3/uL (1.2-3.4); Absolute Monocyte Count 0.59 10^3/uL (0.1-0.8); Absolute Neutrophil Count 5.82 10^3/uL (1.2-6.7); Basophils % 0.4; Eosinophils % 1.9; HCT 33.6 % (36.0-46.0); HGB 10.2 g/dL (11.2-15.7); Immature Grans % 0.4; MCHC 30.4 % (32.0-36.0); MCV 92 fL (80-95); MPV 9.7 fL (8.0-11.0); Monocytes % 8.1; Neutrophils % 80.2; Platelet Count 158 10^3/uL (130-400); RBC 3.64 10^6/uL (3.93-5.22); RDW 15.6 % (11.7-14.6); RDW-SD 53.3 fL; WBC 7.26 10^3/uL (4.4-10.8)
[2023-08-31] MEDS: Albuterol/Ipratropium 3 ML UPD VIAL UPD (11:46)
[2023-08-31 11:47] LABS: INR 1.3 (0.9-1.1); PTT Activated 25.5 sec (23.6-32.8); Prothrombin Time 12.7 sec (9.1-11.1)
[2023-08-31 12:03] LABS: ALT 22 U/L (14-59); AST 24 U/L (15-37); Albumin 3.3 g/dL (3.4-5.0); Alkaline Phosphatase 109 U/L (46-116); Amylase 46 U/L (25-115); Anion Gap -0.7 mmol/L (3-11); BUN 66 mg/dL (7-18); Bilirubin, Total 0.6 mg/dL (0.2-1.0); CO2 39.7 mmol/L (21.0-32.0); CREATININE 2.5 mg/dL (0.55-1.02); Calcium 9.8 mg/dL (8.5-10.1); Chloride 99 mmol/L (98-107); ETHANOL BLOOD < 3.0 mg/dL (<10); Estimated GFR 18.39 (mL/min/1.73m2); Glucose 108 mg/dL (74-106); Lipase 58 U/L (16-77); Magnesium 2.3 mg/dL (1.8-2.4); NT-proBNP 4562 pg/mL (<300); Potassium 4.5 mmol/L (3.5-5.1); Sodium 138 mmol/L (136-145); TSH (W/Ref FT4) 14.67 uIU/mL (0.36-3.74); Total Protein 7.7 g/dL (6.4-8.2); Troponin I 52 ng/L (<or=60)
[2023-08-31 12:08] LABS: COVID-19 PCR Negative (Negative); Influenza A PCR Negative (Negative); Influenza B PCR Negative (Negative); RSV PCR Negative (Negative)
[2023-08-31 12:11] LABS: Source Nasopharynx
[2023-08-31 12:19] LABS: FREE T4 0.95 ng/dL (0.76-1.46)
[2023-08-31 12:49] LABS: BE (Venous) 12 mmol/L (-2-3); HCO3 (Venous) 38 mmol/L (23-28); O2 Sat (Venous) 63 %; TCO2 (Venous) 37 mmol/L (24-29); pO2 (Venous) 36 mmHg
[2023-08-31 12:50] LABS: pCO2 (Venous) 78 mmHg (41-51)
--- NOTE | 2023-08-31 12:55 | DI.CT_ITS ---
Exam(s) CT HEAD CERVICAL SPINE WO EXAM: CT HEAD CERVICAL SPINE WO CLINICAL HISTORY: weakness + fall, right hip and right shoulder pain. TECHNIQUE: Imaging Protocol: Axial computed tomography images with coronal and sagittal reformatted images were created and reviewed COMPARISON: CT CT HEAD WO from 09/12/2018 FINDINGS: BRAIN: There are no skull fractures nor fluid in the visualized paranasal sinuses. There is no evidence of intracranial hemorrhage, mass effect, or shift of midline structures. There are no extra-axial fluid collections. The ventricles are not enlarged or shifted and there is no blo od within the ventricular system nor within the basal cisterns. There is a moderate amount of bilateral periventricular hypodensity consistent with chronic small ves dayanna ischemic change. No obvious territorial infarct. CERVICAL SPINE: There is no evidence of fracture nor listhesis. No significant prevertebral soft tissue swelling. There is advanced multilevel disc space narrowing throughout the cervical spine. There is multilevel bilateral facet arthropathy. There is no significant facet joint malalignment. No significant osseous lesions evident. IMPRESSION: No acute intracranial findings on this noninfused CT scan of the brain.Chronic small-vessel white mat ter ischemic changes. No evidence of cervical spine fracture, malalignment, nor acute compromise of the cervical spinal can al. Chronic advanced multilevel degenerative disc disease and facet arthropathy. Called by myself to ER RADIATION DOSE DELIVERED: Total DLP DATA REPOSITORY: All CT scans at this facility are submitted to the National Radiology Data Registry (NRDR) Dose Index Registry (DIR) with the [employer] (ACR). RADIATION OPTIMIZATION: All CT scans at this facility use at least one of these dose optimization te chniques: automated exposure control; mA and/or kV adjustment per patient size (includes targeted exa ms where dose is matched to clinical indication); or iterative reconstruction.
--- NOTE | 2023-08-31 13:00 | DI.CT_ITS ---
Exam(s) CT CHEST/ABD/PEL WO EXAM: CT CHEST/ABD/PEL WO CLINICAL HISTORY: weakness + fall, right hip and right shoulder pain. TECHNIQUE: Imaging Protocol: Axial computed tomography images with coronal and sagittal reformatted images were created and reviewed CONTRAST MATERIAL: Intravenous: none Oral: None COMPARISON: CT CT ABDOMEN PELVIS WO from 04/09/2021 FINDINGS: Interpretation limited by patient motion artifact. CHEST: LUNGS: There is significant infiltrate in the right lower lobe basal segments and there is a moderate size right pleural effusion. There is a smaller amount of left pleural fluid.. MEDIASTINUM: No evidence of sternal fracture nor mediastinal hematoma. There appear to be enlarged l ymph nodes in both hilar regions as well as in the subcarinal region. No anterior mediastinal adenop athy.Visualized thyroid appears normal size. No obvious nodules. CARDIAC: Cardiomegaly. Coronary artery calcification. No pericardial effusion.Caliber of the thorac ic aorta is within upper normal limits. OSSEOUS: No significant osseous lesions.. ABDOMEN: There is a small amount of perihepatic ascites. LIVER: The no obvious liver laceration evident on this non few study. No discrete focal hepatic lesi ons. GALLBLADDER/BILIARY: Is surgically absent. CBD is not dilated. PANCREAS: No evidence of obvious pancreatic mass nor dilatation of the pancreatic duct. SPLEEN: Spleen size upper normal. No obvious laceration evident. ADRENALS: There are no significant adrenal masses. KIDNEYS: No evidence of renal laceration nor subcapsular hematomas. No significant focal findings in the kidneys. No hydronephrosis nor hydroureter.. ABDOMINAL AORTA: Aorta is heavily calcified. There is a fusiform infrarenal abdominal aortic aneurys m exhibiting maximum diameter of 3.4 cm. Arterial megaly continues into the calcified iliac arteries . Both common iliac arteries exhibit diameters of 1.8 cm. External iliac arteries exhibit normal di ameters. However, there is aneurysmal dilatation of the proximal left internal iliac artery measurin g 1.7 cm diameter. LYMPH NODES: There is no retroperitoneal nor para-aortic adenopathy. ABDOMINAL WALL/GI: No prominent subcutaneous bruising. No mesenteric hematoma nor bowel wall hematom a. There is an anterior abdominal wall right of center fat containing hernia. Hernia sac measures 4 cm wide by 4 cm cephalocaudal. Not contain fluid nor bowel loops. There is no bowel obstruction. PELVIS: LYMPH NODES: There is no intrapelvic nor inguinal adenopathy. GI: No evidence of appendicitis.There is extensive sigmoid diverticulosis. No obvious acute divertic ulitis. URINARY BLADDER: No calculi nor obvious masses evident REPRODUCTIVE: Age appropriate OSSEOUS: No fractures nor significant osseous lesions evident. IMPRESSION: 1. There is significant infiltrate in the posterior and lateral basal segments of the right lower lob e extending up towards the superior segment and there is a moderate size right pleural effusion. Sma ller left pleural effusion. There is bilateral hilar and subcarinal adenopathy. 2. No rib fractures nor vertebral fractures evident. 3. No acute trauma sequelae in the abdomen and pelvis. Very small amount of abdominal ascites normal without evidence of obvious organ laceration, bowel wall hematoma, nor mesenteric hematoma evident o n this noninfused study. 4. Previous cholecystectomy. 5. Abdominal aortic aneurysm maximum diameter 3.4 cm. 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 Fat only containing anterior abdominal hernia. No bowel obstruction. Report called by myself to ER physician. RADIATION DOSE DELIVERED: Total DLP DATA REPOSITORY: All CT scans at this facility are submitted to the National Radiology Data Registry (NRDR) Dose Index Registry (DIR) with the [employer] (ACR). RADIATION OPTIMIZATION: All CT scans at this facility use at least one of these dose optimization te chniques: automated exposure control; mA and/or kV adjustment per patient size (includes targeted exa ms where dose is matched to clinical indication); or iterative reconstruction.
[2023-08-31] MEDS: cefTRIAXone 1 GM/50 ML BAG IVPB (14:48)
[2023-08-31 15:04] LABS: Troponin I 52 ng/L (<or=60)
[2023-08-31] MEDS: AZITHROMYCIN 500 MG in Normal Saline 250 ML 250 MG IVPB (15:22)
[2023-08-31 15:28] LABS: BE (Venous) 12 mmol/L (-2-3); HCO3 (Venous) 38 mmol/L (23-28); O2 Sat (Venous) 49 %; TCO2 (Venous) 37 mmol/L (24-29); pH (Venous) 7.32 (7.31-7.41); pO2 (Venous) 29 mmHg
[2023-08-31 15:30] LABS: pCO2 (Venous) 75 mmHg (41-51)
--- NOTE | 2023-08-31 15:59 | W.PM.HP.N ---
Date of service: 08/31/23 Time of Service: 16:23 Assessment and Plan Assessment and plan (1) CAP (community acquired pneumonia): Status: Acute Assessment and plan: - Infiltrate is seen on chest CT -Patient does not meet sepsis criteria she was not tachycardic, tachypneic, does not have a leukocytosis, and has been afebrile -Was started on ceftriaxone and azithromycin in the emergency department which will be continued (2) Acute kidney injury superimposed on CKD: Status: Acute Assessment and plan: - Likely secondary to combination of community-acquired pneumonia and acute hypoxic and hypercapnic respiratory failure -Baseline creatinine 1.6, currently 2.5 -Follow-up a.m. BMP (3) Acute on chronic respiratory failure with hypoxia and hypercapnia: Status: Acute Assessment and plan: - Likely secondary to a combination of patient having not used her CPAP at the previous night, community-acquired pneumonia, and ILD/sarcoid flare -ABG showed respiratory acidosis with elevated CO2 in the 80s -Was placed on BiPAP in the emergency department and will continue -Will repeat VBG, if CO2 significantly improved can discontinue BiPAP and use a chest CPAP, if CO2 remains elevated patient did have brief. Without BiPAP to eat and drink and then will replace BiPAP (4) ILD (interstitial lung disease): Status: Acute Assessment and plan: - May be having ILD flare in combination with community-acquired pneumonia as noted above -Will be given 125 mg IV Solu-Medrol on admission and will transition to 40 mg p.o. prednisone daily (5) Obesity hypoventilation syndrome: Status: Chronic Assessment and plan: - Will be on BiPAP overnight this evening -Once patient no longer needs BiPAP will reinitiate at bedtime CPAP (6) Hypertension: Status: Chronic Assessment and plan: - Continue home antihypertensives Qualifiers: Hypertension type: renovascular hypertension Qualified Code(s): I15.0 - Renovascular hypertension (7) Paroxysmal atrial fibrillation: Status: Acute Assessment and plan: - Continue home rate control History of Present Illness History of Present Illness Chief Complaint: Fall Narrative: 83-year-old female with a past medical history of interstitial lung disease, CHF, CKD; hypertension, A-fib, sarcoid, chronic hypoxic respiratory failure on 2 L nasal cannula who was brought in by EMS after a fall. Patient states that when she got up this morning, she was walking to the bathroom and felt that her legs gave out causing her to fall backwards landing on her backside. She also states she did not use her home CPAP last night and denies any head injury or loss of consciousness as well as lightheadedness, dizziness, chest pain, weakness. EMS had stated that she had a had difficulty obtaining pulse ox and they placed her on a nonrebreather and on apparently noted that she was bradycardic in the 40s to 50s with a blood pressure showing systolic in the 90s. However, upon arrival to the emergency department patient stated she felt short of breath and she was complaining of some right hip and tailbone pain. In the emergency department heart rate was noted as being in the mid 60s, blood pressure systolic in the 100s with mean arterial pressure above 70, respiratory rate in the 20s. However, patient was persistently hypoxic, and additionally VBG showed respiratory acidosis and patient was placed on BiPAP with significant improvement in her shortness of breath. CBC showed a normal white blood cell count and hemoglobin, BMP showed LIV on CKD with a creatinine of 2.5 (baseline 1.6), and elevated proBNP of 4562 and a TSH of 14.[address] was within normal limits, and CT chest abdomen pelvis showed significant infiltrate in the posterior and lateral basal segments of the right lower lobe extending up to the superior segment with moderate size right pleural effusion. Which the emergency room physician initiated ceftriaxone and azithromycin paged hospitalist for admission for community-acquired pneumonia, acute on chronic hypoxic and hypercapnic respiratory failure secondary to community-acquired pneumonia as well as interstitial lung disease/sarcoid flare, and LIV on CKD. Review of Systems All systems reviewed & are unremarkable except as noted in HPI and below PFSH All Active Problems (Updated 08/31/23 @ 16:31 by Jack Parks MD) ILD (interstitial lung disease) (Acute) Acute on chronic respiratory failure with hypoxia and hypercapnia (Acute) Acute kidney injury superimposed on CKD (Acute) CAP (community acquired pneumonia) (Acute) Severe sepsis (Acute) Pleural effusion (Acute) Pneumonia (Acute) Fall (Acute) CKD (chronic kidney disease) (Chronic) CHF (congestive heart failure) (Chronic) Acute kidney injury (Acute) Respiratory acidosis (Acute) Acute hypercapnic respiratory failure (Acute) Sarcoid (Acute) Acute hypoxic respiratory failure (Acute) ILD (interstitial lung disease) (Acute) Chronic respiratory failure with hypoxia and hypercapnia (Acute) Paroxysmal atrial fibrillation (Acute) Gastritis and duodenitis (Acute) Depression (Chronic) Neuropathic pain of both feet (Acute) Obstructive sleep apnea (Chronic) Severe, CPAP Anemia (Chronic) Chronic renal failure (Chronic) Unspecified diastolic heart failure (Chronic 05/27/12) Echo 05/2012 EF 70% no valve abn; diastolic dysfx Trigeminal neuralgia of left side of face (Chronic 02/17/17) Sarcoidosis (Chronic 02/11/12) Spinal stenosis (Chronic 02/11/12) Restrictive lung disease (Chronic 03/19/16) Dr [facility]; CT dx Sarcoidosis; prednisone begun 05/2016 PFT 03/2016 FVC 47% FEVi 60% Hypoxia, chronic O2 Rx Primary osteoarthritis of both knees (Chronic 09/23/15) Osteoarthrosis (Chronic 02/23/13) Obesity hypoventilation syndrome (Chronic 09/29/16) with [facility]: BiPAP:Dr Katie Zafar Obesity (Chronic 04/05/13) Nausea vomiting and diarrhea (Acute) recurrent 3-4 X/yr; possible IBS: spells of urgent diarrhea following a meal, occ with vomiting Hyperlipidemia (Chronic 02/23/13) PCEq 28.5%; LDL baseline 184; elects to continue statin Hypertension (Chronic 02/23/13) FRS 21%; goal 150/90 Esophageal reflux (Chronic 02/11/12) Diverticulitis of colon (Chronic 02/11/12) Medical History Chronic hypercapnic respiratory failure History of basal cell carcinoma (BCC) Dr Curtis sclerosing BCCA right jawline 10/2007 Arch pain of right foot Middle insomnia Osteoarthritis of left knee DVT prophylaxis Surgical History Tonsillectomy and adenoidectomy Cholecystectomy twice, first age 18; repeat around 2006 Appendectomy Family History Mother , 75, complications heart surgery No problems noted. Father , age 80, heart attack No problems noted. Daughter , Sarcoidosis, bleeding from the lung No problems noted. Social History Smoking/Tobacco Use Status: Never Smoking risk assessment performed?: Yes Alcohol Intake: never Drug use: Never Substance use type: does not use Adopted: No Caregiver/Support person: No Foster care: No Household members: other Details: apartment in [facility] house Housing: apartment Number of Children: 3 Communication Needs: Corrective Lenses Do you need help understanding health information?: Rarely What is your relationship status?: Panel score (0-1 are the most socially isolated patients): 0 What type of physical activity do you participate in: none Seatbelt use: always Drive intox or ride w/intox 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: No Working smoke detector in home: Yes Carbon monox detector in home: Yes Do you feel safe at home: Yes Do you feel safe in your relationship?: Yes Meds Allergies and Home Medications Allergies Allergy/AdvReac Type Severity Reaction Status Date / Time hydrocodone [From Vicodin] AdvReac Severe AMS Verified 08/16/23 11:16 aspirin AdvReac Mild GI upset, Verified 08/16/23 11:16 tolerates 81mg codeine AdvReac GI upset Verified 08/16/23 11:16 Home Medications Medication Instructions Recorded Confirmed Type multivitamin (Daily Vitamin tablet) 1 ea PO DAILY 12/15/12 08/31/23 History acetaminophen 325 mg tablet 325 - 650 mg (1 - 2 x 325 mg) PO 09/19/18 08/31/23 Rx (Tylenol) Q4H PRN PRN #0 tabs lysine 500 mg tablet 500 mg PO .qod 01/22/21 08/31/23 History Oxygen 2 l NS 24 hr ##2 04/15/21 08/31/23 History brimonidine 0.2 % eye drops 1 drp ophthalmic (eye) BID 06/14/23 08/31/23 History brinzolamide 1 %-brimonidine 0.2 % 1 drp ophthalmic (eye) BID 06/14/23 08/31/23 History eye drops,suspension (Simbrinza) diclofenac sodium 1 % topical gel 2 g topical BID joint pain in 06/14/23 08/31/23 Rx (Arthritis Pain (diclofenac)) knees #100 grams lantanaprost ophthalmic (eye) HS 06/14/23 08/16/23 History sertraline 25 mg tablet 25 mg PO DAILY #90 tabs 10/02/23 12/19/23 Rx amlodipine 2.5 mg tablet 2.5 mg PO DAILY #90 tabs 06/25/23 08/31/23 Rx allopurinol 100 mg tablet 100 mg PO DAILY #90 tabs 07/06/23 08/31/23 Rx pantoprazole 20 mg tablet,delayed 20 mg PO DAILY #90 tabs 07/06/23 08/31/23 Rx release torsemide 20 mg tablet 20 mg PO DAILY #90 tab-caps 07/06/23 08/31/23 Rx metoprolol succinate 25 mg 12.5 mg (1/2 x 25 mg) PO BID #60 07/12/23 08/31/23 Rx tablet,extended release 24 hr tabs lovastatin 20 mg tablet 20 mg PO DAILY #90 tabs 07/20/23 08/31/23 Rx gabapentin 100 mg capsule 200 mg (2 x 100 mg) PO QHS #120 08/16/23 08/31/23 Rx caps Exam Narrative Exam Narrative: Well-appearing older female lying in bed in no acute tissue distress, BiPAP in place, ANO x 4, heart irregularly irregular with rate in the high 50s, lungs clear to auscultation bilaterally, abdomen soft, nontender nondistended Results Labs 08/31/23 11:15 08/31/23 11:15 Labs: Laboratory Results - last 24 hr 08/31/23 08/31/23 08/31/23 11:15 11:15 11:15 WBC 7.26 RBC 3.64 L Hgb 10.2 L Hct 33.6 L MCV 92 MCH 28.0 MCHC 30.4 L RDW 15.6 H Plt Count 158 MPV 9.7 Immature Gran % 0.4 Neutrophils % 80.2 Lymphocytes % 9.0 Monocytes % 8.1 Eosinophils % 1.9 Basophils % 0.4 Nucleated RBC % 0.0 Absolute Neutrophils 5.82 Absolute Lymphocytes 0.65 L Absolute Monocytes 0.59 Absolute Eosinophils 0.14 Absolute Basophils 0.03 PT 12.7 H INR 1.3 H APTT 25.5 VBG pH 7.28 L VBG pCO2 81 H* VBG pO2 37 VBG HCO3 38 H VBG Total CO2 36 H VBG O2 Saturation 62 VBG Base Excess 11 H VBG Lactate 1.3 Sodium 138 Cancelled Potassium 4.5 Cancelled Chloride 99 Carbon Dioxide Anion Gap BUN Creatinine Est GFR (CKD-EPI 2020) Glucose Calcium Magnesium Total Bilirubin AST ALT Alkaline Phosphatase Troponin I NT-Pro-B Natriuret Pep Total Protein Albumin Amylase Lipase TSH Free T4 Ethyl Alcohol COVID-19 Source SARS-CoV-2 (PCR) Influenza Type A (PCR) Influenza Type B (PCR) RSV (PCR) 08/31/23 08/31/23 08/31/23 11:15 11:15 11:15 WBC RBC Hgb Hct MCV MCH MCHC RDW Plt Count MPV Immature Gran % Neutrophils % Lymphocytes % Monocytes % Eosinophils % Basophils % Nucleated RBC % Absolute Neutrophils Absolute Lymphocytes Absolute Monocytes Absolute Eosinophils Absolute Basophils PT INR APTT VBG pH VBG pCO2 VBG pO2 VBG HCO3 VBG Total CO2 VBG O2 Saturation VBG Base Excess VBG Lactate Sodium Potassium Chloride Cancelled Carbon Dioxide 39.7 H Cancelled Anion Gap -0.7 L Cancelled BUN 66 H Creatinine Est GFR (CKD-EPI 2020) Glucose Calcium Magnesium Total Bilirubin AST ALT Alkaline Phosphatase Troponin I NT-Pro-B Natriuret Pep Total Protein Albumin Amylase Lipase TSH Free T4 Ethyl Alcohol COVID-19 Source SARS-CoV-2 (PCR) Influenza Type A (PCR) Influenza Type B (PCR) RSV (PCR) 08/31/23 08/31/23 08/31/23 11:15 11:15 11:15 WBC RBC Hgb Hct MCV MCH MCHC RDW Plt Count MPV Immature Gran % Neutrophils % Lymphocytes % Monocytes % Eosinophils % Basophils % Nucleated RBC % Absolute Neutrophils Absolute Lymphocytes Absolute Monocytes Absolute Eosinophils Absolute Basophils PT INR APTT VBG pH VBG pCO2 VBG pO2 VBG HCO3 VBG Total CO2 VBG O2 Saturation VBG Base Excess VBG Lactate Sodium Potassium Chloride Carbon Dioxide Anion Gap BUN Cancelled Creatinine 2.5 H Cancelled Est GFR (CKD-EPI 2020) 18.39 Cancelled Glucose 108 H Calcium Magnesium Total Bilirubin AST ALT Alkaline Phosphatase Troponin I NT-Pro-B Natriuret Pep Total Protein Albumin Amylase Lipase TSH Free T4 Ethyl Alcohol COVID-19 Source SARS-CoV-2 (PCR) Influenza Type A (PCR) Influenza Type B (PCR) RSV (PCR) 08/31/23 08/31/23 08/31/23 11:15 11:15 11:15 WBC RBC Hgb Hct MCV MCH MCHC RDW Plt Count MPV Immature Gran % Neutrophils % Lymphocytes % Monocytes % Eosinophils % Basophils % Nucleated RBC % Absolute Neutrophils Absolute Lymphocytes Absolute Monocytes Absolute Eosinophils Absolute Basophils PT INR APTT VBG pH VBG pCO2 VBG pO2 VBG HCO3 VBG Total CO2 VBG O2 Saturation VBG Base Excess VBG Lactate Sodium Potassium Chloride Carbon Dioxide Anion Gap BUN Creatinine Est GFR (CKD-EPI 2020) Glucose Cancelled Calcium 9.8 Cancelled Magnesium 2.3 Cancelled Total Bilirubin 0.6 AST ALT Alkaline Phosphatase Troponin I NT-Pro-B Natriuret Pep Total Protein Albumin Amylase Lipase TSH Free T4 Ethyl Alcohol COVID-19 Source SARS-CoV-2 (PCR) Influenza Type A (PCR) Influenza Type B (PCR) RSV (PCR) 08/31/23 08/31/23 08/31/23 11:15 11:15 11:15 WBC RBC Hgb Hct MCV MCH MCHC RDW Plt Count MPV Immature Gran % Neutrophils % Lymphocytes % Monocytes % Eosinophils % Basophils % Nucleated RBC % Absolute Neutrophils Absolute Lymphocytes Absolute Monocytes Absolute Eosinophils Absolute Basophils PT INR APTT VBG pH VBG pCO2 VBG pO2 VBG HCO3 VBG Total CO2 VBG O2 Saturation VBG Base Excess VBG Lactate Sodium Potassium Chloride Carbon Dioxide Anion Gap BUN Creatinine Est GFR (CKD-EPI 2020) Glucose Calcium Magnesium Total Bilirubin Cancelled AST 24 Cancelled ALT 22 Cancelled Alkaline Phosphatase 109 Troponin I NT-Pro-B Natriuret Pep Total Protein Albumin Amylase Lipase TSH Free T4 Ethyl Alcohol COVID-19 Source SARS-CoV-2 (PCR) Influenza Type A (PCR) Influenza Type B (PCR) RSV (PCR) 08/31/23 08/31/23 08/31/23 11:15 11:15 11:15 WBC RBC Hgb Hct MCV MCH MCHC RDW Plt Count MPV Immature Gran % Neutrophils % Lymphocytes % Monocytes % Eosinophils % Basophils % Nucleated RBC % Absolute Neutrophils Absolute Lymphocytes Absolute Monocytes Absolute Eosinophils Absolute Basophils PT INR APTT VBG pH VBG pCO2 VBG pO2 VBG HCO3 VBG Total CO2 VBG O2 Saturation VBG Base Excess VBG Lactate Sodium Potassium Chloride Carbon Dioxide Anion Gap BUN Creatinine Est GFR (CKD-EPI 2020) Glucose Calcium Magnesium Total Bilirubin AST ALT Alkaline Phosphatase Cancelled Troponin I 52 NT-Pro-B Natriuret Pep 4562 H Total Protein 7.7 Cancelled Albumin 3.3 L Cancelled Amylase 46 Lipase 58 TSH 14.67 H Free T4 Ethyl Alcohol COVID-19 Source SARS-CoV-2 (PCR) Influenza Type A (PCR) Influenza Type B (PCR) RSV (PCR) 08/31/23 08/31/23 08/31/23 11:15 11:28 11:37 WBC RBC Hgb Hct MCV MCH MCHC RDW Plt Count MPV Immature Gran % Neutrophils % Lymphocytes % Monocytes % Eosinophils % Basophils % Nucleated RBC % Absolute Neutrophils Absolute Lymphocytes Absolute Monocytes Absolute Eosinophils Absolute Basophils PT INR APTT VBG pH VBG pCO2 VBG pO2 VBG HCO3 VBG Total CO2 VBG O2 Saturation VBG Base Excess VBG Lactate Sodium Potassium Chloride Carbon Dioxide Anion Gap BUN Creatinine Est GFR (CKD-EPI 2020) Glucose Calcium Magnesium Total Bilirubin AST ALT Alkaline Phosphatase Troponin I NT-Pro-B Natriuret Pep Cancelled Total Protein Albumin Amylase Lipase TSH Cancelled Free T4 0.95 Ethyl Alcohol < 3.0 COVID- Source Nasopharynx SARS-CoV-2 (PCR) Negative Influenza Type A (PCR) Negative Influenza Type B (PCR) Negative RSV (PCR) Negative 08/31/23 08/31/23 08/31/23 12:43 14:20 15:24 WBC RBC Hgb Hct MCV MCH MCHC RDW Plt Count MPV Immature Gran % Neutrophils % Lymphocytes % Monocytes % Eosinophils % Basophils % Nucleated RBC % Absolute Neutrophils Absolute Lymphocytes Absolute Monocytes Absolute Eosinophils Absolute Basophils PT INR APTT VBG pH 7.30 L 7.32 VBG pCO2 78 H* 75 H* VBG pO2 36 29 VBG HCO3 38 H 38 H VBG Total CO2 37 H 37 H VBG O2 Saturation 63 49 VBG Base Excess 12 H 12 H VBG Lactate Sodium Potassium Chloride Carbon Dioxide Anion Gap BUN Creatinine Est GFR (CKD-EPI 2020) Glucose Calcium Magnesium Total Bilirubin AST ALT Alkaline Phosphatase Troponin I 52 NT-Pro-B Natriuret Pep Total Protein Albumin Amylase Lipase TSH Free T4 Ethyl Alcohol COVID-19 Source SARS-CoV-2 (PCR) Influenza Type A (PCR) Influenza Type B (PCR) RSV (PCR) Last Vital Signs Temp 98.5 F 08/31/23 11:05 Pulse 51 L 08/31/23 15:54 Resp 14 08/31/23 15:54 BP 101/70 08/31/23 13:31 Pulse Ox 97 08/31/23 15:54 Time Spent Time spent with Patient: >75 minutes Time was spent: preparing to see the patient(eg.review tests), obtaining and/or reviewing separately otained hiistory, ordering medications,tests, procedures, referring, communicating with other health progressive care unit registered nurse, indepentently interpreting results, counseling the patient and care coordination
--- NOTE | 2023-08-31 17:04 | W.PC.ACHO ---
Registration Status: REG ER Primary Language: Preferred Language: Serbian ED Information & Data Chief Complaint Dizzy/Sync 08/31/23 12:20 Chief Complaint Dizzy/Sync 08/31/23 11:26 Triage Note pt fell at home. legs gave 08/31/23 11:05 out and she fell backwards. was on the floor for 45 minutes. dizzy. c/o low back (tailbone), right hip and shoulder pain. bradycardic and hypotensive. Medical / Surgical History (Last Reviewed 08/03/23 @ 11:26 by Kandis Kapadia MD) Chronic hypercapnic respiratory failure History of basal cell carcinoma (BCC) Arch pain of right foot Middle insomnia Osteoarthritis of left knee DVT prophylaxis (Last Reviewed 08/03/23 @ 11:26 by Kandis Kapadia MD) Tonsillectomy and adenoidectomy Cholecystectomy Appendectomy Most Recent Vital Signs Temperature 36.9 C 08/31/23 11:05 Pulse 79 08/31/23 16:46 Pulse 54 L 08/31/23 16:50 Respiratory Rate 16 08/31/23 16:50 Respiratory Effort Short of Breath, Labored 08/31/23 12:20 Blood Pressure 110/75 08/31/23 16:46 Blood Pressure Mean 86 08/31/23 16:46 Pulse Oximetry 96 08/31/23 16:46 Oxygen Delivery Method Bi-pap 08/31/23 11:46 Oxygen Flow Rate 6 08/31/23 11:05 Fraction of Inspired Oxygen (FIO2) 40 08/31/23 15:25 Comment chronic oxygen user at 2 lpm 08/31/23 11:05 Allergies hydrocodone [From Vicodin] Adverse Reaction (Severe, Verified 08/16/23 11:16) AMS aspirin Adverse Reaction (Mild, Verified 08/16/23 11:16) GI upset, tolerates 81mg codeine Adverse Reaction (Verified 08/16/23 11:16) GI upset Precautions Isolation Standard precaution 08/31/23 12:20 IV IV Catheter Type [Right Peripheral IV Antecubital] IV Catheter Gauge [Right 18 Antecubital] Diagnostics 08/31/23 08/31/23 08/31/23 Range/Units 15:49 15:24 14:20 WBC (4.4-10.8) 10^3/uL RBC (3.93-5.22) 10^6/uL Hgb (11.2-15.7) g/dL Hct (36.0-46.0) % MCV (80-95) fL MCH (27.0-33.0) pg MCHC (32.0-36.0) % RDW (11.7-14.6) % Plt Count (130-400) 10^3/uL MPV (8.0-11.0) fL Immature Gran % Neutrophils % Lymphocytes % Monocytes % Eosinophils % Basophils % Nucleated RBC % (0.0-0.3) % Absolute Neutrophils (1.2-6.7) 10^3/uL Absolute Lymphocytes (1.2-3.4) 10^3/uL Absolute Monocytes (0.1-0.8) 10^3/uL Absolute Eosinophils (0.0-0.7) 10^3/uL Absolute Basophils (0.0-0.2) 10^3/uL PT (9.1-11.1) sec INR (0.9-1.1) APTT (23.6-32.8) sec VBG pH 7.32 (7.31-7.41) VBG pCO2 75 H* (41-51) mmHg VBG pO2 29 mmHg VBG HCO3 38 H (23-28) mmol/L VBG Total CO2 37 H (24-29) mmol/L VBG O2 Saturation 49 % VBG Base Excess 12 H (-2-3) mmol/L VBG Lactate (0.6-1.4) mmol/L Sodium (136-145) mmol/L Potassium (3.5-5.1) mmol/L Chloride (98-107) mmol/L Carbon Dioxide (21.0-32.0) mmol/L Anion Gap (3-11) mmol/L BUN (7-18) mg/dL Creatinine (0.55-1.02) mg/dL Est GFR (CKD-EPI 2020) (mL/min/1.73m2) Glucose (74-106) mg/dL Calcium (8.5-10.1) mg/dL Magnesium (1.8-2.4) mg/dL Total Bilirubin (0.2-1.0) mg/dL AST (15-37) U/L ALT (14-59) U/L Alkaline Phosphatase (46-116) U/L Troponin I 52 (<or=60) ng/L NT-Pro-B Natriuret Pep (<300) pg/mL Total Protein (6.4-8.2) g/dL Albumin (3.4-5.0) g/dL Amylase (25-115) U/L Lipase (16-77) U/L TSH (0.36-3.74) uIU/mL Free T4 (0.76-1.46) ng/dL Urine Color Pending Urine Clarity Pending Urine pH Pending Ur Specific [place] Pending Urine Protein Pending Urine Ketones Pending Urine Blood Pending Urine Nitrite Pending Urine Bilirubin Pending Urine Urobilinogen Pending Ur Leukocyte Esterase Pending Urine Glucose Pending Ethyl Alcohol (<10) mg/dL COVID-19 Source SARS-CoV-2 (PCR) (Negative) Influenza Type A (PCR) (Negative) Influenza Type B (PCR) (Negative) RSV (PCR) (Negative) 08/31/23 08/31/23 08/31/23 Range/Units 12:43 11:37 11:28 WBC (4.4-10.8) 10^3/uL RBC (3.93-5.22) 10^6/uL Hgb (11.2-15.7) g/dL Hct (36.0-46.0) % MCV (80-95) fL MCH (27.0-33.0) pg MCHC (32.0-36.0) % RDW (11.7-14.6) % Plt Count (130-400) 10^3/uL MPV (8.0-11.0) fL Immature Gran % Neutrophils % Lymphocytes % Monocytes % Eosinophils % Basophils % Nucleated RBC % (0.0-0.3) % Absolute Neutrophils (1.2-6.7) 10^3/uL Absolute Lymphocytes (1.2-3.4) 10^3/uL Absolute Monocytes (0.1-0.8) 10^3/uL Absolute Eosinophils (0.0-0.7) 10^3/uL Absolute Basophils (0.0-0.2) 10^3/uL PT (9.1-11.1) sec INR (0.9-1.1) APTT (23.6-32.8) sec VBG pH 7.30 L (7.31-7.41) VBG pCO2 78 H* (41-51) mmHg VBG pO2 36 mmHg VBG HCO3 38 H (23-28) mmol/L VBG Total CO2 37 H (24-29) mmol/L VBG O2 Saturation 63 % VBG Base Excess 12 H (-2-3) mmol/L VBG Lactate (0.6-1.4) mmol/L Sodium (136-145) mmol/L Potassium (3.5-5.1) mmol/L Chloride (98-107) mmol/L Carbon Dioxide (21.0-32.0) mmol/L Anion Gap (3-11) mmol/L BUN (7-18) mg/dL Creatinine (0.55-1.02) mg/dL Est GFR (CKD-EPI 2020) (mL/min/1.73m2) Glucose (74-106) mg/dL Calcium (8.5-10.1) mg/dL Magnesium (1.8-2.4) mg/dL Total Bilirubin (0.2-1.0) mg/dL AST (15-37) U/L ALT (14-59) U/L Alkaline Phosphatase (46-116) U/L Troponin I (<or=60) ng/L NT-Pro-B Natriuret Pep Cancelled (<300) pg/mL Total Protein (6.4-8.2) g/dL Albumin (3.4-5.0) g/dL Amylase (25-115) U/L Lipase (16-77) U/L TSH (0.36-3.74) uIU/mL Free T4 (0.76-1.46) ng/dL Urine Color Urine Clarity Urine pH Ur Specific [place] Urine Protein Urine Ketones Urine Blood Urine Nitrite Urine Bilirubin Urine Urobilinogen Ur Leukocyte Esterase Urine Glucose Ethyl Alcohol (<10) mg/dL COVID-19 Source Nasopharynx SARS-CoV-2 (PCR) Negative (Negative) Influenza Type A (PCR) Negative (Negative) Influenza Type B (PCR) Negative (Negative) RSV (PCR) Negative (Negative) 08/31/23 08/31/23 08/31/23 Range/Units 11:15 11:15 11:15 WBC (4.4-10.8) 10^3/uL RBC (3.93-5.22) 10^6/uL Hgb (11.2-15.7) g/dL Hct (36.0-46.0) % MCV (80-95) fL MCH (27.0-33.0) pg MCHC (32.0-36.0) % RDW (11.7-14.6) % Plt Count (130-400) 10^3/uL MPV (8.0-11.0) fL Immature Gran % Neutrophils % Lymphocytes % Monocytes % Eosinophils % Basophils % Nucleated RBC % (0.0-0.3) % Absolute Neutrophils (1.2-6.7) 10^3/uL Absolute Lymphocytes (1.2-3.4) 10^3/uL Absolute Monocytes (0.1-0.8) 10^3/uL Absolute Eosinophils (0.0-0.7) 10^3/uL Absolute Basophils (0.0-0.2) 10^3/uL PT (9.1-11.1) sec INR (0.9-1.1) APTT (23.6-32.8) sec VBG pH (7.31-7.41) VBG pCO2 (41-51) mmHg VBG pO2 mmHg VBG HCO3 (23-28) mmol/L VBG Total CO2 (24-29) mmol/L VBG O2 Saturation % VBG Base Excess (-2-3) mmol/L VBG Lactate (0.6-1.4) mmol/L Sodium (136-145) mmol/L Potassium (3.5-5.1) mmol/L Chloride (98-107) mmol/L Carbon Dioxide (21.0-32.0) mmol/L Anion Gap (3-11) mmol/L BUN (7-18) mg/dL Creatinine (0.55-1.02) mg/dL Est GFR (CKD-EPI 2020) (mL/min/1.73m2) Glucose (74-106) mg/dL Calcium (8.5-10.1) mg/dL Magnesium (1.8-2.4) mg/dL Total Bilirubin (0.2-1.0) mg/dL AST (15-37) U/L ALT (14-59) U/L Alkaline Phosphatase (46-116) U/L Troponin I (<or=60) ng/L NT-Pro-B Natriuret Pep (<300) pg/mL Total Protein Cancelled (6.4-8.2) g/dL Albumin Cancelled 3.3 L (3.4-5.0) g/dL Amylase 46 (25-115) U/L Lipase 58 (16-77) U/L TSH Cancelled 14.67 H (0.36-3.74) uIU/mL Free T4 0.95 (0.76-1.46) ng/dL Urine Color Urine Clarity Urine pH Ur Specific [place] Urine Protein Urine Ketones Urine Blood Urine Nitrite Urine Bilirubin Urine Urobilinogen Ur Leukocyte Esterase Urine Glucose Ethyl Alcohol < 3.0 (<10) mg/dL COVID-19 Source SARS-CoV-2 (PCR) (Negative) Influenza Type A (PCR) (Negative) Influenza Type B (PCR) (Negative) RSV (PCR) (Negative) 08/31/23 08/31/23 08/31/23 Range/Units 11:15 11:15 11:15 WBC (4.4-10.8) 10^3/uL RBC (3.93-5.22) 10^6/uL Hgb (11.2-15.7) g/dL Hct (36.0-46.0) % MCV (80-95) fL MCH (27.0-33.0) pg MCHC (32.0-36.0) % RDW (11.7-14.6) % Plt Count (130-400) 10^3/uL MPV (8.0-11.0) fL Immature Gran % Neutrophils % Lymphocytes % Monocytes % Eosinophils % Basophils % Nucleated RBC % (0.0-0.3) % Absolute Neutrophils (1.2-6.7) 10^3/uL Absolute Lymphocytes (1.2-3.4) 10^3/uL Absolute Monocytes (0.1-0.8) 10^3/uL Absolute Eosinophils (0.0-0.7) 10^3/uL Absolute Basophils (0.0-0.2) 10^3/uL PT (9.1-11.1) sec INR (0.9-1.1) APTT (23.6-32.8) sec VBG pH (7.31-7.41) VBG pCO2 (41-51) mmHg VBG pO2 mmHg VBG HCO3 (23-28) mmol/L VBG Total CO2 (24-29) mmol/L VBG O2 Saturation % VBG Base Excess (-2-3) mmol/L VBG Lactate (0.6-1.4) mmol/L Sodium (136-145) mmol/L Potassium (3.5-5.1) mmol/L Chloride (98-107) mmol/L Carbon Dioxide (21.0-32.0) mmol/L Anion Gap (3-11) mmol/L BUN (7-18) mg/dL Creatinine (0.55-1.02) mg/dL Est GFR (CKD-EPI 2020) (mL/min/1.73m2) Glucose (74-106) mg/dL Calcium (8.5-10.1) mg/dL Magnesium (1.8-2.4) mg/dL Total Bilirubin (0.2-1.0) mg/dL AST Cancelled (15-37) U/L ALT Cancelled 22 (14-59) U/L Alkaline Phosphatase Cancelled 109 (46-116) U/L Troponin I 52 (<or=60) ng/L NT-Pro-B Natriuret Pep 4562 H (<300) pg/mL Total Protein 7.7 (6.4-8.2) g/dL Albumin (3.4-5.0) g/dL Amylase (25-115) U/L Lipase (16-77) U/L TSH (0.36-3.74) uIU/mL Free T4 (0.76-1.46) ng/dL Urine Color Urine Clarity Urine pH Ur Specific [place] Urine Protein Urine Ketones Urine Blood Urine Nitrite Urine Bilirubin Urine Urobilinogen Ur Leukocyte Esterase Urine Glucose Ethyl Alcohol (<10) mg/dL COVID-19 Source SARS-CoV-2 (PCR) (Negative) Influenza Type A (PCR) (Negative) Influenza Type B (PCR) (Negative) RSV (PCR) (Negative) 08/31/23 08/31/23 08/31/23 Range/Units 11:15 11:15 11:15 WBC (4.4-10.8) 10^3/uL RBC (3.93-5.22) 10^6/uL Hgb (11.2-15.7) g/dL Hct (36.0-46.0) % MCV (80-95) fL MCH (27.0-33.0) pg MCHC (32.0-36.0) % RDW (11.7-14.6) % Plt Count (130-400) 10^3/uL MPV (8.0-11.0) fL Immature Gran % Neutrophils % Lymphocytes % Monocytes % Eosinophils % Basophils % Nucleated RBC % (0.0-0.3) % Absolute Neutrophils (1.2-6.7) 10^3/uL Absolute Lymphocytes (1.2-3.4) 10^3/uL Absolute Monocytes (0.1-0.8) 10^3/uL Absolute Eosinophils (0.0-0.7) 10^3/uL Absolute Basophils (0.0-0.2) 10^3/uL PT (9.1-11.1) sec INR (0.9-1.1) APTT (23.6-32.8) sec VBG pH (7.31-7.41) VBG pCO2 (41-51) mmHg VBG pO2 mmHg VBG HCO3 (23-28) mmol/L VBG Total CO2 (24-29) mmol/L VBG O2 Saturation % VBG Base Excess (-2-3) mmol/L VBG Lactate (0.6-1.4) mmol/L Sodium (136-145) mmol/L Potassium (3.5-5.1) mmol/L Chloride (98-107) mmol/L Carbon Dioxide (21.0-32.0) mmol/L Anion Gap (3-11) mmol/L BUN (7-18) mg/dL Creatinine (0.55-1.02) mg/dL Est GFR (CKD-EPI 2020) (mL/min/1.73m2) Glucose (74-106) mg/dL Calcium Cancelled (8.5-10.1) mg/dL Magnesium Cancelled 2.3 (1.8-2.4) mg/dL Total Bilirubin Cancelled 0.6 (0.2-1.0) mg/dL AST 24 (15-37) U/L ALT (14-59) U/L Alkaline Phosphatase (46-116) U/L Troponin I (<or=60) ng/L NT-Pro-B Natriuret Pep (<300) pg/mL Total Protein (6.4-8.2) g/dL Albumin (3.4-5.0) g/dL Amylase (25-115) U/L Lipase (16-77) U/L TSH (0.36-3.74) uIU/mL Free T4 (0.76-1.46) ng/dL Urine Color Urine Clarity Urine pH Ur Specific [place] Urine Protein Urine Ketones Urine Blood Urine Nitrite Urine Bilirubin Urine Urobilinogen Ur Leukocyte Esterase Urine Glucose Ethyl Alcohol (<10) mg/dL COVID-19 Source SARS-CoV-2 (PCR) (Negative) Influenza Type A (PCR) (Negative) Influenza Type B (PCR) (Negative) RSV (PCR) (Negative) 08/31/23 08/31/23 08/31/23 Range/Units 11:15 11:15 11:15 WBC (4.4-10.8) 10^3/uL RBC (3.93-5.22) 10^6/uL Hgb (11.2-15.7) g/dL Hct (36.0-46.0) % MCV (80-95) fL MCH (27.0-33.0) pg MCHC (32.0-36.0) % RDW (11.7-14.6) % Plt Count (130-400) 10^3/uL MPV (8.0-11.0) fL Immature Gran % Neutrophils % Lymphocytes % Monocytes % Eosinophils % Basophils % Nucleated RBC % (0.0-0.3) % Absolute Neutrophils (1.2-6.7) 10^3/uL Absolute Lymphocytes (1.2-3.4) 10^3/uL Absolute Monocytes (0.1-0.8) 10^3/uL Absolute Eosinophils (0.0-0.7) 10^3/uL Absolute Basophils (0.0-0.2) 10^3/uL PT (9.1-11.1) sec INR (0.9-1.1) APTT (23.6-32.8) sec VBG pH (7.31-7.41) VBG pCO2 (41-51) mmHg VBG pO2 mmHg VBG HCO3 (23-28) mmol/L VBG Total CO2 (24-29) mmol/L VBG O2 Saturation % VBG Base Excess (-2-3) mmol/L VBG Lactate (0.6-1.4) mmol/L Sodium (136-145) mmol/L Potassium (3.5-5.1) mmol/L Chloride (98-107) mmol/L Carbon Dioxide (21.0-32.0) mmol/L Anion Gap (3-11) mmol/L BUN (7-18) mg/dL Creatinine Cancelled (0.55-1.02) mg/dL Est GFR (CKD-EPI 2020) Cancelled 18.39 (mL/min/1.73m2) Glucose Cancelled 108 H (74-106) mg/dL Calcium 9.8 (8.5-10.1) mg/dL Magnesium (1.8-2.4) mg/dL Total Bilirubin (0.2-1.0) mg/dL AST (15-37) U/L ALT (14-59) U/L Alkaline Phosphatase (46-116) U/L Troponin I (<or=60) ng/L NT-Pro-B Natriuret Pep (<300) pg/mL Total Protein (6.4-8.2) g/dL Albumin (3.4-5.0) g/dL Amylase (25-115) U/L Lipase (16-77) U/L TSH (0.36-3.74) uIU/mL Free T4 (0.76-1.46) ng/dL Urine Color Urine Clarity Urine pH Ur Specific [place] Urine Protein Urine Ketones Urine Blood Urine Nitrite Urine Bilirubin Urine Urobilinogen Ur Leukocyte Esterase Urine Glucose Ethyl Alcohol (<10) mg/dL COVID-19 Source SARS-CoV-2 (PCR) (Negative) Influenza Type A (PCR) (Negative) Influenza Type B (PCR) (Negative) RSV (PCR) (Negative) 08/31/23 08/31/23 08/31/23 Range/Units 11:15 11:15 11:15 WBC (4.4-10.8) 10^3/uL RBC (3.93-5.22) 10^6/uL Hgb (11.2-15.7) g/dL Hct (36.0-46.0) % MCV (80-95) fL MCH (27.0-33.0) pg MCHC (32.0-36.0) % RDW (11.7-14.6) % Plt Count (130-400) 10^3/uL MPV (8.0-11.0) fL Immature Gran % Neutrophils % Lymphocytes % Monocytes % Eosinophils % Basophils % Nucleated RBC % (0.0-0.3) % Absolute Neutrophils (1.2-6.7) 10^3/uL Absolute Lymphocytes (1.2-3.4) 10^3/uL Absolute Monocytes (0.1-0.8) 10^3/uL Absolute Eosinophils (0.0-0.7) 10^3/uL Absolute Basophils (0.0-0.2) 10^3/uL PT (9.1-11.1) sec INR (0.9-1.1) APTT (23.6-32.8) sec VBG pH (7.31-7.41) VBG pCO2 (41-51) mmHg VBG pO2 mmHg VBG HCO3 (23-28) mmol/L VBG Total CO2 (24-29) mmol/L VBG O2 Saturation % VBG Base Excess (-2-3) mmol/L VBG Lactate (0.6-1.4) mmol/L Sodium (136-145) mmol/L Potassium (3.5-5.1) mmol/L Chloride (98-107) mmol/L Carbon Dioxide Cancelled (21.0-32.0) mmol/L Anion Gap Cancelled -0.7 L (3-11) mmol/L BUN Cancelled 66 H (7-18) mg/dL Creatinine 2.5 H (0.55-1.02) mg/dL Est GFR (CKD-EPI 2020) (mL/min/1.73m2) Glucose (74-106) mg/dL Calcium (8.5-10.1) mg/dL Magnesium (1.8-2.4) mg/dL Total Bilirubin (0.2-1.0) mg/dL AST (15-37) U/L ALT (14-59) U/L Alkaline Phosphatase (46-116) U/L Troponin I (<or=60) ng/L NT-Pro-B Natriuret Pep (<300) pg/mL Total Protein (6.4-8.2) g/dL Albumin (3.4-5.0) g/dL Amylase (25-115) U/L Lipase (16-77) U/L TSH (0.36-3.74) uIU/mL Free T4 (0.76-1.46) ng/dL Urine Color Urine Clarity Urine pH Ur Specific [place] Urine Protein Urine Ketones Urine Blood Urine Nitrite Urine Bilirubin Urine Urobilinogen Ur Leukocyte Esterase Urine Glucose Ethyl Alcohol (<10) mg/dL COVID-19 Source SARS-CoV-2 (PCR) (Negative) Influenza Type A (PCR) (Negative) Influenza Type B (PCR) (Negative) RSV (PCR) (Negative) 08/31/23 08/31/23 08/31/23 Range/Units 11:15 11:15 11:15 WBC (4.4-10.8) 10^3/uL RBC (3.93-5.22) 10^6/uL Hgb (11.2-15.7) g/dL Hct (36.0-46.0) % MCV (80-95) fL MCH (27.0-33.0) pg MCHC (32.0-36.0) % RDW (11.7-14.6) % Plt Count (130-400) 10^3/uL MPV (8.0-11.0) fL Immature Gran % Neutrophils % Lymphocytes % Monocytes % Eosinophils % Basophils % Nucleated RBC % (0.0-0.3) % Absolute Neutrophils (1.2-6.7) 10^3/uL Absolute Lymphocytes (1.2-3.4) 10^3/uL Absolute Monocytes (0.1-0.8) 10^3/uL Absolute Eosinophils (0.0-0.7) 10^3/uL Absolute Basophils (0.0-0.2) 10^3/uL PT (9.1-11.1) sec INR (0.9-1.1) APTT (23.6-32.8) sec VBG pH (7.31-7.41) VBG pCO2 (41-51) mmHg VBG pO2 mmHg VBG HCO3 (23-28) mmol/L VBG Total CO2 (24-29) mmol/L VBG O2 Saturation % VBG Base Excess (-2-3) mmol/L VBG Lactate (0.6-1.4) mmol/L Sodium Cancelled (136-145) mmol/L Potassium Cancelled 4.5 (3.5-5.1) mmol/L Chloride Cancelled 99 (98-107) mmol/L Carbon Dioxide 39.7 H (21.0-32.0) mmol/L Anion Gap (3-11) mmol/L BUN (7-18) mg/dL Creatinine (0.55-1.02) mg/dL Est GFR (CKD-EPI 2020) (mL/min/1.73m2) Glucose (74-106) mg/dL Calcium (8.5-10.1) mg/dL Magnesium (1.8-2.4) mg/dL Total Bilirubin (0.2-1.0) mg/dL AST (15-37) U/L ALT (14-59) U/L Alkaline Phosphatase (46-116) U/L Troponin I (<or=60) ng/L NT-Pro-B Natriuret Pep (<300) pg/mL Total Protein (6.4-8.2) g/dL Albumin (3.4-5.0) g/dL Amylase (25-115) U/L Lipase (16-77) U/L TSH (0.36-3.74) uIU/mL Free T4 (0.76-1.46) ng/dL Urine Color Urine Clarity Urine pH Ur Specific [place] Urine Protein Urine Ketones Urine Blood Urine Nitrite Urine Bilirubin Urine Urobilinogen Ur Leukocyte Esterase Urine Glucose Ethyl Alcohol (<10) mg/dL COVID-19 Source SARS-CoV-2 (PCR) (Negative) Influenza Type A (PCR) (Negative) Influenza Type B (PCR) (Negative) RSV (PCR) (Negative) 08/31/23 Range/Units 11:15 WBC 7.26 (4.4-10.8) 10^3/uL RBC 3.64 L (3.93-5.22) 10^6/uL Hgb 10.2 L (11.2-15.7) g/dL Hct 33.6 L (36.0-46.0) % MCV 92 (80-95) fL MCH 28.0 (27.0-33.0) pg MCHC 30.4 L (32.0-36.0) % RDW 15.6 H (11.7-14.6) % Plt Count 158 (130-400) 10^3/uL MPV 9.7 (8.0-11.0) fL Immature Gran % 0.4 Neutrophils % 80.2 Lymphocytes % 9.0 Monocytes % 8.1 Eosinophils % 1.9 Basophils % 0.4 Nucleated RBC % 0.0 (0.0-0.3) % Absolute Neutrophils 5.82 (1.2-6.7) 10^3/uL Absolute Lymphocytes 0.65 L (1.2-3.4) 10^3/uL Absolute Monocytes 0.59 (0.1-0.8) 10^3/uL Absolute Eosinophils 0.14 (0.0-0.7) 10^3/uL Absolute Basophils 0.03 (0.0-0.2) 10^3/uL PT 12.7 H (9.1-11.1) sec INR 1.3 H (0.9-1.1) APTT 25.5 (23.6-32.8) sec VBG pH 7.28 L (7.31-7.41) VBG pCO2 81 H* (41-51) mmHg VBG pO2 37 mmHg VBG HCO3 38 H (23-28) mmol/L VBG Total CO2 36 H (24-29) mmol/L VBG O2 Saturation 62 % VBG Base Excess 11 H (-2-3) mmol/L VBG Lactate 1.3 (0.6-1.4) mmol/L Sodium 138 (136-145) mmol/L Potassium (3.5-5.1) mmol/L Chloride (98-107) mmol/L Carbon Dioxide (21.0-32.0) mmol/L Anion Gap (3-11) mmol/L BUN (7-18) mg/dL Creatinine (0.55-1.02) mg/dL Est GFR (CKD-EPI 2020) (mL/min/1.73m2) Glucose (74-106) mg/dL Calcium (8.5-10.1) mg/dL Magnesium (1.8-2.4) mg/dL Total Bilirubin (0.2-1.0) mg/dL AST (15-37) U/L ALT (14-59) U/L Alkaline Phosphatase (46-116) U/L Troponin I (<or=60) ng/L NT-Pro-B Natriuret Pep (<300) pg/mL Total Protein (6.4-8.2) g/dL Albumin (3.4-5.0) g/dL Amylase (25-115) U/L Lipase (16-77) U/L TSH (0.36-3.74) uIU/mL Free T4 (0.76-1.46) ng/dL Urine Color Urine Clarity Urine pH Ur Specific [place] Urine Protein Urine Ketones Urine Blood Urine Nitrite Urine Bilirubin Urine Urobilinogen Ur Leukocyte Esterase Urine Glucose Ethyl Alcohol (<10) mg/dL COVID-19 Source SARS-CoV-2 (PCR) (Negative) Influenza Type A (PCR) (Negative) Influenza Type B (PCR) (Negative) RSV (PCR) (Negative) 08/31/23 14:40 Blood Culture - Pending Blood 08/31/23 14:20 Blood Culture - Pending Blood Intake and Output - 24 Hour Total 08/31/23 11:01 thru 08/31/23 16:22 Intake Total 410 Balance 410 Intake: IV 310 Oral 100 Falls Risk Assessment History of Falls Admit Due to Fall 08/31/23 11:33 Contributing Factors Unstable,Impairments 08/31/23 11:33 Ambulatory Aids Uses ambulatory device + 08/31/23 11:33 Tubes/Lines With any additional score 08/31/23 11:33 Gait Evaluation W/any additional score 08/31/23 11:33 Cognition No cognitive impairment 08/31/23 11:33 Fall Total Score 101 08/31/23 11:33 Level of Risk Maximum Risk 08/31/23 11:33 Problems (Last Reviewed 08/03/23 @ 11:26 by Kandis Kapadia MD) ILD (interstitial lung disease) (Acute) Acute on chronic respiratory failure with hypoxia and hypercapnia (Acute) Acute kidney injury superimposed on CKD (Acute) CAP (community acquired pneumonia) (Acute) Pleural effusion (Acute) Pneumonia (Acute) Fall (Acute) CKD (chronic kidney disease) (Chronic) CHF (congestive heart failure) (Chronic) Acute kidney injury (Acute) Respiratory acidosis (Acute) Acute hypercapnic respiratory failure (Acute) Sarcoid (Acute) Acute hypoxic respiratory failure (Acute) Paroxysmal atrial fibrillation (Acute) Obesity hypoventilation syndrome (Chronic 09/29/16) Hypertension (Chronic 02/23/13) v v v v v v v v v Sending and/or Receiving Nurses: Please use comment section below to note any information pertinent to the patient hand-off not included above. Information / Comments: Report received fromGabriel nguyen ?'s answered
--- NOTE | 2023-08-31 17:31 | RESPIRATORY ---
Addendum entered by Gage Conner 09/06/23 09:16: Pt's own ResMed AirSense 10 Auto-CPAP. Min: 8 / Max: 18. Pt uses 3L O2 bleed in at baseline. DME: [facility]. Baseline during the day is 2L O2 via nasal cannula. Original Note: Pt has home CPAP machine (unsure of settings at this time) [facility]. Granddaughter advised Dr. Avina's office was ordering patient new trilogy two weeks ago but they haven't received it yet. Patient wears 2L home O2 during the day and 3L O2 at night through CPAP machine.
[2023-08-31] MEDS: methylPREDNISolone SUCC 125 MG VIAL IVP (17:51)
[2023-08-31] MEDS: Normal Saline Flush 10 ML SYR (17:52)
[2023-08-31] MEDS: Enoxaparin 40 MG/0.4 ML SYR SC (17:52)
[2023-08-31 18:02] LABS: BE (Venous) 12 mmol/L (-2-3); HCO3 (Venous) 38 mmol/L (23-28); O2 Sat (Venous) 56 %; TCO2 (Venous) 36 mmol/L (24-29); pH (Venous) 7.34 (7.31-7.41); pO2 (Venous) 32 mmHg
[2023-08-31 18:05] LABS: pCO2 (Venous) 70 mmHg (41-51)
[2023-08-31 18:35] LABS: Bilirubin Negative (Negative); Blood Small (Negative); Clarity Clear (Clear); Glucose Negative (Negative); Ketones Negative (Negative); Leukocyte Esterase Small (Negative); Nitrite Negative (Negative); Specific Gravity 1.015 (1.005-1.025); Urobilinogen 0.2 mg/dL (Up to 0.2); pH 5.5 (5-8)
[2023-08-31 18:42] LABS: Epithelial Cells Few HPF (Negative)
[2023-08-31 18:43] LABS: Bacteria Moderate HPF (Negative); C & S Indicated? Yes; Casts 0-2 Hyaline LPF (Negative); Crystals Negative HPF (Negative); Mucus Trace (Negative)
[2023-08-31] MEDS: Metoprolol CR 25 MG TABCR 12.5 MG PO (22:04)
[2023-08-31] MEDS: Acetaminophen 325 MG TAB PO (22:04)
[2023-08-31] MEDS: Miconazole 2% Topical Powder 85 GM BTL (22:04)
[2023-09-01] VITALS (72 sets, daily range): BP systolic 91–136; BP diastolic 42–110; PULSE 44–117; RESP 5–31; TEMP 36.3–37; O2SAT 79–98
[2023-09-01] MEDS: Dorzolamide 2% 10 ML BTL OD ×3 (00:43→20:31)
[2023-09-01] MEDS: amLODIPine 2.5 MG TAB PO ×2 (01:21→08:25)
[2023-09-01] MEDS: Pantoprazole 20 MG TABCR PO ×2 (01:21→08:21)
[2023-09-01] MEDS: Gabapentin 100 MG CAP 200 MG PO ×2 (01:22→21:32)
[2023-09-01] MEDS: Normal Saline Flush 10 ML SYR IVP ×3 (03:53→18:18)
[2023-09-01] MEDS: Albuterol/Ipratropium 3 ML UPD VIAL UPD (04:19)
[2023-09-01 05:45] LABS: BE (Venous) 10 mmol/L (-2-3); HCO3 (Venous) 35 mmol/L (23-28); O2 Sat (Venous) 88 %; TCO2 (Venous) 33 mmol/L (24-29); pCO2 (Venous) 60 mmHg (41-51); pH (Venous) 7.38 (7.31-7.41); pO2 (Venous) 54 mmHg
[2023-09-01 05:47] LABS: HCT 31.9 % (36.0-46.0); HGB 9.9 g/dL (11.2-15.7); MCH 27.7 pg (27.0-33.0); MCV 89 fL (80-95); MPV 10.8 fL (8.0-11.0); Platelet Count 150 10^3/uL (130-400); RBC 3.57 10^6/uL (3.93-5.22); RDW 15.4 % (11.7-14.6); RDW-SD 50.4 fL; WBC 6.04 10^3/uL (4.4-10.8)
[2023-09-01 05:57] LABS: Anion Gap 6.4 mmol/L (3-11); BUN 65 mg/dL (7-18); CO2 34.6 mmol/L (21.0-32.0); CREATININE 2.4 mg/dL (0.55-1.02); Calcium 9.7 mg/dL (8.5-10.1); Chloride 97 mmol/L (98-107); Estimated GFR 19.31 (mL/min/1.73m2); Glucose 172 mg/dL (74-106); Potassium 4.6 mmol/L (3.5-5.1); Sodium 138 mmol/L (136-145)
[2023-09-01] MEDS: predniSONE 20 MG TAB 40 MG PO (08:20)
[2023-09-01] MEDS: Torsemide 20 MG TAB PO (08:22)
[2023-09-01] MEDS: Metoprolol CR 25 MG TABCR 12.5 MG PO ×2 (08:22→20:31)
[2023-09-01] MEDS: Sertraline 50 MG TAB 25 MG PO (08:23)
[2023-09-01] MEDS: Allopurinol 100 MG TAB PO (08:26)
--- NOTE | 2023-09-01 08:32 | INITIAL_ITS ---
Date of service: 09/01/23 Time of Service: 08:32 Care Management Initial Assmt Initial Assessment REASON FOR HOSPITALIZATION:: community acquired pneumonia PREVIOUS FUNCTIONAL STATUS/SOCIAL/FAMILY SUPPORTS:: Christiane lives alone in an apartment in [place]. She recently relocated to [place] from [place], where she had been living with her 2 sons. She is originally from [place] and has 2 granddaughters living here that she is very close to. Christiane has 4 other grandchildren and 5 great grandchildren, many of whom live in the area as well. 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 Christiane uses a walker for ambulatory assistance but is independent with ADLs. She has [employer] moderate needs and has math tutor services for about 2 hours per week. Christiane also has Meals on Wheels and a Life Alert. CURRENT FUNCTIONAL STATUS:: Chritsiane was sitting up in a chair eating lunch when CM met with her. She was agreeable to conversation and engaged well with CM. Christiane shared that things have been going well since her last hospital stay at the end of June. She fell on the day of admission and was unable to get up. EMS was called and she was taken to the hospital. Christiane reported that she is badly bruised on her right side but that nothing is broken. It was in the ED that she was noted to be hypoxic and was diagnosed with pneumonia, requiring admission. ADVANCE DIRECTIVES:: On file. Luis Manuel ACEVES Has patient been provided with info about the portal/API?: Yes Did the patient sign up for the portal?: No CODE STATUS:: DNR INSURANCE COVERAGE / FINANCIAL ISSUES:: Medicare with [employer] supplement CURRENT HOME/COMMUNITY SERVICES/EQUIPMENT:: walker, Life Alert, [employer] moderate needs with 2 hours of housekeeping/week, Meals on Wheels, HH nursing PRIMARY CARE PHYSICIAN:: Edna CRAWFORD) POTENTIAL DISCHARGE NEEDS:: follow up with PCP, Pulmonology and plan of care PATIENT/FAMILY EDUCATION NEEDS:: Review discharge instructions, medications, diet, activity, limitations, follow up plan, discuss Ask Me Three TRANSPORTATION:: via private vehicle with family PLAN:: Christiane will likely be discharged home with a resumption of home health services for nursing with the addition of PT and OT, when medically cleared. She will follow up with her community providers and plan of care and transport with family. CM will continue to support Christiane and assess for discharge needs. PFSH All Active Problems (Updated 08/31/23 @ 16:31 by Jack Parks MD) ILD (interstitial lung disease) (Acute) Acute on chronic respiratory failure with hypoxia and hypercapnia (Acute) Acute kidney injury superimposed on CKD (Acute) CAP (community acquired pneumonia) (Acute) Severe sepsis (Acute) Pleural effusion (Acute) Pneumonia (Acute) Fall (Acute) CKD (chronic kidney disease) (Chronic) CHF (congestive heart failure) (Chronic) Acute kidney injury (Acute) Respiratory acidosis (Acute) Acute hypercapnic respiratory failure (Acute) Sarcoid (Acute) Acute hypoxic respiratory failure (Acute) ILD (interstitial lung disease) (Acute) Chronic respiratory failure with hypoxia and hypercapnia (Acute) Paroxysmal atrial fibrillation (Acute) Gastritis and duodenitis (Acute) Depression (Chronic) Neuropathic pain of both feet (Acute) Obstructive sleep apnea (Chronic) Severe, CPAP Anemia (Chronic) Chronic renal failure (Chronic) Unspecified diastolic heart failure (Chronic 05/27/12) Echo 05/2012 EF 70% no valve abn; diastolic dysfx Trigeminal neuralgia of left side of face (Chronic 02/17/17) Sarcoidosis (Chronic 02/11/12) Spinal stenosis (Chronic 02/11/12) Restrictive lung disease (Chronic 03/19/16) Dr Zafar [facility]; CT dx Sarcoidosis; prednisone begun 05/2016 PFT 03/2016 FVC 47% FEVi 60% Hypoxia, chronic O2 Rx Primary osteoarthritis of both knees (Chronic 09/23/15) Osteoarthrosis (Chronic 02/23/13) Obesity hypoventilation syndrome (Chronic 09/29/16) with [facility]: BiPAP:Dr Katie Zafar Obesity (Chronic 04/05/13) Nausea vomiting and diarrhea (Acute) recurrent 3-4 X/yr; possible IBS: spells of urgent diarrhea following a meal, occ with vomiting Hyperlipidemia (Chronic 02/23/13) PCEq 28.5%; LDL baseline 184; elects to continue statin Hypertension (Chronic 02/23/13) FRS 21%; goal 150/90 Esophageal reflux (Chronic 02/11/12) Diverticulitis of colon (Chronic 02/11/12) Medical History Chronic hypercapnic respiratory failure History of basal cell carcinoma (BCC) Dr Curtis sclerosing BCCA right jawline 10/2007 Arch pain of right foot Middle insomnia Osteoarthritis of left knee DVT prophylaxis Surgical History Tonsillectomy and adenoidectomy Cholecystectomy twice, first age 18; repeat around 2006 Appendectomy Family History Mother , 75, complications heart surgery No problems noted. Father , age 80, heart attack No problems noted. Daughter , Sarcoidosis, bleeding from the lung No problems noted. Social History Smoking/Tobacco Use Status: Never Smoking risk assessment performed?: Yes Alcohol Intake: never Drug use: Never Substance use type: does not use Adopted: No Caregiver/Support person: No Foster care: No Household members: other Details: apartment [facility] Housing: house Number of Children: 3 Communication Needs: Corrective Lenses Do you need help understanding health information?: Rarely What is your relationship status?: Panel score (0-1 are the most socially isolated patients): 0 What type of physical activity do you participate in: none Seatbelt use: always Drive intox or ride 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
--- NOTE | 2023-09-01 10:03 | W.PM.PROGNOT ---
Date of Service Date of service: 09/01/23 Time of Service: 10:04 Assessment and Plan Assessment and plan (1) CAP (community acquired pneumonia): Status: Acute Assessment and plan: - Infiltrate is seen on chest CT -Patient does not meet sepsis criteria she was not tachycardic, tachypneic, does not have a leukocytosis, and has been afebrile -Was started on ceftriaxone and azithromycin in the emergency department which will be continued (2) Acute kidney injury superimposed on CKD: Status: Acute Assessment and plan: - Likely secondary to combination of community-acquired pneumonia and acute hypoxic and hypercapnic respiratory failure -Baseline creatinine 1.6, 2.5 on admission, 2.4 this morning -Follow-up a.m. BMP (3) Acute on chronic respiratory failure with hypoxia and hypercapnia: Status: Acute Assessment and plan: - Likely secondary to a combination of patient having not used her CPAP at the previous night, community-acquired pneumonia, and ILD/sarcoid flare -ABG showed respiratory acidosis with elevated CO2 in the 80s -Was placed on BiPAP in the emergency department and will continue -Repeat VBG overnight showed improvement in carbon dioxide, therefore patient only used her at bedtime CPAP -VBG this morning showed CO2 of 60 -Will no longer need BiPAP, will continue at bedtime CPAP (4) ILD (interstitial lung disease): Status: Acute Assessment and plan: - May be having ILD flare in combination with community-acquired pneumonia as noted above -Will be given 125 mg IV Solu-Medrol on admission and will transition to 40 mg p.o. prednisone daily (5) Obesity hypoventilation syndrome: Status: Chronic Assessment and plan: - Will be on BiPAP overnight this evening -Once patient no longer needs BiPAP will reinitiate at bedtime CPAP (6) Hypertension: Status: Chronic Assessment and plan: - Continue home antihypertensives Qualifiers: Hypertension type: renovascular hypertension Qualified Code(s): I15.0 - Renovascular hypertension (7) Paroxysmal atrial fibrillation: Status: Acute Assessment and plan: - Continue home rate control Subjective Subjective Interval history since last seen: Patient states that she is feeling much better today, though she did not sleep well last night. Exam Narrative Exam Narrative: Well-appearing older female lying in bed in no acute tissue distress, baseline 2 L nasal cannula, ANO x 4, heart irregularly irregular with rate in the high 50s, lungs clear to auscultation bilaterally, abdomen soft, nontender nondistended Objective Last Vital Signs Temp 97.9 F 09/01/23 08:01 Pulse 79 09/01/23 08:01 Resp 19 09/01/23 08:01 BP 128/71 09/01/23 08:01 Pulse Ox 85 L 09/01/23 09:01 Laboratory Results - last 24 hr 08/31/23 08/31/23 08/31/23 11:15 11:15 11:15 WBC 7.26 RBC 3.64 L Hgb 10.2 L Hct 33.6 L MCV 92 MCH 28.0 MCHC 30.4 L RDW 15.6 H Plt Count 158 MPV 9.7 Immature Gran % 0.4 Neutrophils % 80.2 Lymphocytes % 9.0 Monocytes % 8.1 Eosinophils % 1.9 Basophils % 0.4 Nucleated RBC % 0.0 Absolute Neutrophils 5.82 Absolute Lymphocytes 0.65 L Absolute Monocytes 0.59 Absolute Eosinophils 0.14 Absolute Basophils 0.03 PT 12.7 H INR 1.3 H APTT 25.5 VBG pH 7.28 L VBG pCO2 81 H* VBG pO2 37 VBG HCO3 38 H VBG Total CO2 36 H VBG O2 Saturation 62 VBG Base Excess 11 H VBG Lactate 1.3 Sodium 138 Cancelled Potassium 4.5 Cancelled Chloride 99 Carbon Dioxide Anion Gap BUN Creatinine Est GFR (CKD-EPI 2020) Glucose Calcium Magnesium Total Bilirubin AST ALT Alkaline Phosphatase Troponin I NT-Pro-B Natriuret Pep Total Protein Albumin Amylase Lipase TSH Free T4 Urine Color Urine Clarity Urine pH Ur Specific [place] Urine Protein Urine Ketones Urine Blood Urine Nitrite Urine Bilirubin Urine Urobilinogen Ur Leukocyte Esterase Urine RBC Urine WBC Ur Epithelial Cells Urine Crystals Urine Bacteria Urine Casts Urine Mucus Ur Culture Indicated? Urine Glucose Ethyl Alcohol COVID-19 Source SARS-CoV-2 (PCR) Influenza Type A (PCR) Influenza Type B (PCR) RSV (PCR) 08/31/23 08/31/23 08/31/23 11:15 11:15 11:15 WBC RBC Hgb Hct MCV MCH MCHC RDW Plt Count MPV Immature Gran % Neutrophils % Lymphocytes % Monocytes % Eosinophils % Basophils % Nucleated RBC % Absolute Neutrophils Absolute Lymphocytes Absolute Monocytes Absolute Eosinophils Absolute Basophils PT INR APTT VBG pH VBG pCO2 VBG pO2 VBG HCO3 VBG Total CO2 VBG O2 Saturation VBG Base Excess VBG Lactate Sodium Potassium Chloride Cancelled Carbon Dioxide 39.7 H Cancelled Anion Gap -0.7 L Cancelled BUN 66 H Creatinine Est GFR (CKD-EPI 2020) Glucose Calcium Magnesium Total Bilirubin AST ALT Alkaline Phosphatase Troponin I NT-Pro-B Natriuret Pep Total Protein Albumin Amylase Lipase TSH Free T4 Urine Color Urine Clarity Urine pH Ur Specific [place] Urine Protein Urine Ketones Urine Blood Urine Nitrite Urine Bilirubin Urine Urobilinogen Ur Leukocyte Esterase Urine RBC Urine WBC Ur Epithelial Cells Urine Crystals Urine Bacteria Urine Casts Urine Mucus Ur Culture Indicated? Urine Glucose Ethyl Alcohol COVID-19 Source SARS-CoV-2 (PCR) Influenza Type A (PCR) Influenza Type B (PCR) RSV (PCR) 08/31/23 08/31/23 08/31/23 11:15 11:15 11:15 WBC RBC Hgb Hct MCV MCH MCHC RDW Plt Count MPV Immature Gran % Neutrophils % Lymphocytes % Monocytes % Eosinophils % Basophils % Nucleated RBC % Absolute Neutrophils Absolute Lymphocytes Absolute Monocytes Absolute Eosinophils Absolute Basophils PT INR APTT VBG pH VBG pCO2 VBG pO2 VBG HCO3 VBG Total CO2 VBG O2 Saturation VBG Base Excess VBG Lactate Sodium Potassium Chloride Carbon Dioxide Anion Gap BUN Cancelled Creatinine 2.5 H Cancelled Est GFR (CKD-EPI 2020) 18.39 Cancelled Glucose 108 H Calcium Magnesium Total Bilirubin AST ALT Alkaline Phosphatase Troponin I NT-Pro-B Natriuret Pep Total Protein Albumin Amylase Lipase TSH Free T4 Urine Color Urine Clarity Urine pH Ur Specific [place] Urine Protein Urine Ketones Urine Blood Urine Nitrite Urine Bilirubin Urine Urobilinogen Ur Leukocyte Esterase Urine RBC Urine WBC Ur Epithelial Cells Urine Crystals Urine Bacteria Urine Casts Urine Mucus Ur Culture Indicated? Urine Glucose Ethyl Alcohol COVID-19 Source SARS-CoV-2 (PCR) Influenza Type A (PCR) Influenza Type B (PCR) RSV (PCR) 08/31/23 08/31/23 08/31/23 11:15 11:15 11:15 WBC RBC Hgb Hct MCV MCH MCHC RDW Plt Count MPV Immature Gran % Neutrophils % Lymphocytes % Monocytes % Eosinophils % Basophils % Nucleated RBC % Absolute Neutrophils Absolute Lymphocytes Absolute Monocytes Absolute Eosinophils Absolute Basophils PT INR APTT VBG pH VBG pCO2 VBG pO2 VBG HCO3 VBG Total CO2 VBG O2 Saturation VBG Base Excess VBG Lactate Sodium Potassium Chloride Carbon Dioxide Anion Gap BUN Creatinine Est GFR (CKD-EPI 2020) Glucose Cancelled Calcium 9.8 Cancelled Magnesium 2.3 Cancelled Total Bilirubin 0.6 AST ALT Alkaline Phosphatase Troponin I NT-Pro-B Natriuret Pep Total Protein Albumin Amylase Lipase TSH Free T4 Urine Color Urine Clarity Urine pH Ur Specific [place] Urine Protein Urine Ketones Urine Blood Urine Nitrite Urine Bilirubin Urine Urobilinogen Ur Leukocyte Esterase Urine RBC Urine WBC Ur Epithelial Cells Urine Crystals Urine Bacteria Urine Casts Urine Mucus Ur Culture Indicated? Urine Glucose Ethyl Alcohol COVID-19 Source SARS-CoV-2 (PCR) Influenza Type A (PCR) Influenza Type B (PCR) RSV (PCR) 08/31/23 08/31/23 08/31/23 11:15 11:15 11:15 WBC RBC Hgb Hct MCV MCH MCHC RDW Plt Count MPV Immature Gran % Neutrophils % Lymphocytes % Monocytes % Eosinophils % Basophils % Nucleated RBC % Absolute Neutrophils Absolute Lymphocytes Absolute Monocytes Absolute Eosinophils Absolute Basophils PT INR APTT VBG pH VBG pCO2 VBG pO2 VBG HCO3 VBG Total CO2 VBG O2 Saturation VBG Base Excess VBG Lactate Sodium Potassium Chloride Carbon Dioxide Anion Gap BUN Creatinine Est GFR (CKD-EPI 2020) Glucose Calcium Magnesium Total Bilirubin Cancelled AST 24 Cancelled ALT 22 Cancelled Alkaline Phosphatase 109 Troponin I NT-Pro-B Natriuret Pep Total Protein Albumin Amylase Lipase TSH Free T4 Urine Color Urine Clarity Urine pH Ur Specific [place] Urine Protein Urine Ketones Urine Blood Urine Nitrite Urine Bilirubin Urine Urobilinogen Ur Leukocyte Esterase Urine RBC Urine WBC Ur Epithelial Cells Urine Crystals Urine Bacteria Urine Casts Urine Mucus Ur Culture Indicated? Urine Glucose Ethyl Alcohol COVID-19 Source SARS-CoV-2 (PCR) Influenza Type A (PCR) Influenza Type B (PCR) RSV (PCR) 08/31/23 08/31/23 08/31/23 11:15 11:15 11:15 WBC RBC Hgb Hct MCV MCH MCHC RDW Plt Count MPV Immature Gran % Neutrophils % Lymphocytes % Monocytes % Eosinophils % Basophils % Nucleated RBC % Absolute Neutrophils Absolute Lymphocytes Absolute Monocytes Absolute Eosinophils Absolute Basophils PT INR APTT VBG pH VBG pCO2 VBG pO2 VBG HCO3 VBG Total CO2 VBG O2 Saturation VBG Base Excess VBG Lactate Sodium Potassium Chloride Carbon Dioxide Anion Gap BUN Creatinine Est GFR (CKD-EPI 2020) Glucose Calcium Magnesium Total Bilirubin AST ALT Alkaline Phosphatase Cancelled Troponin I 52 NT-Pro-B Natriuret Pep 4562 H Total Protein 7.7 Cancelled Albumin 3.3 L Cancelled Amylase 46 Lipase 58 TSH 14.67 H Free T4 Urine Color Urine Clarity Urine pH Ur Specific [place] Urine Protein Urine Ketones Urine Blood Urine Nitrite Urine Bilirubin Urine Urobilinogen Ur Leukocyte Esterase Urine RBC Urine WBC Ur Epithelial Cells Urine Crystals Urine Bacteria Urine Casts Urine Mucus Ur Culture Indicated? Urine Glucose Ethyl Alcohol COVID-19 Source SARS-CoV-2 (PCR) Influenza Type A (PCR) Influenza Type B (PCR) RSV (PCR) 08/31/23 08/31/23 08/31/23 11:15 11:28 11:37 WBC RBC Hgb Hct MCV MCH MCHC RDW Plt Count MPV Immature Gran % Neutrophils % Lymphocytes % Monocytes % Eosinophils % Basophils % Nucleated RBC % Absolute Neutrophils Absolute Lymphocytes Absolute Monocytes Absolute Eosinophils Absolute Basophils PT INR APTT VBG pH VBG pCO2 VBG pO2 VBG HCO3 VBG Total CO2 VBG O2 Saturation VBG Base Excess VBG Lactate Sodium Potassium Chloride Carbon Dioxide Anion Gap BUN Creatinine Est GFR (CKD-EPI 2020) Glucose Calcium Magnesium Total Bilirubin AST ALT Alkaline Phosphatase Troponin I NT-Pro-B Natriuret Pep Cancelled Total Protein Albumin Amylase Lipase TSH Cancelled Free T4 0.95 Urine Color Urine Clarity Urine pH Ur Specific [place] Urine Protein Urine Ketones Urine Blood Urine Nitrite Urine Bilirubin Urine Urobilinogen Ur Leukocyte Esterase Urine RBC Urine WBC Ur Epithelial Cells Urine Crystals Urine Bacteria Urine Casts Urine Mucus Ur Culture Indicated? Urine Glucose Ethyl Alcohol < 3.0 COVID-19 Source Nasopharynx SARS-CoV-2 (PCR) Negative Influenza Type A (PCR) Negative Influenza Type B (PCR) Negative RSV (PCR) Negative 08/31/23 08/31/23 08/31/23 12:43 14:20 15:24 WBC RBC Hgb Hct MCV MCH MCHC RDW Plt Count MPV Immature Gran % Neutrophils % Lymphocytes % Monocytes % Eosinophils % Basophils % Nucleated RBC % Absolute Neutrophils Absolute Lymphocytes Absolute Monocytes Absolute Eosinophils Absolute Basophils PT INR APTT VBG pH 7.30 L 7.32 VBG pCO2 78 H* 75 H* VBG pO2 36 29 VBG HCO3 38 H 38 H VBG Total CO2 37 H 37 H VBG O2 Saturation 63 49 VBG Base Excess 12 H 12 H VBG Lactate Sodium Potassium Chloride Carbon Dioxide Anion Gap BUN Creatinine Est GFR (CKD-EPI 2020) Glucose Calcium Magnesium Total Bilirubin AST ALT Alkaline Phosphatase Troponin I 52 NT-Pro-B Natriuret Pep Total Protein Albumin Amylase Lipase TSH Free T4 Urine Color Urine Clarity Urine pH Ur Specific [place] Urine Protein Urine Ketones Urine Blood Urine Nitrite Urine Bilirubin Urine Urobilinogen Ur Leukocyte Esterase Urine RBC Urine WBC Ur Epithelial Cells Urine Crystals Urine Bacteria Urine Casts Urine Mucus Ur Culture Indicated? Urine Glucose Ethyl Alcohol COVID-19 Source SARS-CoV-2 (PCR) Influenza Type A (PCR) Influenza Type B (PCR) RSV (PCR) 08/31/23 08/31/23 09/01/23 17:55 18:20 05:32 WBC 6.04 RBC 3.57 L Hgb 9.9 L Hct 31.9 L MCV 89 MCH 27.7 MCHC 31.0 L RDW 15.4 H Plt Count 150 MPV 10.8 Immature Gran % Neutrophils % Lymphocytes % Monocytes % Eosinophils % Basophils % Nucleated RBC % Absolute Neutrophils Absolute Lymphocytes Absolute Monocytes Absolute Eosinophils Absolute Basophils PT INR APTT VBG pH 7.34 7.38 VBG pCO2 70 H* 60 H VBG pO2 32 54 VBG HCO3 38 H 35 H VBG Total CO2 36 H 33 H VBG O2 Saturation 56 88 VBG Base Excess 12 H 10 H VBG Lactate Sodium 138 Potassium 4.6 Chloride 97 L Carbon Dioxide 34.6 H Anion Gap 6.4 BUN 65 H Creatinine 2.4 H Est GFR (CKD-EPI 2020) 19.31 Glucose 172 H Calcium 9.7 Magnesium Total Bilirubin AST ALT Alkaline Phosphatase Troponin I NT-Pro-B Natriuret Pep Total Protein Albumin Amylase Lipase TSH Free T4 Urine Color Yellow Urine Clarity Clear Urine pH 5.5 Ur Specific [place] 1.015 Urine Protein 30 H Urine Ketones Negative Urine Blood Small H Urine Nitrite Negative Urine Bilirubin Negative Urine Urobilinogen 0.2 Ur Leukocyte Esterase Small H Urine RBC 3-5 H Urine WBC 10-20 H Ur Epithelial Cells Few Urine Crystals Negative Urine Bacteria Moderate Urine Casts 0-2 Hyaline Urine Mucus Trace Ur Culture Indicated? Yes Urine Glucose Negative Ethyl Alcohol COVID-19 Source SARS-CoV-2 (PCR) Influenza Type A (PCR) Influenza Type B (PCR) RSV (PCR) Time Spent with Patient Time Spent with Patient: >50 minutes Time was spent: preparing to see the patient(eg.review tests), obtaining and/or reviewing separately otained hiistory, ordering medications,tests, procedures, referring, communicating with other health sub acute care nurse, indepentently interpreting results, counseling the patient and care coordination
--- NOTE | 2023-09-01 11:33 | PHA.REVIEW2 ---
Pharmacy Admission Review Admission Clinical Review Admission Pharmacy Review: (Updated 08/31/23 @ 16:31 by Jack Parks MD) ILD (interstitial lung disease) (Acute) Acute on chronic respiratory failure with hypoxia and hypercapnia (Acute) Acute kidney injury superimposed on CKD (Acute) CAP (community acquired pneumonia) (Acute) Pleural effusion (Acute) Pneumonia (Acute) Fall (Acute) Acute kidney injury (Acute) Respiratory acidosis (Acute) Acute hypercapnic respiratory failure (Acute) Sarcoid (Acute) Acute hypoxic respiratory failure (Acute) Paroxysmal atrial fibrillation (Acute) hydrocodone [From Vicodin] Adverse Reaction (Severe, Verified 08/16/23 11:16) AMS aspirin Adverse Reaction (Mild, Verified 08/16/23 11:16) GI upset, tolerates 81mg codeine Adverse Reaction (Verified 08/16/23 11:16) GI upset Resuscitation Status DNR Height 5 ft 3 in Weight 99.2 kg Pharmacy Admission Review Renal Dosing Renal Dosing: BUN 65 mg/dL (7-18) H 09/01/23 05:32 Creatinine 2.4 mg/dL (0.55-1.02) H 09/01/23 05:32 Medications needing adjustments: Reviewed (CrCl 19.21 mL/min) List of meds needing interventions: Enoxaparin dose was adjusted from 40mg to 30mg Anticoagulation Anticoagulation: Hgb 9.9 g/dL (11.2-15.7) L 09/01/23 05:32 Hct 31.9 % (36.0-46.0) L 09/01/23 05:32 Plt Count 150 10^3/uL (130-400) 09/01/23 05:32 INR 1.3 (0.9-1.1) H 08/31/23 11:15 Creatinine 2.4 mg/dL (0.55-1.02) H 09/01/23 05:32 DVT Prophylaxis: Reviewed Medications: Enoxaparin (30mg q24h. Hgb decreased to 9.9 today, was 10.2, PLT WNL.) Relevant Labs Relevant Labs: Sodium 138 mmol/L (136-145) 09/01/23 05:32 Potassium 4.6 mmol/L (3.5-5.1) 09/01/23 05:32 Chloride 97 mmol/L (98-107) L 09/01/23 05:32 Magnesium 2.3 mg/dL (1.8-2.4) 08/31/23 11:15 Magnesium Cancelled 08/31/23 11:15 Electrolytes, C-Reactive P, ESR: Reviewed Cardiac Review Cardiac Review: Troponin I 52 ng/L (<or=60) 08/31/23 14:20 NT-Pro-B Natriuret Pep Cancelled 08/31/23 11:37 BP, HR, EF%: Reviewed (BP WNL, HR 52) QTc Review QTc: Reviewed (418 08/31/23) IV to PO Switch IV Medications: Reviewed Home Meds Home Med List reviewed: Intervened Relevent Home Meds Not ordered & why?: Confirmed patients eye drops with providers office. Patient not using brinzolamide but is using brimonidine in addition to latanoprost and dorzolamide. Order was added for the brimonidine, brinzolamide order was discontinued and home med list was updated. Patient has lovastatin listed as an active med, no current order. Reached out to provider. Current Meds Current Medication Order Review: Reviewed
--- NOTE | 2023-09-01 15:25 | IN_ITS ---
PT Notes Visit Reasons: Acute on chronic hypoxic respiratory failure Physical Therapy Inpatient Initial Evaluation Date: 09/01/2023 Referring Doctor: Jack Parks MD PT Orders: PT CONSULT: Eval/Treat Precautions: Fall. Standard. Activity as tolerated. Patient Profile/Admitting Diagnosis: Fanny is an 83-year-old female who presented to the ED on 08/31/2023 via EMS due to a a fall while coming back from the bathroom headed to her bedroom at home. The patient is admitted for management of community-acquired pneumonia, acute kidney acute kidney injury on CKD , acute on chronic respiratory failure with hypoxia and hypercarbia, ILD, obesity hypoventilation syndrome, HTN, and PAF. PMHX: All Active Problems (Updated 08/31/23 @ 16:31 by Jack Parks MD) 78-year-old Ms. Mg Sosa ILD (interstitial lung disease) (Acute) Acute on chronic respiratory failure with hypoxia and hypercapnia (Acute) Acute kidney injury superimposed on CKD (Acute) CAP (community acquired pneumonia) (Acute) Severe sepsis (Acute) Pleural effusion (Acute) Pneumonia (Acute) Fall (Acute) CKD (chronic kidney disease) (Chronic) CHF (congestive heart failure) (Chronic) Acute kidney injury (Acute) Respiratory acidosis (Acute) Acute hypercapnic respiratory failure (Acute) Sarcoid (Acute) Acute hypoxic respiratory failure (Acute) ILD (interstitial lung disease) (Acute) Chronic respiratory failure with hypoxia and hypercapnia (Acute) Paroxysmal atrial fibrillation (Acute) Gastritis and duodenitis (Acute) Depression (Chronic) Neuropathic pain of both feet (Acute) Obstructive sleep apnea (Chronic) Severe, CPAPAnemia (Chronic) Chronic renal failure (Chronic) Unspecified diastolic heart failure (Chronic 05/27/12) Echo 05/2012 EF 70% no valve abn; diastolic dysfx Trigeminal neuralgia of left side of face (Chronic 02/17/17) Sarcoidosis (Chronic 02/11/12) Spinal stenosis (Chronic 02/11/12) Restrictive lung disease (Chronic 03/19/16) Dr Zafar [facility]; CT dx Sarcoidosis; prednisone begun 05/2016 PFT 03/2016 FVC 47% FEVi 60% Hypoxia, chronic O2 Rx Primary osteoarthritis of both knees (Chronic 09/23/15) Osteoarthrosis (Chronic 02/23/13) Obesity hypoventilation syndrome (Chronic 09/29/16) with CARL[facility]: BiPAP:Dr Katie Zafar Obesity (Chronic 04/05/13) Nausea vomiting and diarrhea (Acute) recurrent 3-4 X/yr; possible IBS: spells of urgent diarrhea following a meal, occ with vomiting Hyperlipidemia (Chronic 02/23/13) PCEq 28.5%; LDL baseline 184; elects to continue statin Hypertension (Chronic 02/23/13) FRS 21%; goal 150/90 Esophageal reflux (Chronic 02/11/12) Diverticulitis of colon (Chronic 02/11/12) Medical History Chronic hypercapnic respiratory failure History of basal cell carcinoma (BCC) Dr Curtis sclerosing BCCA right jawline 10/2007 Arch pain of right foot Middle insomnia Osteoarthritis of left knee DVT prophylaxis Surgical History Tonsillectomy and adenoidectomy Cholecystectomy twice, first age 18; repeat around 2006 Appendectomy Social History/Home Situation: Lives alone in a private home with 4 steps to enter with rails on both sides. Has a lady who comes in once a week for 4 to 5 hours and takes care of her laundry, housekeeping, and sometimes grocery shopping. Daughter helps mainly with grocery shopping. Modified independent with indoor ambulation only using rollator. No longer drives. On chronic oxygen supplementation at 2 L/min during the day. Equipment Owned/DME: Oxygen supplementation, rollator Subjective: Feels very sleepy but is agreeable to do mobility assessment. Complains of being tired and weak. Stated that she has had 2 falls in the past 2 years because her gives were just suddenly give out. Complained of chronic minimal pain in B knees with weightbearing Objective: General Observation: Resting in bed. Telemetry monitoring in place. Oxygen supplementation at 3 L/min via NC. High BMI. Swelling in B LE. Mental Status: Alert and oriented as to person, place, time, and purpose. Able to pay attention, focus, and respond appropriately. Pain: As above Vital Signs: Oxygen saturation between 89% and 92% on 3 L/min via NC ROM: Right Upper Extremity: Shoulder Flexion lacks the last 25% of AROM. Shoulder abduction lacks the last 25% of AROM. Elbow flexion WFL. Wrist flexion WFL. Functional opening and closing of hand WFL. Left Upper Extremity: Shoulder Flexion lacks the last 25% of AROM. Shoulder abduction lacks the last 25% of AROM. Elbow flexion WFL. Wrist flexion WFL. Functional opening and closing of hand WFL. Right Lower Extremity: Hip flexion lacks the last 50% of AROM. Hip abduction lacks the last 25% of AROM. Knee flexion 10 to 90 degrees knee extension -10 degrees. Ankle dorsiflexion to neutral only. Ankle plantarflexion WFL. Left Lower Extremity: Hip flexion lacks the last 50% of AROM. Hip abduction lacks the last 25% of AROM. Knee flexion 10 to 90 degrees knee extension -10 degrees. Ankle dorsiflexion to neutral only. Ankle plantarflexion WFL. Strength: Right Upper Extremity: Shoulder flexors 3-/5. Shoulder abductors 3-/5. Elbow flexors 4-/5. Elbow extensors 4-/5. Manufacturing Assembler strong. Left Upper Extremity: Shoulder flexors 3-/5. Shoulder abductors 3-/5. Elbow flexors 4-/5. Elbow extensors 4-/5. Manufacturing Assembler strong. Right Lower Extremity: Hip flexors 3-/5. Hip abductors 3-/5. Knee flexors 3-/5. Knee extensors 3-/5. Ankle dorsiflexors 3-/5. Ankle plantarflexors 4-/5. Left Lower Extremity: Hip flexors 3-/5. Hip abductors 3-/5. Knee flexors 3-/5. Knee extensors 3-/5. Ankle dorsiflexors 3-/5. Ankle plantarflexors 4-/5. Bed Mobility/Transfers: Minimal cueing provided for use of B hands as needed for support, movement sequence, Ad management, and and posture to reduce fall risk and minimize pain report. Supine to sit standby assist with HOB at 30 degrees Sit to supine minimal assist to minimize pain in B knees Sit to stand contact-guard assist with FWW Stand to sit contact-guard assist with FWW Bed to reclining chair contact-guard assist with FWW Gait: Facilitated safe and correct performance of level surface ambulation covering a distance of 30 feet +30 feet using front wheeled walker with reciprocal step-to heel-toe gait pattern with minimal verbal cueing provided for AD management, self pacing, and directional changes. Required contact-guard assist to minimal assist throughout walk for safety. Balance: Static Sitting: Normal Dynamic Sitting: Good Static Standing: Fair Dynamic Standing: Fair Special Tests: Mobility Limitations Standardized Measure [facility] AM-PAC 6 clicks Basic Mobility Inpatient Short Form: Raw Score: 18 CMS Score: 47% deficit Informed Consent/Education: Patient was instructed in purpose of PT consult and plan of care. Agreeable to proceed with established PT POC to achieve personal goals. ASSESSMENT: Patient presents with clinical signs and symptoms consistent with current/admitting diagnoses that have resulted to mobility limitations, gait instability, generalized weakness, and overall ADL decline as demonstrated by the following impairment level findings: 1. Decreased strength to B UE/LE major muscle groups 2. Impaired sitting/standing balance 3. Impaired activity tolerance 4. Limitation of joint range of motion in shoulders and B hips (chroinic) 5. Shortness of breath 6. Swelling in B LE, R more affected Impairments are contributing to the following functional limitations: 1. Decline in bed mobility skills 2. Decline in transfer skills 3. Difficulty with ambulation without assistive device and physical assistance 4. Increased completion time for mobility ADL performance 5. Increased risk for falls 6. Difficulty with managing steps alone safely Patient is assessed as a 17967 moderate complexity based on the following: History: 83-year-old female with past medical history as indicated above Examination: Demonstrable impairment in strength, balance, and mobility level with underlying impairments and functional limitations as exhibited above as well as deficit score of 47% utilizing the [facility] Mobility Inpatient Short Form Presentation: Evolving Decision Makin moderate complexity Goals: Goals X1 week 1. Supine-Sit independent 2. Sit-Supine independent 3. Sit-Stand independent 4. Stand-Sit independent with FWW 5. Bed-Chair independent with FWW 6. Chair-Bed independent with FWW 7. Independent gait on level surface with use of FWW for at least 75 feet without report of pain nor dyspnea 8. Independent stair negotiation while holding onto 1 rail + cane for at least 5 steps without report of pain nor dyspnea 9. Independent with home exercise program 10. Good static and dynamic standing balance/tolerance Plan of Care/Treatment Plan: 1-2x/day, 7 days/week x 1 week. Plan of care has been reviewed with the [employer] INSTALLER providing the service under Physical Therapy direction. Initiate Physical Therapy intervention for pain management as needed, strengthening, bed mobility, transfers, gait, stairs, balance training, and use of assistive device. -HEP on energy conservation -HEP on chest expansion ex -HEP on fall reduction DISCHARGE RECOMMENDATIONS: [] Home with no services [] [X] Home with services. Patient will benefit from home health PT services in order to progress mobility level using least restrictive assistive ambulatory device, assess home safety, identify additional equipment needs, and establish a functional maintenance program that will increase ability of patient to remain at home. [] Home with outpatient PT [] [] SNF for continued rehabilitation [] [] Paper Conservator Care [] [] SNF versus LTC based on ability to participate and progress [] TREATMENT CODE/TIME: 52289 x 20 minutes for 1 unit, 04045 x 16 minutes for 1 unit beginning at 14:41 PM. Thank you for the opportunity to participate in the care of this patient. Love Jack PT, DPT, CLT [facility] [place], [place]
[2023-09-01] MEDS: Enoxaparin 30 MG/0.3 ML SYR SC (18:18)
[2023-09-01] MEDS: Latanoprost 0.005% 2.5 ML BTL OU (21:34)
[2023-09-02] VITALS (27 sets, daily range): BP systolic 109–130; BP diastolic 66–78; PULSE 55–133; RESP 2–29; TEMP 35.7–37.1; O2SAT 89–100
[2023-09-02] MEDS: Normal Saline Flush 10 ML SYR IVP ×2 (05:10→10:03)
[2023-09-02 06:43] LABS: HCT 32.4 % (36.0-46.0); HGB 10.2 g/dL (11.2-15.7); MCH 27.9 pg (27.0-33.0); MCHC 31.5 % (32.0-36.0); MCV 89 fL (80-95); MPV 11.6 fL (8.0-11.0); Platelet Count 177 10^3/uL (130-400); RBC 3.65 10^6/uL (3.93-5.22); RDW 15.9 % (11.7-14.6)
[2023-09-02 06:52] LABS: CREATININE 2.5 mg/dL (0.55-1.02); Calcium 9.7 mg/dL (8.5-10.1); Chloride 99 mmol/L (98-107); Estimated GFR 18.39 (mL/min/1.73m2); Glucose 151 mg/dL (74-106); Potassium 4.9 mmol/L (3.5-5.1); Sodium 140 mmol/L (136-145)
[2023-09-02 06:57] LABS: BUN 80 mg/dL (7-18)
--- NOTE | 2023-09-02 09:23 | CMPROGNOTE_ITS ---
Date of service: 09/02/23 Time of Service: 09:23 Care Management Progress Note Progress Note Text Progress Note Text: S/O: Christiane was sitting up in her chair when CM met with her. Her granddaughter was in the room, visiting. Christiane stated that she is really hoping to return home before Daily, but she is unsure if that will happen. PT recommends that she return home with HH PT; CM discussed this with Christiane, who stated that she has HH RN, and she had PT previously, but she was discharged. She is agreeable to increasing her services post hospitalization. Per report, Dr. Munguia is working on getting Christiane a Trilogy machine for home. Christiane met with palliative care today, and she discussed her goals of care. CM will continue to follow. A: Christiane is an 83 year old female admitted to [facility] on 08/31/23 for acute on chronic hypoxic respiratory failure. P: Christiane will likely be discharged home with a resumption of home health services for nursing with the addition of PT and OT, when medically cleared. She will follow up with her community providers and plan of care and transport with family. CM will continue to support Christiane and assess for discharge needs.
[2023-09-02] MEDS: predniSONE 20 MG TAB 40 MG PO (10:01)
[2023-09-02] MEDS: Allopurinol 100 MG TAB PO (10:01)
[2023-09-02] MEDS: Sertraline 25 MG TAB PO (10:01)
[2023-09-02] MEDS: amLODIPine 2.5 MG TAB PO (10:01)
[2023-09-02] MEDS: Metoprolol CR 25 MG TABCR 12.5 MG PO ×2 (10:02→21:04)
[2023-09-02] MEDS: Pantoprazole 20 MG TABCR PO (10:02)
[2023-09-02] MEDS: Torsemide 20 MG TAB PO (10:02)
[2023-09-02] MEDS: Dorzolamide 2% 10 ML BTL OD ×2 (10:03→21:05)
--- NOTE | 2023-09-02 11:40 | PTTR_ITS ---
Date of service: 09/02/23 Time of Service: 10:38 PT Notes Visit Reasons: Acute on chronic hypoxic respiratory failure Inpatient Physical Therapy Treatment Note [facility] Date: 09/02/23 PRECAUTIONS: Fall, standard, activity as tolerated. SUBJECTIVE: Patient reports being very fatigued, just woke up, ate some of breakfast but reports they ordered it for me, it's not what I would have ordered. AFTERNOON: Patient alert, has a visitor, agreeable to therapy OBJECTIVE: Patient sitting EOB, wearing 2L/min supplemental O2, SaO2, and telemetry. Agreeable to therapy.? PAIN: none reported VITALS: monitored by nursing staff.? Therapeutic Activities ([id number]): Direct one-on-one instruction in dynamic activities to improve functional performance. ? BED MOBILITY/TRANSFERS? Rolling L/R: not assessed Supine-sit: not assessed ? Sit-supine: not assessed ? Sit-stand x4: SBA?to FWW ? Stand-sit x4: SBA from FWW? Bed-Chair x2: SBA with FWW? Chair-bed x1: SBA with FWW Provided skilled cues and instruction on performance and technique throughout. ? Therapeutic Exercises ([id number]): Direct one-on-one instruction in therapeutic exercises to develop strength, endurance, range of motion and flexibility. Ambulation ? Assistive Device: FWW? Weight bearing: full Assist: w/c follow? Distance:? 100 feet with 1 seated rest ~30 feet in.?AFTERNOON: 130 feet with 1 seated rest. Maintains SaO2 >89% on 2L/min supplemental O2. ? Deviation: Reduced stride length, reduced step height. Minimally asymmetric step length with left leg leading. Reports feeling slightly short of breath, calls it manageable. AFTERNOON: stride largely the same as this morning, this time no report of pain nor dyspnea. ? Provided skilled instruction in proper exercise performance Provided skilled manual cues to facilitate proper muscle recruitment and/or form. ASSESSMENT:? Patient tolerates therapy well, SaO2 stays at or above 92% throu ghout. AFTERNOON: Patient maintains SaO2 >89% even with conversation during ambulation. PLAN: Continue global strengthening per plan of care until patient is medically cleared for discharge. TREATMENT CODE/TIME: 41 minutes beginning at 10:38 and 38 minutes beginning at 14:32 for a total of 79 minutes today.
[2023-09-02] MEDS: Albuterol/Ipratropium 3 ML UPD VIAL UPD ×3 (13:31→20:19)
--- NOTE | 2023-09-02 13:52 | PCNE_ITS ---
Date of service: 09/02/23 Time of Service: 13:52 History of Present Illness Narrative: Christiane Jackson is an 83-year-old woman from [facility] who was admitted to the hospital 2 days ago with community acquired pneumonia complicated by acute on chronic respiratory failure (chronic home O2 at 2L/m) as well as acute on chronic renal failure. Patient has interstitial lung disease, known hypercapnia and CARLOS (uses CPAP at home at night), history sarcoidosis (felt to be an active by pulmonary), morbid obesity, hypertension, Chronic atrial fibrillation, History of gout, spinal stenosis, peripheral neuropathy. Note that patient was admitted to [facility] for 2 days 7 weeks earlier with Atrial fibrillation and demand ischemia. Cannot recall any hospital admissions during her two years in [place]; did have 1 or 2 emergency department visits and did see specialist during her time there. Of note, she reports that she was admitted after falling this time. Also admits to a fall before her June admission. Apparently has had multiple falls where her legs give out and this is the biggest concern for her. During this admission, Patient initially required BiPAP for short time upon presentation to the emergency department for hypercapnia and hypoxia. Initially she was admitted to the ICU. CT showed RLL PNA, R sided pleural effusion , with hilar adenopathy. (previous CT done in [place] and not available for comparison). Atrial fibrillation: Anticoagulation recommended by Dr. Kapadia recently (chads score 5), patient had not been taking DOAC but was supposed to start on Xarelto in July of this year. Cardiology note mentions issues with affordability. Ejection fraction this year was 50%. Known right bundle branch block.This med not on her admission medication list. Patient reports today that her guiac test done before starting DOAC was HEMMOCCULT POSITIVE and it was advised that she not start DOAC. Pulmonary: History of sarcoidosis , known interstitial lung disease. Known hypoxic and hypercapnic respiratory failure. Chronically on home oxygen prior to admission. CPAP prescribed for night use for both CARLOS and hypercapnic respiratory failure/obesity. Last seen by Dr. Navarro 07/26/23; vice president of business development recommended Trilogy (felt CPAP not adequate). Patient is not sure where approval is for trilogy, has not received yet. She was still using nocturnal CPAP prior to admission. (Hospitalist notes that she admits to removing it at night) Care team: primary Care physician: Dr. Quick Cardiology: Dr. Kapadia Pulmonary: Dr. Navarro Sleep Specialist for CARLOS: Dr. Alex Lizarraga Social HX: - 1994 -Patient is lifelong [place]er (house was in [place]). She moved to [place] 2 years ago to be closer to her sons. She actually lived in their houses, never had her own housing while in [place]. (Sons are Luis Manuel, healthcare agent, and Calvin, one daughter ). -However, she found that she very much missed [place] and her friends and from a family. This May she moved back to [place]. -Have been applying for subsidize handicapped accessible housing. Is on multiple waiting lists. Wanted to move back now, therefore rented none handicapped accessible apartment in private house in [place]. -Lives alone in apartment in [place]. Had been on a waiting list for senior and subsidized housing, but did not want to wait any more. -Current apartment is not handicapped accessible. Requires her to go up 6 stairs to get into the house and does not have a walk-in shower. -Two granddaughters live locally and provide support. (Elysia, Bunch Trimmer Mold, 2 daughters, lives in [place]; Aylin lives in [place] shops for her ) 5 grandchildren total, 5 greatgrandchildren. 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 Additional Services: -Choices for Care: Moderate Needs, system administration manager Diann Martin at [facility]. -[employer] Shovel Oiler twice a week. -Recently started Meals on Wheels. -First Alert (did not have first alert on her person when she fell this time, used phone, which luckily was in reach). -Had had [facility] for PT (for fall prevention). Home health services Impression of currents health status: I never know when it is going to happen (talking about falls). Never knows when she is going to fall, legs just give out and she falls backwards. What bothers you the most: That I have not yet been able to find a handicapped accessible subsidized apartment. What worries you the most: Falling again. Goals: -To find subsidized, affordable, handicapped accessible housing (she is currently on several waiting lists,Granddaughters are helping her with this, says that home health gearcase assembler could not offer any additional advice or assistance.). -To stop falling. Wiling to resume PT. -To continue to catch up with her old [place] friends, talks with them on the phone. -Thinks she needs to eat better, feels that this is contributing to the falls. (too tiring to do much meal prep; thinks that MOW just starting up the last few weeks). Current information preferences: Function: Ambulation:Uses walker, see social history for additional with current apartment Challenges. ADLs:Independent,Wishes she had a walk-in shower, would be much easier. iADLs: two hours a week of housekeeping help (cleaning , laundry). Granddaughter does laundry.. Cooks her own meals, but very tiring, managing her own finanaces. Hearing: No hearing aids, slightly decreased hearing aids. Vision: Reading glasses. Cognition: Seems OK (check book $.50 off last month) Falls: Yes, see above Palliative Performance Scale % Ambulation Activity and Evidence of Disease Self Care Intake Level of Consciousness 100 Full Normal activity, no evidence of disease Full Normal Full 90 Full Normal activity, some evidence of disease Full Normal Full 80 Full Normal activity with effort, some evidence of disease Full Normal or reduced Full 70 Reduced Unable to do normal work, some evidence of disease Full Normal or reduced Full 60 Reduced Unable to do hobby or some housework, significant disease Occasional assist necessary Normal or reduced Full or confusion 50 Mainly sit/lie Unable to do any work, extensive disease Considerable assistance required Normal or reduced Full or confusion 40 Mainly in bed Unable to do any work, extensive disease Mainly assistance Normal or reduced Full, drowsy, or confusion 30 Totally bed bound Unable to do any work, extensive disease Total care Reduced Full, drowsy, or confusion 20 Totally bed bound Unable to do any work, extensive disease Total care Minimal sips Full, drowsy, or confusion 10 Totally bed bound Unable to do any work, extensive disease Total care Mouth care only Drowsy or coma 0 - - - - Patient Score: 70 Spiritual history:[facility] ROS: Pain: Arthritis in knees (cannot kneel on knees to get up on her own after falling). Dyspnea: Some SOB walking in apt. if she walked fast. OK if she moves slowly. GI symptoms: Appetite:Fine Depression:Denies Anxiety: NA Emotional Distress: NA Spiritual/Existential Distress: NA Labs: Cr: 2.5 (baseline 1.6) Liver panel: NL Albumin: 3.3 CBC:Hgb 10.2 Advanced Care Planning: Advanced Directive:2010 advance directive on file. See A/P Health Care Agent:As per 2010 AD, Luis Manuel Jackson (son, is healthcare agent. Alternate agent is Calvin Jackson. COLST:2019 COLST on file. Completed in consultation with patient's PCP. DO NOT RESUSCITATE, limited trial of intubation. Transfer to hospital for evaluation and treatment. Use antibiotics. No feeding tube, trial of parental nutrition and hydration. Comfort measures only box is checked. Revised today. See assessment/plan Limitations: Consults Consult date: 09/02/23 Requesting physician: Beata Cao Assessment and Plan Assessment and plan (1) Acute on chronic respiratory failure with hypoxia and hypercapnia: Status: Acute Assessment and plan: Mrs. Jackson is a delightful 83-year-old woman cognitively intact woman with multiple morbidities including pulmonary disease (chronic respiratory failure with hypercapnia, on chronic oxygen and awaiting trilogy, history of sarcoid doses, current pneumonia), acute on chronic renal failure, frequent falls (multifactorial with OA both knees, peripheral neuropathy). She had been living with her sons in [place] for the previous 2 years. Since moving into her own apartment in [place] 3 months ago, this is her second hospital admission and she has had at least 2 significant falls. She was receiving physical therapy through home health after her June hospital admission but have been discharged. She astutely identifies these frequent falls as a major threat to her independence And health. When asked to suggest additional supports that could help improve her safety and comfort at home, she identifies living in a handicapped accessible apartment and help with preparation of healthy foods. Frequent falls: She is agreeable to resuming physical therapy via home health as an outpatient. She has been willing participant with inpatient PT. Sounds like she is not interested in [facility] at this time and is hoping to return to her apartment before [place]. I also floated the option of continuing physical therapy as an outpatient after she is discharged from home health. She sounds like she might be willing to consider this as well. Alternative living situations: It is not possible for her to live, even short- term, with either of her granddaughters. She is not interested in returning to [place]; she is very happy to be back in [place]. she remains on waiting lists at multiple handicapped accessible housing options. Another possibility is short-term stay in [facility], but she feels she has limited funding and choices for care will not cover this. Atrial fibrillation: Previously intermittent and currently appears to be present both at outpatient cardiology visit and during her current hospital admission. Due to CHADS2 score 6, anticoagulation was recommended. However due to positive guaiac test, she was advised not to start on anticoagulation. Further Evaluation as per PCP and cardiology. Additionally her frequent falls make her high risk for anticoagulation. Advance care planning: We reviewed her 2011 advance directive. Although she has moved back to [place] and her healthcare agent lives in [place], she wants son Luis Manuel Jackson to continue to be her healthcare agent. She feels that he is adequately accessible via phone. She does have granddaughter Aylin Garcia on her HIPAA list, and Aylin could make emergency decisions for her. She does not want to update her healthcare agent form. We reviewed her 2019 COLST. She is absolutely clear that she does not want an any attempts at CPR, consistent with 2019 COLST. At this time she definitely does not want a trial of intubation, which is a change from her 2019 wishes. She is comfortable with using BiPAP as needed (and did so 2 days ago), and would be willing to be treated with high flow oxygen. She does continue to want to be transferred to the hospital for evaluation and treatment, receive IV antibiotics and IV hydration. She definitely does not want a feeding tube. We did not discuss dialysis today; given her acute on chronic renal failure, this is discussion I should have with her at our next meeting. New COLST was drawn up reflecting these changes. Again, Luis Manuel Jackson, son, remains her healthcare agent. Pulmonary: Unclear if patient is still awaiting prior approval for trilogy. She will follow-up with Dr. Navarro. Palliative care team follow-up: Patient agrees to 1 month follow-up with palliative care team, likely with home visit. (2) CAP (community acquired pneumonia): Status: Acute (3) Acute kidney injury superimposed on CKD: Status: Acute (4) ILD (interstitial lung disease): Status: Acute (5) Palliative care encounter: Status: Acute (6) Advanced care planning/counseling discussion: Status: Acute Assessment and plan: 16 to 30 minutes spent today on Advance Care Planning. Patient and family participated voluntarily. Advance care planning may include (not limited to) explanation and discussion of advance directives, choosing and appointing healthcare agents, alternatives to various ACP tools, discussion of (and if indicated, completion of) COLST form, discussion of patient's values and overall goals for treatment, palliative and disease directive care options, ways to avoid hospital readmission including hospice discussions, care preferences should the patient's several other adverse health events.See today's palliative care note for additional information. (7) Frequent falls: Status: Acute (8) Atrial fibrillation: Status: Resolved PFSH All Active Problems (Updated 09/02/23 @ 20:24 by Bella Aguayo MD) Frequent falls (Acute) Advanced care planning/counseling discussion (Acute) Palliative care encounter (Acute) Discharge planning issues (Acute) DVT prophylaxis (Acute) HFrEF (heart failure with reduced ejection fraction) (Acute) ILD (interstitial lung disease) (Acute) Acute on chronic respiratory failure with hypoxia and hypercapnia (Acute) Acute kidney injury superimposed on CKD (Acute) CAP (community acquired pneumonia) (Acute) Severe sepsis (Acute) Pleural effusion (Acute) Pneumonia (Acute) Fall (Acute) CKD (chronic kidney disease) (Chronic) CHF (congestive heart failure) (Chronic) Acute kidney injury (Acute) Respiratory acidosis (Acute) Acute hypercapnic respiratory failure (Acute) Sarcoid (Acute) Acute hypoxic respiratory failure (Acute) ILD (interstitial lung disease) (Acute) Chronic respiratory failure with hypoxia and hypercapnia (Acute) Paroxysmal atrial fibrillation (Acute) Gastritis and duodenitis (Acute) Depression (Chronic) Neuropathic pain of both feet (Acute) Obstructive sleep apnea (Chronic) Severe, CPAP Anemia (Chronic) Chronic renal failure (Chronic) Unspecified diastolic heart failure (Chronic 05/27/12) Echo 05/2012 EF 70% no valve abn; diastolic dysfx Trigeminal neuralgia of left side of face (Chronic 02/17/17) Sarcoidosis (Chronic 02/11/12) Spinal stenosis (Chronic 02/11/12) Restrictive lung disease (Chronic 03/19/16) Dr Zafar [facility]; CT dx Sarcoidosis; prednisone begun 05/2016 PFT 03/2016 FVC 47% FEVi 60% Hypoxia, chronic O2 Rx Primary osteoarthritis of both knees (Chronic 09/23/15) Osteoarthrosis (Chronic 02/23/13) Obesity hypoventilation syndrome (Chronic 09/29/16) with CARLOS: BiPAP:Dr Katie Zafar Obesity (Chronic 04/05/13) Nausea vomiting and diarrhea (Acute) recurrent 3-4 X/yr; possible IBS: spells of urgent diarrhea following a meal, occ with vomiting Hyperlipidemia (Chronic 02/23/13) PCEq 28.5%; LDL baseline 184; elects to continue statin Hypertension (Chronic 02/23/13) FRS 21%; goal 150/90 Esophageal reflux (Chronic 02/11/12) Diverticulitis of colon (Chronic 02/11/12) Medical History Chronic hypercapnic respiratory failure History of basal cell carcinoma (BCC) Dr Curtis sclerosing BCCA right jawline 10/2007 Arch pain of right foot Middle insomnia Osteoarthritis of left knee DVT prophylaxis Surgical History Tonsillectomy and adenoidectomy Cholecystectomy twice, first age 18; repeat around 2006 Appendectomy Family History Mother , 75, complications heart surgery No problems noted. Father , age 80, heart attack No problems noted. Daughter , Sarcoidosis, bleeding from the lung No problems noted. Social History Smoking/Tobacco Use Status: Never Smoking risk assessment performed?: Yes Alcohol Intake: never Drug use: Never Substance use type: does not use Adopted: No Caregiver/Support person: No Foster care: No Household members: other Details: apartment in [facility] Housing: house Number of Children: 3 Communication Needs: Corrective Lenses Do you need help understanding health information?: Rarely What is your relationship status?: Panel score (0-1 are the most socially isolated patients): 0 What type of physical activity do you participate in: none Seatbelt use: always Drive intox or ride w/intox 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 Speech is fluid. Alert and oriented. No respiratory distress. Oxygen 2 L per nasal cannula on. PT notes that patient was able to ambulate over 100 feet down the hallway and back with 2 L oxygen on earlier today. Patient discharged from ICU to main floor shortly after I see her today. Weight similar to June admission, however overall down about 7 kg from 2 years ago. Color is good. Occasional wet cough. Alert and oriented. Affect is full. Does not appear to be anxious today. Results Last Vital Signs Temp 37.1 C 09/02/23 10:02 Pulse 75 09/02/23 13:44 Resp 17 09/02/23 13:44 BP 110/68 09/02/23 10:02 Pulse Ox 100 09/02/23 13:44 Labs 09/02/23 06:14 09/02/23 06:14 Labs: Laboratory Results - last 24 hr 09/02/23 06:14 WBC 12.00 H RBC 3.65 L Hgb 10.2 L Hct 32.4 L MCV 89 MCH 27.9 MCHC 31.5 L RDW 15.9 H Plt Count 177 MPV 11.6 H Sodium 140 Potassium 4.9 Chloride 99 Carbon Dioxide 35.0 H Anion Gap 6.0 BUN 80 H Creatinine 2.5 H Est GFR (CKD-EPI 2020) 18.39 Glucose 151 H Calcium 9.7
--- NOTE | 2023-09-02 16:02 | CHAPLAIN ---
Christiane had just returned from walking with when I visited. She resting in bed, pleasant and easily engaged in a conversation. She recently moved back to [place] after living in [place] near two sons. She has two granddaughters who live near her now. One son is traveling from [place] to [facility] to visit his daughters and granddaugthers and will be stopping to see Christiane at some point. Christiane showed my photos of her greatgrandchildren and told me about them. She is a member of the [employer] but had not attended in recently and declined my offer to contact the sikhism for her. Dr. Aguayo from arrived to visit with Christiane.
[2023-09-02] MEDS: Furosemide 40 MG/4 ML VIAL IVP (18:10)
[2023-09-02] MEDS: Enoxaparin 30 MG/0.3 ML SYR SC (18:10)
--- NOTE | 2023-09-02 18:24 | W.PM.PROGNOT ---
Date of Service Date of service: 09/02/23 Time of Service: 18:24 Assessment and Plan Assessment and plan (1) Acute on chronic respiratory failure with hypoxia and hypercapnia: Status: Acute Assessment and plan: Multifactorial, due to ILD, sarcoidosis, but also a component of fluid overload due to acute on chronic systolic CHF. Noncompliance with CPAP is probably also contributing. Intensify diuresis. Continue nebs (scheduled + prn), steroids. She is not currently on antibiotics and given nonproductive cough, will check a procalcitonin prior to re-initiating antibiotics. (2) CAP (community acquired pneumonia): Status: Acute Assessment and plan: Infiltrate is seen on chest CT As above (3) HFrEF (heart failure with reduced ejection fraction): Status: Acute Assessment and plan: Intensify diuresis. LVEF was 50% on echo in 07/05. (4) Acute kidney injury superimposed on CKD: Status: Acute Assessment and plan: Cr is about the same. I suspect that it might actually improve with increase in diuretics given pulmonary hypertension. Will monitor with increase in diuresis. (5) ILD (interstitial lung disease): Status: Acute Assessment and plan: I agree this may be an ILD flare. Continue prednisone. (6) Obesity hypoventilation syndrome: Status: Chronic Assessment and plan: Continue home CPAP. (7) Hypertension: Status: Chronic Assessment and plan: No change in therapy Qualifiers: Hypertension type: renovascular hypertension Qualified Code(s): I15.0 - Renovascular hypertension (8) Paroxysmal atrial fibrillation: Status: Acute Assessment and plan: Rate controlled. Continue metoprolol. She is not on anticoagulation at home. (9) DVT prophylaxis: Status: Acute Assessment and plan: Sc enoxaparin (10) Discharge planning issues: Status: Acute Assessment and plan: DNR/DNI Continues to require hospitalization Subjective Subjective Interval history since last seen: Ms Jackson states that she is feeling better. She still feels weak and is worried about going home and falling again. She kept taking her CPAP mask off last night. She denies dizziness, CP, remains SOB, though this is better. Reports a nonproductive cough. Denies n/v. States her legs are more swollen than her baseline. Exam Narrative Exam Narrative: General: A very pleasant mildly anxious elderly female who is sitting up in bed, A&Ox3, on 2L of O2 by MD HEENT: EOMI, MMM Heart: irregularly irregular rhythm, no m/r/g Lungs: Dull breath sounds B Abdomen: soft, nontender, nondistended Extremities: 3+ B pitting edema, appears symmetric Objective Last Vital Signs Temp 37.1 C 09/02/23 10:02 Pulse 88 09/02/23 17:11 Resp 22 09/02/23 17:11 BP 110/68 09/02/23 10:02 Pulse Ox 95 09/02/23 17:11 Laboratory Results - last 24 hr 09/02/23 06:14 WBC 12.00 H RBC 3.65 L Hgb 10.2 L Hct 32.4 L MCV 89 MCH 27.9 MCHC 31.5 L RDW 15.9 H Plt Count 177 MPV 11.6 H Sodium 140 Potassium 4.9 Chloride 99 Carbon Dioxide 35.0 H Anion Gap 6.0 BUN 80 H Creatinine 2.5 H Est GFR (CKD-EPI 2020) 18.39 Glucose 151 H Calcium 9.7 Time Spent with Patient Time Spent with Patient: 25-34 minutes Time was spent: preparing to see the patient(eg.review tests), obtaining and/or reviewing separately otained hiistory, ordering medications,tests, procedures, referring, communicating with other health hearing healthcare practitioner, indepentently interpreting results, counseling the patient and care coordination
[2023-09-02] MEDS: Latanoprost 0.005% 2.5 ML BTL OU (21:04)
[2023-09-02] MEDS: Gabapentin 100 MG CAP 200 MG PO (21:04)
[2023-09-03] VITALS (9 sets, daily range): BP systolic 90–130; BP diastolic 60–79; PULSE 56–85; RESP 15–20; TEMP 35.3–36.8; O2SAT 93–97
--- NOTE | 2023-09-03 | DI.US_ITS ---
Exam(s) US EXTREMITY VENOUS BI EXAM: US EXTREMITY VENOUS BI CLINICAL HISTORY: BLE edema. TECHNIQUE: Bilateral lower extremity venous ultrasound performed using grayscale, color-flow, and sp ectral Doppler analysis. COMPARISON: No exams were available for comparison FINDINGS: The right common femoral, femoral and popliteal veins demonstrate normal compressibility, augmentatio n, and color Doppler. The posterior tibial veins are patent. The saphenofemoral junction is unremark able. There is a 5.6 x 2.0 x 5.0 cm popliteal cyst. The soft tissues are unremarkable. The left common femoral, femoral and popliteal veins demonstrate normal compressibility, augmentation , and color Doppler. The posterior tibial veins are patent. The saphenofemoral junction is unremarka ble. There is a 6.6 x 1.6 x 4.3 cm popliteal cyst. The soft tissues are unremarkable. IMPRESSION: 1. No evidence of a right lower extremity DVT. 2. No evidence of a left lower extremity DVT. 3. Bilateral popliteal cysts. DATA REPOSITORY:
[2023-09-03 06:52] LABS: Abs Immature Grans 0.04 10^3/uL (0.0-0.06); Absolute Lymphocyte Count 0.32 10^3/uL (1.2-3.4); Absolute Monocyte Count 0.51 10^3/uL (0.1-0.8); Absolute Neutrophil Count 8.01 10^3/uL (1.2-6.7); HGB 9.5 g/dL (11.2-15.7); Immature Grans % 0.5; Lymphocytes % 3.6; MCH 27.1 pg (27.0-33.0); MCHC 30.6 % (32.0-36.0); MCV 89 fL (80-95); MPV 10.8 fL (8.0-11.0); Monocytes % 5.7; Neutrophils % 90.2; Platelet Count 161 10^3/uL (130-400); RDW-SD 51.9 fL; WBC 8.88 10^3/uL (4.4-10.8)
[2023-09-03 07:13] LABS: Anion Gap 1.7 mmol/L (3-11); CO2 35.3 mmol/L (21.0-32.0); CREATININE 2.3 mg/dL (0.55-1.02); Calcium 9.8 mg/dL (8.5-10.1); Chloride 101 mmol/L (98-107); Estimated GFR 20.32 (mL/min/1.73m2); Glucose 131 mg/dL (74-106); Magnesium 2.2 mg/dL (1.8-2.4); Potassium 4.1 mmol/L (3.5-5.1); Sodium 138 mmol/L (136-145)
[2023-09-03 07:16] LABS: BUN 86 mg/dL (7-18)
[2023-09-03] MEDS: predniSONE 20 MG TAB 40 MG PO (07:32)
[2023-09-03] MEDS: Pantoprazole 20 MG TABCR PO (07:32)
[2023-09-03] MEDS: Metoprolol CR 25 MG TABCR 12.5 MG PO ×2 (07:33→20:17)
[2023-09-03] MEDS: amLODIPine 2.5 MG TAB PO (07:33)
[2023-09-03] MEDS: Sertraline 25 MG TAB PO (07:34)
[2023-09-03] MEDS: Allopurinol 100 MG TAB PO (07:34)
[2023-09-03] MEDS: Torsemide 20 MG TAB 40 MG PO (07:37)
[2023-09-03] MEDS: Dorzolamide 2% 10 ML BTL OD ×2 (07:37→20:18)
[2023-09-03 07:45] LABS: Procalcitonin < 0.1 ng/mL
[2023-09-03] MEDS: Normal Saline Flush 10 ML SYR IVP (07:55)
--- NOTE | 2023-09-03 08:09 | W.PFT ---
Date of service: 08/24/23 Time of Service: 13:04 Pulmonary Function Test Result Indications: ILD Interpretation Spirometry: There is no airflow limitation. Restrictive appearing spirometry. Lung Volumes: Normal lung volumes Diffusion Capacity: Decreased diffusion Airway Pressure: Normal airways resistance Impression Restrictive spirometry and a reduced diffusion/ Clinical Correlation therefore is recommended.
--- NOTE | 2023-09-03 09:50 | PTTR_ITS ---
Date of service: 09/03/23 Time of Service: 08:59 PT Notes Visit Reasons: Acute on chronic hypoxic respiratory failure Inpatient Physical Therapy Treatment Note [facility] Date: 09/03/23 PRECAUTIONS: Fall, standard, activity as tolerated. SUBJECTIVE: Patient reports feeling a little bit better. Reports that she didn't get half of what she ordered for breakfast and instead got several items that she doesn't like, such as yogurt, orange juice, and coffee. States that she ordered decaf tea, american muffin. OBJECTIVE: Supine in bed, agreeable to therapy. ? PAIN: yes, reports pain in back as well as bilateral knees. States that at night at home she uses a gel, which she does not have here, It starts with a 'v' and the off-brand starts with a 'd'. VITALS: monitored by nursing staff. ? ? ? BED MOBILITY/TRANSFERS? Rolling L/R: independent Supine-sit: independent ? Sit-supine: independent ? Sit-stand: independent ? Stand-sit: independent ? Bed-Chair: independent ? Chair-bed: independent ? Therapeutic Exercises (23784v2): Direct one-on-one instruction in therapeutic exercises to develop strength, endurance, range of motion and flexibility. ? Exercises: * against the wall toe ups * toe ups using FWW * education provided about dorsiflexion and TA strength contributing to reduced fall risk * standing balance, feet together unsupported x12 seconds, limited by back pain. Ambulation ? Assistive Device: FWW ? Weight bearing: full Assist: w/c follow ? Distance:? 200 feet with one seated rest AFTERNOON: 200 feet with short seated rest ? Deviation: slight antalgic gait, asymmetric step length with left foot advancing further than right. Reduced baltazar, reduced step height, reduced step length. ? Provided skilled instruction in proper exercise performance Provided skilled manual cues to facilitate proper muscle recruitment and/or form. ASSESSMENT:? Patient tolerates therapy well, no reported dyspnea, SaO2 >89% throughout. PLAN: continue global strengthening per plan of care until patient is medically cleared for discharge. TREATMENT CODE/TIME: 47 minutes beginning at 8:59 and 16 minutes beginning at 14:05 for a total of 63 minutes today.
--- NOTE | 2023-09-03 09:54 | CMPROGNOTE_ITS ---
Date of service: 09/03/23 Time of Service: 09:54 Care Management Progress Note Progress Note Text Progress Note Text: S/O: Christiane was sitting up in her chair when CM met with her. Her son, [id number] and grandson had just arrived from [place] and were visiting at the time. Christiane informed CM that she is feeling much better and had hoped to be able to discharge home soon. Her son had a lot of questions about available services and what was involved in obtaining more help at home. Christiane already has [employer] moderate needs and has housekeeping services twice a week. She had been getting nursing and PT, however the PT ended recently. It is likely that she will again have PT through [facility] when she is discharged. CM explained about the local company [employer] Medicaid process for future needs and provided her son with an application. A: Christiane is an 83 year old female admitted to [facility] on 08/31/23 for acute on chronic hypoxic respiratory failure. P: Christiane will likely be discharged home with a resumption of home health services for nursing with the addition of PT and OT, when medically cleared. She will follow up with her community providers and plan of care and transport with family. CM will continue to support Christiane and assess for discharge needs.
--- NOTE | 2023-09-03 16:41 | W.PM.PROGNOT ---
Date of Service Date of service: 09/03/23 Time of Service: 16:41 Assessment and Plan Assessment and plan (1) Acute on chronic respiratory failure with hypoxia and hypercapnia: Status: Acute Assessment and plan: Multifactorial, due to ILD, sarcoidosis, but also a component of fluid overload due to acute on chronic systolic CHF with evidence of a R pleural effusion. Noncompliance with CPAP is probably also contributing. Repeat IV lasix this afternoon and continue increased dose of torsemide. Encourage CPAP. Continue nebs (scheduled + prn), steroids. She is not currently on antibiotics and given nonproductive cough and a negative procalcitonin, I think the infiltrate seen on CT probably was more related to ILD. Low threshold to resume abx. Will check CXR in am. (2) CAP (community acquired pneumonia): Status: Acute Assessment and plan: Infiltrate is seen on chest CT As above (3) HFrEF (heart failure with reduced ejection fraction): Status: Acute Assessment and plan: Diuresis as above. LVEF was 50% on echo in 07/05. (4) Acute kidney injury superimposed on CKD: Status: Acute Assessment and plan: Cr is actually slightly better and, I suspect, will improve as we diurese more given pulmonary hypertension. Will monitor. (5) ILD (interstitial lung disease): Status: Acute Assessment and plan: in an acute flare. Continue prednisone. (6) Obesity hypoventilation syndrome: Status: Chronic Assessment and plan: Continue home CPAP. As I understand it, the patient was awaiting a home trilogy machine, which I think will be better for her than the CPAP. (7) Hypertension: Status: Chronic Assessment and plan: No change in therapy Qualifiers: Hypertension type: renovascular hypertension Qualified Code(s): I15.0 - Renovascular hypertension (8) Paroxysmal atrial fibrillation: Status: Acute Assessment and plan: Rate controlled. Continue metoprolol. She is not on anticoagulation at home. (9) DVT prophylaxis: Status: Acute Assessment and plan: Sc enoxaparin (10) Discharge planning issues: Status: Acute Assessment and plan: DNR/DNI Continues to require hospitalization, but anticipate discharge home in the next 24-48 hrs. Subjective Subjective Interval history since last seen: Ms Jackson feels better. Breathing feels better. Overall, has more energy. No dizziness, CP, SOB, n/v. Granddaughter Aylin was on the phone during my visit with the patient and we discussed that I did not see evidence of pneumonia clinically, my plans to repeat a dose of furosemide this afternoon and repeat CXR in am. We also discussed the many factors that lead to CO2 retention (exacerbation of chronic ILD, not wearing of the CPAP/BIPAP device, accumulation of fluid). Exam Narrative Exam Narrative: General: A very pleasant mildly anxious elderly female who is sitting up in a chair, A&Ox3, on 2L of O2 by NC, looks better. HEENT: EOMI, MMM Heart: irregularly irregular rhythm, no m/r/g Lungs: Dull breath sounds B, worse so on the R. Abdomen: soft, nontender, nondistended Extremities: 2+ B pitting edema, appears symmetric, better than yesterday - wrinkles evident. Objective Last Vital Signs Temp 36.2 C L 09/03/23 15:06 Pulse 73 09/03/23 15:06 Resp 16 09/03/23 15:06 BP 130/75 09/03/23 15:06 Pulse Ox 95 09/03/23 15:06 Laboratory Results - last 24 hr 09/03/23 06:05 WBC 8.88 RBC 3.50 L Hgb 9.5 L Hct 31.0 L MCV 89 MCH 27.1 MCHC 30.6 L RDW 16.0 H Plt Count 161 MPV 10.8 Immature Gran % 0.5 Neutrophils % 90.2 Lymphocytes % 3.6 Monocytes % 5.7 Eosinophils % 0.0 Basophils % 0.0 Nucleated RBC % 0.0 Absolute Neutrophils 8.01 H Absolute Lymphocytes 0.32 L Absolute Monocytes 0.51 Absolute Eosinophils 0.00 Absolute Basophils 0.00 Sodium 138 Potassium 4.1 Chloride 101 Carbon Dioxide 35.3 H Anion Gap 1.7 L BUN 86 H* Creatinine 2.3 H Est GFR (CKD-EPI 2020) 20.32 Glucose 131 H Calcium 9.8 Magnesium 2.2 Procalcitonin < 0.1 Objective Narrative Objective Narrative: Venous doppler BLEs: 1. No evidence of a right lower extremity DVT. 2. No evidence of a left lower extremity DVT. 3. Bilateral popliteal cysts. Time Spent with Patient Time Spent with Patient: 35-49 minutes Time was spent: preparing to see the patient(eg.review tests), obtaining and/or reviewing separately otained hiistory, ordering medications,tests, procedures, referring, communicating with other health manager home healthcare, indepentently interpreting results, counseling the patient and care coordination
[2023-09-03] MEDS: Enoxaparin 30 MG/0.3 ML SYR SC (17:14)
[2023-09-03] MEDS: Furosemide 40 MG/4 ML VIAL IVP (17:36)
[2023-09-03] MEDS: Gabapentin 100 MG CAP 200 MG PO (21:14)
[2023-09-03] MEDS: Latanoprost 0.005% 2.5 ML BTL OU (21:15)
--- NOTE | 2023-09-03 23:59 | TELEP.MEDREC ---
Date of service: 09/03/23 Time of Service: 23:59 Telepharmacy Home Med Rec Allergies Allergies: hydrocodone [From Vicodin] Adverse Reaction (Severe, Verified 08/16/23 11:16) AMS aspirin Adverse Reaction (Mild, Verified 08/16/23 11:16) GI upset, tolerates 81mg codeine Adverse Reaction (Verified 08/16/23 11:16) GI upset Interview Person Interviewed: Patient Quality Quality of Interview/Accuracy of Medication List: Good Sources Sources used to compile medication list: [employer] Medication List and Sprig Changes made to Home Medication List: ADDITIONS: ferrous sulfate 325 mg 3x weekly DELETIONS: none CHANGES: tylenol to 650 mg prn Additional Notes Additional Notes: none Recommended Changes Recommended Changes(reason for recommendation): none Attestation: The home medication list is now updated to the best of my knowledge and is ready to be reconciled by the provider. Please contact the TelePharmacy Medication Reconciliation Pharmacist at for any questions.
[2023-09-04] VITALS (8 sets, daily range): BP systolic 108–125; BP diastolic 66–77; PULSE 61–78; RESP 15–19; TEMP 35.3–36.6; O2SAT 92–94
[2023-09-04 06:44] LABS: Abs Immature Grans 0.04 10^3/uL (0.0-0.06); Absolute Basophil Count 0.01 10^3/uL (0.0-0.2); Absolute Eosinophil Count 0.01 10^3/uL (0.0-0.7); Absolute Lymphocyte Count 0.41 10^3/uL (1.2-3.4); Absolute Monocyte Count 0.54 10^3/uL (0.1-0.8); Basophils % 0.1; Eosinophils % 0.1; HCT 30.8 % (36.0-46.0); HGB 9.6 g/dL (11.2-15.7); Immature Grans % 0.5; Lymphocytes % 4.9; MCH 27.6 pg (27.0-33.0); MCHC 31.2 % (32.0-36.0); MCV 89 fL (80-95); MPV 10.6 fL (8.0-11.0); Monocytes % 6.4; Platelet Count 161 10^3/uL (130-400); RBC 3.48 10^6/uL (3.93-5.22); RDW 15.9 % (11.7-14.6); RDW-SD 51.7 fL; WBC 8.41 10^3/uL (4.4-10.8)
[2023-09-04 07:01] LABS: Anion Gap 6.1 mmol/L (3-11); CO2 35.9 mmol/L (21.0-32.0); CREATININE 2.1 mg/dL (0.55-1.02); Calcium 9.4 mg/dL (8.5-10.1); Chloride 97 mmol/L (98-107); Estimated GFR 22.66 (mL/min/1.73m2); Glucose 110 mg/dL (74-106); Magnesium 2.1 mg/dL (1.8-2.4); Potassium 4.1 mmol/L (3.5-5.1); Sodium 139 mmol/L (136-145)
[2023-09-04 07:07] LABS: BUN 88 mg/dL (7-18)
[2023-09-04] MEDS: amLODIPine 2.5 MG TAB PO (07:53)
[2023-09-04] MEDS: Pantoprazole 20 MG TABCR PO (07:53)
[2023-09-04] MEDS: predniSONE 20 MG TAB 40 MG PO (07:54)
[2023-09-04] MEDS: Torsemide 20 MG TAB 40 MG PO (07:55)
[2023-09-04] MEDS: Metoprolol CR 25 MG TABCR 12.5 MG PO ×2 (07:55→20:29)
[2023-09-04] MEDS: Sertraline 25 MG TAB PO (07:57)
[2023-09-04] MEDS: Normal Saline Flush 10 ML SYR IVP (07:58)
[2023-09-04] MEDS: Allopurinol 100 MG TAB PO (07:58)
--- NOTE | 2023-09-04 08:00 | DI.RAD_ITS ---
Exam(s) XR PORTABLE CHEST AP EXAM: XR PORTABLE CHEST AP CLINICAL HISTORY: follow up pleural effusion. TECHNIQUE: 2D digital imaging was performed. COMPARISON: CR,XR XR PORTABLE CHEST AP from 07/10/2023 FINDINGS: Single AP portable view. Cardiomegaly again noted. Mediastinum unchanged. Elevated left hemidiaphragm again noted. Pulmonar y venous hypertension pattern and blunting of the right costophrenic angle-probable small right pleur al effusion. IMPRESSION: Cardiomegaly. Small right pleural effusion. Probable element of interstitial pulmonary edema. DATA REPOSITORY: RADIATION DOSE DELIVERED:
[2023-09-04] MEDS: Dorzolamide 2% 10 ML BTL OD ×2 (09:25→20:35)
--- NOTE | 2023-09-04 09:34 | DI.VRAD_ITS ---
PROCEDURE INFORMATION: Exam: XR Chest Exam date and time: 09/04/2023 8:30 AM Age: 83 years old Clinical indication: Other: Follow up pleural effusion TECHNIQUE: Imaging protocol: Radiologic exam of the chest. Views: 1 view. COMPARISON: CT CHEST/ABD/PEL WO 08/31/2023 12:59 PM FINDINGS: Lungs: Bibasilar airspace disease or atelectasis. Pleural spaces: Small right pleural effusion. Heart/Mediastinum: Moderate cardiomegaly. Bones/joints: Advanced degeneration bilateral AC joints. No acute fracture or dislocation. IMPRESSION: Small right pleural effusion with bibasilar airspace disease or atelectasis. Dictated and Authenticated by: Liana Kahn MD. Ordering:NOLA Cota MD
--- NOTE | 2023-09-04 11:26 | PT.INTREAT ---
PT Notes Visit Reasons: Acute on chronic hypoxic respiratory failure Date: 09/04/23 PRECAUTIONS: Fall, standard, activity as tolerated. SUBJECTIVE: pt approached multiple times during the course of the day sleeping was not able to wake up, pt woke up around 11:00am and was agreeable to participating with therapy OBJECTIVE: Supine in bed, agreeable to therapy. ? PAIN: right shoulder, back VITALS: monitored by nursing staff. ? ? ? BED MOBILITY/TRANSFERS? Rolling L/R: independent Supine-sit: independent ? Sit-supine: independent ? Sit-stand: independent ? Stand-sit: independent ? Bed-Chair: independent ? Chair-bed: independent ? Ambulation ? Assistive Device: FWW ? Weight bearing: full Assist: w/c follow ? Distance:? 60 feet? Deviation: Stoop forward posture, antalgic gait, asymmetric step length. Reduced baltazar, reduced step height, reduced step length. Provided skilled instruction in proper exercise performance Provided skilled manual cues to facilitate proper muscle recruitment and/or form. ASSESSMENT:? pt had LOB at 60' requiring min A to stay upright, pt needed to rest after and reported she doesn't have the energy to contnue on would like to ride the WC on the way back to her room, pt stand pivot transfer going from WC to recliner Min A, stayed in recliner post session, setup A for proper body alignment, comfort safety, call espino, bedside table prior to leaving the pt. pt SA02 stayed at mid 90's the entire duration of session. pt reports if she is still here tomorrow she would like to do therapy earlier after breakfast, if possible. PLAN: continue global strengthening per plan of care until patient is medically cleared for discharge. TREATMENT CODE/TIME: [id number] 30mins (11:00-11:30am)
--- NOTE | 2023-09-04 11:37 | PT.INTREAT ---
PT Notes Visit Reasons: Acute on chronic hypoxic respiratory failure Date: 09/05/23 PRECAUTIONS: Fall, standard, activity as tolerated. SUBJECTIVE: pt in bed when approached for therapy this morning, pt reports she slept well today, Nurse Maeve reports that pt had CPAP last night improving her sleeping condition, pt also at lower NC 02 support at 1L. OBJECTIVE: Supine in bed, agreeable to therapy. Sa02 prior to therapy 95%, post therapy 94% ? PAIN: right shoulder, back but not as much compared to yesterday. VITALS: monitored by nursing staff. ? ? ? BED MOBILITY/TRANSFERS? Rolling L/R: independent Supine-sit: independent ? Sit-supine: independent ? Sit-stand: independent ? Stand-sit: independent ? Bed-Chair: independent ? Chair-bed: independent ? Ambulation ? Assistive Device: FWW ? Weight bearing: full Assist: w/c follow ? Distance:? 80', 60', 50' ? Deviation: Stoop forward posture, antalgic gait, asymmetric step length. Reduced baltazar, reduced step height, reduced step length. Provided skilled instruction in proper exercise performance Provided skilled manual cues to facilitate proper muscle recruitment and/or form. ASSESSMENT:? pt showing improved gait speed and control during sit to stand, pt had no episodes of LOB during gait training, pt able to complete activity without fatigue given enough time for seated rest breaks in between distances. PLAN: continue global strengthening per plan of care until patient is medically cleared for discharge. TREATMENT CODE/TIME: [id number] 30mins (10:00-10:30am)
--- NOTE | 2023-09-04 13:47 | W.PM.PROGNOT ---
Date of Service Date of service: 09/04/23 Time of Service: 13:48 Assessment and Plan Assessment and plan (1) Acute on chronic respiratory failure with hypoxia and hypercapnia: Status: Acute Assessment and plan: Multifactorial, due to ILD, sarcoidosis, but also a component of fluid overload due to acute on chronic systolic CHF with evidence of a R pleural effusion. Noncompliance with CPAP is probably also contributing. Continue increased dose of torsemide; will hold off of additional diuresis today. Encourage CPAP. Continue nebs (scheduled + prn), steroids. Given symptomatic worsening, will reintroduce antibiotics (doxycycline, ceftriaxone). (2) CAP (community acquired pneumonia): Status: Acute Assessment and plan: Infiltrate is seen on chest CT As above (3) HFrEF (heart failure with reduced ejection fraction): Status: Acute Assessment and plan: Diuresis as above. LVEF was 50% on echo in 07/05. (4) Acute kidney injury superimposed on CKD: Status: Acute Assessment and plan: Cr is actually improving as we continue to diurese as is often the case with pulmonary hypertension. Will monitor. (5) ILD (interstitial lung disease): Status: Acute Assessment and plan: in an acute flare. Continue prednisone. (6) Obesity hypoventilation syndrome: Status: Chronic Assessment and plan: Continue home CPAP for now. We will recheck a VBG in am after a night of CPAP use to ensure that we should not be providing a BiPAP here. As I understand it, the patient was awaiting a home trilogy machine, which I think will be better for her than the CPAP. (7) Hypertension: Status: Chronic Assessment and plan: No change in therapy Qualifiers: Hypertension type: renovascular hypertension Qualified Code(s): I15.0 - Renovascular hypertension (8) Paroxysmal atrial fibrillation: Status: Acute Assessment and plan: Rate controlled. Continue metoprolol. She is not on anticoagulation at home. (9) DVT prophylaxis: Status: Acute Assessment and plan: Sc enoxaparin (10) Discharge planning issues: Status: Acute Assessment and plan: DNR/DNI Continues to require hospitalization. Not ready for discharge home today. Subjective Subjective Interval history since last seen: Ms Jackson states she is feeling worse today. She is weaker/has less energy. She describes a worsening cough that started while she was sleeping with her CPAP (w/ 3L bleed-in and with humidification). Her throat feels really dry. She requests a lozenge and cough medicine. She felt that while walking today, she almost fell backwards. She does not feel well enough to go home. Denies dizziness, CP, nausea. Exam Narrative Exam Narrative: General: A very pleasant mildly anxious elderly female who is sitting up in a chair, A&Ox3, on 2L of O2 by NC, looks more tired. HEENT: EOMI, MMM Heart: irregularly irregular rhythm, no m/r/g Lungs: Dull breath sounds B, but overall improved from yesterday Abdomen: soft, nontender, nondistended Extremities: 2+ B pitting edema, appears symmetric, clearly improved from yesterday - can now see L tibial surface and wrinkling on BLEs. Objective Last Vital Signs Temp 35.7 C L 09/04/23 11:32 Pulse 78 09/04/23 11:32 Resp 17 09/04/23 11:32 BP 108/71 09/04/23 11:32 Pulse Ox 94 09/04/23 11:32 Laboratory Results - last 24 hr 09/04/23 06:06 WBC 8.41 RBC 3.48 L Hgb 9.6 L Hct 30.8 L MCV 89 MCH 27.6 MCHC 31.2 L RDW 15.9 H Plt Count 161 MPV 10.6 Immature Gran % 0.5 Neutrophils % 88.0 Lymphocytes % 4.9 Monocytes % 6.4 Eosinophils % 0.1 Basophils % 0.1 Nucleated RBC % 0.0 Absolute Neutrophils 7.40 H Absolute Lymphocytes 0.41 L Absolute Monocytes 0.54 Absolute Eosinophils 0.01 Absolute Basophils 0.01 Sodium 139 Potassium 4.1 Chloride 97 L Carbon Dioxide 35.9 H Anion Gap 6.1 BUN 88 H* Creatinine 2.1 H Est GFR (CKD-EPI 2020) 22.66 Glucose 110 H Calcium 9.4 Magnesium 2.1 Objective Narrative Objective Narrative: CXR: Small right pleural effusion with bibasilar airspace disease or atelectasis. Time Spent with Patient Time Spent with Patient: 35-49 minutes Time was spent: preparing to see the patient(eg.review tests), obtaining and/or reviewing separately otained hiistory, ordering medications,tests, procedures, referring, communicating with other health palliative care nurse practitioner, indepentently interpreting results, counseling the patient and care coordination
[2023-09-04] MEDS: Benzonatate 200 MG CAP PO ×2 (14:14→20:28)
[2023-09-04] MEDS: guaiFENesin 600 MG TABCR PO ×2 (14:14→20:28)
[2023-09-04] MEDS: cefTRIAXone 1 GM/50 ML BAG IVPB (14:15)
[2023-09-04] MEDS: Normal Saline 500 ML 100 ML IV (14:15)
[2023-09-04] MEDS: DOXYCYCLINE 100 MG in Normal Saline 100 ML IVPB (16:08)
[2023-09-04] MEDS: Enoxaparin 30 MG/0.3 ML SYR SC (18:21)
[2023-09-04] MEDS: Gabapentin 100 MG CAP 200 MG PO (20:29)
[2023-09-04] MEDS: Latanoprost 0.005% 2.5 ML BTL OU (20:35)
[2023-09-05] VITALS (7 sets, daily range): BP systolic 92–136; BP diastolic 50–81; PULSE 39–68; RESP 14–20; TEMP 35.3–36.3; O2SAT 90–98
[2023-09-05] MEDS: DOXYCYCLINE 100 MG in Normal Saline 100 ML IVPB ×2 (04:09→16:20)
[2023-09-05 06:47] LABS: BE (Venous) 13 mmol/L (-2-3); HCO3 (Venous) 38 mmol/L (23-28); O2 Sat (Venous) 66 %; TCO2 (Venous) 35 mmol/L (24-29); pCO2 (Venous) 59 mmHg (41-51); pH (Venous) 7.42 (7.31-7.41); pO2 (Venous) 35 mmHg
[2023-09-05 06:49] LABS: Abs Immature Grans 0.05 10^3/uL (0.0-0.06); Absolute Basophil Count 0.01 10^3/uL (0.0-0.2); Absolute Eosinophil Count 0.01 10^3/uL (0.0-0.7); Absolute Lymphocyte Count 0.58 10^3/uL (1.2-3.4); Absolute Monocyte Count 0.62 10^3/uL (0.1-0.8); Absolute Neutrophil Count 7.71 10^3/uL (1.2-6.7); Basophils % 0.1; Eosinophils % 0.1; HCT 32.7 % (36.0-46.0); Immature Grans % 0.6; Lymphocytes % 6.5; MCH 27.2 pg (27.0-33.0); MCHC 30.6 % (32.0-36.0); MCV 89 fL (80-95); MPV 9.4 fL (8.0-11.0); Monocytes % 6.9; Neutrophils % 85.8; Platelet Count 156 10^3/uL (130-400); RBC 3.68 10^6/uL (3.93-5.22); RDW-SD 51.8 fL; WBC 8.98 10^3/uL (4.4-10.8)
[2023-09-05 07:09] LABS: CREATININE 2.1 mg/dL (0.55-1.02); Calcium 9.5 mg/dL (8.5-10.1); Chloride 98 mmol/L (98-107); Estimated GFR 22.66 (mL/min/1.73m2); Glucose 103 mg/dL (74-106); Magnesium 2.1 mg/dL (1.8-2.4); Potassium 3.9 mmol/L (3.5-5.1); Sodium 141 mmol/L (136-145)
[2023-09-05 07:13] LABS: BUN 91 mg/dL (7-18)
[2023-09-05] MEDS: amLODIPine 2.5 MG TAB PO (07:47)
[2023-09-05] MEDS: Metoprolol CR 25 MG TABCR 12.5 MG PO (07:47)
[2023-09-05] MEDS: Torsemide 20 MG TAB 40 MG PO (07:48)
[2023-09-05] MEDS: Sertraline 25 MG TAB PO (07:48)
[2023-09-05] MEDS: guaiFENesin 600 MG TABCR PO ×2 (07:48→20:05)
[2023-09-05] MEDS: Allopurinol 100 MG TAB PO (07:49)
[2023-09-05] MEDS: predniSONE 20 MG TAB 40 MG PO (07:49)
[2023-09-05] MEDS: Benzonatate 200 MG CAP PO ×3 (07:49→20:05)
[2023-09-05] MEDS: Pantoprazole 20 MG TABCR PO (07:50)
[2023-09-05] MEDS: Dorzolamide 2% 10 ML BTL OD ×2 (08:49→20:10)
--- NOTE | 2023-09-05 14:21 | PGE_ITS ---
Date of Service Date of service: 09/05/23 Time of Service: 14:22 Assessment and Plan Assessment and plan (1) Acute on chronic respiratory failure with hypoxia and hypercapnia: Status: Acute Assessment and plan: Multifactorial, due to ILD, sarcoidosis, but also a component of fluid overload due to acute on chronic systolic CHF with evidence of a R pleural effusion. The patient also may in fact have pneumonia, for which she was re-initiated on antibiotics yesterday. Noncompliance with CPAP is probably also contributing. We did obtain a VBG after wearing a CPAP overnight which shows compensated respiratory acidosis. Continue increased dose of torsemide; will hold off of additional diuresis today. Encourage CPAP. Wore this for 8 hrs last night. Continue nebs (scheduled + prn), steroids. Continue ceftriaxone + doxycycline. (2) CAP (community acquired pneumonia): Status: Acute Assessment and plan: Infiltrate is seen on chest CT As above (3) HFrEF (heart failure with reduced ejection fraction): Status: Acute Assessment and plan: Diuresis as above. LVEF was 50% on echo in 07/05. (4) Acute kidney injury superimposed on CKD: Status: Acute Assessment and plan: Cr is actually improving as we continue to diurese as is often the case with p ulmonary hypertension. The rise in BUN may have to do with steroids. Will monitor. (5) ILD (interstitial lung disease): Status: Acute Assessment and plan: in an acute flare. Continue prednisone. (6) Obesity hypoventilation syndrome: Status: Chronic Assessment and plan: Continue home CPAP for now. The patient awaiting a home trilogy machine, which I think will be better for her than the CPAP. (7) Hypertension: Status: Chronic Assessment and plan: No change in therapy Qualifiers: Hypertension type: renovascular hypertension Qualified Code(s): I15.0 - Renovascular hypertension (8) Paroxysmal atrial fibrillation: Status: Acute Assessment and plan: Rate controlled. Continue metoprolol. She is not on anticoagulation at home. (9) Frequent falls: Status: Acute Assessment and plan: Continue working with PT. I do not think that the patient can safely be on anticoagulation. (10) Subclinical hypothyroidism: Status: Acute Assessment and plan: Start levothyroxine 25 mcg daily. (11) DVT prophylaxis: Status: Acute Assessment and plan: Sc enoxaparin (12) Discharge planning issues: Status: Acute Assessment and plan: DNR/DNI Continues to require hospitalization. Anticipate discharge home in the next 24-48 hrs with home health services. Subjective Subjective Interval history since last seen: Ms Jackson states she is feeling a little better today. Cough has improved and is nonproductive. Denies dizziness, CP, nausea. Feels stronger on her feet, but does not feel ready to go home. She walked 80', then 60' and 50 ' with PT, requiring breaks for shortness of breath. Exam Narrative Exam Narrative: General: A very pleasant mildly anxious elderly female who is sitting up in a chair, A&Ox3, on 2L of O2 by NC, looks better; the son is visiting her. I also watched the patient as she was working with physical therapy. HEENT: EOMI, MMM Heart: irregularly irregular rhythm, no m/r/g Lungs: Dull breath sounds B at B bases, CTAB upper lung guadalupe B. Abdomen: soft, nontender, nondistended Extremities: 2+ B pitting edema, appears symmetric, improved from yesterday. Objective Last Vital Signs Temp 36.2 C L 09/05/23 07:09 Pulse 67 09/05/23 07:09 Resp 20 09/05/23 07:09 BP 134/66 09/05/23 07:09 Pulse Ox 94 09/05/23 07:09 Laboratory Results - last 24 hr 09/05/23 06:40 WBC 8.98 RBC 3.68 L Hgb 10.0 L Hct 32.7 L MCV 89 MCH 27.2 MCHC 30.6 L RDW 16.0 H Plt Count 156 MPV 9.4 Immature Gran % 0.6 Neutrophils % 85.8 Lymphocytes % 6.5 Monocytes % 6.9 Eosinophils % 0.1 Basophils % 0.1 Nucleated RBC % 0.0 Absolute Neutrophils 7.71 H Absolute Lymphocytes 0.58 L Absolute Monocytes 0.62 Absolute Eosinophils 0.01 Absolute Basophils 0.01 VBG pH 7.42 H VBG pCO2 59 H VBG pO2 35 VBG HCO3 38 H VBG Total CO2 35 H VBG O2 Saturation 66 VBG Base Excess 13 H Sodium 141 Potassium 3.9 Chloride 98 Carbon Dioxide 38.0 H Anion Gap 5.0 BUN 91 H* Creatinine 2.1 H Est GFR (CKD-EPI 2020) 22.66 Glucose 103 Calcium 9.5 Magnesium 2.1 TSH 5.50 H Time Spent with Patient Time Spent with Patient: 35-49 minutes Time was spent: preparing to see the patient(eg.review tests), obtaining and/or reviewing separately otained hiistory, ordering medications,tests, procedures, referring, communicating with other health career coordinator, indepentently interpreting results, counseling the patient and care coordination
--- NOTE | 2023-09-05 14:45 | RT.EKG_ITS ---
APPROVED REPORT Exam: Resting ECG Reason for Exam: chest discomfort Patient Location: I HR:75 bpm ECG Measurements Heart Rate 75 AXIS ID [id number] P [id number] QRSd 174 QRS -15 QT 439 T -19 QTc 491 Conclusion Atrial fibrillation...V-rate 32- 66, irreg A-activity Ventricular premature complex...V complex w/ short R-R interval Right bundle branch block...QRSd>120, terminal axis(90,270) Probable left ventricular hypertrophy...(RaVL+SV3)xQRSd >300 I have reviewed and interpreted ECG and agree with software generated interpretation.
[2023-09-05] MEDS: cefTRIAXone 1 GM/50 ML BAG IVPB (15:07)
[2023-09-05] MEDS: Acetaminophen 325 MG TAB PO (15:30)
[2023-09-05 15:32] LABS: Lab Add On Test DONE
[2023-09-05 15:50] LABS: Troponin I < 50 ng/L (<or=60)
[2023-09-05] MEDS: Enoxaparin 30 MG/0.3 ML SYR SC (17:31)
[2023-09-05] MEDS: Gabapentin 100 MG CAP 200 MG PO (20:05)
[2023-09-05] MEDS: Latanoprost 0.005% 2.5 ML BTL OU (20:10)
[2023-09-06] VITALS (18 sets, daily range): BP systolic 112–152; BP diastolic 56–96; PULSE 42–98; RESP 16–23; TEMP 35.5–36.6; O2SAT 89–95
[2023-09-06] MEDS: DOXYCYCLINE 100 MG in Normal Saline 100 ML IVPB ×2 (03:47→16:26)
--- NOTE | 2023-09-06 04:36 | NUR.NOTE ---
Nursing Note:[id number] Patient showed on telemetry to have 15 second instance of Asystole by ICU. Patient was awakened and did not feel unusual.
[2023-09-06 06:39] LABS: Abs Immature Grans 0.08 10^3/uL (0.0-0.06); Absolute Lymphocyte Count 0.54 10^3/uL (1.2-3.4); Absolute Monocyte Count 0.52 10^3/uL (0.1-0.8); Absolute Neutrophil Count 7.16 10^3/uL (1.2-6.7); HCT 32.9 % (36.0-46.0); HGB 10.2 g/dL (11.2-15.7); Lymphocytes % 6.5; MCH 27.5 pg (27.0-33.0); MCV 89 fL (80-95); MPV 10.9 fL (8.0-11.0); Monocytes % 6.3; Neutrophils % 86.2; Platelet Count 156 10^3/uL (130-400); RBC 3.71 10^6/uL (3.93-5.22); RDW-SD 52.2 fL
[2023-09-06] MEDS: Levothyroxine 25 MCG TAB PO (06:43)
[2023-09-06 07:02] LABS: Anion Gap 3.7 mmol/L (3-11); CO2 39.3 mmol/L (21.0-32.0); CREATININE 2.2 mg/dL (0.55-1.02); Calcium 9.3 mg/dL (8.5-10.1); Chloride 100 mmol/L (98-107); Estimated GFR 21.43 (mL/min/1.73m2); Glucose 105 mg/dL (74-106); Magnesium 2.2 mg/dL (1.8-2.4); Potassium 3.7 mmol/L (3.5-5.1); Sodium 143 mmol/L (136-145)
[2023-09-06 07:09] LABS: BUN 92 mg/dL (7-18)
[2023-09-06 07:46] LABS: Lab Add On Test DONE
[2023-09-06] MEDS: Allopurinol 100 MG TAB PO (08:13)
[2023-09-06] MEDS: guaiFENesin 600 MG TABCR PO ×2 (08:13→21:16)
[2023-09-06] MEDS: Pantoprazole 20 MG TABCR PO (08:13)
[2023-09-06] MEDS: Sertraline 25 MG TAB PO (08:13)
[2023-09-06] MEDS: Benzonatate 200 MG CAP PO ×3 (08:13→21:16)
[2023-09-06] MEDS: predniSONE 20 MG TAB 40 MG PO (08:13)
[2023-09-06] MEDS: Torsemide 20 MG TAB 40 MG PO (08:13)
[2023-09-06] MEDS: Dorzolamide 2% 10 ML BTL OD ×2 (08:14→21:33)
[2023-09-06 08:20] LABS: NT-proBNP 5531 pg/mL (<300)
--- NOTE | 2023-09-06 08:30 | RT.EKG_ITS ---
APPROVED REPORT Exam: Resting ECG Reason for Exam: 15 sec sinus pause last night Patient Location: I HR:35 bpm ECG Measurements Heart Rate 35 AXIS NC [id number] P [id number] QRSd 178 QRS -12 QT 466 T -11 QTc 356 Conclusion Atrial fibrillation...V-rate 34- 37, irreg A-activity IVCD, consider atypical RBBB...QRSd>120mS, terminal axis(90,270) Probable left ventricular hypertrophy...(RaVL+SV3)xQRSd >300 Lateral infarct, age indeterminate...Q>35mS, T neg, V5-V6 I aVL I have reviewed and interpreted ECG and agree with software generated interpretation.
[2023-09-06 09:26] LABS: Lab Add On Test DONE
[2023-09-06 09:40] LABS: Troponin I < 50 ng/L (<or=60)
--- NOTE | 2023-09-06 10:41 | NUR.NOTE ---
Nursing Note: At approximately 0915 on 09/06/23, this RN gave report to Akiko Knight RN in the ICU. At approximately 0924 on 09/06/23, pt. was transferred from Med/Surg to ICU per MD order. This RN helped ELECTRIC MILKERS INSTALLER settle pt. in to room 219. Pt.'s belongings were moved from Med/Surg to ICU. This RN had attempted to get a standing scale weight on the pt. when transferring the pt. from the recliner chair to the wheelchair, but the standing scale was broken. This RN informed the ELECTRIC MILKERS INSTALLER.
--- NOTE | 2023-09-06 11:06 | W.PM.PROGNOT ---
Date of Service Date of service: 09/06/23 Time of Service: 11:06 Assessment and Plan Assessment and plan (1) Sinus pause: Status: Acute Assessment and plan: Will monitor in the ICU while awaiting beta janak washout. The patient has pacer pads on. If she does become significantly bradycardic/has a recurrence of a significant pause, would use atropine vs dobutamine vs dopamine and recontact [facility] for a transfer for pacemaker placement. Continue synthroid. Encourage CPAP with sleep. Could be the reason why the patient was having falls at home. (2) Acute on chronic respiratory failure with hypoxia and hypercapnia: Status: Acute Assessment and plan: Multifactorial, due to ILD, sarcoidosis, but also a component of fluid overload due to acute on chronic systolic CHF with evidence of a R pleural effusion. The patient also may in fact have pneumonia, for which she was re-initiated on antibiotics yesterday. Noncompliance with CPAP is probably also contributing. We did obtain a VBG after wearing a CPAP overnight which shows compensated respiratory acidosis. Increase diuresis - NT-proBNP is higher today than on admission. Encourage CPAP. Wore this for 8 hrs last night. Continue nebs (scheduled + prn), steroids. Continue ceftriaxone + doxycycline. (3) CAP (community acquired pneumonia): Status: Acute Assessment and plan: Infiltrate is seen on chest CT As above (4) HFrEF (heart failure with reduced ejection fraction): Status: Acute Assessment and plan: Diuresis as above. LVEF was 50% on echo in 07/05. (5) Acute kidney injury superimposed on CKD: Status: Acute Assessment and plan: Cr is actually improving as we continue to diurese as is often the case with pulmonary hypertension. The rise in BUN may have to do with steroids. Will monitor. (6) ILD (interstitial lung disease): Status: Acute Assessment and plan: in an acute flare. Continue prednisone. (7) Obesity hypoventilation syndrome: Status: Chronic Assessment and plan: Continue home CPAP for now. The patient awaiting a home trilogy machine, which I think will be better for her than the CPAP. (8) Hypertension: Status: Chronic Assessment and plan: No change in therapy Qualifiers: Hypertension type: renovascular hypertension Qualified Code(s): I15.0 - Renovascular hypertension (9) Paroxysmal atrial fibrillation: Status: Acute Assessment and plan: Hold beta blockers given the sinus pause at night and baseline bradycardia. She is not on anticoagulation at home. (10) Frequent falls: Status: Acute Assessment and plan: Continue working with PT. I do not think that the patient can safely be on anticoagulation. (11) Subclinical hypothyroidism: Status: Acute Assessment and plan: Continue levothyroxine 25 mcg daily. (12) DVT prophylaxis: Status: Acute Assessment and plan: Sc heparin (13) Discharge planning issues: Status: Acute Assessment and plan: DNR/DNI Continues to require hospitalization. Suspect will require transfer to a formerly [facility] facility for pacemaker placement. Total Critical Care Time 60 minutes. Subjective Subjective Interval history since last seen: Ms Jackson had a 15 second pause last night around 3:30 am while sleeping on BiPAP. The patient was arousable and asymptomatic when she was checked on. She, in fact, did not receive metoprolol yesterday evening due to her baseline bradycardia. The last time she received metoprolol was yesterday morning. No CP, SOB is same, no dizziness/nausea. This am, she has no new complaints. She is open to the idea of possibly having a pacemaker. Her case was discussed with [facility] cardiology (Dr Fletcher), who felt that the patient should be observed longer prior to being considered for transfer to [facility] for a pacemaker. He did recommend that if significant bradycardia or pauses recur, we consider starting atropine vs dobutamine vs dopamine and call [facility] back for transfer at that time. I have spoken with the patient and her two sons about the situation today. She is DNR/DNI. She was transferred to the ICU with pacer pads on for closer monitoring. Exam Narrative Exam Narrative: General: A very pleasant mildly anxious elderly female who is sitting up in a chair, A&Ox3, on 1L of O2 by OR, looks unchanged HEENT: EOMI, MMM Heart: irregularly irregular rhythm, no m/r/g Lungs: Dull breath sounds B at B bases, CTAB upper lung guadalupe B. Abdomen: soft, nontender, nondistended Extremities: 2+ B pitting edema, appears symmetric, unchanged. Objective Last Vital Signs Temp 36.6 C 09/06/23 09:54 Pulse 49 L 09/06/23 09:06 Resp 18 09/06/23 09:06 BP 129/82 09/06/23 09:06 Pulse Ox 93 09/06/23 09:06 Laboratory Results - last 24 hr 09/05/23 09/05/23 09/06/23 06:40 15:31 06:15 WBC 8.30 RBC 3.71 L Hgb 10.2 L Hct 32.9 L MCV 89 MCH 27.5 MCHC 31.0 L RDW 16.0 H Plt Count 156 MPV 10.9 Immature Gran % 1.0 Neutrophils % 86.2 Lymphocytes % 6.5 Monocytes % 6.3 Eosinophils % 0.0 Basophils % 0.0 Nucleated RBC % 0.0 Absolute Neutrophils 7.16 H Absolute Lymphocytes 0.54 L Absolute Monocytes 0.52 Absolute Eosinophils 0.00 Absolute Basophils 0.00 Sodium 143 Potassium 3.7 Chloride 100 Carbon Dioxide 39.3 H Anion Gap 3.7 BUN 92 H* Creatinine 2.2 H Est GFR (CKD-EPI 2020) 21.43 Glucose 105 Calcium 9.3 Magnesium 2.2 Troponin I < 50 < 50 NT-Pro-B Natriuret Pep 5531 H Add-On Test Request DONE DONE 09/06/23 06:15 WBC RBC Hgb Hct MCV MCH MCHC RDW Plt Count MPV Immature Gran % Neutrophils % Lymphocytes % Monocytes % Eosinophils % Basophils % Nucleated RBC % Absolute Neutrophils Absolute Lymphocytes Absolute Monocytes Absolute Eosinophils Absolute Basophils Sodium Potassium Chloride Carbon Dioxide Anion Gap BUN Creatinine Est GFR (CKD-EPI 2020) Glucose Calcium Magnesium Troponin I NT-Pro-B Natriuret Pep Add-On Test Request DONE Time Spent with Patient Time Spent with Patient: >50 minutes Time was spent: preparing to see the patient(eg.review tests), obtaining and/or reviewing separately otained hiistory, ordering medications,tests, procedures, referring, communicating with other health residential child care counselor, indepentently interpreting results, counseling the patient and care coordination
[2023-09-06] MEDS: cefTRIAXone 1 GM/50 ML BAG IVPB (14:30)
[2023-09-06] MEDS: Furosemide 40 MG/4 ML VIAL IVP (16:26)
--- NOTE | 2023-09-06 17:45 | RT.EKG_ITS ---
APPROVED REPORT Exam: Resting ECG Reason for Exam: sinus pause Patient Location: I HR:90 bpm ECG Measurements Heart Rate 90 AXIS [place] [id number] P [id number] QRSd 163 QRS -7 QT 407 T -40 QTc 498 Conclusion Atrial fibrillation...V-rate 82- 92, irreg A-activity Right bundle branch block...QRSd>120, terminal axis(90,270) I have reviewed and interpreted ECG and agree with software generated interpretation.
[2023-09-06] MEDS: Lidocaine 2% Jelly 6 ML SYR (18:58)
--- NOTE | 2023-09-06 19:26 | CE_ITS ---
Date of service: 09/06/23 Time of Service: 17:50 Event Note: Responded to a staff emergency called overhead. The patient was in bed, awake, when she reported to the nurse that she would like to get up to use the bathrom (to urinate). Before she had a chance to get up, the patient became unresponsive, and her assault amphibious vehicle crewman revealed 10.6 seconds of asystole. The patient came to it before chest compressions had a chance to be initiated. EKG showed Afib with RBBB, no bradycardia. I spoke with the patient and we established the plan for me to call [facility] back for another attempt at transfer for an evaluation for a pacemaker, which I did. While awaiting a call back from [facility], the patient and family called me back into the room to discuss what would happen if Ms Jackson did not get a pacemaker. We discussed how another episode could happen at any time, how it would probably not be safe for her to walk, how she would not be able to return home to independent living since she lives alone, how she would likely have to go to the retirement. The patient told me that she is decided against getting the pacem jose because she is tired of fighting. She just wants to stay here, she says, and go to sleep, by which she means let go. She is interested in staying at the hospital on comfort measures. We discussed how then this would mean not being on a assault amphibious vehicle crewman and not in an icu bed. We also discussed that I did not know how long it would take her to - it could be a long time. We discussed the primary risk of this happening while she is walking, her falling and fracturing something and dying as a result of the fall or the heart not restarting. She verbalized understanding. Discused with family at bedside as well as with the son Luis Manuel on the phone at the same time. Total Critical Care Time 45 minutes. Time Spent with Patient Time spent in critical care(minutes): 45 Time Spent Included: Coordination of care, Chart review, Documenting critically ill care, Time at immediate bedside, Discussing critically ill care with other medical staff and Discussing Hx and/or treatment with family
[2023-09-06] MEDS: Gabapentin 100 MG CAP 200 MG PO (21:16)
[2023-09-06] MEDS: Heparin 5,000 UNITS/ML VIAL 5000 UNITS SC (21:17)
[2023-09-06] MEDS: Latanoprost 0.005% 2.5 ML BTL OU (22:02)
[2023-09-07] VITALS (8 sets, daily range): BP systolic 104–153; BP diastolic 53–76; PULSE 44–66; RESP 18–20; TEMP 35.3–36.7; O2SAT 93–96
[2023-09-07] MEDS: DOXYCYCLINE 100 MG in Normal Saline 100 ML IVPB ×2 (04:19→16:58)
[2023-09-07] MEDS: Levothyroxine 25 MCG TAB PO (06:10)
[2023-09-07] MEDS: predniSONE 20 MG TAB 40 MG PO (08:45)
[2023-09-07] MEDS: Furosemide 40 MG/4 ML VIAL IVP (08:45)
[2023-09-07] MEDS: Normal Saline Flush 10 ML SYR IVP ×2 (08:45→16:11)
[2023-09-07] MEDS: Heparin 5,000 UNITS/ML VIAL 5000 UNITS SC ×2 (08:45→19:45)
[2023-09-07] MEDS: Allopurinol 100 MG TAB PO (08:46)
[2023-09-07] MEDS: Benzonatate 200 MG CAP PO ×3 (08:46→19:44)
[2023-09-07] MEDS: Pantoprazole 20 MG TABCR PO (08:46)
[2023-09-07] MEDS: Sertraline 25 MG TAB PO (08:46)
[2023-09-07] MEDS: guaiFENesin 600 MG TABCR PO ×2 (08:47→19:44)
[2023-09-07] MEDS: Dorzolamide 2% 10 ML BTL OD ×2 (08:48→19:44)
--- NOTE | 2023-09-07 10:07 | CMPROGNOTE_ITS ---
Date of service: 09/07/23 Time of Service: 10:07 Care Management Progress Note Progress Note Text Progress Note Text: S/O: Christiane was sitting up in her chair when CM met with her. Her niece was in the room visiting, but was not able to stay for the conversation. Christiane stated that she is planning to meet with Palliative care who she is expecting to receive support from, while she navigates her goals of care. She stated that she is tired of fighting everything. She reported that she is no longer on medication for her heart, and that she does not want dialysis, or transfer to a tertiary facility for a pacemaker. CM asked if Christiane has any family whom she could stay with, and she stated that her family members work, so she doesn't think she would be able to. CM asked if Christiane would be interested in going to short term rehab; she stated that she continues to work with PT, but she doesn't want to make any decisions about discharge until after she meets with palliative. She stated that her son Luis Manuel is traveling from [place], and her other son, Calvin, is currently visiting for the holidays. She is hoping that they can both be at the meeting with palliative. Palliative care will plan to meet with Christiane Wednesday around 3pm; CM provided Christiane with this time so she can let her family know. CM will continue to follow. A: Christiane is an 83 year old female admitted to [facility] on 08/31/23 for acute on chronic hypoxic respiratory failure. P: Christiane will likely be discharged home with a resumption of home health services for nursing with the addition of PT and OT, when medically cleared. She will follow up with her community providers and plan of care and transport with family. CM will continue to support Christiane and assess for discharge needs.
--- NOTE | 2023-09-07 10:27 | W.PM.PROGNOT ---
Date of Service Date of service: 09/07/23 Time of Service: 10: Assessment and Plan Assessment and plan (1) Sinus pause: Status: Acute Assessment and plan: Was most likely was d/t beta blockers. Initially on property assessment monitor in the ICU then on telemetry on med-surg not further pauses and telemtry discontinued on 09/06 Provider discussion with [facility] re: transfer and pacemaker placement, did not result in active transfer Will continue synthroid. Continue CPAP with sleep. History of falls at home could be d/t sinus pause and bardycardia Considering EKG vs resuming telemetry if the patient remains for persisting bradycardia (2) Acute on chronic respiratory failure with hypoxia and hypercapnia: Status: Acute Assessment and plan: Most likely multifactorial, due to history of interstitial lung disease, sarcoidosis,, but also a component of fluid overload due to acute on chronic systolic CHF with evidence of a R pleural effusion as per CT. Chest XR done on 09/04 showed right-sided pneumonia:antibiotics restarted Continue Doxycycline IV Continue Ceftriaxone IV Continue CPAP overnight for at least 8 hours Continue furosemide IV, dose down to 20mg IV BID Continue nebs and steroids. BMP in AM CBC in AM (3) CAP (community acquired pneumonia): Status: Acute Assessment and plan: Chest XR showed infiltrate As above (4) HFrEF (heart failure with reduced ejection fraction): Status: Acute Assessment and plan: continue diuresing as above. LVEF was 50% on echo in 07/12/23. (5) Acute kidney injury superimposed on CKD: Status: Acute Assessment and plan: Cr 2.2 today from 2.1 will continue diuretics at a lower dose will continue to monitor as pulmonary hypertension might tolerate higher dosing BUN is 92 from 91 Will monitor. (6) ILD (interstitial lung disease): Status: Acute Assessment and plan: Continue prednisone. (7) Obesity hypoventilation syndrome: Status: Chronic Assessment and plan: continue CPAP . encourage night use Previously mentioned in anterior notes:The patient awaiting a home trilogy machine (8) Hypertension: Status: Chronic Assessment and plan: No change in therapy Qualifiers: Hypertension type: renovascular hypertension Qualified Code(s): I15.0 - Renovascular hypertension (9) Paroxysmal atrial fibrillation: Status: Acute Assessment and plan: Still holding beta blockers given the sinus pause at night and baseline bradycardia.HR 44 to 56 this AM No anticoagulation at home (10) Frequent falls: Status: Acute Assessment and plan: PT reordered I do not think that the patient can safely be on anticoagulation. (11) Subclinical hypothyroidism: Status: Acute Assessment and plan: On levothyroxine 25 mcg daily. (12) DVT prophylaxis: Status: Acute Assessment and plan: Continue SC heparin TEDs (13) Discharge planning issues: Status: Acute Assessment and plan: DNR/DNI Continues to require hospitalization.Palliative care consult ordered Considered need for tertiary care facility earlier for pacemaker; at this time will keep monitoring Might need SNF Subjective Subjective Patient reports: no new complaints, feels better, tolerating liquids well, tolerating a regular diet, voiding w/o difficulty (cuenca, no dysuria ), flatus, no bowel movement (since 09/04 on PRN docusate), blood in stool and shortness of breath (improved, on 3l/min NC); denies diarrhea, nausea, vomiting or fever Exam Narrative Exam Narrative: Constitutional The patient is sitting in chair comfortable . The patient is without acute distress on 3l/mi of oxygen and has obese body habitus. HENMT: Head is normocephalic, facial structures with normal appearance Eyes: Well aligned, intact ROM Neck: Normal ROM, no meningeal signs Neuro:alert and oriented to self, person, place, time. No neurological focal deficit Chest:Chest is symmetrical and normal appearance Resp: Normal respiratory pattern, speaks in full sentences, unlabored breathing, decreased breath sounds to right lower lung guadalupe Cardio: regular rhythm, S1, S2, no murmur, capillary refill<3 sec., positive pulses to all 4 extremities. GI: Abdomen is not distended, soft and non tender, bowel sounds are present : Negative Costovertebral angle tenderness, no bladder distension-cuenca cath in place Back/spine/Pelvis: No back tenderness, normal alignment Integumentary: No skin lesions or rash Extremities: strength 5/5 to bilateral lower and upper extremities Psych: RASS 0, congruent mood and normal to sad affect. Objective Last Vital Signs Temp 36.1 C L 09/07/23 07:56 Pulse 44 L 09/07/23 07:56 Resp 18 09/07/23 07:56 BP 135/53 L 09/07/23 07:56 Pulse Ox 94 09/07/23 07:56 Time Spent with Patient Time Spent with Patient: >50 minutes Time was spent: preparing to see the patient(eg.review tests), ordering medications,tests, procedures, referring, communicating with other health workforce investment act career manager, indepentently interpreting results, counseling the patient and care coordination
--- NOTE | 2023-09-07 15:07 | PTTR_ITS ---
Date of service: 09/07/23 Time of Service: 09:14 PT Notes Visit Reasons: Acute on chronic hypoxic respiratory failure Inpatient Physical Therapy Treatment Note [facility] Date: 09/07/23 PRECAUTIONS: Fall, standard, activity as tolerated. SUBJECTIVE: Patient reports having had a rough night. Per hospitalist report patient's heart stopped for several seconds before restarting on its own. With this in mind, patient wishes to be conservative with therapy treatment today. AFTERNOON: Patient reports feeling hot all over, states that this is unusual for her. Reports that nursing staff was just in taking her vitals and reported her to be afebrile. OBJECTIVE: Patient supine in bed, agreeable to therapy. AFTERNOON: Patient sidelying in bed, requests help to transition to supine and scoot up in bed so that she may long sit in bed for therapy. ? PAIN: none reported. VITALS: monitored by nursing staff. Therapeutic Activities (10133p3): Direct one-on-one instruction in dynamic activities to improve functional performance. ? BED MOBILITY/TRANSFERS? Rolling L/R: max of 1 Supine-sit: min assist to maneuver legs, patient raises head of bed to ~45 degrees.? Sit-supine: not assessed ? Sit-stand: SBA? Stand-sit: SBA? Bed-Chair: SBA - patient declines gait belt ? Chair-bed: SBA - patient declines gait belt Provided skilled cues and instruction on performance and technique throughout. ? Therapeutic Exercises (61247m5): Direct one-on-one instruction in therapeutic exercises to develop strength, endurance, range of motion and flexibility. ? Exercises: * coached patient on use of acapella and incentive spirometer, using various verbal and tactile cues. Patient is unable to pass the 500 cc samaria on the inspirometer, often unable to move piston at all. * educated patient on self manipulation of first rib with folded sheet. Manually assisted patient to demonstrate amount of pressure needed. This did not change patient's spirometer measurements at all on retest. * ribcage expansion with shoulder flexion * ribcage expansion with shoulder abduction. ASSESSMENT:? Patient is leery of working too hard with therapy today due to cardiac event last night. PLAN: Continue global strengthening per plan of care until patient is medically cleared for discharge or until patient's goals of care change. TREATMENT CODE/TIME: 28 minutes beginning at 9:14 and 12 minutes beginning at 15:46 for a total of 40 minutes today.
[2023-09-07] MEDS: cefTRIAXone 1 GM/50 ML BAG IVPB (16:08)
[2023-09-07] MEDS: Furosemide 40 MG/4 ML VIAL 20 MG IVP (16:08)
--- NOTE | 2023-09-07 16:38 | CHAPLAIN ---
Christiane and I met when she was in the ICU. She said she's been back and forth between M/S and ICU a few times. She had family/friends (?) visiting with her so I didn't stay long.
[2023-09-07] MEDS: Latanoprost 0.005% 2.5 ML BTL OU (20:39)
[2023-09-07] MEDS: Gabapentin 100 MG CAP 200 MG PO (20:40)
[2023-09-08] VITALS (7 sets, daily range): BP systolic 125–150; BP diastolic 51–76; PULSE 47–60; RESP 14–20; TEMP 36–36.2; O2SAT 95–97
[2023-09-08] MEDS: Acetaminophen 325 MG TAB PO ×2 (03:46→22:51)
[2023-09-08] MEDS: Levothyroxine 25 MCG TAB PO (05:17)
[2023-09-08] MEDS: DOXYCYCLINE 100 MG in Normal Saline 100 ML IVPB ×2 (05:18→17:41)
[2023-09-08 06:30] LABS: Abs Immature Grans 0.13 10^3/uL (0.0-0.06); Absolute Basophil Count 0.01 10^3/uL (0.0-0.2); Absolute Eosinophil Count 0.01 10^3/uL (0.0-0.7); Absolute Lymphocyte Count 0.68 10^3/uL (1.2-3.4); Absolute Monocyte Count 0.62 10^3/uL (0.1-0.8); Absolute Neutrophil Count 8.51 10^3/uL (1.2-6.7); Basophils % 0.1; Eosinophils % 0.1; HCT 32.6 % (36.0-46.0); Immature Grans % 1.3; Lymphocytes % 6.8; MCH 26.9 pg (27.0-33.0); MCHC 30.7 % (32.0-36.0); MCV 88 fL (80-95); MPV 10.8 fL (8.0-11.0); Monocytes % 6.2; Neutrophils % 85.5; Platelet Count 145 10^3/uL (130-400); RBC 3.72 10^6/uL (3.93-5.22); RDW 16.2 % (11.7-14.6); WBC 9.96 10^3/uL (4.4-10.8)
[2023-09-08 06:45] LABS: Anion Gap 2.5 mmol/L (3-11); CO2 40.5 mmol/L (21.0-32.0); CREATININE 1.9 mg/dL (0.55-1.02); Calcium 8.6 mg/dL (8.5-10.1); Chloride 102 mmol/L (98-107); Estimated GFR 25.56 (mL/min/1.73m2); Glucose 109 mg/dL (74-106); Magnesium 1.8 mg/dL (1.8-2.4); Potassium 3.5 mmol/L (3.5-5.1); Sodium 145 mmol/L (136-145)
[2023-09-08 06:47] LABS: BUN 81 mg/dL (7-18)
[2023-09-08] MEDS: guaiFENesin 600 MG TABCR PO ×2 (07:51→19:45)
[2023-09-08] MEDS: Benzonatate 200 MG CAP PO ×3 (07:52→19:45)
[2023-09-08] MEDS: Pantoprazole 20 MG TABCR PO (07:52)
[2023-09-08] MEDS: predniSONE 20 MG TAB 40 MG PO (07:52)
[2023-09-08] MEDS: Sertraline 25 MG TAB PO (07:52)
[2023-09-08] MEDS: Normal Saline Flush 10 ML SYR IVP ×2 (07:52→13:38)
[2023-09-08] MEDS: Furosemide 40 MG/4 ML VIAL 20 MG IVP ×2 (07:52→17:09)
[2023-09-08] MEDS: Heparin 5,000 UNITS/ML VIAL 5000 UNITS SC ×2 (07:52→19:45)
[2023-09-08] MEDS: Dorzolamide 2% 10 ML BTL OD ×2 (07:53→19:45)
--- NOTE | 2023-09-08 11:36 | PDOC.CMPRO ---
Date of service: 09/08/23 Time of Service: 11:36 Care Management Progress Note Progress Note Text Progress Note Text: S/O: Christiane was sitting up in bed when ERA met with her. On Wednesday she had a witnessed 10.6 second period of asystole which resolved spontaneously without any intervention. It did however raise issues about her goals of care. Christiane had already made the decision to have a DNR/DNI code status and a new COLST form was recently completed. After Christiane recovered from the cardiac event, she was asked if she would be willing to be transferred to have a pacemaker inserted. Initially she agreed, but a short time later changed her mind. She explained that she did not want any invasive procedures or surgery. The initial conversation seemed to indicate that she wanted to me made comfort measures. A Palliative consult was requested to further explore her goals of care. A meeting was held this afternoon with Christiane, her son Henry, her son Luis Manuel (on the phone) ERA Gordon and Palliative provider Milagros Lopez. Christiane voiced that she realizes that she will not be able to return to her apartment; her care needs have exceeded her ability to return to independent living.Various options were discussed and specifically, how aggressive she wished to be with her medical care. After a lengthy discussion, Christiane decided that she would be willing to go to a SNF for short term rehab with a likely transition to prison care. ERA provided Henry with A termite treater helper Medicaid, [employer], application, as well as a list of SNFs in [place]. Christiane indicated she wished to remain in DNR/DNI code status but wants to continue to treat her medical problems as they arise. A: Christiane is an 83 year old female admitted to [facility] on 08/31/23 for acute on chronic hypoxic respiratory failure. P: Christiane will likely transfer to a long-term facility then transition to termite treater helper care. Referrals will be sent when Christiane and her family choose facilities they may be interested in. Tranportation will be determined by disposition. CM will continue to support Christiane and assess for discharge needs.
--- NOTE | 2023-09-08 12:00 | PT.INTREAT ---
Date of service: 09/08/23 Time of Service: 11:40 PT Notes Visit Reasons: Acute on chronic hypoxic respiratory failure Inpatient Physical Therapy Treatment Note [facility] Date: 09/08/23 PRECAUTIONS: Fall, standard, activity as tolerated. SUBJECTIVE: Patient reports tail bone pain from sitting up in her chair. Also reports fatigue. Appears to have depressed mood compared to other times this clinician has interacted with this patient, but the change may simply be from fatigue. OBJECTIVE: in bed, sidelying on right side, facing away from door. Appears to be asleep, wearing supplemental O2 at 2L/min via nasal cannula. Agreeable to therapy. ? PAIN: none reported VITALS: monitored by nursing staff? BED MOBILITY/TRANSFERS? Rolling L/R: set up assist Supine-sit: SBA with additional time? Sit-supine: not assessed ? Sit-stand: SBA from slightly elevated bed to FWW? Stand-sit: SBA from FWW? Bed-Chair: SBA with FWW ? Chair-bed: not assessed. Provided skilled cues and instruction on performance and technique throughout. ? Therapeutic Exercises ([id number]): Direct one-on-one instruction in therapeutic exercises to develop strength, endurance, range of motion and flexibility. Ambulation ? Assistive Device: FWW? Weight bearing: full Assist: SBA ? Distance:? 10 feet? Deviation: wide ANASTACIA, reduced baltazar. No report of pain or dyspnea. Patient does report feeling concern about whether and how far she should walk, given her heart condition. ? Provided skilled instruction in proper exercise performance Provided skilled manual cues to facilitate proper muscle recruitment and/or form. ASSESSMENT:? Patient tolerates therapy well. No LOB, no SOB, no pain reported. PLAN: Continue global strengthening per plan of care until patient is medically cleared for discharge or until patient's goals of care change. TREATMENT CODE/TIME: 12 minutes beginning at 11:40
[2023-09-08] MEDS: cefTRIAXone 1 GM/50 ML BAG IVPB (13:38)
--- NOTE | 2023-09-08 15:09 | W.PM.PROGNOT ---
Date of Service Date of service: 09/08/23 Time of Service: 15:09 Assessment and Plan Assessment and plan (1) Sinus pause: Status: Acute Assessment and plan: Was most likely was d/t beta blockers. telemetry discontinued on 09/06 Provider discussion with [facility] re: transfer and pacemaker placement, did not result in active transfer, which patient would now decline Will continue synthroid. Continue CPAP with sleep. History of falls at home could be d/t sinus pause and bradycardia (2) Acute on chronic respiratory failure with hypoxia and hypercapnia: Status: Acute Assessment and plan: Most likely multifactorial, due to history of interstitial lung disease, sarcoidosis,, but also a component of fluid overload due to acute on chronic systolic CHF with evidence of a R pleural effusion as per CT. Chest XR done on 09/04 showed right-sided pneumonia:antibiotics restarted Continue Doxycycline IV day Continue Ceftriaxone IV day Continue CPAP overnight for at least 8 hours Continue furosemide IV, dose down to 20mg IV BID Continue nebs and steroids. BMP in AM CBC in AM (3) CAP (community acquired pneumonia): Status: Acute Assessment and plan: Chest XR showed infiltrate As above (4) HFrEF (heart failure with reduced ejection fraction): Status: Acute Assessment and plan: continue diuresing as above. LVEF was 50% on echo in 07/12/23. (5) Acute kidney injury superimposed on CKD: Status: Acute Assessment and plan: Cr improved to 1.9 will continue diuretics at a lower dose will continue to monitor as pulmonary hypertension might tolerate higher dosing BUN is 81 avoid nephrotoxic drugs, renal dosing as needed Will monitor. (6) ILD (interstitial lung disease): Status: Acute Assessment and plan: Continue prednisone. (7) Obesity hypoventilation syndrome: Status: Chronic Assessment and plan: continue CPAP . encourage night use Previously mentioned in anterior notes:The patient awaiting a home trilogy machine (8) Hypertension: Status: Chronic Assessment and plan: No change in therapy Qualifiers: Hypertension type: renovascular hypertension Qualified Code(s): I15.0 - Renovascular hypertension (9) Paroxysmal atrial fibrillation: Status: Acute Assessment and plan: Still holding beta blockers given the sinus pause at night and baseline bradycardia. No anticoagulation at home (10) Frequent falls: Status: Acute Assessment and plan: PT following patient not safely be on anticoagulation. (11) Subclinical hypothyroidism: Status: Acute Assessment and plan: On levothyroxine 25 mcg daily. (12) DVT prophylaxis: Status: Acute Assessment and plan: Continue SC heparin TEDs (13) Discharge planning issues: Status: Acute Assessment and plan: DNR/DNI Continues to require hospitalization.Palliative care consult ordered case management following. does not want pacemaker but continue all other medical management likely referrals will be placed for skilled rehab. discussed with Dr Horton Subjective Subjective Patient reports: no new complaints Interval history since last seen: No further sinus pauses noted patient denies any chest pain shortness of breath or lightheadedness states she is eating and drinking well was up to the chair today with no issue Exam Narrative Exam Narrative: Elderly female of stated age frail appearing in no acute distress head is atraumatic oral mucosa is moist cardiovascular regular rate and rhythm respirations even and unlabored breath sounds clear diminished in the bases abdomen benign moves all extremities Objective Last Vital Signs Temp 36.0 C L 09/08/23 11:19 Pulse 50 L 09/08/23 11:19 Resp 14 09/08/23 11:19 BP 150/76 H 09/08/23 11:19 Pulse Ox 95 09/08/23 11:19 Laboratory Results - last 24 hr 09/08/23 06:10 WBC 9.96 RBC 3.72 L Hgb 10.0 L Hct 32.6 L MCV 88 MCH 26.9 L MCHC 30.7 L RDW 16.2 H Plt Count 145 MPV 10.8 Immature Gran % 1.3 Neutrophils % 85.5 Lymphocytes % 6.8 Monocytes % 6.2 Eosinophils % 0.1 Basophils % 0.1 Nucleated RBC % 0.0 Absolute Neutrophils 8.51 H Absolute Lymphocytes 0.68 L Absolute Monocytes 0.62 Absolute Eosinophils 0.01 Absolute Basophils 0.01 Sodium 145 Potassium 3.5 Chloride 102 Carbon Dioxide 40.5 H Anion Gap 2.5 L BUN 81 H* Creatinine 1.9 H Est GFR (CKD-EPI 2020) 25.56 Glucose 109 H Calcium 8.6 Magnesium 1.8 Time Spent with Patient Time Spent with Patient: 35-49 minutes Time was spent: preparing to see the patient(eg.review tests), obtaining and/or reviewing separately otained hiistory, ordering medications,tests, procedures, indepentently interpreting results, counseling the patient and care coordination
--- NOTE | 2023-09-08 16:24 | PCPN_ITS ---
Date of service: 09/08/23 Time of Service: 14:45 Assessment and Plan Assessment and plan (1) Sinus pause: Status: Acute Assessment and plan: would not want CPR, no pacemaker, no surgical interventions (2) Frequent falls: Status: Acute Assessment and plan: continue working w/PT not safe to return home, needs caregiver support (3) HFrEF (heart failure with reduced ejection fraction): Status: Acute (4) ILD (interstitial lung disease): Status: Acute (5) Acute on chronic respiratory failure with hypoxia and hypercapnia: Status: Acute Assessment and plan: on baseline 2L (6) Acute kidney injury superimposed on CKD: Status: Acute (7) CAP (community acquired pneumonia): Status: Acute Assessment and plan: continue ceftriaxone (8) Chronic respiratory failure with hypoxia and hypercapnia: Status: Acute (9) Obstructive sleep apnea: Status: Chronic Assessment and plan: continue CPAP (10) Sarcoidosis: Status: Chronic (11) Edema: Status: Resolved Assessment and plan: continue IV Lasix (12) Discharge planning issues: Status: Acute Assessment and plan: reviewed discharge options 1. return home w/caregivers 2. relocate to family member home 3. community detention 4. half-way facility preference for SNF at this time (13) Palliative care encounter: Status: Acute Assessment and plan: PC to continue to follow, plans for f/u later this week for ongoing review and SNF referral applications f/u to confirm POC and answer additional questions Christiane is hospice eligible today; this was not reviewed in today's visit as she would not be a candidate d/t no caregiver support or insurance coverage in SNF; If POC were to change to her discharging to her home w/support or family's home hospice benefit should be reviewed as additional support option. (14) Advanced care planning/counseling discussion: Status: Acute Assessment and plan: reviewed POC preferences, interventions (invasive vs non, medications, O2, abx, etc) - she is okay with receiving abx, IVF, oxygen, diuresis and would want these continued; she would not want surgery, pacemaker, dialysis; if something acutely changes (kidneys stopped working) w/only invasive interventions available for treatment would opt for comfort focused care reviewed discharge options as above; plan for ongoing work w/PT for discharge to SNF for ongoing support reviewed LTM application, provided via CM, encouraged completion JOESPH encourage family to review today's visit together for ongoing review w/PC this week spent 45 mins w/ACP Subjective Subjective Interval history since last seen: Present in today's PC meeting: james Grande, via telephone son/[facility] Chow - Last PC visit 09/02 - 09/06 she had a sinus pause event w/asystole for 10.6 seconds, heart started independently prior to intervention; Christiane declined transfer to [facility] for pacemaker placement; - she continues IV antibiotics for PNA and IV Lasix for edema per staff: increased fatigue today, c/o intermittent pain over tail bone from fall prior to hospitalization, repositioning enough for pain mx, morphine avail but has not been needed; - ADLs: decreased ivy, assistance w/dressing, Garza for urine d/t diuresis w/increased fall risk, assistance w/BM toileting, some assistance/observation bathing/hygiene, 1 person transfer assist - working intermittently w/PT, some hesitancy d/t concern over repeat syncopal event/fall risk -metoprolol on hold d/t bradycardia Christiane denies pain today; is comfortable reviewing care plan, goals of care and discharge options She does not have [place] [facility] insurance; she does not have money to private pay caregivers in home, pay for stay in community detention, no family is available for caregiving or for her to move into; james Figueroa up from [place] through Wed, james Chow on his way up will arrive late tonight Christiane would like to remain in [place] through the rest of her life - She would like the priorities in her care to be on pain management and comfort; she is okay with receiving antibiotics, oxygen, diuresis, and other minimally invasive interventions; she does not want dialysis, pacemaker or surgery, would prefer to transition to [facility] if something were to acutely change requiring more invasive intervention for appropriate treatment Exam Narrative Exam Narrative: General: older adult female, chronically ill/frail appearing, lying slight on R side; fatigued HEENT: hearing grossly WNL; MMM; normal facial exam Neck: supple, no masses Resp: even and unlabored, no audible cough/wheeze Skin: scattered bruising BUE; dry; atrophy; warm to touch Psych: pleasant, cooperative, speech clear; mood congruent, affect normal/blunted, thought process WNL; insight limited, judgment fair to limited Objective Last Vital Signs Temp 96.8 F L 09/08/23 15:12 Pulse 49 L 09/08/23 15:12 Resp 18 09/08/23 15:12 BP 141/70 H 09/08/23 15:12 Pulse Ox 97 09/08/23 15:12 Laboratory Results - last 24 hr 09/08/23 06:10 WBC 9.96 RBC 3.72 L Hgb 10.0 L Hct 32.6 L MCV 88 MCH 26.9 L MCHC 30.7 L RDW 16.2 H Plt Count 145 MPV 10.8 Immature Gran % 1.3 Neutrophils % 85.5 Lymphocytes % 6.8 Monocytes % 6.2 Eosinophils % 0.1 Basophils % 0.1 Nucleated RBC % 0.0 Absolute Neutrophils 8.51 H Absolute Lymphocytes 0.68 L Absolute Monocytes 0.62 Absolute Eosinophils 0.01 Absolute Basophils 0.01 Sodium 145 Potassium 3.5 Chloride 102 Carbon Dioxide 40.5 H Anion Gap 2.5 L BUN 81 H* Creatinine 1.9 H Est GFR (CKD-EPI 2020) 25.56 Glucose 109 H Calcium 8.6 Magnesium 1.8
--- NOTE | 2023-09-08 16:41 | PT.INTREAT ---
PT Notes Visit Reasons: Acute on chronic hypoxic respiratory failure Attempted to see patient for second session and for completion of progress note but patient was part of an hour-long palliative care meeting with the whole care team and is emotionally exhausted. She preferred to stay in bed for supper and is willing to continue working with PT to gain her highest mobility level in anticipation of discharge to SNF whenever accepted. Will see patient tomorrow morning for progress note completion and plan of care review.
[2023-09-08] MEDS: Latanoprost 0.005% 2.5 ML BTL OU (20:19)
[2023-09-08] MEDS: Gabapentin 100 MG CAP 200 MG PO (20:19)
[2023-09-09] VITALS (7 sets, daily range): BP systolic 142–180; BP diastolic 60–70; PULSE 41–60; RESP 16–18; TEMP 35.6–36.5; O2SAT 95–97
[2023-09-09] MEDS: Levothyroxine 25 MCG TAB PO (05:19)
[2023-09-09] MEDS: Polyethylene Glycol 3350 17 GM PACKET PO (05:19)
[2023-09-09] MEDS: DOXYCYCLINE 100 MG in Normal Saline 100 ML IVPB ×2 (05:24→16:56)
[2023-09-09] MEDS: Sertraline 25 MG TAB PO (07:32)
[2023-09-09] MEDS: Benzonatate 200 MG CAP PO ×2 (07:33→13:09)
[2023-09-09] MEDS: Pantoprazole 20 MG TABCR PO (07:33)
[2023-09-09] MEDS: Heparin 5,000 UNITS/ML VIAL 5000 UNITS SC ×2 (07:33→21:55)
[2023-09-09] MEDS: predniSONE 20 MG TAB 40 MG PO (07:33)
[2023-09-09] MEDS: guaiFENesin 600 MG TABCR PO (07:33)
[2023-09-09] MEDS: Dorzolamide 2% 10 ML BTL OD ×2 (07:34→21:59)
[2023-09-09] MEDS: Normal Saline Flush 10 ML SYR IVP ×5 (07:34→21:54)
[2023-09-09] MEDS: Furosemide 40 MG/4 ML VIAL 20 MG IVP ×2 (08:06→15:17)
[2023-09-09] MEDS: Allopurinol 100 MG TAB 50 MG PO (08:06)
--- NOTE | 2023-09-09 09:05 | PDOC.CMPRO ---
Date of service: 09/09/23 Time of Service: 09:05 Care Management Progress Note Progress Note Text Progress Note Text: S/O: Christiane was sitting up in bed visiting with her family when CM met with her. Her sons had reviewed the list of SNFs and identified 3 that they felt would be acceptable: [place], [place] and [facility]. They were encouraged to make additional choices but were reluctant to do so. At the end of the day a bed offer was received from [facility] for tomorrow. Per provider, Christiane is medically ready for discharge. CM informed Christiane about the bed offer, and while happy she received the offer, was surprised, and a little anxious that it could happen as fast as tomorrow. A: Christiane is an 83 year old female admitted to [facility] on 08/31/23 for acute on chronic hypoxic respiratory failure. P: Christiane will likely transfer to a fdc facility then possibly transition to skilled nursing care. A bed offer was received from [facility] for tomorrow. Tranportation will be determined by disposition. CM will continue to support Christiane and assess for discharge needs.
--- NOTE | 2023-09-09 10:05 | INPN_ITS ---
PT Notes Visit Reasons: Acute on chronic hypoxic respiratory failure Physical Therapy Inpatient Progress Note Date: 09/09/2023 Dates of Service: 09/01/2023 through 09/09/2023 Referring Doctor: Jack Parks MD PT Orders: PT CONSULT: Eval/Treat Precautions: Fall. Standard. Activity as tolerated. Patient Profile/Admitting Diagnosis: Fanny is an 83-year-old female who presented to the ED on 08/31/2023 via EMS due to a a fall while coming back from the bathroom headed to her bedroom at home. The patient is admitted for management of community-acquired pneumonia, acute kidney acute kidney injury on CKD , acute on chronic respiratory failure with hypoxia and hypercarbia, ILD, obesity hypoventilation syndrome, HTN, and PAF. PMHX: All Active Problems (Updated 08/31/23 @ 16:31 by Jack Parks MD) 78-year-old Ms. Mg Sosa ILD (interstitial lung disease) (Acute) Acute on chronic respiratory failure with hypoxia and hypercapnia (Acute) Acute kidney injury superimposed on CKD (Acute) CAP (community acquired pneumonia) (Acute) Severe sepsis (Acute) Pleural effusion (Acute) Pneumonia (Acute) Fall (Acute) CKD (chronic kidney disease) (Chronic) CHF (congestive heart failure) (Chronic) Acute kidney injury (Acute) Respiratory acidosis (Acute) Acute hypercapnic respiratory failure (Acute) Sarcoid (Acute) Acute hypoxic respiratory failure (Acute) ILD (interstitial lung disease) (Acute) Chronic respiratory failure with hypoxia and hypercapnia (Acute) Paroxysmal atrial fibrillation (Acute) Gastritis and duodenitis (Acute) Depression (Chronic) Neuropathic pain of both feet (Acute) Obstructive sleep apnea (Chronic) Severe, CPAPAnemia (Chronic) Chronic renal failure (Chronic) Unspecified diastolic heart failure (Chronic 05/27/12) Echo 05/2012 EF 70% no valve abn; diastolic dysfx Trigeminal neuralgia of left side of face (Chronic 02/17/17) Sarcoidosis (Chronic 02/11/12) Spinal stenosis (Chronic 02/11/12) Restrictive lung disease (Chronic 03/19/16) Dr Zafar [facility]; CT dx Sarcoidosis; prednisone begun 05/2016 PFT 03/2016 FVC 47% FEVi 60% Hypoxia, chronic O2 Rx Primary osteoarthritis of both knees (Chronic 09/23/15) Osteoarthrosis (Chronic 02/23/13) Obesity hypoventilation syndrome (Chronic 09/29/16) with CARLOS: BiPAP:Dr Katie Zafar Obesity (Chronic 04/05/13) Nausea vomiting and diarrhea (Acute) recurrent 3-4 X/yr; possible IBS: spells of urgent diarrhea following a meal, occ with vomiting Hyperlipidemia (Chronic 02/23/13) PCEq 28.5%; LDL baseline 184; elects to continue statin Hypertension (Chronic 02/23/13) FRS 21%; goal 150/90 Esophageal reflux (Chronic 02/11/12) Diverticulitis of colon (Chronic 02/11/12) Medical History Chronic hypercapnic respiratory failure History of basal cell carcinoma (BCC) Dr Curtis sclerosing BCCA right jawline 10/2007 Arch pain of right foot Middle insomnia Osteoarthritis of left knee DVT prophylaxis Surgical History Tonsillectomy and adenoidectomy Cholecystectomy twice, first age 18; repeat around 2006 Appendectomy Social History/Home Situation: Lives alone in a private home with 4 steps to enter with rails on both sides. Has a lady who comes in once a week for 4 to 5 hours and takes care of her laundry, housekeeping, and sometimes grocery shopping. Daughter helps mainly with grocery shopping. Modified independent with indoor ambulation only using rollator. No longer drives. On chronic oxygen supplementation at 2 L/min during the day. Equipment Owned/DME: Oxygen supplementation, rollator Subjective: Agreeable to getting out of bed for this session so she can visit better with her son and granddaughter who came from out of state. Amenable to going to SNF and working with PT as she is able to tolerate to achieve her goals. Objective: General Observation: Resting in bed. Son and granddaughter visiting. Telemetry monitoring in place. Oxygen supplementation at 3 L/min via NC. High BMI. Swelling in B LE. Garza catheter in place. Mental Status: Alert and oriented as to person, place, time, and purpose. Able to pay attention, focus, and respond appropriately. Pain: As above Vital Signs: Oxygen saturation between 89% and 92% on 3 L/min via NC ROM: Right Upper Extremity: Shoulder Flexion lacks the last 25% of AROM. Shoulder abduction lacks the last 25% of AROM. Elbow flexion WFL. Wrist flexion WFL. Functional opening and closing of hand WFL. Left Upper Extremity: Shoulder Flexion lacks the last 25% of AROM. Shoulder abduction lacks the last 25% of AROM. Elbow flexion WFL. Wrist flexion WFL. Functional opening and closing of hand WFL. Right Lower Extremity: Hip flexion lacks the last 50% of AROM. Hip abduction lacks the last 25% of AROM. Knee flexion 10 to 90 degrees knee extension -10 degrees. Ankle dorsiflexion to neutral only. Ankle plantarflexion WFL. Left Lower Extremity: Hip flexion lacks the last 50% of AROM. Hip abduction lacks the last 25% of AROM. Knee flexion 10 to 90 degrees knee extension -10 degrees. Ankle dorsiflexion to neutral only. Ankle plantarflexion WFL. Strength: Right Upper Extremity: Shoulder flexors 3-/5. Shoulder abductors 3-/5. Elbow flexors 4-/5. Elbow extensors 4-/5. Management Consulting strong. Left Upper Extremity: Shoulder flexors 3-/5. Shoulder abductors 3-/5. Elbow flexors 4-/5. Elbow extensors 4-/5. Management Consult[employer] strong. Right Lower Extremity: Hip flexors 3-/5. Hip abductors 3-/5. Knee flexors 3-/5. Knee extensors 3-/5. Ankle dorsiflexors 3-/5. Ankle plantarflexors 4-/5. Left Lower Extremity: Hip flexors 3-/5. Hip abductors 3-/5. Knee flexors 3-/5. Knee extensors 3-/5. Ankle dorsiflexors 3-/5. Ankle plantarflexors 4-/5. Bed Mobility/Transfers: Minimal cueing provided for use of B hands as needed for support, movement sequence, Ad management, and and posture to reduce fall risk and minimize pain report. Supine to sit standby assist with HOB at 30 degrees Sit to stand stand by assist with FWW Stand to sit stand by assist with FWW Bed to reclining chair stand by assist with FWW Gait: Facilitated safe and correct performance of level surface ambulation covering a distance of 10 steps using front-wheeled walker with reciprocal step-to heel-toe gait pattern with minimal verbal cueing provided for AD management, self pacing, and directional changes. Required contact-guard assist during this task. NO shortness of breath. No report of lightheadedness, dizziness, and chest pain. Balance: Static Sitting: Normal Dynamic Sitting: Good Static Standing: Fair Dynamic Standing: Fair Special Tests: Mobility Limitations Standardized Measure [facility] AM-PAC 6 clicks Basic Mobility Inpatient Short Form: Raw Score: 20 CMS Score: 36% deficit Informed Consent/Education: Patient was instructed in purpose of PT consult and plan of care. Agreeable to continue with established PT POC to achieve personal goals in anticipation of discharge to SNF whenever accepted. ASSESSMENT: Patient able to perform bed mobility, transfers, and short distance in-room ambulation of up to 10 steps using FWW with contact guard assist. Not short of breath during transfer this morning. Patient presents with clinical signs and symptoms consistent with current/admitting diagnoses that have resulted to mobility limitations, gait instability, generalized weakness, and overall ADL decline as demonstrated by the following impairment level findings: 1. Decreased strength to B UE/LE major muscle groups 2. Impaired sitting/standing balance 3. Impaired activity tolerance 4. Limitation of joint range of motion in shoulders and B hips (chroinic) 5. Shortness of breath 6. Swelling in B LE, R more affected Impairments are contributing to the following functional limitations: 1. Decline in bed mobility skills 2. Decline in transfer skills 3. Difficulty with ambulation without assistive device and physical assistance 4. Increased completion time for mobility ADL performance 5. Increased risk for falls 6. Difficulty with managing steps alone safely Patient is assessed as a 26962 moderate complexity based on the following: History: 83-year-old female with past medical history as indicated above Examination: Demonstrable impairment in strength, balance, and mobility level with underlying impairments and functional limitations as exhibited above as well as deficit score of 47% utilizing the [facility] Mobility Inpatient Short Form Presentation: Evolving Decision Makin moderate complexity Goals: Goals X1 week 1. Supine-Sit independent NOT MET, CONTINUE 2. Sit-Supine independent NOT MET, CONTINUE 3. Sit-Stand independent NOT MET, CONTINUE 4. Stand-Sit independent with FWW NOT MET, CONTINUE 5. Bed-Chair independent with FWW NOT MET, CONTINUE 6. Chair-Bed independent with FWW NOT MET, CONTINUE 7. Independent gait on level surface with use of FWW for at least 75 feet without report of pain nor dyspnea NOT MET, CONTINUE 8. Independent stair negotiation while holding onto 1 rail + cane for at least 5 steps without report of pain nor dyspnea NOT MET, CONTINUE 9. Independent with home exercise program NOT MET, CONTINUE 10. Good static and dynamic standing balance/tolerance NOT MET, CONTINUE Plan of Care/Treatment Plan: 1-2x/day, 7 days/week x 1 week. Plan of care has been reviewed with the ENGINE REPAIR SUPERVISOR providing the service under Physical Therapy direction. Initiate Physical Therapy intervention for pain management as needed, strengthening, bed mobility, transfers, gait, stairs, balance training, and use of assistive device. -HEP on energy conservation -HEP on chest expansion ex -HEP on fall reduction -Break PT session into two short ones focusing on progressive strengthening in one session and on functional mobility progression duirng the other session. DISCHARGE RECOMMENDATIONS: [] Home with no services [] [X] Home with services. Patient will benefit from home health PT services in order to progress mobility level using least restrictive assistive ambulatory device, assess home safety, identify additional equipment needs, and establish a functional maintenance program that will increase ability of patient to remain at home. [] Home with outpatient PT [] [] SNF for continued rehabilitation [] [] Retirement Care [] [] SNF versus LTC based on ability to participate and progress [] TREATMENT CODE/TIME: 63417 x 15 minutes for 1 unit beginning at 9:48 AM. Thank you for the opportunity to participate in the care of this patient. Love Jack PT, DPT, CLT [facility] [place], [place]
[2023-09-09] MEDS: cefTRIAXone 1 GM/50 ML BAG IVPB (13:08)
--- NOTE | 2023-09-09 14:08 | PGE_ITS ---
Date of Service Date of service: 09/09/23 Time of Service: 14:08 Assessment and Plan Assessment and plan (1) Sinus pause: Status: Acute Assessment and plan: Was most likely was d/t beta blockers. no unresponsive episodes or c/o telemetry discontinued on 09/06 declines transfer or pacemaker placement, Will continue synthroid. Continue CPAP with sleep. History of falls at home could be d/t sinus pause and bradycardia (2) Acute on chronic respiratory failure with hypoxia and hypercapnia: Status: Acute Assessment and plan: Most likely multifactorial, due to history of interstitial lung disease, sarcoidosis,, but also a component of fluid overload due to acute on chronic systolic CHF with evidence of a R pleural effusion as per CT. Chest XR done on 09/04 showed right-sided pneumonia:antibiotics restarted Continue Doxycycline for 6/7 days Continue Ceftriaxone for 5/7 days Continue furosemide IV, dose down to 20mg IV BID, transition to PO in am Continue nebs and steroids. respiratory status stable. (3) CAP (community acquired pneumonia): Status: Acute Assessment and plan: Chest XR showed infiltrate As above (4) HFrEF (heart failure with reduced ejection fraction): Status: Acute Assessment and plan: continue diuresing as above with downstep to home dosing in am. LVEF was 50% on echo in 07/12/23. (5) Acute kidney injury superimposed on CKD: Status: Acute Assessment and plan: Cr improved to 1.9 will continue diuretics at a lower dose will continue to monitor as pulmonary hypertension might tolerate higher dosing BUN is 81 avoid nephrotoxic drugs, renal dosing as needed Will monitor. (6) ILD (interstitial lung disease): Status: Acute Assessment and plan: Continue prednisone. (7) Obesity hypoventilation syndrome: Status: Chronic Assessment and plan: continue CPAP . encourage night use Previously mentioned in anterior notes:The patient awaiting a home trilogy machine (8) Hypertension: Status: Chronic Assessment and plan: No change in therapy Qualifiers: Hypertension type: renovascular hypertension Qualified Code(s): I15.0 - Renovascular hypertension (9) Paroxysmal atrial fibrillation: Status: Acute Assessment and plan: Still holding beta blockers given the sinus pause at night and baseline bradycardia. No anticoagulation at home (10) Frequent falls: Status: Acute Assessment and plan: PT following patient not safely be on anticoagulation. (11) Subclinical hypothyroidism: Status: Acute Assessment and plan: On levothyroxine 25 mcg daily. (12) DVT prophylaxis: Status: Acute Assessment and plan: Continue SC heparin TEDs (13) Discharge planning issues: Status: Acute Assessment and plan: DNR/DNI stable for discharge at this point. .Palliative care consult ordered case management following. does not want pacemaker but continue all other medical management referrals pending for skilled rehab. discussed with Dr Horton Subjective Subjective Patient reports: no new complaints, feels better, tolerating liquids well, tolerating a regular diet and afebrile; denies shortness of breath Exam Narrative Exam Narrative: Elderly female of stated age frail appearing in no acute distress head is atraumatic oral mucosa is moist cardiovascular regular rate and rhythm respirations even and unlabored breath sounds clear diminished in the bases abdomen benign moves all extremities Objective Last Vital Signs Temp 35.9 C L 09/09/23 07:59 Pulse 41 L 09/09/23 07:59 Resp 17 09/09/23 07:59 BP 142/67 H 09/09/23 07:59 Pulse Ox 97 09/09/23 07:59 Time Spent with Patient Time Spent with Patient: 35-49 minutes Time was spent: obtaining and/or reviewing separately otained hiistory, ordering medications,tests, procedures, referring, communicating with other health outdoor emergency care technician, indepentently interpreting results and care coordination
--- NOTE | 2023-09-09 16:08 | PT.INTREAT ---
Date of service: 09/09/23 Time of Service: 15:58 PT Notes Visit Reasons: Acute on chronic hypoxic respiratory failure Inpatient Physical Therapy Treatment Note [facility] Date: 09/09/23 PRECAUTIONS: Fall, standard, activity as tolerated. SUBJECTIVE: Patient reports being glad that her family is here visiting. Patient also reports being constipated, states that she was given some medication for it this morning. OBJECTIVE: Patient is sitting on the commode during therapy today.? PAIN: none reported. VITALS: monitored by nursing staff. Therapeutic Activities ([id number]): Direct one-on-one instruction in dynamic activities to improve functional performance. Patient participates in breathing exercises / chest expansion exercises. Diaphragmatic breathing has been shown to help relax the pelvic floor and can contribute to a more complete, less strenuous bowel movement. ? BED MOBILITY/TRANSFERS? Rolling L/R: not assessed Supine-sit: not assessed ? Sit-supine: not assessed ? Sit-stand: not assessed ? Stand-sit: not assessed ? Bed-Chair: not assessed ? Chair-bed: not assessed Provided skilled cues and instruction on performance and technique throughout. ASSESSMENT:? Patient tolerates therapy well, requests that today's session be very short due to wanting to visit with her family. PLAN: Continue global strengthening per plan of care until patient is medically cleared for discharge and obtains a safe discharge plan. TREATMENT CODE/TIME: 8 minutes beginning at 15:36
[2023-09-09] MEDS: Docusate Sodium 100 MG CAP PO (16:56)
--- NOTE | 2023-09-09 17:10 | CHAPLAIN ---
Christiane's family from [place] was just leaving to get some dinner when I visited. Christiane was happy to have her family around her for the. Some local family members were staying with her this evening. Christiane said she's had some decisions to make, and that things have been explained very well to her and her family. She said that Office Engineer Heidi Mcleod has done a great job keeping her family informed and explaining medical options to them. I will continue to visit.
[2023-09-09] MEDS: Bisacodyl 10 MG SUPP PR (18:14)
[2023-09-09] MEDS: Latanoprost 0.005% 2.5 ML BTL OU (22:00)
[2023-09-09] MEDS: Mineral Oil-Enema 133 ML BTL PR (23:46)
[2023-09-10] MEDS: Bisacodyl 5 MG TABEC 10 MG PO (01:59)
[2023-09-10] MEDS: DOXYCYCLINE 100 MG in Normal Saline 100 ML IVPB (06:04)
[2023-09-10] MEDS: Levothyroxine 25 MCG TAB PO (06:04)
[2023-09-10] MEDS: Normal Saline Flush 10 ML SYR IVP ×2 (06:05→07:35)
[2023-09-10 06:21] LABS: Abs Immature Grans 0.12 10^3/uL (0.0-0.06); Absolute Basophil Count 0.02 10^3/uL (0.0-0.2); Absolute Eosinophil Count 0.03 10^3/uL (0.0-0.7); Absolute Neutrophil Count 13.74 10^3/uL (1.2-6.7); Basophils % 0.1; Eosinophils % 0.2; HCT 35.2 % (36.0-46.0); HGB 11.1 g/dL (11.2-15.7); Immature Grans % 0.8; MCH 27.6 pg (27.0-33.0); MCHC 31.5 % (32.0-36.0); MCV 88 fL (80-95); MPV 10.2 fL (8.0-11.0); Monocytes % 6.4; Neutrophils % 87.5; Platelet Count 145 10^3/uL (130-400); RBC 4.02 10^6/uL (3.93-5.22); RDW 16.4 % (11.7-14.6); RDW-SD 51.8 fL
[2023-09-10 06:26] LABS: Absolute Lymphocyte Count 0.79 10^3/uL (1.2-3.4)
[2023-09-10] MEDS: Pantoprazole 20 MG TABCR PO (07:31)
[2023-09-10] MEDS: Sertraline 25 MG TAB PO (07:32)
[2023-09-10] MEDS: Benzonatate 200 MG CAP PO (07:32)
[2023-09-10] MEDS: guaiFENesin 600 MG TABCR PO (07:32)
[2023-09-10] MEDS: predniSONE 20 MG TAB 40 MG PO (07:33)
[2023-09-10] MEDS: Dorzolamide 2% 10 ML BTL OD (07:34)
[2023-09-10 07:59] VITALS: BP 140/57; PULSE 63; RESP 18; TEMP 36.5; O2SAT 98
--- NOTE | 2023-09-10 09:03 | CMDISCH_ITS ---
Date of service: 09/10/23 Time of Service: 09:03 LACE Index Scoring Tool Questions: Length of Stay (in days): 7 - 13 Care Management Discharge Plan Reason for Hospitalization: community acquired pneumonia Discharge Plan: Christiane will transfer to a shelter facility for short term rehab then possibly transition to [facility] care. A bed offer was received and accepted from [facility] for tomorrow. Christiane will transport via [facility] coordinated by CM. Patient/Family Education Needs: Review of discharge instructions, limitations, activity. follow up plan, discuss Ask Me Three. Services Needed at Discharge: Senior Care Facility
--- NOTE | 2023-09-10 09:03 | PDOC.CMDIS ---
Date of service: 09/10/23 Time of Service: 09:03 LACE Index Scoring Tool Questions: Length of Stay (in days): 7 - 13 Care Management Discharge Plan Reason for Hospitalization: community acquired pneumonia Discharge Plan: Christiane will transfer to a long-term facility for short term rehab then possibly transition to senior living care. A bed offer was received and accepted from [facility] for tomorrow. Christiane will transport via [facility] coordinated by CM. Patient/Family Education Needs: Review of discharge instructions, limitations, activity. follow up plan, discuss Ask Me Three. Services Needed at Discharge: [facility] Facility
--- NOTE | 2023-09-10 09:21 | DSE_ITS ---
Date of service: 09/10/23 Time of Service: 09:28 DS: Diagnosis Discharge Diagnosis (1) Sinus pause: Status: Acute (2) Acute on chronic respiratory failure with hypoxia and hypercapnia: Status: Acute (3) CAP (community acquired pneumonia): Status: Acute (4) HFrEF (heart failure with reduced ejection fraction): Status: Acute (5) Acute kidney injury superimposed on CKD: Status: Acute (6) ILD (interstitial lung disease): Status: Acute (7) Obesity hypoventilation syndrome: Status: Chronic (8) Hypertension: Status: Chronic (9) Paroxysmal atrial fibrillation: Status: Acute (10) Frequent falls: Status: Acute (11) Subclinical hypothyroidism: Status: Acute Discharge Plan Disposition Patient Disposition: [facility] Condition: Stable Discharge Details Reason For Visit: Acute on chronic hypoxic respiratory failure Admit Date/Time: 08/31/23 15:59 Admit Provider: Jack Parks Attending Provider: Jack Parks Primary Care Provider: Edna Hagen Hospital Course Hospital Course: This is an 83-year-old female patient with complex past medical history including but not limited to interstitial lung disease, congestive heart failure, chronic kidney disease, hypertension, A-fib, sarcoid, chronic hypoxic respiratory failure on 2 L nasal cannula who was brought to the emergency department by EMS after a fall at home. She lives independently at home. Her emergency department evaluation was concerning for acute on chronic respiratory failure secondary to community-acquired pneumonia as well as interstitial lung disease/sarcoid flare and acute on chronic kidney disease. She was admitted under hospitalist services and treated with ceftriaxone and azithromycin. She received IV fluids and needed to be placed on BiPAP for stabilization. She was given IV steroids and transition to oral. She did complete a burst and will be discharged on a taper. She has completed her course of antibiotics and will not need any further antibiotics at discharge. Hospital course complicated with some fluid overload for which she received some additional diuresis with good effect. While on telemetry noted to have sinus pauses which is now thought to have caused her falls. Discussed with [facility] transfer for pacemaker placement but patient declined not wanting to undergo procedure. Palliative care consulted and patient wishes for ongoing medical management. She has completed her antibiotics and downstepped to oral diuretics. She has been working with physical therapy and not safe for discharge to home. referrals placed to rehab and she has been accepted at [facility] for rehabilitation. she is being transported by wheelchair van. discussed with DR Horton Home Meds and New Rx's Prescriptions: New prednisone 10 mg tablet See Taper PO DIRECTED Qty: 30 0RF Taper: Prednisone 10mg taper 30 mg Daily for 2 Days and 0 Hour 20 mg Daily for 2 Days and 0 Hour 10 mg Daily for 2 Days and 0 Hour 5 mg Daily for 2 Days and 0 Hour Rx Instructions: 30 mg for 2 days, 20 mg for 2 days, 10 mg for 2 days, 5 mg for 2 days then stop Continued gabapentin 100 mg capsule 200 mg PO QHS Qty: 120 0RF sertraline 25 mg tablet 25 mg PO DAILY Qty: 90 3RF diclofenac sodium [Arthritis Pain (diclofenac)] 1 % gel 2 g topical BID Qty: 100 2RF brimonidine 0.2 % drops 1 drp ophthalmic (eye) BID Patient Comments: PT REPORTS THIS IS FOR BOTH EYES multivitamin [Daily Vitamin] 1 EACH tablet 1 ea PO DAILY lysine 500 mg tablet 500 mg PO .qod Oxygen EACH 2 l NS 24 hr Qty: 2 Rx Instructions: 3 liter in night, [facility] allopurinol 100 mg tablet 100 mg PO DAILY Qty: 90 3RF torsemide 20 mg tablet 20 mg PO DAILY Qty: 90 3RF pantoprazole 20 mg tablet,delayed release (DR/EC) 20 mg PO DAILY Qty: 90 3RF metoprolol succinate 25 mg Tablet Extended Release 24 Hr 12.5 mg PO BID Qty: 60 0RF dorzolamide 2 % drops 1 drp ophthalmic (eye) BID Patient Comments: 1 drop in right eye only Rx Instructions: 1 drop in right eye only latanoprost 0.005 % drops 1 drp ophthalmic (eye) QHS Patient Comments: INSTILL 1 DROP INTO EACH EYE acetaminophen [Tylenol] 325 mg Tablet 650 mg PO Q6H PRN PRN (Reason: pain) amlodipine 2.5 mg tablet 2.5 mg PO QHS lovastatin 20 mg tablet 20 mg PO QHS ferrous sulfate [Feosol] 325 mg (65 mg iron) tablet 325 mg PO .3x weekly Discharge Instructions Instructions: Community Acquired Pneumonia (DC) Additional Instructions: taper steroid as directed. Stand Alone Forms: Nursing Discharge Form Activity:: Activity as Tolerated Equipment/Supplies:: No Equipment Needed Diet:: As Tolerated Discharge Orders Discharge Orders: Discharge Order (Routine); Ordered 09/10/23 Ordered By: Becca Rodriguez DS: Summary Time Spent with Patient providing and/or coordinating discharge services: Greater than 30 minutes Status at Discharge Functional status at discharge: uses cane/walker Overall status at discharge: patient is progressing back to baseline Mental Status: mental status grossly normal Speech and Movement: speech and movement normal Mood: congruent mood Affect: normal affect Exam Narrative Exam Narrative: Elderly female of stated age frail appearing in no acute distress head is atrau matic oral mucosa is moist cardiovascular regular rate and rhythm respirations even and unlabored breath sounds clear diminished in the bases abdomen benign moves all extremities Psych Mental Status: mental status grossly normal Speech and Movement: speech and movement normal Mood: congruent mood Affect: normal affect DS: Data Vitals/I&O Vitals and I&O: Vital Signs Temperature 36.5 C 09/10/23 07:59 Temperature Source Tympanic 09/10/23 07:59 Pulse 63 09/10/23 07:59 Pulse Rhythm Regular 09/09/23 22:00 Pulse 78 09/06/23 18:01 Respiratory Rate 18 09/10/23 07:59 Respiratory Effort Normal, Non-Labored 09/09/23 22:00 Respiratory Depth Normal 09/09/23 22:00 Respiratory Pattern Normal 09/09/23 22:00 Blood Pressure 140/57 L 09/10/23 07:59 Blood Pressure Mean 97 09/06/23 18:01 Blood Pressure Position Right Lateral 09/06/23 16:14 Pulse Oximetry 98 09/10/23 07:59 Oxygen Delivery Method Room Air 09/10/23 07:59 Oxygen Flow Rate 0 09/10/23 07:59 Fraction of Inspired Oxygen (FIO2) 2 09/06/23 16:14 Pain Level 0 09/10/23 07:59 Comment RN Notified 09/09/23 20:35 Comment BiPap @ this time. 09/01/23 23:47 Intake & Output 09/09/23 09/09/23 09/10/23 11:59 23:59 11:59 Intake Total 740 / 1201 461 / 1201 Output Total 850 / 1600 750 / 1600 700 / 700 Balance -110 / -399 -289 / -399 -700 / -700 Intake: IV 120 / 270 150 / 270 Oral 620 / 931 311 / 931 Output: Urine 850 / 1600 750 / 1600 700 / 700 Other: Urine Color Yellow Yellow Light Rachana Urine Appearance Clear Clear Clear Stool Size Large Stool Characteristics Liquid Formed Brown Hard Liquid Brown Data Completed and Pending Labs on day of discharge: Labs from last 24 hours 09/10/23 06:00 WBC 15.70 H RBC 4.02 Hgb 11.1 L Hct 35.2 L MCV 88 MCH 27.6 MCHC 31.5 L RDW 16.4 H Plt Count 145 MPV 10.2 Immature Gran % 0.8 Neutrophils % 87.5 Lymphocytes % 5.0 Monocytes % 6.4 Eosinophils % 0.2 Basophils % 0.1 Nucleated RBC % 0.0 Absolute Neutrophils 13.74 H Absolute Lymphocytes 0.79 L Absolute Monocytes 1.00 H Absolute Eosinophils 0.03 Absolute Basophils 0.02 PFSH All Active Problems (Updated 09/06/23 @ 11:49 by Beata Cao MD) Sinus pause (Acute) Subclinical hypothyroidism (Acute) Frequent falls (Acute) Advanced care planning/counseling discussion (Acute) Palliative care encounter (Acute) Discharge planning issues (Acute) DVT prophylaxis (Acute) HFrEF (heart failure with reduced ejection fraction) (Acute) ILD (interstitial lung disease) (Acute) Acute on chronic respiratory failure with hypoxia and hypercapnia (Acute) Acute kidney injury superimposed on CKD (Acute) CAP (community acquired pneumonia) (Acute) Severe sepsis (Acute) Pleural effusion (Acute) Pneumonia (Acute) Fall (Acute) CKD (chronic kidney disease) (Chronic) CHF (congestive heart failure) (Chronic) Acute kidney injury (Acute) Respiratory acidosis (Acute) Acute hypercapnic respiratory failure (Acute) Sarcoid (Acute) Acute hypoxic respiratory failure (Acute) ILD (interstitial lung disease) (Acute) Chronic respiratory failure with hypoxia and hypercapnia (Acute) Paroxysmal atrial fibrillation (Acute) Gastritis and duodenitis (Acute) Depression (Chronic) Neuropathic pain of both feet (Acute) Obstructive sleep apnea (Chronic) Severe, CPAP Anemia (Chronic) Chronic renal failure (Chronic) Unspecified diastolic heart failure (Chronic 05/27/12) Echo 05/2012 EF 70% no valve abn; diastolic dysfx Trigeminal neuralgia of left side of face (Chronic 02/17/17) Sarcoidosis (Chronic 02/11/12) Spinal stenosis (Chronic 02/11/12) Restrictive lung disease (Chronic 03/19/16) Dr Zafar [facility]; CT dx Sarcoidosis; prednisone begun 05/2016 PFT 03/2016 FVC 47% FEVi 60% Hypoxia, chronic O2 Rx Primary osteoarthritis of both knees (Chronic 09/23/15) Osteoarthrosis (Chronic 02/23/13) Obesity hypoventilation syndrome (Chronic 09/29/16) with [facility]: BiPAP:Dr Katie Zafar Obesity (Chronic 04/05/13) Nausea vomiting and diarrhea (Acute) recurrent 3-4 X/yr; possible IBS: spells of urgent diarrhea following a meal, occ with vomiting Hyperlipidemia (Chronic 02/23/13) PCEq 28.5%; LDL baseline 184; elects to continue statin Hypertension (Chronic 02/23/13) FRS 21%; goal 150/90 Esophageal reflux (Chronic 02/11/12) Diverticulitis of colon (Chronic 02/11/12) Medical History Chronic hypercapnic respiratory failure History of basal cell carcinoma (BCC) Dr Curtis sclerosing BCCA right jawline 10/2007 Arch pain of right foot Middle insomnia Osteoarthritis of left knee DVT prophylaxis Surgical History Tonsillectomy and adenoidectomy Cholecystectomy twice, first age 18; repeat around 2006 Appendectomy Family History Mother , 75, complications heart surgery No problems noted. Father , age 80, heart attack No problems noted. Daughter , Sarcoidosis, bleeding from the lung No problems noted. Social History Smoking/Tobacco Use Status: Never Smoking risk assessment performed?: Yes Alcohol Intake: never Drug use: Never Substance use type: does not use Adopted: No Caregiver/Support person: No Foster care: No Household members: other Details: apartment [facility] house Housing: house Number of Children: 3 Communication Needs: Corrective Lenses Do you need help understanding health information?: Rarely What is your relationship status?: Panel score (0-1 are the most socially isolated patients): 0 What type of physical activity do you participate in: none Seatbelt use: always Drive intox or ride w/intox commercial driver's license driver: No Working smoke detector in home: Yes Carbon monox detector in home: Yes Do you feel safe at home: Yes Do you feel safe in your relationship?: Yes Time Spent with Patient Time Spent with Patient: 45-69 minutes Time was spent: preparing to see the patient(eg.review tests), obtaining and/or reviewing separately otained hiistory, ordering medications,tests, procedures, indepentently interpreting results, counseling the patient and care coordination
[2023-09-10] MEDS: Heparin 5,000 UNITS/ML VIAL 5000 UNITS SC (09:39)
[2023-09-10] MEDS: Docusate Sodium 100 MG CAP PO (09:39)
[2023-09-10] MEDS: Torsemide 20 MG TAB PO (09:39)
[2023-09-10] MEDS: Polyethylene Glycol 3350 17 GM PACKET PO (09:40)
--- NOTE | 2023-09-10 10:44 | NT_ITS ---
Date of service: 09/10/23 Time of Service: 10:15 PT Notes Visit Reasons: Acute on chronic hypoxic respiratory failure Issued and reviewed HEP with patient and granddaughter as follows: Access Code: [email or web address] URL: [email or web address] Date: 09/10/2023 Prepared by: Brianne Lemons Exercises - Seated Shoulder Flexion Full Range? - 1 x daily - 7 x weekly - 1 sets - 10 reps - Seated Shoulder Abduction - Thumbs Up? - 1 x daily - 7 x weekly - 1 sets - 10 reps - Seated Sidebending? - 1 x daily - 7 x weekly - 1 sets - 10 reps Handouts for ?Understanding Energy Conservation,? ?Energy Conservation during Daily Tasks,? and ?Injury Prevention: How to Prevent Falls.? Total time spent with patient 7 minutes.
== END 2023-09-10 13:02 | disposition skilled nursing facility (03) | DRG 193 ==
LOC: ER 17:10 → ICU 17:27 → MS 09-02 18:24 → ICU 09-06 09:29 → MS 09-06 20:31
PROVIDERS: Family Medicine; Internal Medicine; Nurse Practitioner Acute Care; Admitting Provider Family Medicine; Emergency Provider Student in an Organized Health Care Education/Training Program; PCP Nurse Practitioner; Visit Provider Family Medicine
DX: J18.9 Pneumonia, unspecified organism (principal); I50.23 Acute on chronic systolic (congestive) heart failure; J96.21 Acute and chronic respiratory failure with hypoxia; J96.22 Acute and chronic respiratory failure with hypercapnia; N17.9 Acute kidney failure, unspecified; E66.2 Morbid (severe) obesity with alveolar hypoventilation; I13.0 Hypertensive heart and chronic kidney disease with heart failure and stage 1 through stage 4 chronic kidney disease, or unspecified chronic kidney disease; N18.9 Chronic kidney disease, unspecified; I48.0 Paroxysmal atrial fibrillation; R29.6 Repeated falls; Z99.81 Dependence on supplemental oxygen; W18.39XA Other fall on same level, initial encounter; D86.0 Sarcoidosis of lung; K29.50 Unspecified chronic gastritis without bleeding; K29.80 Duodenitis without bleeding; F32.A Depression, unspecified; D64.9 Anemia, unspecified; G50.0 Trigeminal neuralgia; M48.00 Spinal stenosis, site unspecified; M17.0 Bilateral primary osteoarthritis of knee; K21.9 Gastro-esophageal reflux disease without esophagitis; E78.5 Hyperlipidemia, unspecified; G62.9 Polyneuropathy, unspecified; M10.9 Gout, unspecified; Z66 Do not resuscitate; Z91.199 Patient's noncompliance with other medical treatment and regimen due to unspecified reason; I15.0 Renovascular hypertension; E03.9 Hypothyroidism, unspecified; I45.10 Unspecified right bundle-branch block; I49.5 Sick sinus syndrome; Z68.38 Body mass index [BMI] 38.0-38.9, adult
CPT/HCPCS: 00123; 36410; 36415; 71250; 80048; 80053; 82805; 83690; 84145; 85027; 87040; 87637; 93005; 94618; 94640; 96365; 96367; 96375; 97110; 97162; 97530; 99291; J1650; 70450; 71045; 72125; 74176; 80320; 81003; 81015; 82150; 83605; 83735; 83880; 84439; 84443; 84484; 85025; 85610; 85730; 87086; 93010; 93970; 94660; 94667; 94668; 94760; 99223; 99232; 99233; 99239; 99292; J0456; J0696; J1644; J1940; J2930; J7512; J7620